=== PATIENT | male | born 1980 | race African-American/Black ===

== ENCOUNTER 2017-07-02 17:31 | Emergency (ER) | payer SELFPAY ==
[2017-07-02 17:37] VITALS: BP 144/73; PULSE 77; TEMP 97.5; BMI 27.3
--- NOTE | 2017-07-02 18:14 | PDOC ---
History of Present Illness - General Chief Complaint: Toothache Stated Complaint: TOOTH INFECTION Time Seen by Provider: 07/02/17 17:45 History Source: Patient Exam Limitations: No Limitations - History of Present Illness Initial Comments: 07/02/17 18:07 Patient is a 36-year-old male, history of HIV on atripla presents for evaluation of dental pain to left upper mouth and cracked tooth to right upper mouth. Patient states he will see a dentist on Friday pain started today and has increasingly gotten worse concerned he may have an abscess. No fever. Facial edema. Has been taking Tylenol with resolve of symptoms. Past Medical History: Denies. Allergies: Patient reports he does have a penicillin allergy however is not documented, Bactrim Medications: See medication list Family History: Non-contributory Social History: Denies smoking, alcohol use, or IVDU Review of Systems GENERAL/CONSTITUTIONAL: No fever or chills. No weakness. No weight change. HEAD, EYES, EARS, NOSE AND THROAT: No change in vision. No ear pain or discharge. No sore throat. Significant dental decay, cracked tooth #5 and cracked tooth #12. CARDIOVASCULAR: No chest pain or shortness of breath. RESPIRATORY: No cough, wheezing, or hemoptysis. GASTROINTESTINAL: No nausea, vomiting, diarrhea or constipation. No rectal bleeding. GENITOURINARY: No dysuria, frequency, or change in urination. MUSCULOSKELETAL: No joint or muscle swelling or pain. No neck or back pain. SKIN: No rash or easy bruising. NEUROLOGIC: No headache, vertigo, loss of consciousness, or loss of sensation. HEMATOLOGIC/LYMPHATIC: No anemia, easy bleeding, or history of blood clots. No lymphadenopathy Physical Exam: GENERAL: The patient is awake, alert, and fully oriented, in no acute distress. EYES: Pupils equal, round and reactive to light, extraocular movements intact, sclera anicteric, conjunctiva clear. ENT: Ears normal, nares patent, oropharynx clear without exudates. Moist mucous membranes. No uvula deviation. No facial edema. Cracked tooth #5 and cracked tooth #12 with root exposure there is no visible abscess at gumline, and however patient reports pain and fullness. NECK: Normal range of motion, supple without lymphadenopathy, JVD, or masses. LUNGS: Breath sounds equal, clear to auscultation bilaterally. No wheezes, and no crackles. HEART: Regular rate and rhythm, normal S1 and S2 without murmur, rub or gallop. ABDOMEN: Soft, nontender, normoactive bowel sounds. No guarding, no rebound. No masses. No bruising or abrasions MUSCULOSKELETAL: Normal range of motion, no edema. No clubbing or cyanosis. No cords, erythema, or tenderness. No CVA Tenderness with fist. SKIN: Warm, Dry, normal turgor, no rashes or lesions noted. 07/02/17 18:16 07/02/17 18:21 Past History - Past Medical History Allergies/Adverse Reactions: Allergies Allergy/AdvReac Type Severity Reaction Status Date / Time sulfamethoxazole Allergy Rash Verified 07/02/17 17:36 [From Bactrim] trimethoprim [From Bactrim] Allergy Rash Verified 07/02/17 17:36 Home Medications: Ambulatory Orders Efavirenz/Emtricitab/Tenofovir [Atripla Tablet -] 1 tab PO DAILY #30 tab Acetaminophen [Tylenol] 325 mg PO ASDIR 07/02/17 Clindamycin [Cleocin -] 300 mg PO TID #30 capsule 07/02/17 Oxycodone HCl/Acetaminophen [Percocet 5-325 mg Tablet] 1 tab PO Q6H #8 tablet MDD 4 07/02/17 Anemia: No Asthma: No Cancer: No Cardiac Disorders: No CVA: No COPD: No CHF: No Dementia: No Diabetes: No GI Disorders: No Disorders: No HTN: No Liver Disease: No Seizures: No Thyroid Disease: No - Surgical History Abdominal Surgery: No Appendectomy: No Cardiac Surgery: No Cholecystectomy: No Lung Surgery: No Neurologic Surgery: No Orthopedic Surgery: No - Immunization History Immunization Up to Date: No - Suicide/Smoking/Psychosocial Hx Smoking History: Current every day smoker Have you smoked in the past 12 months: Yes Number of Cigarettes Smoked Daily: 10 If you are a former smoker, when did you quit?: 2008 Cigars Per Day: 0 Information on smoking cessation initiated: Yes 'Breaking Loose' booklet given: 07/02/17 Hx Alcohol Use: Yes (SOCIAL) Drug/Substance Use Hx: No Substance Use Type: None Hx Substance Use Treatment: No *Physical Exam - Vital Signs Last Vital Signs Temp Pulse Resp BP Pulse Ox 97.5 F L 77 20 144/73 95 07/02/17 17:34 07/02/17 17:34 07/02/17 17:34 07/02/17 17:34 07/02/17 17:34 Medical Decision Making - Medical Decision Making 07/02/17 18:11 A/P: Patient here for evaluation of significant dental decay with pain. We'll discharge patient home on clindamycin, Percocet for pain. Patient has an appointment on Friday will follow up with dental if any increased pain, facial edema, lymphadenopathy, or any other concerns including fever return to ER. 07/02/17 18:17 *DC/Admit/Observation/Transfer Diagnosis at time of Disposition: Pain, dental - Discharge Dispostion Disposition: HOME Condition at time of disposition: Good Admit: No - Prescriptions Prescriptions: Clindamycin [Cleocin -] 300 mg PO TID #30 capsule Oxycodone HCl/Acetaminophen [Percocet 5-325 mg Tablet] 1 tab PO Q6H #8 tablet MDD 4 - Patient Instructions Printed Discharge Instructions: DI for Dental Pain Additional Instructions: please take antibiotics as ordered, warm saltwater gargles, follow-up with dental on Friday
== END 2017-07-02 18:29 | disposition home or self-care (01) ==
LOC: JERFT 17:31
DX: K08.89 Other specified disorders of teeth and supporting structures (principal); F17.210 Nicotine dependence, cigarettes, uncomplicated; Z21 Asymptomatic human immunodeficiency virus [HIV] infection status
CPT/HCPCS: 99281-25

== ENCOUNTER 2018-03-15 09:09 | Inpatient (IN) | payer OTHER ==
[2018-03-15] MEDS ORDERED: SODIUM CHLORIDE 1,000 ML IV STA (09:34)
[2018-03-15] MEDS ORDERED: ACETAMINOPHEN INJECTION 100 ML IVPB ONE (09:34)
[2018-03-15] MEDS ORDERED: ACETAMINOPHEN 1000 MG/100 ML VIAL (NON FORMULARY) IVPB ONE (09:36)
[2018-03-15 10:01] LABS: VENOUS PC02 29.3 mmHg (38-52); VENOUS PH 7.52 (7.32-7.42)
[2018-03-15 10:02] LABS: VENOUS PO2 46.1 mmHg (28-48)
[2018-03-15 10:05] LABS: BASO % 0.2 % (0-2.0); EOS % 0.1 % (0-4.5); HEMATOCRIT 40.9 % (35.4-49); HEMOGLOBIN 14.1 GM/dL (11.7-16.9); LYMPH % 9.3 % (8-40); MCHC 34.5 g/dl (32.0-35.9); MEAN CELL VOLUME 95.9 fl (80-96); MEAN PLT VOLUME 9.7 fl (7.5-11.1); NEUT % 77.4 % (42.8-82.8); PLATELET COUNT 132 K/MM3 (134-434); RBC 4.26 M/mm3 (4.00-5.60); RDW 13.5 % (11.9-15.9); WHITE BLOOD COUNT 6.8 K/mm3 (4.0-10.0)
[2018-03-15] MEDS ORDERED: PIPERACILLIN/TAZOB 3.375 GM 3.375 GM in DEXTROSE 5%-WATER - 50 ML IVPB ONE (10:10)
[2018-03-15] MEDS ORDERED: VANCOMYCIN 1,000 MG in DEXTROSE 5%-WATER - 250 ML IVPB ONE (10:10)
--- NOTE | 2018-03-15 10:11 | PDOC ---
History of Present Illness - General History Source: Patient, Old Records Exam Limitations: No Limitations - History of Present Illness Initial Comments: 03/15/18 12:17 Patient is a 37 year old female with a significant past medical history of HIV on atripla who presents to the ED with complaints of shortness of breath that began yesterday. Patient reports experiencing productive cough and shortness of breath that began yesterday at 5 pm after visiting his [place] in [place]. Patient reports beginning to experience Sob but states he initially thought it to be seasonal allergies as he has experienced that before. He reports feeling like there is fluid in his lungs, stating he has felt this before and was diagnosed with fluid in his lungs secondary to respiratory infection, prompting him to come into the ED for further evaluation. Patient states he does not believe this to be pneumonia stating he has experienced pneumonia before and these symptoms do not feel similar. Denies chest pain. Denies nausea, vomiting. Denies chills. Denies contact with sick individuals, out of state travelling. Denies dysuria, hematuria. Denies constipation, diarrhea. Denies any other symptoms. Allergies: Bactrim Social history: Current smoker (2 cigarettes per day). No alcohol. No illicit drugs. Surgical history: None PMD: None <Armando Salvador - Last Filed: 03/15/18 12:16> <Erika Morgan - Last Filed: 03/15/18 14:04> - General Chief Complaint: Respiratory Stated Complaint: SOB, COUGH Time Seen by Provider: 03/15/18 09:34 Past History <Armando Salvador - Last Filed: 03/15/18 12:16> - Past Medical History Anemia: No Asthma: No Cancer: No Cardiac Disorders: No CVA: No COPD: No CHF: No Dementia: No Diabetes: No GI Disorders: No Disorders: No HTN: No Liver Disease: No Seizures: No Thyroid Disease: No - Surgical History Abdominal Surgery: No Appendectomy: No Cardiac Surgery: No Cholecystectomy: No Lung Surgery: No Neurologic Surgery: No Orthopedic Surgery: No - Immunization History Immunization Up to Date: No - Suicide/Smoking/Psychosocial Hx Smoking History: Current every day smoker Have you smoked in the past 12 months: Yes Number of Cigarettes Smoked Daily: 10 If you are a former smoker, when did you quit?: 2008 Cigars Per Day: 0 Information on smoking cessation initiated: No 'Breaking Loose' booklet given: 07/02/17 Hx Alcohol Use: Yes (SOCIAL) Drug/Substance Use Hx: No Substance Use Type: None Hx Substance Use Treatment: No <Erika Morgan - Last Filed: 03/15/18 14:04> - Past Medical History Allergies/Adverse Reactions: Allergies Allergy/AdvReac Type Severity Reaction Status Date / Time sulfamethoxazole Allergy Rash Verified 03/15/18 09:16 [From Bactrim] trimethoprim [From Bactrim] Allergy Rash Verified 03/15/18 09:16 Home Medications: Ambulatory Orders Efavirenz/Emtricitab/Tenofovir [Atripla Tablet -] 1 tab PO DAILY #30 tab Review of Systems - Review of Systems Able to Perform ROS?: Yes Comments:: 03/15/18 12:17 GENERAL/CONSTITUTIONAL: +Fever No chills. No weakness. HEAD, EYES, EARS, NOSE AND THROAT: No change in vision. No ear pain or discharge. No sore throat. GASTROINTESTINAL: No nausea, vomiting, diarrhea or constipation. GENITOURINARY: No dysuria, frequency, or change in urination. CARDIOVASCULAR: No chest pain or shortness of breath. RESPIRATORY: +Coughing. +Shortness of breath. No wheezing, or hemoptysis. MUSCULOSKELETAL: +Slight abdominal pain. No joint or muscle swelling or pain. No neck or back pain. SKIN: No rash NEUROLOGIC: +body numbness. No headache, vertigo, loss of consciousness, or change in strength/sensation. ENDOCRINE: No increased thirst. No abnormal weight change. HEMATOLOGIC/LYMPHATIC: No anemia, easy bleeding, or history of blood clots. ALLERGIC/IMMUNOLOGIC: No hives or skin allergy. All Other Systems: Reviewed and Negative <Armando Salvador - Last Filed: 03/15/18 12:16> *Physical Exam - Vital Signs Last Vital Signs Temp Pulse Resp BP Pulse Ox 100.3 F H 95 H 18 109/62 95 03/15/18 11:05 03/15/18 11:05 03/15/18 11:05 03/15/18 11:05 03/15/18 11:05 <Armando Salvador - Last Filed: 03/15/18 12:16> - Vital Signs Last Vital Signs Temp Pulse Resp BP Pulse Ox 103.1 F H 126 H 20 112/69 92 L 03/15/18 09:13 03/15/18 09:13 03/15/18 09:13 03/15/18 09:13 03/15/18 09:13 - Physical Exam Comments: GENERAL: Awake, alert, and fully oriented, in no acute distress. Appears ill but nontoxic. HEAD: No signs of trauma EYES: PERRLA, EOMI, sclera anicteric, conjunctiva clear ENT: Auricles normal inspection, hearing grossly normal, nares patent, oropharynx clear without exudates. Dry mucosa NECK: Normal ROM, supple, no lymphadenopathy, JVD, or masses LUNGS: Breath sounds equal, +Rhonchi B/L. HEART: Regular rate and rhythm, normal S1 and S2, no murmurs, rubs or gallops ABDOMEN: Soft, nontender, normoactive bowel sounds. No guarding, no rebound. No masses EXTREMITIES: Normal range of motion, no edema. No clubbing or cyanosis. No cords, erythema, or tenderness NEUROLOGICAL: Cranial nerves II through XII grossly intact. Normal speech, normal gait. Motor and sensation intact. SKIN: Warm, Dry, normal turgor, no rashes or lesions noted. <Erika Morgan - Last Filed: 03/15/18 14:04> ED Treatment Course - LABORATORY CBC & Chemistry Diagram: 03/15/18 09:48 03/15/18 09:48 - ADDITIONAL ORDERS Additional order review: Laboratory Results 03/15/18 03/15/18 03/15/18 11:04 09:48 09:48 PT with INR INR PTT (Actin FS) VBG pH POC VBG pCO2 POC VBG pO2 Mixed VBG HCO3 Sodium 135 L Potassium 3.1 L Chloride 99 Carbon Dioxide 26 Anion Gap 10 BUN 11 D Creatinine 1.3 D Creat Clearance w eGFR > 60 Random Glucose 84 Lactic Acid 1.8 Calcium 7.0 L Total Bilirubin 0.6 D AST 37 D ALT 38 D Alkaline Phosphatase 76 LD Total 381 H D Troponin I < 0.02 Total Protein 6.8 Albumin 3.1 L Urine Color Yellow Urine Appearance Clear Urine pH 7.0 Ur Specific [place] 1.015 Urine Protein 1+ H Urine Glucose (UA) Negative Urine Ketones Negative Urine Blood Negative Urine Nitrite Negative Urine Bilirubin Negative Urine Urobilinogen 2.0 Ur Leukocyte Esterase Negative Urine WBC (Auto) 1 Urine RBC (Auto) <1 03/15/18 03/15/18 03/15/18 09:48 09:40 09:40 PT with INR 16.50 H INR 1.46 H D PTT (Actin FS) 29.3 VBG pH 7.52 H POC VBG pCO2 29.3 L POC VBG pO2 46.1 Mixed VBG HCO3 23.9 Sodium Potassium Chloride Carbon Dioxide Anion Gap BUN Creatinine Creat Clearance w eGFR Random Glucose Lactic Acid Calcium Total Bilirubin AST ALT Alkaline Phosphatase LD Total Cancelled Troponin I Total Protein Albumin Urine Color Urine Appearance Urine pH Ur Specific [place] Urine Protein Urine Glucose (UA) Urine Ketones Urine Blood Urine Nitrite Urine Bilirubin Urine Urobilinogen Ur Leukocyte Esterase Urine WBC (Auto) Urine RBC (Auto) 03/15/18 09:48 Influenza Types A,B Antigen - Preliminary Nasopharyngeal Swab - Preliminary 03/15/18 09:48 RBC 4.26 MCV 95.9 MCHC 34.5 RDW 13.5 MPV 9.7 D Neutrophils % 77.4 D Lymphocytes % 9.3 D Monocytes % 13.0 H Eosinophils % 0.1 D Basophils % 0.2 - Medications Given in the ED: ED Medications Discontinued Medications Generic Name Dose Route Start Last Admin Trade Name Freq PRN Reason Stop Dose Admin Acetaminophen 1,000 mg 03/15/18 09:36 03/15/18 09:55 Ofirmev Injection - IVPB 03/15/18 09:37 1,000 mg ONCE ONE Administration Albuterol Sulfate 1 amp 03/15/18 10:13 03/15/18 10:34 Ventolin 0.083% Nebulizer Soln - NEB 03/15/18 10:14 1 amp ONCE ONE Administration Sodium Chloride 1,000 mls @ 1,000 mls/hr 03/15/18 09:34 03/15/18 09:55 Normal Saline - IV 03/15/18 10:33 1,000 mls/hr ASDIR STA Administration Vancomycin HCl 1,000 mg/ 250 mls @ 166.667 mls/hr 03/15/18 10:10 03/15/18 10: 56 Dextrose IVPB 03/15/18 11:39 166.667 mls/hr ONCE ONE Administration Protocol Piperacillin Sod/Tazobactam 50 mls @ 100 mls/hr 03/15/18 10:10 03/15/18 10:34 Sod 3.375 gm/ Dextrose IVPB 03/15/18 10:39 100 mls/hr ONCE ONE Administration Protocol Potassium Chloride 40 meq 03/15/18 11:03 03/15/18 11:23 K-Dur - PO 03/15/18 11:04 40 meq ONCE ONE Administration <Armando Salvador - Last Filed: 03/15/18 12:16> - LABORATORY CBC & Chemistry Diagram: 03/15/18 09:48 03/15/18 09:48 - ADDITIONAL ORDERS Additional order review: Laboratory Results 03/15/18 09:40 VBG pH 7.52 H POC VBG pCO2 29.3 L POC VBG pO2 46.1 Mixed VBG HCO3 23.9 - RADIOLOGY Radiology Studies Ordered: Category Date Time Status CHEST X-RAY PORTABLE* [RAD] Stat Radiology 03/15/18 09:34 Taken - Medications Given in the ED: ED Medications Discontinued Medications Generic Name Dose Route Start Last Admin Trade Name Luis A PRN Reason Stop Dose Admin Acetaminophen 1,000 mg 03/15/18 09:36 03/15/18 09:55 Ofirmev Injection - IVPB 03/15/18 09:37 1,000 mg ONCE ONE Administration <Erika Morgan - Last Filed: 03/15/18 14:04> Medical Decision Making - Medical Decision Making 03/15/18 12:45 Patient with fever, unknown CD4 count. Prior history of HIV, has been off atripla for past few months due to insurance issues. He has cough with high fever today. Patient with elevated A-a gradient on ABG. CXR is negative. Poss PCP? D/w Dr. Castañeda, recommended CT chest. Paged hospitalist for admission. <Erika Morgan - Last Filed: 03/15/18 14:04> *DC/Admit/Observation/Transfer - Attestations Scribe Attestion: 03/15/18 12:17 Documentation prepared by Armando Salvador, acting as medical claims assistant for Erika Morgan MD. <Armando Salvador - Last Filed: 03/15/18 12:16> - Discharge Dispostion Decision to Admit order: Yes <Erika Morgan - Last Filed: 03/15/18 14:04> Diagnosis at time of Disposition: AIDS (acquired immune deficiency syndrome) Fever Qualifiers: Fever type: unspecified Qualified Code(s): R50.9 - Fever, unspecified - Discharge Dispostion Condition at time of disposition: Stable
[2018-03-15] MEDS ORDERED: ALBUTEROL SO4 0.083% IH SOL 2.5 MG/3 ML VIAL.NEB. NEB ONE ×2 (10:13→10:25)
[2018-03-15] MEDS ORDERED: PIPERACILLIN/TAZOB 3.375 GM 3.375 GM/50 ML BAG IVPB ONE (10:25)
[2018-03-15] MEDS ORDERED: VANCOMYCIN 1 GRAM (PRE-DOCKED) 1,000 MG/250 ML BAG IVPB ONE (10:25)
[2018-03-15 10:38] LABS: ALBUMIN 3.1 g/dl (3.4-5.0); ANION GAP 10 (8-16); BILIRUBIN,TOTAL 0.6 mg/dL (0.2-1.0); BLOOD UREA NITROGEN 11 mg/dL (7-18); CHLORIDE 99 mmol/L (98-107); CO2 26 mmol/L (21-32); CREATININE 1.3 mg/dL (0.7-1.3); GLUCOSE,RANDOM 84 mg/dL (74-106); POTASSIUM 3.1 mmol/L (3.5-5.1); SGOT/AST 37 U/L (15-37); SGPT/ALT 38 U/L (12-78); SODIUM 135 mmol/L (136-145); TOT PROT 6.8 g/dl (6.4-8.2)
[2018-03-15 10:40] LABS: ALK PHOS 76 U/L (45-117)
[2018-03-15 11:00] LABS: PLATELET ESTIMATE DECREASED
[2018-03-15] MEDS ORDERED: CALCIUM GLUCONATE 10% - 1,000 MG/10 ML VIAL IVPB ONE (11:03)
[2018-03-15] MEDS ORDERED: POTASSIUM CHLORIDE TABS 20 MEQ TABLET.ER (FP) PO ONE ×3 (11:03→17:09)
[2018-03-15 11:12] LABS: LDH 381 U/L (87-241)
[2018-03-15] MEDS ORDERED: POTASSIUM CHLORIDE TABS 10 MEQ TABLET.ER (FP) ONE (11:16)
[2018-03-15 11:31] LABS: INR 1.46 (0.82-1.09); PROTHROMBIN TIME (PATIENT) 16.5 SEC (9.7-13.0)
[2018-03-15 11:32] LABS: ACTIVATED PTT 29.3 SECONDS (26.9-34.4)
[2018-03-15 11:33] LABS: URINE APPEARANCE CLEAR; URINE BILIRUBIN NEGATIVE (<2.0 mg/dL); URINE BLOOD NEGATIVE (NEGATIVE); URINE COLOR YELLOW; URINE GLUCOSE (UA) NEGATIVE (NEGATIVE); URINE KETONE NEGATIVE (NEGATIVE); URINE LEUK ESTERASE NEGATIVE (NEGATIVE); URINE NITRITE NEGATIVE (NEGATIVE)
[2018-03-15 11:34] LABS: URINE PROTEIN 1+ (NEGATIVE)
[2018-03-15 12:30] LABS: ARTERIAL BLD GAS O2 SATURATION 94.3 % (90-98.9); ARTERIAL BLOOD GAS PCO2 32.4 mmHg (35-45); ARTERIAL BLOOD GAS PO2 67.9 mmHg (80-100); ARTERIAL BLOOD GAS pH 7.47 (7.35-7.45)
[2018-03-15 12:32] LABS: ALLENS TEST POSITIVE
[2018-03-15] MEDS ORDERED: ACETAMINOPHEN 325 MG TABLET (FP) PO PRN (15:40)
[2018-03-15 15:43] VITALS: BMI 30.8
--- NOTE | 2018-03-15 16:09 | PN ---
Progress Note (short form) - Note Progress Note: ID Consult dictated Bilateral pneumonia ? community acquired/ atypical ? AFB ( nodular appearance, low CD4, recent incarceration) AIDS non- compliant AFB isolation Sputum AFB, c/s Legionella/ pneumococcal ag Quantiferon Empiric zithromax/ ceftriaxone PCP prophylaxis Mepron (sulfa allergy)
[2018-03-15] MEDS ORDERED: DEXTROSE 5%-WATER 100 ML IVPB ONE (16:22)
[2018-03-15] MEDS: CEFTRIAXONE 2 GM in DEXTROSE 5%-WATER 100 ML IVPB SCH (16:23)
--- NOTE | 2018-03-15 17:09 | HP ---
CHIEF COMPLAINT: PCP: HISTORY OF PRESENT ILLNESS: Patient is a 37 year old male with a significant past medical history of HIV+ on Atriplia (patient reports non compliance secondary to insurance). Patient presents to the ED today with complaints of worsening shortness of breath that began yesterday and worsened today. He has a productive cough and now more short of breath with physical activity. Patient reports that when visiting his father in skilled nursing yesterday, his breathing worsened. He feels congested and that there is fluid sitting in his lungs. Patient denies chest pain, denies vomiting , fever or chills. He has not taken his HIV triple therapy secondary to insurance issues and not has followed up with a physician. He was seen at the [facility] on 10/2016 and cd4 helper cells noted to be [address] done on admission shows bilateral pneumonia. He is tolerating room air with stable oxygen sats, however is short of breath with exertion. Based on his history and low CD4 count, patient is being ruled out for pneumocystitis carinii pneumonia. He is currently on AFB isolation. ER course was notable for: (1) Empiric Zithromax, ceftriazone (2) Chest xary: congestive and infiltrative findings (3) Chest ct: diffused pneumonia involving the right upper and lower lobes as well as the left lower lobe (4) EKG: sinus tachycardia, possible left atrial englargement, non specific t wave abnormality, non specific t wave abnormality worse in lateral leads Recent Travel: PAST MEDICAL HISTORY: HIV PAST SURGICAL HISTORY: Social History: Smoking: current daily smoker Alcohol: denies Drugs: denies Family History: Allergies sulfamethoxazole [From Bactrim] Allergy (Verified 03/15/18 09:16) Rash trimethoprim [From Bactrim] Allergy (Verified 03/15/18 09:16) Rash HOME MEDICATIONS: Home Medications Medication Instructions Recorded Efavirenz/Emtricitab/Tenofovir 1 tab PO DAILY #30 tab 10/17/16 [Atripla Tablet -] PHYSICAL EXAMINATION Vital Signs - 24 hr 03/15/18 03/15/18 03/15/18 09:13 11:05 12:46 Temperature 103.1 F H 100.3 F H Pulse Rate 126 H Pulse Rate [ 95 H Right Radial] Respiratory 20 18 Rate Blood Pressure 112/69 Blood Pressure 109/62 [Left Arm] O2 Sat by Pulse 92 L 95 95 Oximetry (%) 03/15/18 03/15/18 03/15/18 14:00 15:41 16:16 Temperature 99.7 F H 98.7 F Pulse Rate 99 H Pulse Rate [ 98 H Right Radial] Respiratory 18 20 20 Rate Blood Pressure 125/94 Blood Pressure 107/68 [Left Arm] O2 Sat by Pulse 98 98 Oximetry (%) GENERAL: Awake, alert, and fully oriented, in no acute distress. HEAD: Normal with no signs of trauma. EYES: Pupils equal, round and reactive to light, extraocular movements intact, sclera anicteric, conjunctiva clear. No lid lag. EARS, NOSE, THROAT: Ears normal, nares patent, oropharynx clear without exudates. Moist mucous membranes. NECK: Normal range of motion, supple without lymphadenopathy, JVD, or masses. LUNGS: Breath sounds equal, bilateral lungs sounds with scattered rhonchi, tolerating room air HEART: Regular rate and rhythm, normal S1 and S2 without murmur, rub or gallop. ABDOMEN: Soft, nontender, not distended, normoactive bowel sounds, no guarding, no rebound, no masses. No hepatomegaly or splenomegaly. MUSCULOSKELETAL: Normal range of motion at all joints. No bony deformities or tenderness. No CVA tenderness. UPPER EXTREMITIES: 2+ pulses, warm, well-perfused. No cyanosis. No clubbing. No peripheral edema. LOWER EXTREMITIES: 2+ pulses, warm, well-perfused. No calf tenderness. No peripheral edema. NEUROLOGICAL: Normal speech. Normal gait. PSYCHIATRIC: Cooperative. Good eye contact. Appropriate mood and affect. SKIN: Warm, dry, normal turgor, no rashes or lesions noted, normal capillary refill. Laboratory Results - last 24 hr 03/15/18 03/15/18 03/15/18 09:40 09:40 09:48 WBC 6.8 D RBC 4.26 Hgb 14.1 Hct 40.9 MCV 95.9 MCH 33.0 MCHC 34.5 RDW 13.5 Plt Count 132 L D MPV 9.7 D Total Counted 100 Neutrophils % 77.4 D Neutrophils % (Manual) 63.0 Band Neutrophils % 10.0 Lymphocytes % 9.3 D Lymphocytes % (Manual) 4.0 L Monocytes % 13.0 H Monocytes % (Manual) 18 H Eosinophils % 0.1 D Eosinophils % (Manual) 1.0 Basophils % 0.2 Myelocytes % (Man) 2 Nucleated RBC % 0 Metamyelocytes 2 Platelet Estimate Decreased PT with INR INR PTT (Actin FS) Puncture Site ABG pH ABG pCO2 at Pt Temp ABG pO2 at Pt Temp ABG HCO3 ABG O2 Sat (Measured) ABG O2 Content ABG Base Excess Buck Test VBG pH 7.52 H POC VBG pCO2 29.3 L POC VBG pO2 46.1 Mixed VBG HCO3 23.9 Oxygen Flow Rate Sodium Potassium Chloride Carbon Dioxide Anion Gap BUN Creatinine Creat Clearance w eGFR Random Glucose Lactic Acid Calcium Total Bilirubin AST ALT Alkaline Phosphatase LD Total Cancelled Troponin I Total Protein Albumin Urine Color Urine Appearance Urine pH Ur Specific Cic[place] Urine Protein Urine Glucose (UA) Urine Ketones Urine Blood Urine Nitrite Urine Bilirubin Urine Urobilinogen Ur Leukocyte Esterase Urine WBC (Auto) Urine RBC (Auto) 03/15/18 03/15/18 03/15/18 09:48 09:48 09:48 WBC RBC Hgb Hct MCV MCH MCHC RDW Plt Count MPV Total Counted Neutrophils % Neutrophils % (Manual) Band Neutrophils % Lymphocytes % Lymphocytes % (Manual) Monocytes % Monocytes % (Manual) Eosinophils % Eosinophils % (Manual) Basophils % Myelocytes % (Man) Nucleated RBC % Metamyelocytes Platelet Estimate PT with INR 16.50 H INR 1.46 H D PTT (Actin FS) 29.3 Puncture Site ABG pH ABG pCO2 at Pt Temp ABG pO2 at Pt Temp ABG HCO3 ABG O2 Sat (Measured) ABG O2 Content ABG Base Excess Buck Test VBG pH POC VBG pCO2 POC VBG pO2 Mixed VBG HCO3 Oxygen Flow Rate Sodium 135 L Potassium 3.1 L Chloride 99 Carbon Dioxide 26 Anion Gap 10 BUN 11 D Creatinine 1.3 D Creat Clearance w eGFR > 60 Random Glucose 84 Lactic Acid 1.8 Calcium 7.0 L Total Bilirubin 0.6 D AST 37 D ALT 38 D Alkaline Phosphatase 76 LD Total 381 H D Troponin I < 0.02 Total Protein 6.8 Albumin 3.1 L Urine Color Urine Appearance Urine pH Ur Specific [place] Urine Protein Urine Glucose (UA) Urine Ketones Urine Blood Urine Nitrite Urine Bilirubin Urine Urobilinogen Ur Leukocyte Esterase Urine WBC (Auto) Urine RBC (Auto) 03/15/18 03/15/18 03/15/18 11:04 12:21 14:55 WBC RBC Hgb Hct MCV MCH MCHC RDW Plt Count MPV Total Counted Neutrophils % Neutrophils % (Manual) Band Neutrophils % Lymphocytes % Lymphocytes % (Manual) Monocytes % Monocytes % (Manual) Eosinophils % Eosinophils % (Manual) Basophils % Myelocytes % (Man) Nucleated RBC % Metamyelocytes Platelet Estimate PT with INR INR PTT (Actin FS) Puncture Site ABG pH 7.47 H ABG pCO2 at Pt Temp 32.4 L ABG pO2 at Pt Temp 67.9 L ABG HCO3 23.5 ABG O2 Sat (Measured) 94.3 ABG O2 Content 17.8 ABG Base Excess 1.0 Buck Test Positive VBG pH POC VBG pCO2 POC VBG pO2 Mixed VBG HCO3 Oxygen Flow Rate No Result Required. Sodium Potassium Chloride Carbon Dioxide Anion Gap BUN Creatinine Creat Clearance w eGFR Random Glucose Lactic Acid 1.8 Calcium Total Bilirubin AST ALT Alkaline Phosphatase LD Total Troponin I Total Protein Albumin Urine Color Yellow Urine Appearance Clear Urine pH 7.0 Ur Specific [place] 1.015 Urine Protein 1+ H Urine Glucose (UA) Negative Urine Ketones Negative Urine Blood Negative Urine Nitrite Negative Urine Bilirubin Negative Urine Urobilinogen 2.0 Ur Leukocyte Esterase Negative Urine WBC (Auto) 1 Urine RBC (Auto) <1 03/15/18 16:05 WBC RBC Hgb Hct MCV MCH MCHC RDW Plt Count MPV Total Counted Neutrophils % Neutrophils % (Manual) Band Neutrophils % Lymphocytes % Lymphocytes % (Manual) Monocytes % Monocytes % (Manual) Eosinophils % Eosinophils % (Manual) Basophils % Myelocytes % (Man) Nucleated RBC % Metamyelocytes Platelet Estimate PT with INR INR PTT (Actin FS) Puncture Site ABG pH ABG pCO2 at Pt Temp ABG pO2 at Pt Temp ABG HCO3 ABG O2 Sat (Measured) ABG O2 Content ABG Base Excess Buck Test VBG pH POC VBG pCO2 POC VBG pO2 Mixed VBG HCO3 Oxygen Flow Rate Sodium Potassium 3.3 L Chloride Carbon Dioxide Anion Gap BUN Creatinine Creat Clearance w eGFR Random Glucose Lactic Acid Calcium Total Bilirubin AST ALT Alkaline Phosphatase LD Total Troponin I Total Protein Albumin Urine Color Urine Appearance Urine pH Ur Specific [place] Urine Protein Urine Glucose (UA) Urine Ketones Urine Blood Urine Nitrite Urine Bilirubin Urine Urobilinogen Ur Leukocyte Esterase Urine WBC (Auto) Urine RBC (Auto) ASSESSMENT/PLAN: Patient is a 37 year old male with a significant past medical history of HIV+ on Atriplia (patient reports non compliance secondary to insurance). Patient presents to the ED today with complaints of worsening shortness of breath that began yesterday and worsened today. He has a productive cough and now more short of breath with physical activity. Patient reports that when visiting his father in skilled nursing yesterday, his breathing worsened. He feels congested and that there is fluid sitting in his lungs. Patient denies chest pain, denies vomiting , fever or chills. He has not taken his HIV triple therapy secondary to insurance issues and not has followed up with a physician. He was seen at the [facility] on 10/2016 and cd4 helper cells noted to be [address] done on admission shows bilateral pneumonia. He is tolerating room air with stable oxygen sats, however is short of breath with exertion. Based on his history and low CD4 count, patient is being ruled out for pneumocystitis carinii pneumonia. He is currently on AFB isolation. Imaging: Chest xray congestive infiltrate changes Chest CT: diffused pneumonia involving the right upper and lower lobes as well as the left lower lobe ID: Sepsis in the setting of Immunosuppression from HIV/AIDS Rule out PCP Bilateral Pneumonia Monitor oxygen sats and maintain above 92%, supplement oxygen as needed. Started on PCP prophylaxis: Mepron 1500mg daily, emperic Zithrmax and Ceftraxone (Has Bactrim allergy). AFB ordered, Legionella. cd3,4,8 counts. Monitor fever curve. Pulmonary consulted. AFB isolation. ID on board. Shortness of breath, acute Rule out ACS EKG with sinus tachycardia, possible left atrial englargement, non specific t wave abnormality, non specific t wave abnormality worse in lateral leads. Continue to trend trops, negative x 2. Echo ordered. Consider cardiology consult. Duonebs scheduled. Oxygen @ 2 liters prn ordered. F.E.N. Fluids: tolerating PO Electrolytes: monitor daily Nutrition: low salt Prophy: DVT: heparin BID GI: Protonix Disposition: full code. Visit type - Emergency Visit Emergency Visit: Yes ED Registration Date: 03/15/18 Care time: The patient presented to the Emergency Department on the above date and was hospitalized for further evaluation of their emergent condition. - New Patient This patient is new to me today: Yes Date on this admission: 03/15/18 - Critical Care Critical Care patient: No Hospitalist Screening - Colonoscopy Questionnaire Colonoscopy Questionnaire: Colonoscopy Questionnaire - Patient: 50 - 75 years old and never had a screening colonoscopy: Unknown History of colon or rectal polyps, or CA: Unknown History of IBD, Crohn's disease or UC: Unknown History of abdominal radiation therapy as a child: Unknown - Relative: 1 with colon or rectal CA, or polyps at age 60 or younger: Unknown Colon or rectal CA diagnosed at age 45 or younger: Unknown Multiple relatives with colon or rectal CA: Unknown - Outcome: Screening Result: Negative Screen
[2018-03-15] MEDS: EMTRICITABINE 200MG/TENOFOVIR 300MG PO SCH (17:11)
[2018-03-15] MEDS: AZITHROMYCIN IVPB 500 MG in DEXTROSE 5%-WATER - 250 ML IVPB SCH (17:11)
[2018-03-15] MEDS: ATOVAQUONE 750 MG/5 ML (UNIT-DOSE PACKAGING) PO SCH ×2 (17:11→17:23)
[2018-03-15] MEDS: EFAVIRENZ 600 MG TABLET PO SCH (17:12)
--- NOTE | 2018-03-15 18:13 | CONS ---
DATE OF CONSULTATION: 03/15/2018 The patient is a 37-year-old male with a history of acquired immunodeficiency syndrome, noncompliant with antiretroviral therapy, evaluated for pneumonia. The patient reports a 1-day history of worsening shortness of breath and cough productive of whitish sputum. He presented to the emergency room, where CAT scan of the chest shows patchy infiltrates involving the right upper lobe and bilateral lower lobes. Infiltrates in some areas are nodular in appearance. There is no evidence of cavitation or apical involvement. The patient reports cough productive of whitish sputum. He denies any hemoptysis. No complaints of chest pain. He denies any associated fever or chills. No known ill contacts. He was recently incarcerated last year, and was visiting his father in [place]. He states he is PPD negative. Recent tobacco use, reports stopping. Past medical history is positive for acquired immunodeficiency syndrome. He has had a long history of noncompliance with his antiretroviral therapy. He was last seen in the [facility] in October of 2016, at which time his T cell count was 7. Patient states he had been seeing Dr. Luo in the office, however, has been off his antiretroviral therapy for several months. He has not been taking PCP prophylaxis. Allergies to SULFA. Medications as an outpatient included Atripla and Mepron. SOCIAL HISTORY: Positive history of tobacco use. Occasional EtOH. Recent incarceration. SYSTEMS REVIEW: Neurologic: No loss of consciousness, seizure activity, or focal weakness. Cardiac: Negative chest pain or palpitations. Respiratory: As per HPI. Gastrointestinal: Negative vomiting or diarrhea. Genitourinary: Negative for urinary tract infection. LABORATORY DATA: White count 6.8 with left shift, hematocrit 40.9, platelet count 132, BUN 11, creatinine 1.3, LDH 381. Urinalysis: 1 white cell. PHYSICAL EXAMINATION: General: He is in no acute distress. Vital Signs: Temperature 98.7. Blood pressure 125/94. Pulse 99, regular. Respirations 20 per minute. T-max 103.1. ENT: Sclerae anicteric. No thrush noted. Neck: Supple. No palpable nodes. Heart Sounds: S1, S2. Lungs: A few scattered rhonchi bilaterally. Abdomen: Soft. No tenderness elicited. Extremities: Negative for edema. IMPRESSION: 1. Bilateral pneumonia, probably community acquired versus atypical. Rule out AFB disease. 2. Acquired immunodeficiency syndrome, noncompliant. Concern about the possibility of AFB disease in light of nodular appearance of infiltrate, long history of noncompliance, low T cell count, and recent incarceration. CAT scan findings not typical of PCP. Place on AFB isolation, obtain sputum C&S, AFB, QuantiFERON, urine Legionella, and pneumococcal antigens, empiric antibiotic coverage with Zithromax and ceftriaxone. Continue PCP prophylaxis with Mepron. Will follow. Thank you for the kind referral. GIBSON PANIAGUA M.D. [id number]
--- NOTE | 2018-03-15 22:02 | EKG ---
Test Reason : Blood Pressure : / mmHG Vent. Rate : 101 BPM Atrial Rate : 101 BPM P-R Int : 142 ms QRS Dur : 082 ms QT Int : 322 ms P-R-T Axes : 057 049 007 degrees QTc Int : 417 ms SINUS TACHYCARDIA POSSIBLE LEFT ATRIAL ENLARGEMENT NONSPECIFIC T WAVE ABNORMALITY ABNORMAL ECG WHEN COMPARED WITH ECG OF 12-OCT-2013 18:09, NONSPECIFIC T WAVE ABNORMALITY, WORSE IN LATERAL LEADS Confirmed by SILVERIO KOVACS MD ([id number]) on 03/15/2018 10:02:33 PM Referred By: Confirmed By:SILVERIO KOVACS MD
[2018-03-16 07:30] LABS: ALBUMIN 2.8 g/dl (3.4-5.0); ANION GAP 9 (8-16); BILIRUBIN,TOTAL 0.5 mg/dL (0.2-1.0); BLOOD UREA NITROGEN 8 mg/dL (7-18); CALCIUM 7.4 mg/dL (8.5-10.1); CHLORIDE 105 mmol/L (98-107); CO2 24 mmol/L (21-32); CREATININE 0.8 mg/dL (0.7-1.3); GLUCOSE,RANDOM 85 mg/dL (74-106); MAGNESIUM 2.2 mg/dL (1.8-2.4); POTASSIUM 3.7 mmol/L (3.5-5.1); SGOT/AST 56 U/L (15-37); SGPT/ALT 43 U/L (12-78); SODIUM 138 mmol/L (136-145); TOT PROT 6.3 g/dl (6.4-8.2)
[2018-03-16 07:32] LABS: ALK PHOS 69 U/L (45-117)
[2018-03-16] MEDS: ALBUTEROL SO4 2.5/IPRATROPIUM 0.5 INH SOL 3 ML VIAL.NEB. NEB SCH ×4 (08:15→22:06)
[2018-03-16] MEDS ORDERED: PT OWN MED DRAWER 7, Y5N ONE (08:57)
[2018-03-16] MEDS ORDERED: DEXTROSE 5%-WATER 100 ML IVPB ONE (08:57)
[2018-03-16] MEDS: CEFTRIAXONE 2 GM in DEXTROSE 5%-WATER 100 ML IVPB SCH (09:09)
[2018-03-16] MEDS: EMTRICITABINE 200MG/TENOFOVIR 300MG PO SCH (09:10)
[2018-03-16] MEDS: EFAVIRENZ 600 MG TABLET PO SCH (09:10)
[2018-03-16] MEDS: ATOVAQUONE 750 MG/5 ML (UNIT-DOSE PACKAGING) PO SCH (09:13)
[2018-03-16] MEDS: HEPARIN NA (PORCINE) 5,000 UNITS/ML 1ML VIAL SQ SCH ×2 (09:21→22:06)
[2018-03-16] MEDS ORDERED: PATIENT'S OWN MEDICATION (NON-FORMULARY) (Efavirenz/Emtricitab/Tenofovir 1 TAB) PO SCH (10:00)
[2018-03-16] MEDS ORDERED: PANTOPRAZOLE 40 MG TABLET (FP) PO SCH (10:00)
[2018-03-16] MEDS: AZITHROMYCIN IVPB 500 MG in DEXTROSE 5%-WATER - 250 ML IVPB SCH (10:43)
--- NOTE | 2018-03-16 11:00 | PN ---
Progress Note (short form) - Note Progress Note: feels much better today no hemoptysis yellow sputum production Vital Signs Period Temp Pulse Resp BP Sys/Harrington Pulse Ox Last 24 Hr 98.7 F-101.0 F 87-108 18-20 107-133/50-94 92-98 no thrush cor- rrr lungs crackles at left base abd soft,nt ext no edema CBC, BMP 03/16/18 06:39 Microbiology 03/15/18 09:40 Blood - Peripheral Venous Blood Culture - Preliminary NO GROWTH OBTAINED AFTER 24 HOURS, INCUBATION TO CONTINUE FOR 4 DAYS. 03/15/18 09:48 Blood - Peripheral Venous Blood Culture - Preliminary NO GROWTH OBTAINED AFTER 24 HOURS, INCUBATION TO CONTINUE FOR 4 DAYS. 03/15/18 11:04 Urine - Urine Clean Catch Urine Culture - Final 03/15/18 09:48 Nasopharyngeal Swab Influenza Types A,B Antigen - Final 03/15/18 09:48 Nasopharyngeal Swab - Final a/p AIDS bilateral lower lobe pneumonia on ceftriaxone/zithromax f/u cultures f/u legionella/pneumococcal antigens check cryptococcal antigen as well afb isolation sputum afbs/sputum culture pending
--- NOTE | 2018-03-16 16:07 | PN ---
Physical Exam: SUBJECTIVE: Patient seen and examined. He states he is feeling better, he does have sob when he walks around. OBJECTIVE: Vital Signs Period Temp Pulse Resp BP Sys/Harrington Pulse Ox Last 24 Hr 98.8 F-101.0 F 87-108 18-20 107-133/50-67 95-98 PE Neuro: alert, awake, cn 2-12intact Pulm: basilar rhonchi, +productive cough/sputum CV: s1 s2 rrr no mrg Abd: s nt nd +bs Ext: warm, no le edema Laboratory Results - last 24 hr 03/15/18 03/15/18 03/16/18 16:05 16:05 01:30 Sodium Potassium 3.3 L Chloride Carbon Dioxide Anion Gap BUN Creatinine Creat Clearance w eGFR Random Glucose Calcium Magnesium Total Bilirubin AST ALT Alkaline Phosphatase Troponin I < 0.02 < 0.02 Total Protein Albumin 03/16/18 06:39 Sodium 138 Potassium 3.7 Chloride 105 Carbon Dioxide 24 Anion Gap 9 BUN 8 D Creatinine 0.8 D Creat Clearance w eGFR > 60 Random Glucose 85 Calcium 7.4 L Magnesium 2.2 Total Bilirubin 0.5 AST 56 H D ALT 43 Alkaline Phosphatase 69 Troponin I Total Protein 6.3 L Albumin 2.8 L Active Medications Generic Name Dose Route Start Last Admin Trade Name Freq PRN Reason Stop Dose Admin Acetaminophen 650 mg 03/15/18 15:40 03/16/18 00:46 Tylenol - PO 650 mg Q6H PRN Administration FEVER Albuterol/Ipratropium 1 amp 03/15/18 23:15 03/16/18 11:41 Duoneb - NEB 1 amp RQID ERIKA Administration Atovaquone 1,500 mg 03/15/18 16:30 03/16/18 09:13 Mepron - PO 1,500 mg DAILY@0800 ERIKA Administration Efavirenz 600 mg 03/15/18 16:00 03/16/18 09:10 Sustiva - PO 600 mg DAILY ERIKA Administration Emtricitabine/Tenofovir 1 tab 03/15/18 16:00 03/16/18 09:10 Truvada PO 1 tab DAILY ERIKA Administration Heparin Sodium (Porcine) 5,000 unit 03/16/18 10:00 03/16/18 09:21 Heparin - SQ 5,000 unit BID ERIKA Administration Azithromycin 500 mg/ Dextrose 250 mls @ 250 mls/hr 03/15/18 16:30 03/16/18 10 :43 IVPB 250 mls/hr DAILY ERIKA Administration Ceftriaxone Sodium 2 gm/ 100 mls @ 200 mls/hr 03/15/18 16:30 03/16/18 09:09 Dextrose IVPB 200 mls/hr DAILY ERIKA Administration Protocol Pantoprazole Sodium 40 mg 03/16/18 10:00 03/16/18 09:10 Protonix - PO 40 mg DAILY ERIKA Administration Imaging: Chest CT: diffused pneumonia involving the right upper and lower lobes as well as the left lower lobe Assessment: 37 year old male with pmhx of HIV+ on Atriplia (patient reports non compliance secondary to insurance) admitted with worsening sob and productive cough. Plan: 1. Sepsis in the bilateral pna, setting of Immunosuppression from HIV/AIDS, - Follow legionella, pneumococcal, cryptococcal antigens - AFB rule out - Sputum cx - Cont ceftriaxone 2mg, azithro - Meprol for pcp ppx 2. AIDS - Mepron 1500mg daily - Continue Truvada, sustiva - ID seeing 3. Acute sob - Improved - Cont duoenbs, can likely stop erika tomorrow - Trops x2 neg - ECHO norml lv size, fxn, mild mr tr 4. DVT - Heparin sq, start lovenox cedric Visit type - Emergency Visit Emergency Visit: Yes ED Registration Date: 03/15/18 Care time: The patient presented to the Emergency Department on the above date and was hospitalized for further evaluation of their emergent condition. - New Patient This patient is new to me today: Yes Date on this admission: 03/16/18 - Critical Care Critical Care patient: No
[2018-03-17] MEDS: ALBUTEROL SO4 2.5/IPRATROPIUM 0.5 INH SOL 3 ML VIAL.NEB. NEB SCH ×4 (07:53→20:40)
[2018-03-17] MEDS ORDERED: PT OWN MED DRAWER 7, Y5N ONE (08:27)
[2018-03-17] MEDS: ATOVAQUONE 750 MG/5 ML (UNIT-DOSE PACKAGING) PO SCH (08:30)
[2018-03-17 08:34] LABS: BASO % 0.5 % (0-2.0); EOS % 4.4 % (0-4.5); HEMATOCRIT 39.1 % (35.4-49); HEMOGLOBIN 13.8 GM/dL (11.7-16.9); LYMPH % 14.2 % (8-40); MCH 33.8 pg (25.7-33.7); MCHC 35.3 g/dl (32.0-35.9); MEAN CELL VOLUME 95.7 fl (80-96); MEAN PLT VOLUME 9.5 fl (7.5-11.1); MONO % 13.3 % (3.8-10.2); NEUT % 67.6 % (42.8-82.8); PLATELET COUNT 153 K/MM3 (134-434); RBC 4.08 M/mm3 (4.00-5.60); RDW 14.1 % (11.9-15.9); WHITE BLOOD COUNT 2.7 K/mm3 (4.0-10.0)
[2018-03-17] MEDS: EFAVIRENZ 600 MG TABLET PO SCH (09:14)
[2018-03-17] MEDS: ENOXAPARIN NA (PORCINE) 40 MG/0.4 ML DISP.SYRIN SQ SCH (09:14)
[2018-03-17] MEDS: EMTRICITABINE 200MG/TENOFOVIR 300MG PO SCH (09:14)
[2018-03-17] MEDS ORDERED: DEXTROSE 5%-WATER 100 ML IVPB ONE (09:50)
[2018-03-17] MEDS: CEFTRIAXONE 2 GM in DEXTROSE 5%-WATER 100 ML IVPB SCH (09:53)
[2018-03-17] MEDS: AZITHROMYCIN IVPB 500 MG in DEXTROSE 5%-WATER - 250 ML IVPB SCH (10:55)
--- NOTE | 2018-03-17 11:02 | CON.PULM ---
Consult Consult Specialty:: PULMONARY Referred by:: SANTIAGO Blum Reason for Consultation:: pneumonia - History of Present Illness Chief Complaint: shortness of breath History of Present Illness: 37yo male with h/o HIV with unknown CD4 count not on meds due to insurance issues who was admitted with worsening shortness of breath. Reports a cough productive of yellow sputum. No fevers or chills but was febrile to 103.1 on admission. Denies history of asthma or COPD. He is a smoker, started at age 10, smoked as much as 1 PPD but now down to 2 cigarettes/day. 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 CT chest done showing bilateral infiltrates. - History Source History Provided By: Patient, Medical Record Limitations to Obtaining History: No Limitations - Past Medical History Infectious Disease: Yes: AIDS, HIV - Alcohol/Substance Use Hx Alcohol Use: Yes (SOCIAL) - Smoking History Smoking history: Current every day smoker Have you smoked in the past 12 months: Yes Aproximately how many cigarettes per day: 10 If you are a former smoker, when did you quit?: 2008 Home Medications - Allergies Allergies/Adverse Reactions: Allergies Allergy/AdvReac Type Severity Reaction Status Date / Time sulfamethoxazole Allergy Rash Verified 03/15/18 09:16 [From Bactrim] trimethoprim [From Bactrim] Allergy Rash Verified 03/15/18 09:16 - Home Medications Home Medications: Ambulatory Orders Efavirenz/Emtricitab/Tenofovir [Atripla Tablet -] 1 tab PO DAILY #30 tab Review of Systems - Review of Systems Constitutional: reports: Weakness. denies: Chills, Fever Eyes: denies: Recent Change in Vision HENT: denies: Nasal Congestion, Throat Pain Neck: denies: Stiffness, Tenderness Cardiovascular: reports: Shortness of Breath. denies: Chest Pain, Palpitations Respiratory: reports: Cough, SOB. denies: Hemoptysis, Wheezing Gastrointestinal: denies: Abdominal Pain, Nausea, Vomiting Genitourinary: denies: Dysuria, Hematuria Neurological: denies: Dizziness, Headache Endocrine: denies: Unexplained Weight Loss Physical Exam Vital Sings: Vital Signs Temperature 97.9 F 03/17/18 09:00 Pulse Rate 86 03/17/18 09:00 Respiratory Rate 20 03/17/18 09:00 Blood Pressure 129/71 03/17/18 09:00 O2 Sat by Pulse Oximetry (%) 94 L 03/17/18 09:00 Constitutional: Yes: Calm Eyes: Yes: Conjunctiva Clear, EOM Intact HENT: Yes: Atraumatic, Normocephalic Neck: Yes: Supple, Trachea Midline Cardiovascular: Yes: Regular Rate and Rhythm Respiratory: Yes: Rales (bibasilar) ...Clubbing: No Gastrointestinal: Yes: Normal Bowel Sounds, Soft. No: Tenderness Edema: No Neurological: Yes: Alert, Oriented Labs: CBC, BMP 03/17/18 07:30 ABG Results ABG pH 7.47 (7.35-7.45) H 03/15/18 12:21 ABG pCO2 at Pt Temp 32.4 mmHg (35-45) L 03/15/18 12:21 ABG pO2 at Pt Temp 67.9 mmHg (80-100) L 03/15/18 12:21 ABG HCO3 23.5 meq/L (22-26) 03/15/18 12:21 ABG O2 Sat (Measured) 94.3 % (90-98.9) 03/15/18 12:21 ABG O2 Content 17.8 % vol (15-22) 03/15/18 12:21 ABG Base Excess 1.0 meq/l (-2-2) 03/15/18 12:21 Imaging - Results Chest X-ray: Report Reviewed, Image Reviewed Cat Scan: Report Reviewed, Image Reviewed (bilateral infiltrates) Problem List - Problems (1) Pneumonia Code(s): J18.9 - PNEUMONIA, UNSPECIFIED ORGANISM (2) AIDS (acquired immune deficiency syndrome) Code(s): B20 - HUMAN IMMUNODEFICIENCY VIRUS [HIV] DISEASE (3) HIV (human immunodeficiency virus infection) Code(s): Z21 - ASYMPTOMATIC HUMAN IMMUNODEFICIENCY VIRUS INFECTION STATUS Assessment/Plan Pneumonia HIV/AIDS - appears to be clinically improving, agree with antibiotic coverage - f/u AFB smears to r/o TB - send sputum cytology for PCP smear - if not improving, can consider BAL - f/u CD4 count, viral load - will need outpt f/u of chest findings to ensure resolution of infiltrates - DVT prophylaxis Thank you for this consult Faustino Santos MD
[2018-03-17 12:52] LABS: ANION GAP 12 (8-16); BLOOD UREA NITROGEN 8 mg/dL (7-18); CALCIUM 7.6 mg/dL (8.5-10.1); CHLORIDE 106 mmol/L (98-107); CO2 20 mmol/L (21-32); CREATININE 0.7 mg/dL (0.7-1.3); GLUCOSE,RANDOM 100 mg/dL (74-106); POTASSIUM 4.1 mmol/L (3.5-5.1); SODIUM 138 mmol/L (136-145)
--- NOTE | 2018-03-17 13:43 | PN ---
Progress Note, Physician History of Present Illness: Feeling better Still with cough--casas sputum No hemoptysis No c/o chest pain/ dyspnea No fever/ chills Temps down afebrile - Current Medication List Current Medications: Active Medications Acetaminophen (Tylenol -) 650 mg PO Q6H PRN PRN Reason: FEVER Last Admin: 03/16/18 00:46 Dose: 650 mg Albuterol/Ipratropium (Duoneb -) 1 amp NEB RQID [facility] Last Admin: 03/17/18 12:26 Dose: 1 amp Atovaquone (Mepron -) 1,500 mg PO DAILY@0800 [facility] Last Admin: 03/17/18 08:30 Dose: 1,500 mg Efavirenz (Sustiva -) 600 mg PO DAILY [facility] Last Admin: 03/17/18 09:14 Dose: 600 mg Emtricitabine/Tenofovir (Truvada) 1 tab PO DAILY [facility] Last Admin: 03/17/18 09:14 Dose: 1 tab Enoxaparin Sodium (Lovenox -) 40 mg SQ DAILY [facility] Last Admin: 03/17/18 09:14 Dose: 40 mg Azithromycin 500 mg/ Dextrose 250 mls @ 250 mls/hr IVPB DAILY [facility] Last Admin: 03/17/18 10:55 Dose: 250 mls/hr Ceftriaxone Sodium 2 gm/ (Dextrose) 100 mls @ 200 mls/hr IVPB DAILY [facility]; Protocol Last Admin: 03/17/18 09:53 Dose: 200 mls/hr - Objective Vital Signs: Vital Signs Temperature 97.9 F 03/17/18 09:00 Pulse Rate 86 03/17/18 09:00 Respiratory Rate 20 03/17/18 09:00 Blood Pressure 129/71 03/17/18 09:00 O2 Sat by Pulse Oximetry (%) 94 L 03/17/18 09:00 Constitutional: Yes: No Distress Eyes: Yes: Conjunctiva Clear Cardiovascular: Yes: Regular Rate and Rhythm, S1, S2 Respiratory: Yes: CTA Bilaterally Gastrointestinal: Yes: Normal Bowel Sounds, Soft, Abdomen, Obese. No: Tenderness Labs: CBC, BMP 03/17/18 07:30 03/17/18 07:30 INR, PTT INR 1.46 (0.82-1.09) H D 03/15/18 09:48 Assessment/Plan Bilateral pneumonia AIDS Await cultures Continue zithromax/ ceftriaxone/ mepron
--- NOTE | 2018-03-17 14:06 | PN ---
Physical Exam: SUBJECTIVE: Patient seen and examined. He appears well today, eating and laying flat w/o difficulty. Low grade temp overnight. tmax 101 OBJECTIVE: Vital Signs Period Temp Pulse Resp BP Sys/Harrington Pulse Ox Last 24 Hr 97.8 F-99 F 76-98 18-20 118-129/56-71 94-95 PE Neuro: alert, awake, cn 2-12 intact Pulm: basilar rales, crackles CV: s1 s2 rrr no mrg Abd: s nt nd +bs Ext: warm, no le edema Laboratory Results - last 24 hr 03/17/18 03/17/18 07:30 07:30 WBC 2.7 L D RBC 4.08 Hgb 13.8 Hct 39.1 MCV 95.7 MCH 33.8 H MCHC 35.3 RDW 14.1 Plt Count 153 MPV 9.5 Absolute Neuts (auto) 1.8 Neutrophils % 67.6 Lymphocytes % 14.2 D Monocytes % 13.3 H Eosinophils % 4.4 D Basophils % 0.5 Nucleated RBC % 0 Sodium 138 Potassium 4.1 Chloride 106 Carbon Dioxide 20 L Anion Gap 12 BUN 8 Creatinine 0.7 Random Glucose 100 Calcium 7.6 L Active Medications Generic Name Dose Route Start Last Admin Trade Name Freq PRN Reason Stop Dose Admin Acetaminophen 650 mg 03/15/18 15:40 03/16/18 00:46 Tylenol - PO 650 mg Q6H PRN Administration FEVER Albuterol/Ipratropium 1 amp 03/15/18 23:15 03/17/18 12:26 Duoneb - NEB 1 amp RQID ERIKA Administration Atovaquone 1,500 mg 03/15/18 16:30 03/17/18 08:30 Mepron - PO 1,500 mg DAILY@0800 ERIKA Administration Efavirenz 600 mg 03/15/18 16:00 03/17/18 09:14 Sustiva - PO 600 mg DAILY ERIKA Administration Emtricitabine/Tenofovir 1 tab 03/15/18 16:00 03/17/18 09:14 Truvada PO 1 tab DAILY ERIKA Administration Enoxaparin Sodium 40 mg 03/17/18 10:00 03/17/18 09:14 Lovenox - SQ 40 mg DAILY ERIKA Administration Azithromycin 500 mg/ Dextrose 250 mls @ 250 mls/hr 03/15/18 16:30 03/17/18 10 :55 IVPB 250 mls/hr DAILY ERIKA Administration Ceftriaxone Sodium 2 gm/ 100 mls @ 200 mls/hr 03/15/18 16:30 03/17/18 09:53 Dextrose IVPB 200 mls/hr DAILY ERIKA Administration Protocol Microbiology 03/15/18 18:00 Sputum - Expectorated AFB Smear Concentration - Final 03/15/18 18:00 Sputum - Expectorated Direct Acid Fast Bacilli Smear - Final 03/15/18 18:00 Sputum - Expectorated Mycobacterial Culture - Preliminary 03/16/18 12:15 Sputum - Expectorated Gram Stain - Final 03/16/18 12:15 Sputum - Expectorated Sputum Culture - Preliminary Yeast Like Organism 03/15/18 09:40 Blood - Peripheral Venous Blood Culture - Preliminary NO GROWTH OBTAINED AFTER 48 HOURS, INCUBATION TO CONTINUE FOR 3 DAYS. 03/15/18 09:48 Blood - Peripheral Venous Blood Culture - Preliminary NO GROWTH OBTAINED AFTER 48 HOURS, INCUBATION TO CONTINUE FOR 3 DAYS. 03/16/18 11:10 Sputum - Expectorated Direct Acid Fast Bacilli Smear - Final 03/16/18 09:20 Urine For Antigen Detection Legionella Antigen - Final 03/16/18 09:20 Urine For Antigen Detection Streptococcus pneumoniae Antigen (M - Final 03/15/18 11:04 Urine - Urine Clean Catch Urine Culture - Final 03/15/18 09:48 Nasopharyngeal Swab Influenza Types A,B Antigen - Final 03/15/18 09:48 Nasopharyngeal Swab - Final Imaging: Chest CT: diffused pneumonia involving the right upper and lower lobes as well as the left lower lobe Assessment: 37 year old male with pmhx of HIV+ on Atriplia (patient reports non compliance secondary to insurance) admitted with worsening sob and productive cough. Plan: 1. Sepsis in the bilateral pna, setting of Immunosuppression from HIV/AIDS, - Follow legionella, pneumococcal, cryptococcal antigens - AFB rule out x3 - Sputum cytology, if no yield possible BAL - Cont ceftriaxone 2mg, azithro - Mepron for pcp ppx - Will need outpt follow up CT chest 2. AIDS - Mepron 1500mg daily - Continue Truvada, sustiva - ID seeing 3. Acute sob - Improved - Cont duoenbs, can likely stop erika tomorrow - Trops x2 neg - ECHO norml lv size, fxn, mild mr tr 4. DVT - lovenox sq Visit type - Emergency Visit Emergency Visit: Yes ED Registration Date: 03/15/18 Care time: The patient presented to the Emergency Department on the above date and was hospitalized for further evaluation of their emergent condition. - New Patient This patient is new to me today: No - Critical Care Critical Care patient: No
[2018-03-18] MEDS: ALBUTEROL SO4 2.5/IPRATROPIUM 0.5 INH SOL 3 ML VIAL.NEB. NEB SCH ×2 (08:10→11:50)
[2018-03-18] MEDS ORDERED: PT OWN MED DRAWER 7, Y5N ONE ×2 (08:19→10:55)
[2018-03-18] MEDS: ATOVAQUONE 750 MG/5 ML (UNIT-DOSE PACKAGING) PO SCH (08:24)
[2018-03-18] MEDS: EFAVIRENZ 600 MG TABLET PO SCH (09:11)
[2018-03-18] MEDS: EMTRICITABINE 200MG/TENOFOVIR 300MG PO SCH (09:11)
[2018-03-18] MEDS ORDERED: DEXTROSE 5%-WATER 100 ML IVPB ONE (09:53)
[2018-03-18] MEDS: ENOXAPARIN NA (PORCINE) 40 MG/0.4 ML DISP.SYRIN SQ SCH (09:59)
[2018-03-18] MEDS: CEFTRIAXONE 2 GM in DEXTROSE 5%-WATER 100 ML IVPB SCH (09:59)
--- NOTE | 2018-03-18 10:09 | PN ---
Progress Note, Physician History of Present Illness: Feeling better Less cough/ sputum No c/o chest pain/ dyspnea No fever/ chills Temps down afebrile AFB (-) x 2 MTB probe (-) Quantiferon (-) C/O groin rash refractory to topical antifungals - Current Medication List Current Medications: Active Medications Acetaminophen (Tylenol -) 650 mg PO Q6H PRN PRN Reason: FEVER Last Admin: 03/16/18 00:46 Dose: 650 mg Albuterol/Ipratropium (Duoneb -) 1 amp NEB RQID [facility] Last Admin: 03/18/18 08:10 Dose: 1 amp Atovaquone (Mepron -) 1,500 mg PO DAILY@0800 [facility] Last Admin: 03/18/18 08:24 Dose: 1,500 mg Efavirenz (Sustiva -) 600 mg PO DAILY [facility] Last Admin: 03/18/18 09:11 Dose: 600 mg Emtricitabine/Tenofovir (Truvada) 1 tab PO DAILY [facility] Last Admin: 03/18/18 09:11 Dose: 1 tab Enoxaparin Sodium (Lovenox -) 40 mg SQ DAILY [facility] Last Admin: 03/18/18 09:59 Dose: 40 mg Azithromycin 500 mg/ Dextrose 250 mls @ 250 mls/hr IVPB DAILY [facility] Last Admin: 03/17/18 10:55 Dose: 250 mls/hr Ceftriaxone Sodium 2 gm/ (Dextrose) 100 mls @ 200 mls/hr IVPB DAILY [facility]; Protocol Last Admin: 03/18/18 09:59 Dose: 200 mls/hr - Objective Vital Signs: Vital Signs Temperature 98.1 F 03/18/18 06:00 Pulse Rate 76 03/18/18 06:00 Respiratory Rate 20 03/18/18 06:00 Blood Pressure 124/81 03/18/18 06:00 O2 Sat by Pulse Oximetry (%) 95 03/17/18 21:00 Constitutional: Yes: No Distress Eyes: Yes: Conjunctiva Clear Cardiovascular: Yes: Regular Rate and Rhythm, S1, S2 Respiratory: Yes: CTA Bilaterally Gastrointestinal: Yes: Normal Bowel Sounds, Soft. No: Tenderness Edema: No Integumentary: Yes: Other (+ fungal rash, perineum) Labs: CBC, BMP 03/17/18 07:30 03/17/18 07:30 INR, PTT INR 1.46 (0.82-1.09) H D 03/15/18 09:48 Assessment/Plan Bilateral pneumonia clinically improved AIDS CD4 4 Continue zithromax/ ceftriaxone/ mepron If 3rd AFB negative D/C isolation' discharge home on ceftin 500mg po bid x 7d Atripla/ Mepron (PCP prophylaxis) Outpatient follow up [facility]
[2018-03-18 10:36] VITALS: BP 115/81; PULSE 100
[2018-03-18] MEDS: AZITHROMYCIN IVPB 500 MG in DEXTROSE 5%-WATER - 250 ML IVPB SCH (10:57)
--- NOTE | 2018-03-18 12:58 | PN ---
Physical Exam: SUBJECTIVE: Patient seen and examined. Denies fever, chills. OBJECTIVE: Vital Signs Period Temp Pulse Resp BP Sys/Harrington Pulse Ox Last 24 Hr 98.1 F-98.7 F 76-100 20-20 115-124/73-81 95 PE Neuro: alert, awake, cn 2-12 intact Pulm: basilar rales, crackles CV: s1 s2 rrr no mrg Abd: s nt nd +bs Ext: warm, no le edema Skin: fungal rash Laboratory Results - last 24 hr 03/15/18 03/16/18 03/17/18 16:05 03:45 07:30 WBC 6.8 Absolute Lymphs (auto) 0.5 L Lymphocytes 7 Nucleated RBCs TNP Sodium 138 Potassium 4.1 Chloride 106 Carbon Dioxide 20 L Anion Gap 12 BUN 8 Creatinine 0.7 Random Glucose 100 Calcium 7.6 L Absolute CD3 Count 310 L % CD3+ Lymphocytes 62.0 Absolute CD4 [place] 4 L % CD4+ Lymphocyte 0.7 L CD4/CD8 Ratio 0.01 L % CD8+ Lymphocyte 54.6 H Absolute CD8 Count 273 TB Test (QFT) Negative Active Medications Generic Name Dose Route Start Last Admin Trade Name Freq PRN Reason Stop Dose Admin Acetaminophen 650 mg 03/15/18 15:40 03/16/18 00:46 Tylenol - PO 650 mg Q6H PRN Administration FEVER Albuterol/Ipratropium 1 amp 03/15/18 23:15 03/18/18 08:10 Duoneb - NEB 1 amp RQID JULISA Administration Atovaquone 1,500 mg 03/15/18 16:30 03/18/18 08:24 Mepron - PO 1,500 mg DAILY@0800 JULISA Administration Efavirenz 600 mg 03/15/18 16:00 03/18/18 09:11 Sustiva - PO 600 mg DAILY JULISA Administration Emtricitabine/Tenofovir 1 tab 03/15/18 16:00 03/18/18 09:11 Truvada PO 1 tab DAILY JULISA Administration Enoxaparin Sodium 40 mg 03/17/18 10:00 03/18/18 09:59 Lovenox - SQ 40 mg DAILY JULISA Administration Azithromycin 500 mg/ Dextrose 250 mls @ 250 mls/hr 03/15/18 16:30 03/18/18 10 :57 IVPB 250 mls/hr DAILY JULISA Administration Ceftriaxone Sodium 2 gm/ 100 mls @ 200 mls/hr 03/15/18 16:30 03/18/18 09:59 Dextrose IVPB 200 mls/hr DAILY JULISA Administration Protocol Imaging: Chest CT: diffused pneumonia involving the right upper and lower lobes as well as the left lower lobe Assessment: 37 year old male with pmhx of HIV+ on Atriplia (patient reports non compliance secondary to insurance) admitted with worsening sob and productive cough. Plan: 1. Sepsis in the bilateral pna, setting of Immunosuppression from HIV/AIDS - Improving, sepsis resolved - Legionella, pneumococcal negative - Crytpo pending - AFB x2 negative - If afb x3 neg, dc home po abx - Cont ceftriaxone 2mg, azithro - Mepron for pcp ppx - Will need outpt follow up CT chest - Appreciate ID assistance 2. AIDS - Mepron 1500mg daily - Continue Truvada, sustiva 3. Acute sob - Resolved - Trops x2 neg - ECHO norml lv size, fxn, mild mr tr 4. DVT - lovenox sq
--- NOTE | 2018-03-18 13:15 | PN ---
Progress Note, Physician History of Present Illness: pulmonary alert,no complaints of sob,-dry cough,-cp. - Current Medication List Current Medications: Active Medications Acetaminophen (Tylenol -) 650 mg PO Q6H PRN PRN Reason: FEVER Last Admin: 03/16/18 00:46 Dose: 650 mg Atovaquone (Mepron -) 1,500 mg PO DAILY@0800 [facility] Last Admin: 03/18/18 08:24 Dose: 1,500 mg Efavirenz (Sustiva -) 600 mg PO DAILY [facility] Last Admin: 03/18/18 09:11 Dose: 600 mg Emtricitabine/Tenofovir (Truvada) 1 tab PO DAILY [facility] Last Admin: 03/18/18 09:11 Dose: 1 tab Enoxaparin Sodium (Lovenox -) 40 mg SQ DAILY [facility] Last Admin: 03/18/18 09:59 Dose: 40 mg Azithromycin 500 mg/ Dextrose 250 mls @ 250 mls/hr IVPB DAILY [facility] Last Admin: 03/18/18 10:57 Dose: 250 mls/hr Ceftriaxone Sodium 2 gm/ (Dextrose) 100 mls @ 200 mls/hr IVPB DAILY [facility]; Protocol Last Admin: 03/18/18 09:59 Dose: 200 mls/hr - Objective Vital Signs: Vital Signs Temperature 98.1 F 03/18/18 06:00 Pulse Rate 100 H 03/18/18 10:00 Respiratory Rate 20 03/18/18 10:00 Blood Pressure 115/81 03/18/18 10:00 O2 Sat by Pulse Oximetry (%) 95 03/17/18 21:00 Constitutional: Yes: Well Nourished, Calm Eyes: Yes: WNL HENT: Yes: WNL Neck: Yes: WNL Cardiovascular: Yes: Regular Rate and Rhythm, S1, S2 Respiratory: Yes: Rhonchi (scattered guido rhonchi) Gastrointestinal: Yes: Normal Bowel Sounds, Soft Extremities: Yes: WNL Edema: No Labs: CBC, BMP Assessment/Plan Problem List - Problems (1) Pneumonia Code(s): J18.9 - PNEUMONIA, UNSPECIFIED ORGANISM (2) AIDS (acquired immune deficiency syndrome) Code(s): B20 - HUMAN IMMUNODEFICIENCY VIRUS [HIV] DISEASE (3) HIV (human immunodeficiency virus infection) Code(s): Z21 - ASYMPTOMATIC HUMAN IMMUNODEFICIENCY VIRUS INFECTION STATUS Assessment/Plan Pneumonia clinically improving HIV/AIDS AFB smears negative x2 - abx as per ID - will need outpt f/u of chest findings to ensure resolution of infiltrates - DVT prophylaxis DR HOLLEY
[2018-03-18] MEDS ORDERED: ALBUTEROL SO4 2.5/IPRATROPIUM 0.5 INH SOL 3 ML VIAL.NEB. NEB PRN (13:38)
[2018-03-18 14:54] VITALS: TEMP 97.8
== END 2018-03-18 14:58 | disposition left against medical advice (07) | DRG 892 ==
LOC: JER 09:09 → JERBED 13:18 → J6S 14:30
PROVIDERS: ADMIT Internal Medicine; ATTEND Nurse Practitioner Acute Care
DX: A41.9 Sepsis, unspecified organism (principal); J18.9 Pneumonia, unspecified organism; B20 Human immunodeficiency virus [HIV] disease; R00.0 Tachycardia, unspecified; F17.210 Nicotine dependence, cigarettes, uncomplicated; E66.9 Obesity, unspecified; Z68.30 Body mass index [BMI] 30.0-30.9, adult; Z91.14 Patient's other noncompliance with medication regimen
CPT/HCPCS: 36415; 36600; 71045-TC-FY; 71250-TC; 80048; 80053; 81003; 81015; 82803; 83605; 83615; 83735; 84132; 84484; 85025; 85610; 85730; 86359; 86360; 86480; 87040; 87070; 87077; 87086; 87116; 87205; 87206; 87804; 87899; 93005; 93010; 93306-TC; 94640; 99284-25; J0131; J1644; J7030; J7620

== ENCOUNTER 2018-05-01 07:11 | Observation (INO) | payer OTHER ==
[2018-05-01 07:32] VITALS: BMI 29.8
--- NOTE | 2018-05-01 08:23 | PDOC ---
Attending Attestation - HPI HPI: 05/01/18 09:56 The patient is a 37 year old male with a significant past medical history of HIV /AIDS who presents to the ED today reporting that his ID physician, Dr. Castañeda, told him to present to the ED due to positive blood cultures last month. The patient denies chest pain, shortness of breath, headache and dizziness. The patient denies fever, chills, nausea, vomit, diarrhea and constipation. The patient denies dysuria, frequency, urgency and hematuria. Allergies: NKDA - Physicial Exam PE: 05/01/18 09:56 ROS: A complete review of 10 out of 10 review of systems is taken and is negative apart from what is previously mentioned below and in the HPI. Vitals: Triage vital signs reviewed General Appearance: No acute distress, well nourished, well developed Head: Atraumatic Eyes: Pupils equal reactive round, extraocular movement intact Neck: Supple; No nuchal rigidity Chest Wall: Nontender Cardiac: Regular rate and rhythm, no murmurs, no rubs, no gallops Lungs: Clear to auscultation bilateral, good air movement bilaterally Abdomen: Soft, nondistended, normal bowel sounds, nontender to palpation Genitourinary: Rectal: Exam deferred Extremities: Full range of motion to all extremities, no cyanosis, clubbing, or edema Skin: Warm and dry, no rashes or lesions, no rash, no petechiae Psych: Normal mood, normal affect - Medical Decision Making 05/01/18 09:56 37 year old male with a significant past medical history of HIV/AIDS presents to the ED today reporting that his ID physician, Dr. Castañeda, told him to present to the ED due to positive blood cultures last month. Plan: consult with PCP and discharge 05/01/18 10:20 Dr. Field was called and discussed the case with Dr. Carlson. Documentation prepared by Jessica Richardson, acting as medical assistant dermatology for Glenn Chou MD, <Jessica Richardson - Last Filed: 05/01/18 10:20> - Resident Resident Name: Thania Carlson - ED Attending Attestation I have performed the following: I have examined & evaluated the patient, The case was reviewed & discussed with the resident, I agree w/resident's findings & plan, Exceptions are as noted - Medical Decision Making 05/01/18 09:51 Case discussed with patient's infectious disease doctor Dr. Castañeda Patient during his last hospitalization had positive cryptococcal antigen. Patient was asked to return to the emergency department to be observed for neurology consultation and routine lumbar puncture either via neurology or interventional radiology. We'll observe overnight for this additional workup. Dr. Castañeda to consult. Neurology consulted. Recomends MRI prior to LP. Will observe for MRI/Neuro/ID consult and further management <Glenn Chou - Last Filed: 05/01/18 11:26>
--- NOTE | 2018-05-01 08:36 | PDOC ---
History of Present Illness - General Chief Complaint: Revisit, Lab Variance Stated Complaint: SENT BY PCP Time Seen by Provider: 05/01/18 08:07 - History of Present Illness Initial Comments: 05/01/18 08:35 Boni Kohler is a 37yo man with a h/o HIV/AIDS who presents today reporting that his ID physician told him to present to the ED due to positive blood cultures last month. Mr Kohler was admitted for a respiratory infection in early March and noted to have a low CD4 count (4), and he had a complete infectious workup while admitted. He felt that the workup was taking too long and needed to go back to work so he "signed himself out" of the hospital. Since that time he reports being compliant with his HIV medications as well as weekly azithromycin. Mr Kohler states that Dr Castañeda, his ID physician, called him the day after he left the hospital and told him that he had some organizm growing in his blood and that it might have gotten into his spine. He was told at that time, approximately 03/20/18, that he needed to come back to the hospital right away, but he was unable to come until today as he needed to work. He reports that since his admission his respiratory symptoms have completely resolved, and he is entirely asymptomatic currently. Past History - Past Medical History Allergies/Adverse Reactions: Allergies Allergy/AdvReac Type Severity Reaction Status Date / Time sulfamethoxazole Allergy Rash Verified 05/01/18 07:17 [From Bactrim] trimethoprim [From Bactrim] Allergy Rash Verified 05/01/18 07:17 Home Medications: Ambulatory Orders Efavirenz/Emtricitab/Tenofovir [Atripla Tablet -] 1 tab PO DAILY #30 tab Azithromycin [Zithromax -] 1,000 mg PO WEEKLY 05/01/18 Anemia: No Asthma: No Cancer: No Cardiac Disorders: No CVA: No COPD: No CHF: No Dementia: No Diabetes: No GI Disorders: No Disorders: No HTN: No Liver Disease: No Seizures: No Thyroid Disease: No - Surgical History Abdominal Surgery: No Appendectomy: No Cardiac Surgery: No Cholecystectomy: No Lung Surgery: No Neurologic Surgery: No Orthopedic Surgery: No - Immunization History Immunization Up to Date: No - Suicide/Smoking/Psychosocial Hx Smoking History: Current every day smoker Have you smoked in the past 12 months: Yes Number of Cigarettes Smoked Daily: 3 If you are a former smoker, when did you quit?: 2008 Cigars Per Day: 0 Information on smoking cessation initiated: Yes 'Breaking Loose' booklet given: 07/02/17 Hx Alcohol Use: Yes (social) Drug/Substance Use Hx: No Substance Use Type: None Hx Substance Use Treatment: No Review of Systems - Review of Systems Comments:: 05/01/18 08:41 General: No fevers, no chills, no weight or appetite change, no malaise HEENT: No changes in vision, no changes in hearing, no congestion, no sore throat CV: No chest pain, no palpitations, no LE edema Pulm: No SOB, no cough, no wheezing GI: No nausea or vomiting, no change in bowel habits, no melena : No frequency, no urgency, no dysuria Musc: No back pain, no joint swelling, no recent injury Skin: No rash, no lesions, no erythema Endo: No excessive thirst, no heat/cold intolerance Heme: No unusual bruising or bleeding, no swollen glands Neuro: No syncope, no numbness/tingling, no focal weakness Vasc: No claudication Psych: No recent change in mood, no SI or HI *Physical Exam - Vital Signs Last Vital Signs Temp Pulse Resp BP Pulse Ox 98.7 F 78 18 136/76 99 05/01/18 07:11 05/01/18 07:11 05/01/18 07:11 05/01/18 07:11 05/01/18 07:11 - Physical Exam Comments: 05/01/18 08:41 General: Comfortable, no acute distress HEENT: PERRL, EOMI, MMM, voice normal, normal neck ROM, no LAD. No neck tenderness; able to complete full neck flexion and extension without discomfort Cards: RRR, no murmur appreciated Pulm: Comfortable on room air, clear to auscultation bilaterally Abd: Soft, nontender, nondistended : No CVA tenderness Ext: Atraumatic. No LE edema. ROM intact. Strength 5/5 and equal bilaterally Vasc: Extremities WWP. Palpable radial and pedal pulses bilaterally Neuro: A&Ox3, CN grossly intact, normal speech, motor/sensory grossly intact and symmetric Psych: Mood appropriate to situation Medical Decision Making - Medical Decision Making 05/01/18 08:42 Boni Kohler is a 37yo man with a history of HIV/AIDS and recent admission for respiratory infection in early March who presents today stating that his ID physician Dr Castañeda called him approximately 6wks ago stating that his blood cultures were positive and he needed to present to the hospital. However, he was not able to come prior to today as he needed to work. - No complaints, ROS normal, vitals normal, physical exam normal - Page to Dr Castañeda to determine why Mr Kohler was told to present to the ED 05/01/18 10:14 - Per Dr Castañeda, there is concern due to positive cryptococcal antigen in March. He requests that Mr Kohler be admitted for a non-emergent LP - Spoke to hospitalist regarding admission. Will have neurology vs IR consult for LP 05/01/18 10:25 - Spoke to Dr Field in neurology. Recommends MR brain to assess for changes prior to LP. If normal MR, the LP is likely unnecessary. - Will page hospitalist to update Discussed with Dr Chou. *DC/Admit/Observation/Transfer Diagnosis at time of Disposition: Cryptococcosis - Discharge Dispostion Decision to Admit order: Yes - Referrals - Patient Instructions - Post Discharge Activity
[2018-05-01 10:53] LABS: BASO % 2.2 % (0-2.0); EOS % 7.2 % (0-4.5); HEMATOCRIT 39.6 % (35.4-49); HEMOGLOBIN 13.7 GM/dL (11.7-16.9); LYMPH % 26.4 % (8-40); MCHC 34.6 g/dl (32.0-35.9); MEAN CELL VOLUME 98.1 fl (80-96); MEAN PLT VOLUME 9.3 fl (7.5-11.1); MONO % 20.4 % (3.8-10.2); NEUT % 43.8 % (42.8-82.8); PLATELET COUNT 160 K/MM3 (134-434); RBC 4.04 M/mm3 (4.00-5.60); RDW 14.6 % (11.9-15.9)
[2018-05-01 11:00] LABS: WHITE BLOOD COUNT 1.8 K/mm3 (4.0-10.0)
[2018-05-01 11:01] LABS: INR 1.14 (0.82-1.09); PROTHROMBIN TIME (PATIENT) 12.9 SEC (9.7-13.0)
[2018-05-01 11:04] LABS: ACTIVATED PTT 25.5 SECONDS (25.2-36.5)
[2018-05-01 11:12] LABS: ALK PHOS 88 U/L (45-117); ANION GAP 7 (8-16); BILIRUBIN,TOTAL 0.2 mg/dL (0.2-1.0); BLOOD UREA NITROGEN 10 mg/dL (7-18); CALCIUM 7.7 mg/dL (8.5-10.1); CHLORIDE 108 mmol/L (98-107); CO2 25 mmol/L (21-32); CREATININE 0.8 mg/dL (0.7-1.3); GLUCOSE,RANDOM 117 mg/dL (74-106); POTASSIUM 3.9 mmol/L (3.5-5.1); SGOT/AST 34 U/L (15-37); SGPT/ALT 48 U/L (12-78); SODIUM 140 mmol/L (136-145); TOT PROT 6.4 g/dl (6.4-8.2)
[2018-05-01 13:32] LABS: ACANTHOCYTES 0; ANISOCYTOSIS 0; HELMET CELLS 0; HOWELL-JOLLY BODIES 0; MACROCYTOSIS 0; OVALOCYTE 0; PLATELET ESTIMATE DECREASED; ROULEAU 0; SICKELED CELLS 0; TARGET CELLS 0; TEAR DROP CELLS 0; TOXIC GRANULATION 0
--- NOTE | 2018-05-01 14:04 | HP ---
CHIEF COMPLAINT: +cryptococcal ag PCP: Dr. Castañeda HISTORY OF PRESENT ILLNESS: This is a 37 year old male with PMHx of HIV who presented to the ED after receiving a call back from Dr. Castañeda in March 2018 for a positive cryptococcal ag blood test result. The patient reports compliance with HIV medication. He denies any symptoms at this time. The patient denies any dizziness, headache, neck pain/stiffness, chills, aches, fever, blurred or changes in vision. ER course was notable for: (1) Temp 98.7, pulse 78, BP 136/76, resp 18, Spo2 99% (2) WBC 1.8 Recent Travel: denies PAST MEDICAL HISTORY: HIV PAST SURGICAL HISTORY: denies Social History: Smoking: denies Alcohol: denies Drugs: denies Family History: Allergies sulfamethoxazole [From Bactrim] Allergy (Verified 05/01/18 07:17) Rash trimethoprim [From Bactrim] Allergy (Verified 05/01/18 07:17) Rash HOME MEDICATIONS: Home Medications Medication Instructions Recorded Efavirenz/Emtricitab/Tenofovir 1 tab PO DAILY #30 tab 10/17/16 [Atripla Tablet -] Azithromycin [Zithromax -] 1,000 mg PO WEEKLY 05/01/18 REVIEW OF SYSTEMS CONSTITUTIONAL: Absent: fever, chills, diaphoresis, generalized weakness, malaise, loss of appetite, weight change HEENT: Absent: rhinorrhea, nasal congestion, throat pain, throat swelling, difficulty swallowing, mouth swelling, ear pain, eye pain, visual changes CARDIOVASCULAR: Absent: chest pain, syncope, palpitations, irregular heart rate, lightheadedness , peripheral edema RESPIRATORY: Absent: cough, shortness of breath, dyspnea with exertion, orthopnea, wheezing, stridor, hemoptysis GASTROINTESTINAL: Absent: abdominal pain, abdominal distension, nausea, vomiting, diarrhea, constipation, melena, hematochezia GENITOURINARY: Absent: dysuria, frequency, urgency, hesitancy, hematuria, flank pain, genital pain MUSCULOSKELETAL: Absent: myalgia, arthralgia, joint swelling, back pain, neck pain SKIN: Absent: rash, itching, pallor HEMATOLOGIC/IMMUNOLOGIC: Absent: easy bleeding, easy bruising, lymphadenopathy, frequent infections ENDOCRINE: Absent: unexplained weight gain, unexplained weight loss, heat intolerance, cold intolerance NEUROLOGIC: Absent: headache, focal weakness or paresthesias, dizziness, unsteady gait, seizure, mental status changes, bladder or bowel incontinence PSYCHIATRIC: Absent: anxiety, depression, suicidal or homicidal ideation, hallucinations. PHYSICAL EXAMINATION Vital Signs - 24 hr 05/01/18 07:11 Temperature 98.7 F Pulse Rate 78 Respiratory 18 Rate Blood Pressure 136/76 O2 Sat by Pulse 99 Oximetry (%) GENERAL: Awake, alert, and fully oriented, in no acute distress. HEAD: Normal with no signs of trauma. EYES: Pupils equal, round and reactive to light, extraocular movements intact, sclera anicteric, conjunctiva clear. No lid lag. EARS, NOSE, THROAT: Ears normal, nares patent, oropharynx clear without exudates. Moist mucous membranes. NECK: Normal range of motion, supple without lymphadenopathy, JVD, or masses. LUNGS: Breath sounds equal, clear to auscultation bilaterally. No wheezes, and no crackles. No accessory muscle use. HEART: Regular rate and rhythm, normal S1 and S2 without murmur, rub or gallop. ABDOMEN: Soft, nontender, not distended, normoactive bowel sounds, no guarding, no rebound, no masses. No hepatomegaly or splenomegaly. MUSCULOSKELETAL: Normal range of motion at all joints. No bony deformities or tenderness. No CVA tenderness. UPPER EXTREMITIES: 2+ pulses, warm, well-perfused. No cyanosis. No clubbing. No peripheral edema. LOWER EXTREMITIES: 2+ pulses, warm, well-perfused. No calf tenderness. No peripheral edema. NEUROLOGICAL: Cranial nerves II-XII intact. Normal speech. Normal gait. PSYCHIATRIC: Cooperative. Good eye contact. Appropriate mood and affect. SKIN: Warm, dry, normal turgor, no rashes or lesions noted, normal capillary refill. Laboratory Results - last 24 hr 05/01/18 05/01/18 05/01/18 10:40 10:40 10:40 WBC 1.8 L* RBC 4.04 Hgb 13.7 Hct 39.6 MCV 98.1 H MCH 34.0 H MCHC 34.6 RDW 14.6 Plt Count 160 MPV 9.3 Absolute Neuts (auto) 0.8 Neutrophils % 43.8 D Neutrophils % (Manual) 44.8 D Band Neutrophils % 2.1 Lymphocytes % 26.4 D Lymphocytes % (Manual) 22.9 D Monocytes % 20.4 H Monocytes % (Manual) 22 H Eosinophils % 7.2 H Eosinophils % (Manual) 4.2 D Basophils % 2.2 H D Basophils % (Manual) 0.0 Myelocytes % (Man) 0 D Promyelocytes % (Man) 0 Blast Cells % (Manual) 0 Nucleated RBC % 4 H Metamyelocytes 1 D Hypochromia 0 Toxic Granulation 0 Dohle Bodies 0 Platelet Estimate Decreased Polychromasia 0 Poikilocytosis 0 Basophilic Stippling 0 Anisocytosis 0 Microcytosis 0 Macrocytosis 0 Spherocytes 0 Sickle Cells 0 Target Cells 0 Tear Drop Cells 0 Ovalocytes 0 Stomatocytes 0 Helmet Cells 0 [place] Bodies 0 [place] Rings 0 [place]ro Cells 0 Acanthocytes (Spur) 0 Rouleaux 0 Fragmented RBCs 0 Schistocytes 0 PT with INR 12.90 INR 1.14 PTT (Actin FS) 25.5 L Sodium 140 Potassium 3.9 Chloride 108 H Carbon Dioxide 25 D Anion Gap 7 L BUN 10 Creatinine 0.8 Creat Clearance w eGFR > 60 Random Glucose 117 H Calcium 7.7 L Total Bilirubin 0.2 AST 34 D ALT 48 Alkaline Phosphatase 88 Total Protein 6.4 Albumin 3.0 L Assessment: This is a 37 year old male with PMHx of HIV who presented to the ED after receiving a call back from Dr. Castañeda in March 2018 for a positive cryptococcal ag blood test result. Plan: 1) + Cryptococcal Ag from 03/17 - Patient denies any symptoms - For brain MRI per neuro, then can consider LP - Discussed with Dr. Castañeda need for LP - Awaiting callback from IR regarding LP post neuroimaging 2) HIV - Continue home medication 3) F/E/N: - Monitor electrolytes 4) Prophylaxis: - Hold all chemical DVT prophylaxis for LP - SCDs bilaterally 5) Dispo: - Once condition improves CODE STATUS: FULL CODE Visit type - Emergency Visit Emergency Visit: Yes ED Registration Date: 05/01/18 Care time: The patient presented to the Emergency Department on the above date and was hospitalized for further evaluation of their emergent condition. - New Patient This patient is new to me today: Yes Date on this admission: 05/01/18 - Critical Care Critical Care patient: No Hospitalist Screening - Colonoscopy Questionnaire Colonoscopy Questionnaire: Colonoscopy Questionnaire - Patient: 50 - 75 years old and never had a screening colonoscopy: No History of colon or rectal polyps, or CA: No History of IBD, Crohn's disease or UC: No History of abdominal radiation therapy as a child: No - Relative: 1 with colon or rectal CA, or polyps at age 60 or younger: Unknown Colon or rectal CA diagnosed at age 45 or younger: Unknown Multiple relatives with colon or rectal CA: Unknown - Outcome: Screening Result: Negative Screen
[2018-05-01] MEDS ORDERED: EMTRICITABINE 200MG/TENOFOVIR 300MG PO SCH (18:34)
[2018-05-01] MEDS ORDERED: EFAVIRENZ 600 MG TABLET PO SCH (18:34)
[2018-05-01 18:49] LABS: GLUCOSE,CSF 46 mg/dL (50-80)
[2018-05-01 19:10] LABS: CSF COLOR COLORLESS
[2018-05-01 19:11] LABS: CSF APPEARANCE CLEAR; CSF WBC 4
[2018-05-01] MEDS: ACETAMINOPHEN 325 MG TABLET (FP) PO PRN (22:34)
[2018-05-01] MEDS: NYSTATIN 100,000 UNIT/GM TOPICAL CREAM 15 GM TUBE TP SCH (23:21)
[2018-05-02] MEDS ORDERED: PT OWN MED DRAWER 7, Y5N ONE ×3 (00:06→14:22)
[2018-05-02] MEDS: ACETAMINOPHEN 325 MG TABLET (FP) PO PRN (07:01)
[2018-05-02 07:45] LABS: BASO % 1.4 % (0-2.0); EOS % 7.3 % (0-4.5); HEMATOCRIT 40.8 % (35.4-49); HEMOGLOBIN 14.2 GM/dL (11.7-16.9); MCHC 34.7 g/dl (32.0-35.9); MEAN CELL VOLUME 97.9 fl (80-96); MEAN PLT VOLUME 9.2 fl (7.5-11.1); MONO % 19.5 % (3.8-10.2); NEUT % 47.8 % (42.8-82.8); PLATELET COUNT 155 K/MM3 (134-434); RBC 4.17 M/mm3 (4.00-5.60); RDW 14.5 % (11.9-15.9)
[2018-05-02 08:06] LABS: WHITE BLOOD COUNT 1.7 K/mm3 (4.0-10.0)
[2018-05-02 08:57] LABS: CHLORIDE 108 mmol/L (98-107); POTASSIUM 4.3 mmol/L (3.5-5.1); SODIUM 141 mmol/L (136-145)
[2018-05-02 09:04] LABS: ALBUMIN 3.1 g/dl (3.4-5.0); ALK PHOS 88 U/L (45-117); ANION GAP 7 (8-16); BILIRUBIN,TOTAL 0.3 mg/dL (0.2-1.0); BLOOD UREA NITROGEN 9 mg/dL (7-18); CALCIUM 7.8 mg/dL (8.5-10.1); CO2 26 mmol/L (21-32); CREATININE 0.7 mg/dL (0.7-1.3); GLUCOSE,RANDOM 96 mg/dL (74-106); MAGNESIUM 2.2 mg/dL (1.8-2.4); PHOSPHOROUS 3.2 mg/dL (2.5-4.9); SGOT/AST 33 U/L (15-37); SGPT/ALT 47 U/L (12-78); TOT PROT 6.5 g/dl (6.4-8.2)
[2018-05-02] MEDS ORDERED: oxyCODONE HCL 5 MG TABLET PO ONE (09:16)
--- NOTE | 2018-05-02 09:22 | PN ---
Progress Note (short form) - Note Progress Note: Subjective: The patient was seen and examined at the bedside, he has complaints of back pain when he moves at the lumbar puncture site. Current Medications Generic Name Dose Route Start Last Admin Trade Name Freq PRN Reason Stop Dose Admin Acetaminophen 650 mg 05/01/18 22:26 05/02/18 07:01 Tylenol - PO 650 mg Q6H PRN Administration PAIN LEVEL 7 - 10 Efavirenz 600 mg 05/01/18 18:34 Sustiva - PO DAILY JULISA Emtricitabine/Tenofovir 1 tab 05/01/18 18:34 Truvada PO DAILY JULISA Nystatin 1 applic 05/01/18 22:00 05/01/18 23:21 Mycostatin Cream - TP Not Given BID JULISA Oxycodone HCl 5 mg 05/02/18 09:16 Roxicodone - PO 05/02/18 09:17 ONCE ONE Objective: Vital Signs Period Temp Pulse Resp BP Sys/[place] Pulse Ox Last 24 Hr 97.4 F-98.2 F 56-60 16-18 120-128/70-78 100-100 Physical Exam: General: NAD, A&Ox3 Lungs: CTA bilaterally Heart: RRR, S1S2 Abd: Soft, non-tender, non-distended. Normoactive bowel sounds Ext: Warm, well-perfused. 2+ DP/PT bilaterally Skin: bandaid to lower back, c/d/i. No tenderness noted CBCD WBC 1.7 K/mm3 (4.0-10.0) L* 05/02/18 06:40 RBC 4.17 M/mm3 (4.00-5.60) 05/02/18 06:40 Hgb 14.2 GM/dL (11.7-16.9) 05/02/18 06:40 Hct 40.8 % (35.4-49) 05/02/18 06:40 MCV 97.9 fl (80-96) H 05/02/18 06:40 MCHC 34.7 g/dl (32.0-35.9) 05/02/18 06:40 RDW 14.5 % (11.9-15.9) 05/02/18 06:40 Plt Count 155 K/MM3 (134-434) 05/02/18 06:40 MPV 9.2 fl (7.5-11.1) 05/02/18 06:40 CMP Sodium 140 mmol/L (136-145) 05/01/18 10:40 Potassium 3.9 mmol/L (3.5-5.1) 05/01/18 10:40 Chloride 108 mmol/L (98-107) H 05/01/18 10:40 Carbon Dioxide 25 mmol/L (21-32) D 05/01/18 10:40 Anion Gap 7 (8-16) L 05/01/18 10:40 BUN 10 mg/dL (7-18) 05/01/18 10:40 Creatinine 0.8 mg/dL (0.7-1.3) 05/01/18 10:40 Creat Clearance w eGFR > 60 (>60) 05/01/18 10:40 Random Glucose 117 mg/dL (74-106) H 05/01/18 10:40 Calcium 7.7 mg/dL (8.5-10.1) L 05/01/18 10:40 Total Bilirubin 0.2 mg/dL (0.2-1.0) 05/01/18 10:40 AST 34 U/L (15-37) D 05/01/18 10:40 ALT 48 U/L (12-78) 05/01/18 10:40 Alkaline Phosphatase 88 U/L (45-117) 05/01/18 10:40 Total Protein 6.4 g/dl (6.4-8.2) 05/01/18 10:40 Albumin 3.0 g/dl (3.4-5.0) L 05/01/18 10:40 Laboratory Tests 05/01/18 17:30 CSF Appearance Clear CSF Color Colorless CSF WBC 4 CSF RBC 2 CSF Glucose 46 L CSF Total Protein 37 Microbiology 05/01/18 17:30 Cerebral Spinal Fluid - Lumbar Puncture Gram Stain - Final 05/01/18 10:40 Serum Cryptococcal Antigen - Preliminary Assessment: This is a 37 year old male with PMHx of HIV who presented to the ED after receiving a call back from Dr. Castañeda in March 2018 for a positive cryptococcal ag blood test result. Plan: 1) + Cryptococcal Ag from 03/17 - Patient denies any symptoms - Brain MRI with no evidence of enhancing lesions, brain edema, acute ischemic changes, hemorrhage, demyelinating process. Normal CSF spaces - Had LP done yesterday: only 3cc spinal fluid obtained, sent for culture. Discussed with lab, not enough fluid to send for cryptococcal ag - F/u neuro consult - F/u ID consult 2) HIV - Continue home medication 3) F/E/N: - Monitor electrolytes 4) Prophylaxis: - OOB ambulating - SCDs bilaterally 5) Dispo: - Once condition improves CODE STATUS: FULL CODE Visit type - Emergency Visit Emergency Visit: Yes ED Registration Date: 05/01/18 Care time: The patient presented to the Emergency Department on the above date and was hospitalized for further evaluation of their emergent condition. - New Patient This patient is new to me today: No - Critical Care Critical Care patient: No
[2018-05-02] MEDS: NYSTATIN 100,000 UNIT/GM TOPICAL CREAM 15 GM TUBE TP SCH (09:32)
[2018-05-02] MEDS ORDERED: EMTRICITABINE 200MG/TENOFOVIR 300MG PO SCH (10:00)
[2018-05-02] MEDS ORDERED: PATIENT'S OWN MEDICATION (NON-FORMULARY) (Efavirenz/Emtricitab/Tenofovir 1 TAB) PO SCH (10:00)
[2018-05-02] MEDS ORDERED: EFAVIRENZ 600 MG TABLET PO SCH (10:00)
[2018-05-02 10:33] LABS: ACANTHOCYTES 0; ANISOCYTOSIS 0; HELMET CELLS 0; HOWELL-JOLLY BODIES 0; MACROCYTOSIS 0; OVALOCYTE 0; PLATELET ESTIMATE DECREASED; ROULEAU 0; SICKELED CELLS 0; TARGET CELLS 0; TEAR DROP CELLS 0; TOXIC GRANULATION 0
[2018-05-02 11:50] VITALS: BP 136/76; PULSE 70; TEMP 98.9
--- NOTE | 2018-05-02 12:05 | PN ---
Progress Note (short form) - Note Progress Note: ID Consult dictated + Cryptococcal ag R/O disseminated cryptococcosis R/O cryptococcal meningitis AIDS CD4 4 VL> 5 million Hx non-compliance Await CSF crypt ag, fungal c/s Will start fluconazole 400mg x1, 200mg qd Pt aware if CSF crypt ag or fungal c/s positive will need admission for induction therapy with amphotericin/ 5FC Has outpatient follow up appt 05/06/18
--- NOTE | 2018-05-02 12:39 | CONS ---
DATE OF CONSULTATION: DATE OF DICTATION: 05/02/2018 The patient is a 37-year-old male evaluated for possible disseminated cryptococcosis and cryptococcal meningitis. The patient has a history of acquired immunodeficiency syndrome and a history of noncompliance with his antiretroviral therapy. He was hospitalized from March 15 through March 18 of this year at [facility] for bilateral lower lobe pneumonia. He clinically improved with IV antibiotic therapy. As part of the workup at that time a serum cryptococcal antigen was done and was positive 1:5. He had signed out against medical advice but was contacted to return to the hospital to have a lumbar puncture to rule out [employer] involvement with cryptococcus. The patient was lost to followup until yesterday when he presented to the emergency room. He is clinically well. He reports he is adherent to his antiretroviral therapy and MAC prophylaxis. He has not been taking Mepron for PCP prophylaxis as he has adverse side effects. He is allergic to SULFA. He denies any headaches, neck stiffness, meningismus, photophobia. No altered mental status. Of note, he has skin lesion on his upper extremities and trunk which may represent disseminated cryptococcosis. PAST MEDICAL HISTORY: Positive for acquired immunodeficiency syndrome with a long history of noncompliance. Prior to recent hospital visit, his last visit to the [facility] was in October 2016. Most recent viral marker showed a viral load of over 5 million and a T cell count of 4. ALLERGIES: SULFA (rash). MEDICATIONS: Include Atripla, Zithromax, and Mepron (which the patient does not take). SOCIAL HISTORY: The patient is employed. Positive history of tobacco use. LABORATORY DATA: White count 1.7, 52 neutrophils, 24 lymphocytes, 19 monocytes, 8 eosinophils, hematocrit 40.8, platelet count 155. BUN 9, creatinine 0.7. Spinal fluid: 4 white cells, 2 red cells, protein normal, glucose 46. Gram stain and cultures are pending as is serum cryptococcal antigen. PHYSICAL EXAMINATION: General: He is awake and alert. He is ambulatory. He is nontoxic appearing. Vital Signs: His temperature is 98.9, blood pressure 136/76, pulse 70 regular, respirations 20 per minute. HEENT: Sclerae are anicteric. Oropharynx negative thrush. Neck: Supple. No palpable nodes. Heart: S1, S2. Lungs: Clear. Abdomen: Soft and nontender. Extremities: Negative for edema. Skin: There are small hyperpigmented macular lesions present on the upper extremities, chest and back, as well as a fungal rash in the groin. IMPRESSION: 1. Positive cryptococcal antigen, rule out disseminated cryptococcosis versus cryptococcal meningitis. 2. Advanced acquired immunodeficiency syndrome with a history of noncompliance. PLAN: Await spinal fluid cryptococcal antigen and fungal culture. Will start fluconazole. The patient is aware that if C&S cryptococcal antigen or fungal culture positive, will need admission for induction therapy with amphotericin and 5FC. For now, the patient will continue to take Atripla and Zithromax for MAC prophylaxis. Will obtain G6PT level with a view toward starting Dapsone for PCP prophylaxis in this patient with SULFA allergy and intolerance to Mepron. GIBSON PANIAGUA M.D. [id number]
[2018-05-02] MEDS ORDERED: FLUCONAZOLE 100 MG TABLET (UD) PO ONE (12:45)
--- NOTE | 2018-05-02 13:04 | DS ---
Physical Examination Vital Signs: Vital Signs Temperature 98.9 F 05/02/18 10:00 Pulse Rate 70 05/02/18 10:00 Respiratory Rate 18 05/02/18 11:48 Blood Pressure 136/76 05/02/18 10:00 O2 Sat by Pulse Oximetry (%) 100 05/02/18 11:48 Labs: CBC, BMP 05/02/18 06:40 05/02/18 06:40 Discharge Summary Reason For Visit: CRYPTOCOCCOSIS Current Active Problems Cryptococcosis (Acute) Hospital Course: Discussed with Dr. Castañeda, can be discharged on fluconazole 200mg po daily and follow-up as an outpatient on 05/06/18. Patient is aware that if his crypt ag or fungal culture is positive then he needs to return to the ED immediately. Condition: Improved - Instructions Diet, Activity, Other Instructions: Please return to the ED with new, persistent, or worsening symptoms. Please follow-up with Dr. Castañeda on 05/06/18 for results of your cryptococcal antigen cerebral spinal fluid test. Please continue taking Fluconazole 200mg by mouth daily. Referrals: Daniel Castañeda MD [Staff Physician] - (Please follow-up with Dr. Castañeda at the [facility] on 05/06/18. ) Disposition: HOME - Home Medications Comprehensive Discharge Medication List: Ambulatory Orders Efavirenz/Emtricitab/Tenofovir [Atripla Tablet -] 1 tab PO DAILY #30 tab Azithromycin [Zithromax -] 1,000 mg PO WEEKLY 05/01/18 Fluconazole 200 mg PO DAILY #30 tablet 05/02/18
--- NOTE | 2018-05-05 12:08 | HOSP ---
Physical Examination Vital Signs: Vital Signs Temperature 98.9 F 05/02/18 10:00 Pulse Rate 70 05/02/18 10:00 Respiratory Rate 18 05/02/18 11:48 Blood Pressure 136/76 05/02/18 10:00 O2 Sat by Pulse Oximetry (%) 100 05/02/18 11:48 Findings/Remarks: Call from the patient stating he is experiencing a stiff neck and headache when he sits or stands and that he can only stand for about 15 minutes before the pain gets so bad that he needs to lay down again. The patient reports that when he lays flat on the floor his symptoms resolve. He denies any chills, fever, nausea, vomiting, chest pain, dizziness, syncope. Instructed the patient to come to the ED for evaluation. Called and spoke to Dr. Chou regarding above. ED aware patient is coming in for an evaluation. Labs: CBC, BMP 05/02/18 06:40 05/02/18 06:40
== END 2018-05-02 14:40 | disposition home or self-care (01) ==
LOC: JER 07:11 → JERBED 10:39 → J8W 17:45
PROVIDERS: ADMIT Internal Medicine; ATTEND Registered Nurse
PROC: 009U3ZX Drainage of Spinal Canal, Percutaneous Approach, Diagnostic (ICD-10-PCS; principal; 2018-05-01)
PROC: B01BZZZ Fluoroscopy of Spinal Cord (ICD-10-PCS; 2018-05-01)
DX: B45.9 Cryptococcosis, unspecified (principal); B20 Human immunodeficiency virus [HIV] disease
CPT/HCPCS: 36415; 62272; 70553-TC; 77003-TC-FY; 80053; 82945; 82955; 83735; 84100; 84157; 85025; 85041; 85610; 85730; 87070; 87102; 87205; 87210; 87899; 99282-25; G0378

== ENCOUNTER 2018-05-05 12:40 | Observation (INO) | payer OTHER ==
--- NOTE | 2018-05-05 13:18 | PDOC ---
History of Present Illness - General Chief Complaint: Pain, Acute Stated Complaint: REVISIT, FOLLOW UP Time Seen by Provider: 05/05/18 13:05 History Source: Patient - History of Present Illness Timing/Duration: other (5 days ago) Associated Symptoms: reports: headaches. denies: cough, fever/chills, nausea/ vomiting, seizure Past History - Past Medical History Allergies/Adverse Reactions: Allergies Allergy/AdvReac Type Severity Reaction Status Date / Time sulfamethoxazole Allergy Rash Verified 05/05/18 12:45 [From Bactrim] trimethoprim [From Bactrim] Allergy Rash Verified 05/05/18 12:45 Home Medications: Ambulatory Orders Efavirenz/Emtricitab/Tenofovir [Atripla Tablet -] 1 tab PO DAILY #30 tab Azithromycin [Zithromax -] 1,000 mg PO WEEKLY 05/01/18 Fluconazole 200 mg PO DAILY #30 tablet 05/02/18 Anemia: No Asthma: No Cancer: No Cardiac Disorders: No CVA: No COPD: No CHF: No Dementia: No Diabetes: No GI Disorders: No Disorders: No HTN: No Liver Disease: No Seizures: No Thyroid Disease: No - Surgical History Abdominal Surgery: No Appendectomy: No Cardiac Surgery: No Cholecystectomy: No Lung Surgery: No Neurologic Surgery: No Orthopedic Surgery: No - Immunization History Immunization Up to Date: No - Suicide/Smoking/Psychosocial Hx Smoking History: Never smoked Have you smoked in the past 12 months: No Number of Cigarettes Smoked Daily: 10 If you are a former smoker, when did you quit?: 2009 Cigars Per Day: 0 Information on smoking cessation initiated: No 'Breaking Loose' booklet given: 07/02/17 Hx Alcohol Use: No Drug/Substance Use Hx: No Substance Use Type: None Hx Substance Use Treatment: No Review of Systems - Review of Systems Constitutional: No: Chills, Fever, Malaise, Weakness HEENTM: No: Blurred Vision Respiratory: No: Shortness of Breath Cardiac (ROS): No: Chest Pain, Lightheadedness, Palpitations ABD/GI: No: Nausea, Vomiting Musculoskeletal: Yes: Neck Pain Neurological: Yes: Headache *Physical Exam - Vital Signs Last Vital Signs Temp Pulse Resp BP Pulse Ox 98.3 F 82 16 142/92 99 05/05/18 12:43 05/05/18 12:43 05/05/18 12:43 05/05/18 12:43 05/05/18 12:43 - Physical Exam Comments: 05/05/18 13:35 Pt lying comfortably on stretcher General Appearance: Yes: Appropriately Dressed. No: Apparent Distress HEENT: positive: Normal Voice Neck: positive: Supple. negative: Tender Respiratory/Chest: negative: Respiratory Distress Gastrointestinal/Abdominal: positive: Soft. negative: Tender Extremity: positive: Normal Inspection Integumentary: positive: Dry, Warm Neurologic: positive: Fully Oriented, Alert, Normal Mood/Affect, Other (no e/o meningismus) ED Treatment Course - LABORATORY CBC & Chemistry Diagram: 05/05/18 13:40 05/05/18 13:40 Medical Decision Making - Medical Decision Making 05/05/18 13:14 37-year-old male with a history of HIV, AIDS, here OLMOS/neck pain s/p recent LP here at [facility]. Pt s/p admission 5 days ago for + cryptococcus antigen in serum 6 weeks prior but did not f/u until 4 days ago when he was admitted for an LP. CSF culture so far is neg but CSF cryptococcus antigen assay pending. Of note, bld cx was cancelled. Pt was discharged on fluconazole 4 days ago for ? rash. Sent in by ID for eval/managment. States pain is located to posterior aspect of head and neck and only present when he stands or sits up and completely resolves in supine position. No dizziness, photophobia, AMS, f/c/n/v See exam M/l post LP OLMOS, less likely meningitis HIV/AIDs w/ crypto on serum 6 weeks ago, didn't f/u till recently CSF cx neg so far, crypto antigen pending and bld cx cancelled per records On fluconazole for ? rash Not tx for crypto pending final cxs per pt Afebrile and non-toxic appearing in ED, pain free while supine No e/o meningismus -IV caffeine as d/w Dr Chou, if no relief, anesthesia c/s for patch -labs -c/w ID 05/05/18 14:40 Pharmacy informs me that they do not have the caffeine/sodium benzoate formulation. At this point, anesthesia was contacted and informed me that they will come down to ER to do the blood patch, but that it may take several hours. Dr. Chou aware and recommended that we make patient a short stay 05/05/18 15:22 Dr Alvarez of anesthesia now at bedside but wants to discuss case w/ Dr Castañeda prior to procedure 05/05/18 16:20 Dr. Alvarez discussed case with Dr. Castañeda of ID who confirmed that cultures are still pending and the plan is not to treat unless cultures are positive. Patient on fluconazole for rash. Per anesthesia, will not proceed with blood patch at this time given pending cultures. Per Dr. Castañeda, patient to be treated conservatively in ED and reassess. Dr. Chou aware and states if IV fluids and fioricet does not relief pain, that patient should be admitted to observation 05/05/18 18:21 Pt reevaluated by myself and ACTIVITY DIRECTOR Ruben and reports that his pain has improved, but still having some neck pain when he sits up. Decision was made to admit patient to observation at this time *DC/Admit/Observation/Transfer Diagnosis at time of Disposition: Post lumbar puncture headache - Discharge Dispostion Condition at time of disposition: Fair Decision to Admit order: Yes - Referrals - Patient Instructions - Post Discharge Activity
[2018-05-05] MEDS ORDERED: CAFFEINE CITRATE 60 MG/3 ML VIAL IVPUSH ONE (13:21)
[2018-05-05 13:50] LABS: BASO % 1.4 % (0-2.0); EOS % 7.4 % (0-4.5); HEMATOCRIT 44.3 % (35.4-49); HEMOGLOBIN 15.2 GM/dL (11.7-16.9); LYMPH % 27.3 % (8-40); MCH 33.4 pg (25.7-33.7); MCHC 34.3 g/dl (32.0-35.9); MEAN CELL VOLUME 97.3 fl (80-96); NEUT % 41.9 % (42.8-82.8); PLATELET COUNT 199 K/MM3 (134-434); RBC 4.55 M/mm3 (4.00-5.60); RDW 14.7 % (11.9-15.9)
[2018-05-05 13:54] LABS: WHITE BLOOD COUNT 1.9 K/mm3 (4.0-10.0)
[2018-05-05] MEDS ORDERED: SODIUM CHLORIDE IVPB ONE (14:00)
[2018-05-05] MEDS ORDERED: CAFFEINE CITRATE IVPB ONE (14:00)
[2018-05-05 14:11] LABS: ALBUMIN 3.6 g/dl (3.4-5.0); ANION GAP 5 (8-16); BILIRUBIN,TOTAL 0.2 mg/dL (0.2-1.0); BLOOD UREA NITROGEN 9 mg/dL (7-18); CALCIUM 8.6 mg/dL (8.5-10.1); CHLORIDE 103 mmol/L (98-107); CO2 30 mmol/L (21-32); CREATININE 0.9 mg/dL (0.7-1.3); GLUCOSE,RANDOM 102 mg/dL (74-106); SGPT/ALT 66 U/L (12-78); SODIUM 138 mmol/L (136-145); TOT PROT 7.5 g/dl (6.4-8.2)
[2018-05-05 14:12] LABS: ALK PHOS 100 U/L (45-117)
[2018-05-05 14:16] LABS: POTASSIUM 4.1 mmol/L (3.5-5.1); SGOT/AST 45 U/L (15-37)
[2018-05-05 14:49] LABS: URINE APPEARANCE CLEAR; URINE BILIRUBIN NEGATIVE (<2.0 mg/dL); URINE COLOR STRAW; URINE GLUCOSE (UA) NEGATIVE (NEGATIVE); URINE KETONE NEGATIVE (NEGATIVE); URINE LEUK ESTERASE NEGATIVE (NEGATIVE); URINE NITRITE NEGATIVE (NEGATIVE); URINE PROTEIN NEGATIVE (NEGATIVE); URINE UROBILINOGEN NEGATIVE mg/dL (0.2-1.0)
--- NOTE | 2018-05-05 15:09 | PDOC ---
*Physical Exam - Vital Signs Last Vital Signs Temp Pulse Resp BP Pulse Ox 98.3 F 82 16 142/92 99 05/05/18 12:43 05/05/18 12:43 05/05/18 12:43 05/05/18 12:43 05/05/18 12:43 ED Treatment Course - LABORATORY CBC & Chemistry Diagram: 05/05/18 13:40 05/05/18 13:40 - ADDITIONAL ORDERS Additional order review: Laboratory Results 05/05/18 05/05/18 05/05/18 13:40 13:40 13:40 Sodium 138 Potassium 4.1 Chloride 103 Carbon Dioxide 30 Anion Gap 5 L BUN 9 Creatinine 0.9 Creat Clearance w eGFR > 60 Random Glucose 102 Lactic Acid 1.0 Calcium 8.6 Total Bilirubin 0.2 AST 45 H D ALT 66 D Alkaline Phosphatase 100 D Total Protein 7.5 Albumin 3.6 Urine Color Straw Urine Appearance Clear Urine pH 7.0 Ur Specific [place] 1.011 Urine Protein Negative Urine Glucose (UA) Negative Urine Ketones Negative Urine Blood Negative Urine Nitrite Negative Urine Bilirubin Negative Urine Urobilinogen Negative Ur Leukocyte Esterase Negative 05/05/18 13:40 RBC 4.55 MCV 97.3 H MCHC 34.3 RDW 14.7 MPV 9.0 Neutrophils % 41.9 L Lymphocytes % 27.3 Monocytes % 22.0 H Eosinophils % 7.4 H Basophils % 1.4 Medical Decision Making - Medical Decision Making 05/05/18 15:07 Patient seen and evaluated with the nurse practitioner. I agree with the overall evaluation, assessment, and management with the following summary of visit: 37-year-old male with recent history of positive blood culture, status post lumbar puncture now presents with positional headache consistent with postop headache. Afebrile here Neurologically intact 37-year-old male with post-LP headache. Discussed with anesthesia, will attempt blood patch 05/05/18 16:24 case discussed with anesthesia and ID. given history, will treat with ampho, treat symptomatically, and defer blood patch temporarily given potential risk of infection. *DC/Admit/Observation/Transfer Diagnosis at time of Disposition: Post lumbar puncture headache - Discharge Dispostion Condition at time of disposition: Fair - Referrals - Patient Instructions - Post Discharge Activity
[2018-05-05] MEDS ORDERED: ACETAMINOPHEN/CAFFEINE/BUTALBITAL 1 TAB PO ONE ×2 (15:13→16:19)
[2018-05-05] MEDS ORDERED: SODIUM CHLORIDE 1,000 ML IV STA (16:19)
[2018-05-05] MEDS ORDERED: ACETAMINOPHEN/CAFFEINE/BUTALBITAL 1 TAB ONE (16:42)
--- NOTE | 2018-05-05 18:43 | HP ---
CHIEF COMPLAINT: headache and stiff neck upon sitting/standing PCP: none HISTORY OF PRESENT ILLNESS: This is a 37 year old male with PMHx of HIV, +crytococcal Ag on 03/17 who presented to the ED with positional headache and stiff neck when sitting/ standing since LP on 05/01/18. The patient reports since being discharged on he has only had relief from his symptoms when he lays flat. He reports when he sits or stands he gets a headache and stiff neck. The patient denies any fever, chills, chest pain, palpitations, myalgia, arthralgia, visual changes, urinary symptoms. ER course was notable for: (1) Temp 98.3, pulse 82, BP 142/92, resp 16, O2 99% on RA (2) WBC 1.9 Recent Travel: denies PAST MEDICAL HISTORY: HIV, cryptococcal Ag + PAST SURGICAL HISTORY: denies Social History: Smoking: denies Alcohol: denies Drugs: denies Family History: Allergies sulfamethoxazole [From Bactrim] Allergy (Verified 05/05/18 12:45) Rash trimethoprim [From Bactrim] Allergy (Verified 05/05/18 12:45) Rash HOME MEDICATIONS: Home Medications Medication Instructions Recorded Efavirenz/Emtricitab/Tenofovir 1 tab PO DAILY #30 tab 10/17/16 [Atripla Tablet -] Azithromycin [Zithromax -] 1,000 mg PO WEEKLY 05/01/18 Fluconazole 200 mg PO DAILY #30 tablet 05/02/18 REVIEW OF SYSTEMS CONSTITUTIONAL: Absent: fever, chills, diaphoresis, generalized weakness, malaise, loss of appetite, weight change HEENT: Absent: rhinorrhea, nasal congestion, throat pain, throat swelling, difficulty swallowing, mouth swelling, ear pain, eye pain, visual changes CARDIOVASCULAR: Absent: chest pain, syncope, palpitations, irregular heart rate, lightheadedness , peripheral edema RESPIRATORY: Absent: cough, shortness of breath, dyspnea with exertion, orthopnea, wheezing, stridor, hemoptysis GASTROINTESTINAL: Absent: abdominal pain, abdominal distension, nausea, vomiting, diarrhea, constipation, melena, hematochezia GENITOURINARY: Absent: dysuria, frequency, urgency, hesitancy, hematuria, flank pain, genital pain MUSCULOSKELETAL: Absent: myalgia, arthralgia, joint swelling, back pain, neck pain SKIN: Absent: rash, itching, pallor HEMATOLOGIC/IMMUNOLOGIC: Absent: easy bleeding, easy bruising, lymphadenopathy, frequent infections ENDOCRINE: Absent: unexplained weight gain, unexplained weight loss, heat intolerance, cold intolerance NEUROLOGIC: headache and neck stiffness when patient sits or stands as above. Absent: focal weakness or paresthesias, dizziness, unsteady gait, seizure, mental status changes, bladder or bowel incontinence PSYCHIATRIC: Absent: anxiety, depression, suicidal or homicidal ideation, hallucinations. PHYSICAL EXAMINATION Vital Signs - 24 hr 05/05/18 05/05/18 05/05/18 12:43 16:21 18:19 Temperature 98.3 F 98.1 F 98 F Pulse Rate 82 Pulse Rate [ 71 87 Right Radial] Respiratory 16 19 17 Rate Blood Pressure 142/92 Blood Pressure 119/74 117/74 [Left Arm] O2 Sat by Pulse 99 100 100 Oximetry (%) GENERAL: Awake, alert, and fully oriented, in no acute distress. HEAD: Normal with no signs of trauma. EYES: Pupils equal, round and reactive to light, extraocular movements intact, sclera anicteric, conjunctiva clear. No lid lag. EARS, NOSE, THROAT: Ears normal, nares patent, oropharynx clear without exudates. Moist mucous membranes. NECK: Decreased movement in neck when sitting upright LUNGS: Breath sounds equal, clear to auscultation bilaterally. No wheezes, and no crackles. No accessory muscle use. HEART: Regular rate and rhythm, normal S1 and S2 without murmur, rub or gallop. ABDOMEN: Soft, nontender, not distended, normoactive bowel sounds, no guarding, no rebound, no masses. No hepatomegaly or splenomegaly. MUSCULOSKELETAL: Normal range of motion at all joints. No bony deformities or tenderness. No CVA tenderness. UPPER EXTREMITIES: 2+ pulses, warm, well-perfused. No cyanosis. No clubbing. No peripheral edema. LOWER EXTREMITIES: 2+ pulses, warm, well-perfused. No calf tenderness. No peripheral edema. NEUROLOGICAL: Cranial nerves II-XII intact. Normal speech. Normal gait. PSYCHIATRIC: Cooperative. Good eye contact. Appropriate mood and affect. SKIN: Warm, dry, normal turgor, no rashes or lesions noted, normal capillary refill. Laboratory Results - last 24 hr 05/05/18 05/05/18 05/05/18 13:40 13:40 13:40 WBC 1.9 L* RBC 4.55 Hgb 15.2 Hct 44.3 MCV 97.3 H MCH 33.4 MCHC 34.3 RDW 14.7 Plt Count 199 D MPV 9.0 Absolute Neuts (auto) 0.8 Total Counted 50 Neutrophils % 41.9 L Neutrophils % (Manual) 36.0 L D Band Neutrophils % 0.0 Lymphocytes % 27.3 Lymphocytes % (Manual) 32.0 D Monocytes % 22.0 H Monocytes % (Manual) 22 H Eosinophils % 7.4 H Eosinophils % (Manual) 8.0 H Basophils % 1.4 Basophils % (Manual) 2.0 D Nucleated RBC % 0 Sodium 138 Potassium 4.1 Chloride 103 Carbon Dioxide 30 Anion Gap 5 L BUN 9 Creatinine 0.9 Creat Clearance w eGFR > 60 Random Glucose 102 Lactic Acid Calcium 8.6 Total Bilirubin 0.2 AST 45 H D ALT 66 D Alkaline Phosphatase 100 D Total Protein 7.5 Albumin 3.6 Urine Color Straw Urine Appearance Clear Urine pH 7.0 Ur Specific [place] 1.011 Urine Protein Negative Urine Glucose (UA) Negative Urine Ketones Negative Urine Blood Negative Urine Nitrite Negative Urine Bilirubin Negative Urine Urobilinogen Negative Ur Leukocyte Esterase Negative 05/05/18 13:40 WBC RBC Hgb Hct MCV MCH MCHC RDW Plt Count MPV Absolute Neuts (auto) Total Counted Neutrophils % Neutrophils % (Manual) Band Neutrophils % Lymphocytes % Lymphocytes % (Manual) Monocytes % Monocytes % (Manual) Eosinophils % Eosinophils % (Manual) Basophils % Basophils % (Manual) Nucleated RBC % Sodium Potassium Chloride Carbon Dioxide Anion Gap BUN Creatinine Creat Clearance w eGFR Random Glucose Lactic Acid 1.0 Calcium Total Bilirubin AST ALT Alkaline Phosphatase Total Protein Albumin Urine Color Urine Appearance Urine pH Ur Specific [place] Urine Protein Urine Glucose (UA) Urine Ketones Urine Blood Urine Nitrite Urine Bilirubin Urine Urobilinogen Ur Leukocyte Esterase Assessment: This is a 37 year old male with PMHx of HIV who presented to the ED with headache stiff neck upon standing s/p lumbar puncture on 05/01/18 Plan: 1) Post LP headache - Given IV fluids and Fiorecet in the ED with positive relief - Will continue above overnight - Unable to get blood patch per ID/anesthesia due to positive cryptococcal Ag in blood from 03/17 2) Neck stiffness - Positional - Will send cultures - F/u ID consult 1) + Cryptococcal Ag from 03/17 - Brain MRI with no evidence of enhancing lesions, brain edema, acute ischemic changes, hemorrhage, demyelinating process. Normal CSF spaces - Awaiting CSF cryptococcal Ag. If positive will start Amphotericin/5FC 2) HIV - Continue home medication 3) F/E/N: - Regular diet - Monitor electrolytes 4) Prophylaxis: - OOB ambulating - SCDs bilaterally 5) Dispo: - Once condition improves CODE STATUS: FULL CODE Visit type - Emergency Visit Emergency Visit: Yes ED Registration Date: 05/05/18 Care time: The patient presented to the Emergency Department on the above date and was hospitalized for further evaluation of their emergent condition. - New Patient This patient is new to me today: Yes Date on this admission: 05/05/18 - Critical Care Critical Care patient: No Hospitalist Screening - Colonoscopy Questionnaire Colonoscopy Questionnaire: Colonoscopy Questionnaire - Patient: 50 - 75 years old and never had a screening colonoscopy: No History of colon or rectal polyps, or CA: Unknown History of IBD, Crohn's disease or UC: Unknown History of abdominal radiation therapy as a child: Unknown - Relative: 1 with colon or rectal CA, or polyps at age 60 or younger: Unknown Colon or rectal CA diagnosed at age 45 or younger: Unknown Multiple relatives with colon or rectal CA: Unknown - Outcome: Screening Result: Negative Screen
[2018-05-05] MEDS ORDERED: SODIUM CHLORIDE 1,000 ML IV SCH (19:00)
--- NOTE | 2018-05-05 19:57 | PN ---
Progress Note (short form) - Note Progress Note: Anesthesia consult, Called for consult PDPH assessment. Patient is 37 year old male with PMHx of HIV, +crytococcal Ag on 03/17. LP on . patient was discharged awaiting culture result for cryptococcus. Not started any treatment. C/o tension in his neck and back of his head while sitting which improves in supine position. Denies any double vision, numbness in face ar arms. No problem walking or urinating. Afebrile, VSS. A/P: positional pain and tension in posterior head and neck area. Started after LP. Discussed with patient and ID physician Blood patch versus conservative therapy. Since still unclear if pat is having positive blood culture or not, will proceed with with conservative therapy, IV hydration, Fioricet,Percocet. Please contact Anesthesiologist if no improvement.
[2018-05-06 03:25] VITALS: BMI 29.6
[2018-05-06 08:05] LABS: HEMATOCRIT 43.7 % (35.4-49); HEMOGLOBIN 14.8 GM/dL (11.7-16.9); MCH 33.4 pg (25.7-33.7); MCHC 33.9 g/dl (32.0-35.9); MEAN CELL VOLUME 98.4 fl (80-96); MEAN PLT VOLUME 9.8 fl (7.5-11.1); PLATELET COUNT 178 K/MM3 (134-434); RBC 4.44 M/mm3 (4.00-5.60); RDW 14.7 % (11.9-15.9)
[2018-05-06] MEDS: ACETAMINOPHEN/CAFFEINE/BUTALBITAL 1 TAB PO PRN (08:54)
[2018-05-06] MEDS ORDERED: EFAVIRENZ 600 MG TABLET PO SCH (10:00)
[2018-05-06] MEDS ORDERED: EMTRICITABINE 200MG/TENOFOVIR 300MG PO SCH (10:00)
[2018-05-06] MEDS ORDERED: PATIENT'S OWN MEDICATION (NON-FORMULARY) (Efavirenz/Emtricitab/Tenofovir 1 TAB) PO SCH (10:00)
[2018-05-06] MEDS ORDERED: PT OWN MED DRAWER 7, Y5N ONE (10:42)
[2018-05-06] MEDS: FLUCONAZOLE 100 MG TABLET (UD) PO SCH (10:51)
--- NOTE | 2018-05-06 12:20 | PN ---
Physical Exam: SUBJECTIVE: Patient seen and examined. States increased dizziness after 5 mins when standing up. None when laying flat. OLMOS resolved OBJECTIVE: Vital Signs Period Temp Pulse Resp BP Sys/[place] Pulse Ox Last 24 Hr 98 F-98.5 F 64-87 16-20 102-142/56-92 99-100 PE Neuro: alert, awake, cn 2-12 intact Pulm: CTAB CV: s1 s2 rrr no mrg Abd: s nt nd +bs Ext: warm, no le edema Skin: groin rash Laboratory Results - last 24 hr 05/05/18 05/05/18 05/05/18 13:40 13:40 13:40 WBC 1.9 L* RBC 4.55 Hgb 15.2 Hct 44.3 MCV 97.3 H MCH 33.4 MCHC 34.3 RDW 14.7 Plt Count 199 D MPV 9.0 Absolute Neuts (auto) 0.8 Total Counted 50 Neutrophils % 41.9 L Neutrophils % (Manual) 36.0 L D Band Neutrophils % 0.0 Lymphocytes % 27.3 Lymphocytes % (Manual) 32.0 D Monocytes % 22.0 H Monocytes % (Manual) 22 H Eosinophils % 7.4 H Eosinophils % (Manual) 8.0 H Basophils % 1.4 Basophils % (Manual) 2.0 D Nucleated RBC % 0 Sodium 138 Potassium 4.1 Chloride 103 Carbon Dioxide 30 Anion Gap 5 L BUN 9 Creatinine 0.9 Creat Clearance w eGFR > 60 Random Glucose 102 Lactic Acid Calcium 8.6 Total Bilirubin 0.2 AST 45 H D ALT 66 D Alkaline Phosphatase 100 D Total Protein 7.5 Albumin 3.6 Urine Color Straw Urine Appearance Clear Urine pH 7.0 Ur Specific [place] 1.011 Urine Protein Negative Urine Glucose (UA) Negative Urine Ketones Negative Urine Blood Negative Urine Nitrite Negative Urine Bilirubin Negative Urine Urobilinogen Negative Ur Leukocyte Esterase Negative 05/05/18 05/06/18 13:40 07:00 WBC 2.0 L RBC 4.44 Hgb 14.8 Hct 43.7 MCV 98.4 H MCH 33.4 MCHC 33.9 RDW 14.7 Plt Count 178 MPV 9.8 Absolute Neuts (auto) Total Counted Neutrophils % Neutrophils % (Manual) Band Neutrophils % Lymphocytes % Lymphocytes % (Manual) Monocytes % Monocytes % (Manual) Eosinophils % Eosinophils % (Manual) Basophils % Basophils % (Manual) Nucleated RBC % Sodium Potassium Chloride Carbon Dioxide Anion Gap BUN Creatinine Creat Clearance w eGFR Random Glucose Lactic Acid 1.0 Calcium Total Bilirubin AST ALT Alkaline Phosphatase Total Protein Albumin Urine Color Urine Appearance Urine pH Ur Specific [place] Urine Protein Urine Glucose (UA) Urine Ketones Urine Blood Urine Nitrite Urine Bilirubin Urine Urobilinogen Ur Leukocyte Esterase Active Medications Generic Name Dose Route Start Last Admin Trade Name Freq PRN Reason Stop Dose Admin Acetaminophen/Butalbital/Caffeine 1 tablet 05/05/18 22:00 05/06/18 08:54 Fioricet - PO 1 tablet Q6H PRN Administration HEADACHE Efavirenz 600 mg 05/06/18 10:00 05/06/18 10:51 Sustiva - PO Not Given DAILY JULISA Emtricitabine/Tenofovir 1 tab 05/06/18 10:00 05/06/18 10:52 Truvada PO Not Given DAILY JULISA Fluconazole 200 mg 05/06/18 10:00 05/06/18 10:51 Diflucan - PO 200 mg DAILY JULISA Administration Sodium Chloride 1,000 mls @ 83 mls/hr 05/05/18 19:00 Normal Saline - IV ASDIR JULISA Imaging: - Brain MRI with no evidence of enhancing lesions, brain edema, acute ischemic changes, hemorrhage, demyelinating process. Normal CSF spaces Assessment: 37 year old male with PMHx of HIV who presented to the ED with headache stiff neck upon standing s/p lumbar puncture on 05/01/18 Plan: 1. Post LP headache - Now with acute postural dizziness when up right for >5 mins - Laying down no issues - Continue IVF, Fiorecet in the ED with positive relief - 03/17, 05/01 blood cryptococcal Ag negative, await final blood cx, can place if negative and sx unresolved, no further neurosurgical intervention at this time 2. Neck stiffness - Positional - See above 3. + Cryptococcal Ag from 03/17 - Negative resulted in micro, most recent 05/01 also neg 4. HIV - Continue home medication Visit type - Emergency Visit Emergency Visit: Yes ED Registration Date: 05/05/18 Care time: The patient presented to the Emergency Department on the above date and was hospitalized for further evaluation of their emergent condition. - New Patient This patient is new to me today: Yes Date on this admission: 05/06/18 - Critical Care Critical Care patient: No
[2018-05-06] MEDS: SODIUM CHLORIDE 1,000 ML IV SCH ×2 (13:00→23:05)
[2018-05-06] MEDS: EFAVIRENZ 600 MG TABLET PO SCH (13:21)
[2018-05-06] MEDS: EMTRICITABINE 200MG/TENOFOVIR 300MG PO SCH (13:22)
--- NOTE | 2018-05-06 19:31 | PN ---
Progress Note (short form) - Note Progress Note: Palliative care. Patient with HIV having headaches and dizziness after an LP. The patient lives at home with his mom. According to the record from social service he is self directing and would expect to go home unless his blood cultures are positive. The patient may need services if his admission is prolonged or more complicated by the current testing. At this stage, I would just recommend that the treating physicians speak to him about his own goals of care which at this point which according to the records is full supportive care. He may benefit from a visit from pastoral care.
[2018-05-07] MEDS: ACETAMINOPHEN/CAFFEINE/BUTALBITAL 1 TAB PO PRN (08:48)
[2018-05-07] MEDS ORDERED: PT OWN MED DRAWER 7, Y5N ONE (09:10)
[2018-05-07] MEDS ORDERED: ACETAMINOPHEN 325 MG TABLET (FP) PO ONE (09:11)
[2018-05-07] MEDS: FLUCONAZOLE 100 MG TABLET (UD) PO SCH (09:14)
[2018-05-07] MEDS: EMTRICITABINE 200MG/TENOFOVIR 300MG PO SCH (09:14)
[2018-05-07] MEDS: EFAVIRENZ 600 MG TABLET PO SCH (09:14)
[2018-05-07 13:26] VITALS: BP 116/70; PULSE 86; TEMP 98.8
== END 2018-05-07 10:57 | disposition home or self-care (01) ==
LOC: JER 12:40 → JERBED 17:36 → J8W 19:39
PROVIDERS: ADMIT Internal Medicine; ATTEND Nurse Practitioner Acute Care
PROC: 3E0337Z Introduction of Electrolytic and Water Balance Substance into Peripheral Vein, Percutaneous Approach (ICD-10-PCS; principal; 2018-05-05)
DX: G97.1 Other reaction to spinal and lumbar puncture (principal); R51 Headache; M43.6 Torticollis; B20 Human immunodeficiency virus [HIV] disease
CPT/HCPCS: 36415; 80053; 81003; 83605; 85025; 85027; 87040; 96360; 99283-25; G0378; J7030

== ENCOUNTER 2018-08-22 07:19 | Inpatient (IN) | payer SELFPAY ==
[2018-08-22] MEDS ORDERED: SODIUM CHLORIDE 1,000 ML IV STA (07:34)
[2018-08-22] MEDS ORDERED: FAMOTIDINE 20 MG/50 ML IVPB 20 MG/50 ML MG IVPB ONE ×2 (07:34→08:37)
[2018-08-22] MEDS ORDERED: NYSTATIN 500,000 UNITS/5 ML SUSPENSION PO ONE (07:53)
[2018-08-22] MEDS ORDERED: ALBUTEROL SO4 2.5/IPRATROPIUM 0.5 INH SOL 3 ML VIAL.NEB. NEB ONE ×2 (08:07→08:36)
[2018-08-22 08:08] LABS: EOS % 6.1 % (0-4.5); HEMATOCRIT 40.9 % (35.4-49); LYMPH % 24.6 % (8-40); MCH 33.7 pg (25.7-33.7); MCHC 34.3 g/dl (32.0-35.9); MEAN CELL VOLUME 98.2 fl (80-96); MONO % 58.7 % (3.8-10.2); NEUT % 9.6 % (42.8-82.8); PLATELET COUNT 152 K/MM3 (134-434); RBC 4.17 M/mm3 (4.00-5.60); RDW 12.8 % (11.9-15.9)
[2018-08-22 08:41] LABS: ALBUMIN 3.3 g/dl (3.4-5.0); ALK PHOS 92 U/L (45-117); ANION GAP 8 MMOL/L (8-16); BILIRUBIN,TOTAL 0.3 mg/dL (0.2-1); BLOOD UREA NITROGEN 9 mg/dL (7-18); CALCIUM 7.8 mg/dL (8.5-10.1); CHLORIDE 101 mmol/L (98-107); CO2 26 mmol/L (21-32); CREATININE 0.7 mg/dL (0.55-1.3); GLUCOSE,RANDOM 87 mg/dL (74-106); LIPASE 110 U/L (73-393); POTASSIUM 4.3 mmol/L (3.5-5.1); SGOT/AST 30 U/L (15-37); SGPT/ALT 39 U/L (13-61); SODIUM 135 mmol/L (136-145)
--- NOTE | 2018-08-22 09:02 | PDOC ---
History of Present Illness - General History Source: Patient Exam Limitations: No Limitations - History of Present Illness Initial Comments: 08/22/18 08:54 Patient is a 37M with history of HIV (Last CD4 count of 4 in 03/30, on azithromycin, no bactrim 2/2 allergy) on HAART (Dr Castañeda - ID) here today complaining of dysphagia for the past three days. He says that solid and liquid foods hurt and feels like they get stuck with phlegm coming up. Denies fevers, chills. Endorses nausea, denies vomiting. Endorses increased secretions. Endorses a pain in his chest with eating, but nothing at rest. Denies abdominal pain, diarrhea, constipation. Patient endorses compliance with HAART therapy. <Thang Appiah - Last Filed: 08/22/18 10:11> <Luci Payne - Last Filed: 08/22/18 10:21> - General Chief Complaint: Pain, Acute Stated Complaint: PAIN Time Seen by Provider: 08/22/18 07:34 Past History - Past Medical History Anemia: No Asthma: No Cancer: No Cardiac Disorders: No CVA: No COPD: No CHF: No Dementia: No Diabetes: No GI Disorders: No Disorders: No HTN: No Liver Disease: No Seizures: No Thyroid Disease: No - Surgical History Abdominal Surgery: No Appendectomy: No Cardiac Surgery: No Cholecystectomy: No Lung Surgery: No Neurologic Surgery: No Orthopedic Surgery: No - Immunization History Immunization Up to Date: No - Suicide/Smoking/Psychosocial Hx Smoking History: Unknown if ever smoked Have you smoked in the past 12 months: No Number of Cigarettes Smoked Daily: 10 If you are a former smoker, when did you quit?: 2009 Cigars Per Day: 0 'Breaking Loose' booklet given: 07/02/17 Hx Alcohol Use: No Drug/Substance Use Hx: No Substance Use Type: None Hx Substance Use Treatment: No <Thang Appiah - Last Filed: 08/22/18 10:11> <Luci Payne - Last Filed: 08/22/18 10:21> - Past Medical History Allergies/Adverse Reactions: Allergies Allergy/AdvReac Type Severity Reaction Status Date / Time sulfamethoxazole Allergy Rash Verified 08/22/18 07:31 [From Bactrim] trimethoprim [From Bactrim] Allergy Rash Verified 08/22/18 07:31 Home Medications: Ambulatory Orders Efavirenz/Emtricitab/Tenofovir [Atripla Tablet -] 1 tab PO DAILY #30 tab Acetaminophen/Caffeine/Butalb [Fioricet -] 1 tablet PO Q6H PRN #30 tablet MDD 4 05/07/18 Review of Systems - Review of Systems Comments:: 08/22/18 09:09 GENERAL/CONSTITUTIONAL: No fever or chills. No weakness. HEAD, EYES, EARS, NOSE AND THROAT: No change in vision. No sore throat. CARDIOVASCULAR: No chest pain or shortness of breath RESPIRATORY: No cough, wheezing, or hemoptysis. GASTROINTESTINAL: +nausea, no vomiting, diarrhea or constipation. GENITOURINARY: No dysuria, frequency, or change in urination. MUSCULOSKELETAL: No joint or muscle swelling or pain. No neck or back pain. SKIN: No rash NEUROLOGIC: No headache, vertigo, loss of consciousness, or change in strength/ sensation. ENDOCRINE: No increased thirst. No abnormal weight change HEMATOLOGIC/LYMPHATIC: No anemia, easy bleeding, or history of blood clots. ALLERGIC/IMMUNOLOGIC: No hives or skin allergy. <Thang Appiah - Last Filed: 08/22/18 10:11> *Physical Exam - Vital Signs Last Vital Signs Temp Pulse Resp BP Pulse Ox 98.9 F 85 18 122/73 100 08/22/18 07:32 08/22/18 07:32 08/22/18 07:32 08/22/18 07:32 08/22/18 07:32 - Physical Exam Comments: 08/22/18 09:09 GENERAL: Awake, alert, and fully oriented, in no acute distress HEAD: No signs of trauma, normocephalic, atraumatic EYES: PERRLA, EOMI, sclera anicteric, conjunctiva clear ENT: Auricles normal inspection, hearing grossly normal, nares patent, white satellite lesions on uvula and posterior oropharynx NECK: Normal ROM, supple, no lymphadenopathy, JVD, or masses LUNGS: No distress, speaks full sentences, clear to auscultation bilaterally HEART: Regular rate and rhythm, normal S1 and S2, no murmurs, rubs or gallops, peripheral pulses normal and equal bilaterally. ABDOMEN: Soft, nontender, normoactive bowel sounds. No guarding, no rebound. No masses EXTREMITIES: Normal inspection, Normal range of motion, no edema. No clubbing or cyanosis. NEUROLOGICAL: Cranial nerves II through XII grossly intact. Normal speech, normal gait, no focal sensorimotor deficits SKIN: Warm, Dry, normal turgor, no rashes or lesions noted. <Thang Appiah - Last Filed: 08/22/18 10:11> - Vital Signs Last Vital Signs Temp Pulse Resp BP Pulse Ox 98.9 F 85 18 122/73 100 08/22/18 07:32 08/22/18 07:32 08/22/18 07:32 08/22/18 07:32 08/22/18 07:32 <Luci Payne - Last Filed: 08/22/18 10:21> ED Treatment Course - LABORATORY CBC & Chemistry Diagram: 08/22/18 07:55 08/22/18 07:55 - ADDITIONAL ORDERS Additional order review: Laboratory Results 08/22/18 07:55 Sodium 135 L Potassium 4.3 Chloride 101 Carbon Dioxide 26 Anion Gap 8 BUN 9 Creatinine 0.7 Creat Clearance w eGFR > 60 Random Glucose 87 Calcium 7.8 L Total Bilirubin 0.3 AST 30 ALT 39 Alkaline Phosphatase 92 Total Protein 7.0 Albumin 3.3 L Lipase 110 08/22/18 07:55 RBC 4.17 MCV 98.2 H MCHC 34.3 RDW 12.8 D MPV 9.0 Neutrophils % 9.6 L D Lymphocytes % 24.6 Monocytes % 58.7 H D Eosinophils % 6.1 H Basophils % 1.0 - RADIOLOGY Radiology Studies Ordered: Category Date Time Status CHEST PA & LAT [RAD] Stat Radiology 08/22/18 07:53 Ordered <Thang Appiah - Last Filed: 08/22/18 10:11> - LABORATORY CBC & Chemistry Diagram: 08/22/18 07:55 08/22/18 07:55 - ADDITIONAL ORDERS Additional order review: Laboratory Results 08/22/18 07:55 Sodium 135 L Potassium 4.3 Chloride 101 Carbon Dioxide 26 Anion Gap 8 BUN 9 Creatinine 0.7 Creat Clearance w eGFR > 60 Random Glucose 87 Calcium 7.8 L Total Bilirubin 0.3 AST 30 ALT 39 Alkaline Phosphatase 92 Total Protein 7.0 Albumin 3.3 L Lipase 110 08/22/18 07:55 RBC 4.17 MCV 98.2 H MCHC 34.3 RDW 12.8 D MPV 9.0 Neutrophils % 9.6 L D Lymphocytes % 24.6 Monocytes % 58.7 H D Eosinophils % 6.1 H Basophils % 1.0 - Medications Given in the ED: ED Medications Discontinued Medications Generic Name Dose Route Start Last Admin Trade Name Luis A PRN Reason Stop Dose Admin Albuterol/Ipratropium 1 amp 08/22/18 08:07 08/22/18 08:58 Duoneb - NEB 08/22/18 08:08 1 amp ONCE ONE Administration Fluconazole 200 mg 08/22/18 09:33 08/22/18 09:48 Diflucan - PO 08/22/18 09:34 200 mg ONCE ONE Administration Famotidine/Sodium Chloride 20 mg in 50 mls @ 100 mls/hr 08/22/18 07:34 08:58 Pepcid 20 Mg Premixed Ivpb - IVPB 08/22/18 08:03 100 mls/hr ONCE ONE Administration Sodium Chloride 1,000 mls @ 1,000 mls/hr 08/22/18 07:34 08/22/18 08:58 Normal Saline - IV 08/22/18 08:33 1,000 mls/hr ASDIR STA Administration Nystatin 500,000 units 08/22/18 07:53 08/22/18 09:45 Nystatin Oral Suspension - PO 08/22/18 07:54 500,000 units ONCE ONE Administration <Luci Payne - Last Filed: 08/22/18 10:21> Medical Decision Making - Medical Decision Making 08/22/18 09:13 Patient is a 37M with history of AIDS here today with symptoms consistent with mary jo esophagitis. Vitals normal and stable. Will draw basic labs, treat initially with nystatin swish and swallow. GI paged. CBC shows ANC of 90, believe patient will require admission for IV fluconazole and scope. Neutropenic precautions in place. 08/22/18 10:10 EKG shows normal sinus rhythm with rate of 75. No st elevations/depressions. Normal axis. Normal intervals. No significant t wave abnormalities. CXR shows no acute cardiopulmonary process. D/W Dr Keller, accepted for admission for Dr Garibay service. Fluconazole started PO. ID Consulted. GI consulted, aware, will evaluate. <Huls,Thang - Last Filed: 08/22/18 10:11> *DC/Admit/Observation/Transfer - Discharge Dispostion Decision to Admit order: Yes <Thang Appiah - Last Filed: 08/22/18 10:11> - Discharge Dispostion Decision to Admit order: Yes Decision to Admit order Date/Time: 08/22/18 10:20 <Luci Payne - Last Filed: 08/22/18 10:21> Diagnosis at time of Disposition: AIDS (acquired immune deficiency syndrome), Esophageal candidiasis - Discharge Dispostion Condition at time of disposition: Stable
--- NOTE | 2018-08-22 09:06 | PDOC ---
Attending Attestation - Resident Resident Name: BijalThang - ED Attending Attestation I have performed the following: I have examined & evaluated the patient, The case was reviewed & discussed with the resident, I agree w/resident's findings & plan - HPI HPI: 08/22/18 09:05 [place] 37-year-old male with a history of HIV, AIDS (last CD4 ct ~4 in 03/2018) , cryptococcus meningitis presenting dysphagia x 3-4 days, spitting up his saliva and having midsternal chest discomfort as if food is stuck. Difficulty tolerating PO fluids and solid food. +productive clear cough and congestion x long time. he states he is compliant on HAART and azithromycin, last check with ID/Dr. Castañeda ~summer. No f/c, AP, vomiting or diarrhea. 08/22/18 09:26 - Physicial Exam PE: 08/22/18 09:04 NAD, well appearing, PERRL, EOMI, nl conjunctiva, anicteric, MMM, +tongue and uvula thrush. Normal phonation, not tolerating secretions and actively spitting up; neck supple. lungs clear, RRR, abdomen soft nontender. STOVALL x4, no focal neuro deficits. No peripheral edema. normal color for ethnicity, WWP. - Medical Decision Making 08/22/18 09:05 Vital signs reviewed, wnl. no fever. not tolerating his spit, but able to swallow. keeping NPO Prior notes reviewed, including admissions, discharges and consultations. laboratory results and imaging reviewed, basic labs and lytes notable for chronic leukopenia and neutropenia/immunocompromised, ANC severely neutropenic ~ 96.. no fever, defer IV abx for now. CXR_unchanged from previous, interstitial markings noted. EKG normal sinus rhythm, no interval abnormalities, narrow QRS, ST and T wave segments and morphology normal. Nonspecific T wave abnormalities ED course: no acute events, remained stable and well appearing. Clinically improved after interventions, including IVF for hydration, pepcid and duonebs for rhonchi breath sounds/scant wheezes. - nystatin s/s for thrush, suspecting AIDS associated esophagitis (herpes vs cmv vs mary jo). given first dose of fluconazole PO - GI cs for more urgent EGD, Dr Garcia Dispo: Admit for GI workup, HIV -associated dysphagia and possible AIDS complication/esophagitis, immunocompromised state. on neutropenic precautions. Discussed results and management plan with pt and family member at bedside, agree with impression and plan 08/22/18 10:21
[2018-08-22] MEDS ORDERED: FLUCONAZOLE 100 MG TABLET (UD) PO ONE (09:33)
[2018-08-22] MEDS ORDERED: FLUCONAZOLE 100 MG TABLET (UD) ONE (09:46)
--- NOTE | 2018-08-22 10:50 | HP ---
CHIEF COMPLAINT: difficulty swallowing ID: Dr. Castañeda HISTORY OF PRESENT ILLNESS: 37 yr old man with HIV+ (on HAART therapy) presents with 1 week of difficulty swallowing, urge to vomit and burning sensation in his esophagus. Symptoms started last aug 13 after he fell onto his back from a ladder. He felt any type of food(solids and liquids) would cause burning sensation retrosternally that radiated to his back, cause increase in salivation and retching without any emesis. He stopped drinking sugary drinks, meat and only ate salads to try and avoid the feeling, when nothing offered relief he presented to the ED. Associated cough with phlegm production without expectoration, no hemoptysis. He had tuna three days ago, no other new or raw foods. He is able to swallow and keep the food down with concentration. denies travel. daughter was in the hospital for treatment of anti-HARSH 3-4 weeks ago, he visited her in the hospital. Denies vomiting, nausea, palpitations, abdominal pain, changes in bowel movements, chills, headache, rhinorrhea, chest pain, sob, rash Takes OTC oregano oil and grapefruit seed extract intermittently. Pt claims medication compliance however, he has not been seen as outpatient for HIV f/u recently, [facility] has not filled rx for atripla since 2017. 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 Smoking: denies Alcohol: denies Drugs: denies Family History: denies FMhx of DM, cancer, HTN Allergies sulfamethoxazole [From Bactrim] Allergy (Verified 08/22/18 07:31) Rash trimethoprim [From Bactrim] Allergy (Verified 08/22/18 07:31) Rash HOME MEDICATIONS: Home Medications Medication Instructions Recorded Efavirenz/Emtricitab/Tenofovir 1 tab PO DAILY #30 tab 10/17/16 [Atripla Tablet -] Azithromycin [Zithromax 600mg 2 tab PO WEEKLY 08/22/18 Tablets -] REVIEW OF SYSTEMS CONSTITUTIONAL: Absent: fever, chills, diaphoresis, generalized weakness, malaise, loss of appetite, weight change HEENT: Present: throat pain,difficulty swallowing, Absent: rhinorrhea, nasal congestion, throat swelling, mouth swelling, ear pain, eye pain, visual changes CARDIOVASCULAR: Absent: chest pain, syncope, palpitations, irregular heart rate, lightheadedness , peripheral edema RESPIRATORY: Present: cough Absent: , shortness of breath, dyspnea with exertion, orthopnea, wheezing, stridor, hemoptysis GASTROINTESTINAL: Absent: abdominal pain, abdominal distension, nausea, vomiting, diarrhea, constipation, melena, hematochezia GENITOURINARY: Absent: dysuria, frequency, urgency, hesitancy, hematuria, flank pain, genital pain MUSCULOSKELETAL: Present: back pain Absent: myalgia, arthralgia, joint swelling, , neck pain SKIN: Absent: rash, itching, pallor HEMATOLOGIC/IMMUNOLOGIC: Absent: easy bleeding, easy bruising, lymphadenopathy, frequent infections ENDOCRINE: Absent: unexplained weight gain, unexplained weight loss, heat intolerance, cold intolerance NEUROLOGIC: Absent: headache, focal weakness or paresthesias, dizziness, unsteady gait, seizure, mental status changes, bladder or bowel incontinence PHYSICAL EXAMINATION Vital Signs - 24 hr 08/22/18 07:32 Temperature 98.9 F Pulse Rate 85 Respiratory 18 Rate Blood Pressure 122/73 O2 Sat by Pulse 100 Oximetry (%) GENERAL: Awake, alert, and fully oriented, in no acute distress. HEAD: Normal with no signs of trauma. EYES: Pupils equal, round and reactive to light, extraocular movements intact, sclera anicteric, conjunctiva clear. No lid lag. EARS, NOSE, THROAT: Ears normal, nares patent, oropharynx clear without exudates. Moist mucous membranes. no erythema, scant white exudate on upper palate posteriorly, no oral ulcers, gums without swelling/erythema. uvula midline, no tonisullar exudates. NECK: Normal range of motion, supple without lymphadenopathy, JVD, or masses. no bruits. no thyromegaly LUNGS: Breath sounds equal, clear to auscultation bilaterally. No wheezes, and no crackles. No accessory muscle use. HEART: Regular rate and rhythm, normal S1 and S2 without murmur, rub or gallop. ABDOMEN: Soft, nontender, not distended, normoactive bowel sounds, no guarding, no rebound, no masses. No hepatomegaly or splenomegaly. MUSCULOSKELETAL: Normal range of motion at all joints. No bony deformities or tenderness. No CVA tenderness. left index finger nail deformity. no spinal or paraspinal tenderness. no chest tenderness. UPPER EXTREMITIES: 2+ radial pulses, warm, well-perfused. No cyanosis. No clubbing. No peripheral edema. LOWER EXTREMITIES: 2+ DP pulses, warm, well-perfused. No calf tenderness. No peripheral edema. NEUROLOGICAL: Cranial nerves II-XII intact. Normal speech. facial symmetry 5/5 strength in all upper and lower muscle groups. PSYCHIATRIC: Cooperative. Good eye contact. Appropriate mood and affect. SKIN: Warm, dry, normal turgor, no rashes or lesions noted, normal capillary refill. no cervical, or axillary LAD. Laboratory Results - last 24 hr 08/22/18 08/22/18 07:55 07:55 WBC 1.0 L* RBC 4.17 Hgb 14.0 Hct 40.9 MCV 98.2 H MCH 33.7 MCHC 34.3 RDW 12.8 D Plt Count 152 MPV 9.0 Absolute Neuts (auto) 0.1 L Neutrophils % 9.6 L D Lymphocytes % 24.6 Monocytes % 58.7 H D Eosinophils % 6.1 H Basophils % 1.0 Nucleated RBC % 0 Sodium 135 L Potassium 4.3 Chloride 101 Carbon Dioxide 26 Anion Gap 8 BUN 9 Creatinine 0.7 Creat Clearance w eGFR > 60 Random Glucose 87 Calcium 7.8 L Total Bilirubin 0.3 AST 30 ALT 39 Alkaline Phosphatase 92 Total Protein 7.0 Albumin 3.3 L Lipase 110 ASSESSMENT/PLAN: 37 yr old man with HIV (on HAART) presents with trouble swallowing suspicious for esophagitis. #Esophagitis - diffs include CMV, HIV and mary jo - started on IV fluconazole 200mg daily - famotadine for symptomatic relief - r/o CMV serology ordered, send out test today, T-lymphocytes and CD4/8 ratio ordered to be collected on Friday as this is a send out test and needs to be run within 24hours of draw, lab does not run test on weekend. - soft diet - GI consult for further EGD evaluation - ID consult for anti-fungal and HAART therapy recommendations - monitor Qtc #HIV - continue Atripla - continue azithromycin 600mg 2 tabs Qweekly for prophylaxis, as per previous notes pt does not tolerate bactrim - suspicious for noncomplaince, may need genotyping to eval for mutations as outpatient - outpatient viral load recommended #DVT; lovenox sq # denies pain, tylenol if needed # Diet: soft as tolerated Visit type - Emergency Visit Emergency Visit: Yes ED Registration Date: 08/22/18 Care time: The patient presented to the Emergency Department on the above date and was hospitalized for further evaluation of their emergent condition. - New Patient This patient is new to me today: Yes Date on this admission: 08/22/18 - Critical Care Critical Care patient: No
[2018-08-22 12:10] LABS: ANISOCYTOSIS 1+; MACROCYTOSIS 0; PLATELET ESTIMATE DECREASED; TEAR DROP CELLS 2+
--- NOTE | 2018-08-22 14:56 | PN ---
Teaching Attending Note Name of Resident: Rome Keller ATTENDING PHYSICIAN STATEMENT I saw and evaluated the patient. I reviewed the resident's note and discussed the case with the resident. I agree with the resident's findings and plan as documented. SUBJECTIVE: OBJECTIVE: AAOX3 s1 and s2 rrr abdomen soft non-tender inflammation of the mucosa no edema lungs CTA good air entry ASSESSMENT AND PLAN: this is a 37 yr old man with HIV with AIDS defining lessions on ART admitted to the hospital for dysphagia possible 2/2 albertina vs CMV esophagitis #Esophagitis - diffs include Albertina vs CMB - started on IV fluconazole 200mg daily - famotadine for symptomatic relief - r/o CMV serology ordered, send out test today, T-lymphocytes and CD4/8 ratio ordered to be collected on Friday as this is a send out test and needs to be run within 24hours of draw, lab does not run test on weekend. - soft diet - Consult GI - ID consult for anti-fungal and HAART therapy recommendations - monitor Qtc #HIV/ with AIDS defining lesions - continue Atripla - continue azithromycin 600mg 2 tabs Qweekly for prophylaxis, as per previous notes pt does not tolerate bactrim - suspicious for noncomplaince, may need genotyping to eval for mutations as outpatient - obtain viral load - obtain CD4 count #DVT; enoxaparin sq # denies pain, tylenol if needed # Diet: soft as tolerated
[2018-08-22 16:50] VITALS: BMI 29.3
--- NOTE | 2018-08-22 19:05 | CON.GI ---
Consult Consult Specialty:: GI Reason for Consultation:: dysphagia - History of Present Illness History of Present Illness: 37 y/o male with PMH of AIDS was admitted for further evaluation and management of dysphagia and odynophagia. He could swallow liquid food. He denied weight loss and abdominal pain. - Past Medical History Infectious Disease: Yes: AIDS, HIV - Alcohol/Substance Use Hx Alcohol Use: No - Smoking History Smoking history: Unknown if ever smoked Have you smoked in the past 12 months: No Aproximately how many cigarettes per day: 10 If you are a former smoker, when did you quit?: 2008 Home Medications - Allergies Allergies/Adverse Reactions: Allergies Allergy/AdvReac Type Severity Reaction Status Date / Time sulfamethoxazole Allergy Rash Verified 08/22/18 15:02 [From Bactrim] trimethoprim [From Bactrim] Allergy Rash Verified 08/22/18 15:02 - Home Medications Home Medications: Ambulatory Orders Efavirenz/Emtricitab/Tenofovir [Atripla Tablet -] 1 tab PO DAILY #30 tab Azithromycin [Zithromax 600mg Tablets -] 2 tab PO WEEKLY 08/22/18 Physical Exam-GI Vital Signs: Vital Signs Temperature 97.8 F 08/22/18 16:15 Pulse Rate 75 08/22/18 16:15 Respiratory Rate 16 08/22/18 16:15 Blood Pressure 115/71 08/22/18 16:15 O2 Sat by Pulse Oximetry (%) 97 08/22/18 16:15 Constitutional: Yes: Well Nourished Eyes: Yes: Conjunctiva Clear HENT: Yes: Atraumatic Neck: Yes: Supple Respiratory: Yes: CTA Bilaterally ...Palpate: Yes: Soft. No: Firm/Rigid, Guarding, Hepatomegaly, Mass, Pulsatile Mass, Splenomegaly, Tenderness Labs: CBC, BMP 08/22/18 07:55 Hepatic Panel Total Bilirubin 0.3 mg/dL (0.2-1) 08/22/18 07:55 AST 30 U/L (15-37) 08/22/18 07:55 ALT 39 U/L (13-61) 08/22/18 07:55 Alkaline Phosphatase 92 U/L (45-117) 08/22/18 07:55 Albumin 3.3 g/dl (3.4-5.0) L 08/22/18 07:55 CBC WBC 1.0 K/mm3 (4.0-10.0) L* 08/22/18 07:55 RBC 4.17 M/mm3 (4.00-5.60) 08/22/18 07:55 Hgb 14.0 GM/dL (11.7-16.9) 08/22/18 07:55 Hct 40.9 % (35.4-49) 08/22/18 07:55 MCV 98.2 fl (80-96) H 08/22/18 07:55 MCH 33.7 pg (25.7-33.7) 08/22/18 07:55 MCHC 34.3 g/dl (32.0-35.9) 08/22/18 07:55 RDW 12.8 % (11.9-15.9) D 08/22/18 07:55 Plt Count 152 K/MM3 (134-434) 08/22/18 07:55 MPV 9.0 fl (7.5-11.1) 08/22/18 07:55 Absolute Neuts (auto) 0.1 K/mm3 (1.5-8.0) L 08/22/18 07:55 Neutrophils % 9.6 % (42.8-82.8) L D 08/22/18 07:55 Neutrophils % (Manual) 10.0 % (42.8-82.8) L D 08/22/18 07:55 Band Neutrophils % 3.0 % 08/22/18 07:55 Lymphocytes % 24.6 % (8-40) 08/22/18 07:55 Lymphocytes % (Manual) 14.0 % (8-40) D 08/22/18 07:55 Monocytes % 58.7 % (3.8-10.2) H D 08/22/18 07:55 Monocytes % (Manual) 46 % (3.8-10.2) H D 08/22/18 07:55 Eosinophils % 6.1 % (0-4.5) H 08/22/18 07:55 Eosinophils % (Manual) 7.0 % (0-4.5) H 08/22/18 07:55 Basophils % 1.0 % (0-2.0) 08/22/18 07:55 Basophils % (Manual) 1.0 % (0-2.0) 08/22/18 07:55 Myelocytes % (Man) 0 % (0-2) 08/22/18 07:55 Promyelocytes % (Man) 0 % (0-2) 08/22/18 07:55 Blast Cells % (Manual) 0 % (0-0) 08/22/18 07:55 Nucleated RBC % 0 % (0-0) 08/22/18 07:55 Metamyelocytes 1 % (0-2) 08/22/18 07:55 Hypochromia 0 08/22/18 07:55 Platelet Estimate Decreased 08/22/18 07:55 Platelet Comment Present 08/22/18 07:55 Polychromasia 1+ 08/22/18 07:55 Poikilocytosis 0 08/22/18 07:55 Anisocytosis 1+ 08/22/18 07:55 Microcytosis 1+ 08/22/18 07:55 Macrocytosis 0 08/22/18 07:55 Spherocytes 1+ 08/22/18 07:55 Tear Drop Cells 2+ 08/22/18 07:55 Problem List - Problems (1) Dysphagia Assessment/Plan: associated with odynophagia r/o Herpes, mary jo, CMV R> continue empiric treatment FOR EGD Friday if medically cleared Code(s): R13.10 - DYSPHAGIA, UNSPECIFIED
[2018-08-22] MEDS: METOCLOPRAMIDE HCL INJECTION 10 MG/2 ML VIAL IVPB SCH (20:10)
[2018-08-22] MEDS: PANTOPRAZOLE SODIUM 40 MG VIAL IVPUSH SCH (21:54)
[2018-08-22] MEDS ORDERED: PANTOPRAZOLE SODIUM 40 MG in SODIUM CHLORIDE 100 ML IVPB SCH (22:00)
[2018-08-22] MEDS ORDERED: FAMOTIDINE 20 MG/50 ML IVPB 20 MG/50 ML MG IVPB SCH (22:00)
[2018-08-23] MEDS: METOCLOPRAMIDE HCL INJECTION 10 MG/2 ML VIAL IVPB SCH ×3 (01:10→17:48)
[2018-08-23] MEDS ORDERED: PT OWN MED DRAWER 7, Y5N ONE ×2 (09:36→09:57)
[2018-08-23] MEDS: EMTRICITABINE 200MG/TENOFOVIR 300MG PO SCH (09:39)
[2018-08-23] MEDS: EFAVIRENZ 600 MG TABLET PO SCH (09:39)
[2018-08-23] MEDS: PANTOPRAZOLE SODIUM 40 MG VIAL IVPUSH SCH ×2 (09:42→22:10)
[2018-08-23] MEDS: ENOXAPARIN NA (PORCINE) 40 MG/0.4 ML DISP.SYRIN SQ SCH (09:43)
[2018-08-23] MEDS ORDERED: PATIENT'S OWN MEDICATION (NON-FORMULARY) (Efavirenz/Emtricitab/Tenofovir 1 TAB) PO SCH (10:00)
[2018-08-23] MEDS ORDERED: FLUCONAZOLE 100 MG TABLET (UD) PO SCH (10:00)
[2018-08-23] MEDS: FLUCONAZOLE 200 MG/NS 100 ML IVPB SCH (11:23)
--- NOTE | 2018-08-23 11:23 | PN ---
Progress Note (short form) - Note Progress Note: SUBJECTIVE: patient is doing well without any complaints OBJECTIVE: AAOX3 s1 and s2 rrr abdomen soft non-tender inflammation of the mucosa no edema lungs CTA good air entry ASSESSMENT AND PLAN: this is a 37 yr old man with HIV with AIDS defining lessions on ART admitted to the hospital for dysphagia possible 2/2 albertina vs CMV esophagitis #Esophagitis - diffs include Albertina vs CMB - c/w IV fluconazole 200mg daily - famotadine for symptomatic relief - r/o CMV serology ordered, send out test today, T-lymphocytes and CD4/8 ratio ordered to be collected on Friday as this is a send out test and needs to be run within 24hours of draw, lab does not run test on weekend. - soft diet - EGD tomorrow - ID consult for anti-fungal and ART therapy recommendations - monitor QTC #HIV/ with AIDS defining lesions - continue Atripla - continue azithromycin 600mg 2 tabs Qweekly for prophylaxis, as per previous notes pt does not tolerate bactrim - suspicious for noncomplaince, may need genotyping to eval for mutations as outpatient - obtain viral load - obtain CD4 count #DVT; enoxaparin sq # denies pain, tylenol if needed # Diet: soft as tolerated
--- NOTE | 2018-08-23 16:37 | PN ---
Progress Note (short form) - Note Progress Note: ID Consult dictated
[2018-08-23] MEDS ORDERED: TBO-FILGRASTIM 480 MCG/0.8 ML DISP.SYRIN SQ ONE (17:30)
--- NOTE | 2018-08-23 19:06 | EKG ---
Test Reason : Blood Pressure : / mmHG Vent. Rate : 075 BPM Atrial Rate : 075 BPM P-R Int : 148 ms QRS Dur : 088 ms QT Int : 384 ms P-R-T Axes : 066 062 030 degrees QTc Int : 428 ms NORMAL SINUS RHYTHM NORMAL ECG WHEN COMPARED WITH ECG OF 15-MAR-2018 10:16, T WAVE VARIATION Confirmed by NIKOLAI SMITH MD ([id number]) on 08/23/2018 7:05:58 PM Referred By: Confirmed By:NIKOLAI SMITH MD
--- NOTE | 2018-08-23 19:57 | PN ---
GI Progress Note Subjective: still with dysphagia, epigastric pain resolved - Objective Vital Signs: Vital Signs Temperature 98.6 F 08/23/18 14:07 Pulse Rate 80 08/23/18 14:07 Respiratory Rate 20 08/23/18 14:07 Blood Pressure 119/73 08/23/18 14:07 O2 Sat by Pulse Oximetry (%) 97 08/22/18 20:34 Constitutional: Well Nourished Eyes: Yes: Conjunctiva Clear HENT: Yes: Atraumatic Neck: Yes: Supple Respiratory: Yes: CTA Bilaterally ...Palpate: Yes: Soft. No: Firm/Rigid, Guarding, Mass, Pulsatile Mass, Tenderness, Epigastium Labs: CBC, BMP 08/22/18 07:55 Problem List - Problems (1) Dysphagia Assessment/Plan: R> for EGD once medically cleared Code(s): R13.10 - DYSPHAGIA, UNSPECIFIED
[2018-08-24] MEDS: METOCLOPRAMIDE HCL INJECTION 10 MG/2 ML VIAL IVPB SCH ×3 (02:10→17:47)
[2018-08-24 08:30] LABS: BASO % 0.7 % (0-2.0); EOS % 9.3 % (0-4.5); HEMATOCRIT 44.8 % (35.4-49); HEMOGLOBIN 15.2 GM/dL (11.7-16.9); LYMPH % 24.3 % (8-40); MCH 33.3 pg (25.7-33.7); MCHC 33.9 g/dl (32.0-35.9); MEAN CELL VOLUME 98.2 fl (80-96); MEAN PLT VOLUME 9.1 fl (7.5-11.1); MONO % 47.9 % (3.8-10.2); NEUT % 17.8 % (42.8-82.8); PLATELET COUNT 151 K/MM3 (134-434); RBC 4.56 M/mm3 (4.00-5.60); RDW 12.8 % (11.9-15.9)
[2018-08-24 08:46] LABS: WHITE BLOOD COUNT 0.9 K/mm3 (4.0-10.0)
--- NOTE | 2018-08-24 09:32 | PN ---
Physical Exam: SUBJECTIVE: Patient seen and examined at bedside. No acute events overnight. Eating breakfast. Denies any complaints at this time. OBJECTIVE: Vital Signs Period Temp Pulse Resp BP Sys/Harrington Pulse Ox Last 24 Hr 98.5 F-98.7 F 68-80 18-20 113-119/63-73 97 GENERAL: AAOx3, NAD HEAD: Normal with no signs of trauma. EYES: PERRLA, EOMI ENT: MMM, No oral thrush appreciated. No adenopathy, no thyromegaly, uvula midline. NECK: Trachea midline, full range of motion, supple. 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 No rales rhonchi or wheezing HEART: RRR No MRG S1S2 ABDOMEN: NDNT No HSM EXTREMITIES: No CCE, pulses 2+ throughout NEUROLOGICAL: CN 2-12 intact PSYCH: Normal mood, normal affect. SKIN: Warm, dry, normal turgor, no rashes or lesions noted Laboratory Results - last 24 hr 08/24/18 07:40 WBC 0.9 L* RBC 4.56 Hgb 15.2 Hct 44.8 MCV 98.2 H MCH 33.3 MCHC 33.9 RDW 12.8 Plt Count 151 MPV 9.1 Absolute Neuts (auto) 0.2 L Neutrophils % 17.8 L D Lymphocytes % 24.3 Monocytes % 47.9 H Eosinophils % 9.3 H Basophils % 0.7 Nucleated RBC % 1 H Active Medications Generic Name Dose Route Start Last Admin Trade Name Freq PRN Reason Stop Dose Admin Azithromycin 1,200 mg 08/27/18 10:00 Zithromax - PO Th@1000 JULISA Efavirenz 600 mg 08/23/18 10:00 08/23/18 09:39 Sustiva - PO 600 mg DAILY JULISA Administration Emtricitabine/Tenofovir 1 tab 08/23/18 10:00 08/23/18 09:39 Truvada PO 1 tab DAILY JULISA Administration Enoxaparin Sodium 40 mg 08/23/18 10:00 08/23/18 09:43 Lovenox - SQ 40 mg DAILY JULISA Administration Fluconazole 100 mls @ 100 mls/hr 08/23/18 10:00 08/23/18 11:23 Diflucan 200 Mg/Ns Premixed Ivpb - IVPB 100 mls/hr DAILY JULISA Administration Metoclopramide HCl 10 mg 08/22/18 19:15 08/24/18 02:10 Reglan Injection - IVPB 10 mg Q8H-IV JULISA Administration Pantoprazole Sodium 40 mg 08/22/18 22:00 08/23/18 22:10 Protonix Iv IVPUSH 40 mg BID JULISA Administration ASSESSMENT/PLAN: #Esophagitis - diffs include Albertina vs CMB. CMV IgM negative, IgG positive. 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 - c/w IV fluconazole 200mg daily - 40 mg ivpush protonix - CMV IgG--> Immune - soft diet - EGD tentaively today however pt ate.EGD tentatively for tomorrow 08/25/18 - Dr Castañeda on board- follows pt as outpatient. - monitor QTC -Granix for Neutropenia #AIDS 2/2 HIV - Emtricitabine/Tenofovir -Efavirenz - Azithromycin 1200 mg Q - Prophylaxis - pt states he is compliant with HIV medications. - obtain viral load - obtain CD4 count #DVT: Lovenox 40 mg SQ Daily # FEN No Fluids Monitor Electrolytes Regular Diet #Dispo: Tele Visit type - Emergency Visit Emergency Visit: Yes ED Registration Date: 08/22/18 Care time: The patient presented to the Emergency Department on the above date and was hospitalized for further evaluation of their emergent condition. - New Patient This patient is new to me today: Yes Date on this admission: 08/24/18 - Critical Care Critical Care patient: No - Discharge Referral Referred to [facility] No
[2018-08-24] MEDS: ENOXAPARIN NA (PORCINE) 40 MG/0.4 ML DISP.SYRIN SQ SCH (10:15)
[2018-08-24] MEDS: PANTOPRAZOLE SODIUM 40 MG VIAL IVPUSH SCH ×2 (10:16→21:59)
[2018-08-24] MEDS: EFAVIRENZ 600 MG TABLET PO SCH (10:18)
[2018-08-24] MEDS: EMTRICITABINE 200MG/TENOFOVIR 300MG PO SCH (10:18)
[2018-08-24 12:30] LABS: ACANTHOCYTES 1+; ANISOCYTOSIS 1+; MACROCYTOSIS 0; OVALOCYTE 2+; PLATELET ESTIMATE DECREASED; TEAR DROP CELLS 1+
[2018-08-24] MEDS: FLUCONAZOLE 200 MG/NS 100 ML IVPB SCH (12:33)
--- NOTE | 2018-08-24 13:40 | PN ---
Teaching Attending Note Name of Resident: Abdias Carpenter ATTENDING PHYSICIAN STATEMENT I saw and evaluated the patient. I reviewed the resident's note and discussed the case with the resident. I agree with the resident's findings and plan as documented. SUBJECTIVE:asymptomatic. states he ate his breakfast this AM with no difficulty. now states its hard to assess if it was more painful or inability to swallow. was not related to type of food (hot vs cold, liquid vs solid). denies CP, fever, chills, N/V/C/D OBJECTIVE: Last Vital Signs Temp Pulse Resp BP Pulse Ox 98.7 F 68 18 113/63 97 08/24/18 05:00 08/24/18 05:00 08/23/18 22:15 08/24/18 05:00 08/23/18 21:00 General NAD HEENT no oral plaques, no oral lesions. no LN CV S1 S2 RRR no murmur/rub/gallop Lungs CTA B/L no wheezing/rales/rhonchi ASSESSMENT AND PLAN: 37yo M with PMH HIV with AIDS defining lesions on ART admitted to the hospital for dysphagia possible 2/2 mary jo vs CMV esophagitis 1. Esophagitis- likely due to candidasis however can not r/o CMV vs structual obstruction. clinical improvement on Fluconazole. Scheduled for EGD today to f/ u. serologies sent. GI on board 2. AIDS - on HARRT therapy. not on PCP ppx due to bactrim allergy. unclear why not on mepron. will d/w ID. 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 3. Neutropenic- abs neutrophil 126. neutropenic precautions 4. DVT ppx- lovenox 5. d/c planning pending on results of EGD
--- NOTE | 2018-08-24 16:56 | PN ---
Progress Note, Physician History of Present Illness: Reports less dysphagia/ odynophagia on fluconazole Able to swallow solid food with less discomfort - Current Medication List Current Medications: Active Medications Azithromycin (Zithromax -) 1,200 mg PO Th@1000 JULISA Efavirenz (Sustiva -) 600 mg PO DAILY [facility] Last Admin: 08/24/18 10:18 Dose: 600 mg Emtricitabine/Tenofovir (Truvada) 1 tab PO DAILY [facility] Last Admin: 08/24/18 10:18 Dose: 1 tab Enoxaparin Sodium (Lovenox -) 40 mg SQ DAILY [facility] Last Admin: 08/24/18 10:15 Dose: 40 mg Fluconazole (Diflucan 200 Mg/Ns Premixed Ivpb -) 100 mls @ 100 mls/hr IVPB DAILY [facility] Last Admin: 08/24/18 12:33 Dose: 100 mls/hr Metoclopramide HCl (Reglan Injection -) 10 mg IVPB Q8H-IV [facility] Last Admin: 08/24/18 10:17 Dose: 10 mg Pantoprazole Sodium (Protonix Iv) 40 mg IVPUSH BID [facility] Last Admin: 08/24/18 10:16 Dose: 40 mg Tbo-Filgrastim (Granix -) 480 mcg SQ ONCE ONE Stop: 08/24/18 16:49 - Objective Vital Signs: Vital Signs Temperature 98.5 F 08/24/18 15:04 Pulse Rate 78 08/24/18 15:04 Respiratory Rate 18 08/24/18 15:04 Blood Pressure 103/64 08/24/18 15:04 O2 Sat by Pulse Oximetry (%) 98 08/24/18 09:00 Constitutional: Yes: No Distress Eyes: Yes: Conjunctiva Clear HENT: No: Thrush Neck: Yes: Supple Cardiovascular: Yes: Regular Rate and Rhythm, S1, S2 Respiratory: Yes: CTA Bilaterally Edema: No Labs: CBC, BMP 08/22/18 07:55 Assessment/Plan Esophagitis ? mary jo ?CMC ?HSV ?HIV ? Peptic ulcer disease/ GERD AIDS Chronic leukopenia/ neutropenia Continue empiric fluconazole For EGD Redose granix
[2018-08-24] MEDS ORDERED: TBO-FILGRASTIM 480 MCG/0.8 ML DISP.SYRIN SQ ONE (17:45)
[2018-08-24] MEDS ORDERED: MAGNESIUM CITRATE 300 ML BOTTLE PO ONE (22:15)
[2018-08-25] MEDS: METOCLOPRAMIDE HCL INJECTION 10 MG/2 ML VIAL IVPB SCH ×3 (01:07→17:44)
[2018-08-25] MEDS: PANTOPRAZOLE SODIUM 40 MG VIAL IVPUSH SCH (10:28)
[2018-08-25] MEDS: FLUCONAZOLE 200 MG/NS 100 ML IVPB SCH (10:31)
[2018-08-25] MEDS: EFAVIRENZ 600 MG TABLET PO SCH (10:34)
[2018-08-25] MEDS: EMTRICITABINE 200MG/TENOFOVIR 300MG PO SCH (10:34)
[2018-08-25] MEDS: ENOXAPARIN NA (PORCINE) 40 MG/0.4 ML DISP.SYRIN SQ SCH (11:05)
--- NOTE | 2018-08-25 11:37 | PN ---
Teaching Attending Note Name of Resident: Abdias Carpenter ATTENDING PHYSICIAN STATEMENT I saw and evaluated the patient. I reviewed the resident's note and discussed the case with the resident. I agree with the resident's findings and plan as documented. SUBJECTIVE:tolerating diet. some discomfort but overall improved. denies CP, SOB , fever, chills, N/V/C/D OBJECTIVE: Last Vital Signs Temp Pulse Resp BP Pulse Ox 98.5 F 86 20 113/77 97 08/25/18 06:33 08/25/18 06:33 08/25/18 06:33 08/25/18 06:33 08/24/18 21:00 General NAD HEENT no oral plaques, no oral lesions. no LN ASSESSMENT AND PLAN: 37yo M with PMH HIV with AIDS defining lesions on ART admitted to the hospital for dysphagia possible 2/2 mary jo vs CMV esophagitis 1. Esophagitis- likely due to candidasis however can not r/o CMV vs structural obstruction. clinical improvement on Fluconazole. EGD unable to be completed tomorrow. on schedule for today. serologies sent. GI on board 2. AIDS - on HARRT therapy. not on PCP ppx due to bactrim allergy. unclear why not on mepron. will d/w ID. 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 3. Neutropenic- abs neutrophil 126. neutropenic precautions 4. DVT ppx- lovenox 5. d/c planning pending on results of EGD
--- NOTE | 2018-08-25 12:29 | PN ---
Physical Exam: SUBJECTIVE: Patient seen and examined at bedside. Sitting in chair comfortably. Endorses throat pain is resolving. For EGD today in afternoon. OBJECTIVE: Vital Signs Period Temp Pulse Resp BP Sys/Harrington Pulse Ox Last 24 Hr 98.5 F-98.5 F 73-86 18-20 103-118/64-77 97 GENERAL: AAOx3, NAD HEAD: Normal with no signs of trauma. EYES: PERRLA EOMI ENT: No exudate oral thrush or adenopathy appreciated. NECK: Supple LUNGS: CTA B/L HEART: RRR No ABDOMEN: NDNT No HSM EXTREMITIES: No CCE NEUROLOGICAL: CN 2-12 intact PSYCH: Normal mood, normal affect. SKIN: No rashes or lesions appreciated Laboratory Results - last 24 hr 08/22/18 08/22/18 08/22/18 11:50 12:30 17:50 WBC 1.0 L* Absolute Lymphs (auto) 0.4 L Neutrophils % (Manual) Band Neutrophils % Lymphocytes % (Manual) Monocytes % (Manual) Eosinophils % (Manual) Basophils % (Manual) Myelocytes % (Man) Promyelocytes % (Man) Blast Cells % (Manual) Lymphocytes 42 Metamyelocytes Nucleated RBCs TNP Hypochromia Platelet Estimate Polychromasia Poikilocytosis Anisocytosis Microcytosis Macrocytosis Spherocytes Tear Drop Cells Ovalocytes Corder Cells Acanthocytes (Spur) Fragmented RBCs Absolute CD3 Count 215 L % CD3+ Lymphocytes 53.8 L Absolute CD4 Scarbro 4 L % CD4+ Lymphocyte 0.9 L CD4/CD8 Ratio 0.02 L % CD8+ Lymphocyte 45.3 H Absolute CD8 Count 181 CMV IgG Ab > 10.00 H CMV IgM Ab < 30.0 08/24/18 07:40 WBC Absolute Lymphs (auto) Neutrophils % (Manual) 10.7 L Band Neutrophils % 5.0 Lymphocytes % (Manual) 9.1 D Monocytes % (Manual) 45 H Eosinophils % (Manual) 11.6 H Basophils % (Manual) 0.8 Myelocytes % (Man) 0 Promyelocytes % (Man) 0 Blast Cells % (Manual) 0 Lymphocytes Metamyelocytes 0 D Nucleated RBCs Hypochromia 0 Platelet Estimate Decreased Polychromasia 2+ Poikilocytosis 0 Anisocytosis 1+ Microcytosis 1+ Macrocytosis 0 Spherocytes 2+ Tear Drop Cells 1+ Ovalocytes 2+ Corder Cells 1+ Acanthocytes (Spur) 1+ Fragmented RBCs 2+ Absolute CD3 Count % CD3+ Lymphocytes Absolute CD4 Scarbro % CD4+ Lymphocyte CD4/CD8 Ratio % CD8+ Lymphocyte Absolute CD8 Count CMV IgG Ab CMV IgM Ab Active Medications Generic Name Dose Route Start Last Admin Trade Name Carlosq PRN Reason Stop Dose Admin Azithromycin 1,200 mg 08/27/18 10:00 Zithromax - PO Th@1000 JULISA Dapsone 100 mg 08/26/18 10:00 Dapsone - PO DAILY JULISA Efavirenz 600 mg 08/23/18 10:00 08/25/18 10:34 Sustiva - PO 600 mg DAILY JULISA Administration Emtricitabine/Tenofovir 1 tab 08/23/18 10:00 08/25/18 10:34 Truvada PO 1 tab DAILY JULISA Administration Enoxaparin Sodium 40 mg 08/23/18 10:00 08/25/18 11:05 Lovenox - SQ Not Given DAILY JULISA Fluconazole 100 mls @ 100 mls/hr 08/23/18 10:00 08/25/18 10:31 Diflucan 200 Mg/Ns Premixed Ivpb - IVPB 100 mls/hr DAILY JULISA Administration Metoclopramide HCl 10 mg 08/22/18 19:15 08/25/18 10:34 Reglan Injection - IVPB 10 mg Q8H-IV JULISA Administration Pantoprazole Sodium 40 mg 08/22/18 22:00 08/25/18 10:28 Protonix Iv IVPUSH 40 mg BID JULISA Administration ASSESSMENT/PLAN: #Esophagitis - diffs include Albertina vs CMB. CMV IgM negative, IgG positive. 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 - IV fluconazole 200mg daily - 40 mg ivpush protonix - CMV IgG--> Immune - soft diet - EGD today 08/25/18 w/ Dr Garcia - Dr Castañeda on board- follows pt as outpatient. 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 - obtain viral load - obtain CD4 count #DVT: Lovenox 40 mg SQ Daily -Not given as pt scheduled for EGD this afternoon. # FEN No Fluids Monitor Electrolytes Regular Diet #Dispo: Tele Visit type - Emergency Visit Emergency Visit: Yes ED Registration Date: 08/22/18 Care time: The patient presented to the Emergency Department on the above date and was hospitalized for further evaluation of their emergent condition. - New Patient This patient is new to me today: No - Critical Care Critical Care patient: No - Discharge Referral Referred to [facility] No
[2018-08-25 14:42] VITALS: BP 115/71; PULSE 69; TEMP 98.5
[2018-08-26] MEDS ORDERED: DAPSONE 100 MG TABLET PO SCH (10:00)
[2018-08-27] MEDS ORDERED: AZITHROMYCIN 600 MG TABLET PO SCH (10:00)
--- NOTE | 2018-08-28 18:34 | PATH ---
Surgical Pathology Report Patient Name: MIGUEL DRISCOLL Med. Rec. #: [id number] /Age/Gender: 1980 (Age: 37) / M Account: [id number] Location: [address] [place] [id number]/[facility] Taken: 08/25/2018 Received: 08/25/2018 Reported: 08/28/2018 Physicians: Chap[place]ito Garcia M.D. PHYSICIAN EMERGENCY DEPT Specimen(s) Received A: BX NODULAR STOMACH B: BX DISTAL ESOPHAGUS Clinical History Dysphagia Postoperative diagnosis: Ulcer, distal esophagus Final Diagnosis A. STOMACH, NODULAR, BIOPSY: GASTRIC BODY MUCOSA WITH MILD CHRONIC GASTRITIS AND FOCAL DILATED GLANDS. IMMUNOHISTOCHEMICAL STAIN FOR H. PYLORI IS NEGATIVE. B. DISTAL ESOPHAGUS, BIOPSY: SQUAMOUS MUCOSA WITH MILD TO MODERATE REFLUX ESOPHAGITIS, FOCAL ACUTE INFLAMMATION AND ASSOCIATED REACTIVE CHANGES. DETACHED FRAGMENTS OF ACUTE INFLAMMATORY EXUDATE AND ASSOCIATED GRANULATION TISSUE CONSISTENT WITH ULCER BED. PAS FUNGAL STAIN IS NEGATIVE. CMV AND HSV-1 STAINS ARE NEGATIVE. Comment: HSV-II stain is pending and will be reported separately. PAS special stain performed at [facility]. Immunohistochemical stains for CMV and HSV1 performed [place], [place] and interpreted at [facility]. Electronically Signed Candis Aguilera M.D. Gross Description A. Received in formalin, labeled "biopsy nodular stomach" are 2 murphy, irregular portions of soft tissue measuring 0.2 and 0.4 cm. in greatest dimension. The specimens are submitted in toto in one cassette. B. Received in formalin, labeled "biopsy distal esophagus" are 5 murphy, irregular portions of soft tissue ranging from 0.1-0.3 cm. in greatest dimension. The specimens are submitted in toto in one cassette. 08/25/2018 saudi08/25/2018
[2018-08-31 14:40] LABS: HEMOGLOBIN 15.5 GM/dL (11.7-16.9); RBC 4.64 M/mm3 (4.00-5.60)
[2018-08-31 14:41] LABS: HEMATOCRIT 45.4 % (35.4-49); MCH 33.4 pg (25.7-33.7); MCHC 34.1 g/dl (32.0-35.9); PLATELET COUNT 176 K/MM3 (134-434); RDW 13.6 % (11.9-15.9)
[2018-08-31 14:43] LABS: % CD 4 POS. LYMPH. 0.8; % CD 8 POS. LYMPH. 43.9; ABSOLUTE CD 4 HELPER 2; ABSOLUTE CD3 154
[2018-08-31 14:44] LABS: %CD3 POS. LYMPH. 51.3; ABS. CD8 SUPPRESSOR 132; LYMPHS (ABSOLUTE) 0.3; MONOCYTES (ABSOLUTE) 0.5
[2018-08-31 14:45] LABS: EOSINOPHIL(ABSOLUTE) 0.1
[2018-08-31 14:46] LABS: ABS.CD19+ LYMPH 30
== END 2018-08-25 18:02 | disposition home or self-care (01) | DRG 894 ==
LOC: JER 07:19 → JERBED 10:12 → J8W 16:38 → J6S 08-23 16:00
PROVIDERS: ADMIT Internal Medicine; ATTEND Internal Medicine
PROC: 0DB68ZX Excision of Stomach, Via Natural or Artificial Opening Endoscopic, Diagnostic (ICD-10-PCS; 2018-08-25)
PROC: 0DB58ZX Excision of Esophagus, Via Natural or Artificial Opening Endoscopic, Diagnostic (ICD-10-PCS; principal; 2018-08-25 13:00)
DX: B37.81 Candidal esophagitis (principal); B20 Human immunodeficiency virus [HIV] disease; R13.10 Dysphagia, unspecified; D70.9 Neutropenia, unspecified; K21.9 Gastro-esophageal reflux disease without esophagitis; K31.9 Disease of stomach and duodenum, unspecified; K22.10 Ulcer of esophagus without bleeding
CPT/HCPCS: 36415; 71045-TC-FY; 80053; 83690; 85025; 86355; 86359; 86360; 86644; 86645; 87497; 87535; 87536; 88305-TC; 93005; 93010; 99285-25; J1447; J7030

== ENCOUNTER 2018-09-17 21:17 | Emergency (ER) | payer SELFPAY ==
[2018-09-17 21:26] VITALS: BP 147/96; PULSE 90; TEMP 99.2; BMI 26.6
--- NOTE | 2018-09-17 21:30 | PDOC ---
Rapid Medical Evaluation Time Seen by Provider: 09/17/18 21:23 Medical Evaluation: Allergies Allergy/AdvReac Type Severity Reaction Status Date / Time sulfamethoxazole Allergy Rash Verified 08/22/18 15:02 [From Bactrim] trimethoprim [From Bactrim] Allergy Rash Verified 08/22/18 15:02 I have performed a brief in-person evaluation of this patient. The patient presents with a chief complaint of: tooth pulled 1 week ago. Gum and tooth still hurts. Still taking clinda Pertinent physical exam findings: exudate on left tonsil I have ordered the following: patient states he's allergic to PCN. Will send rx for azithro The patient will be discharged from triage Discharge Disposition - Diagnosis Strep pharyngitis - Discharge Dispostion Disposition: HOME Condition at time of disposition: Good - Referrals - Patient Instructions Printed Discharge Instructions: DI for Strep Throat Additional Instructions: Discharge Instructions: -You have strep throat -A prescription for antibiotics has been sent to your pharmacy -Gargle with warm salt water to help with sore throat -After 3 days of antibiotics throw away your toothbrush and get a new one -take over the counter Aleve to help with pain -Eat cold/soft foods until throat feeling better - Post Discharge Activity
== END 2018-09-17 21:37 | disposition home or self-care (01) ==
LOC: JERFT 21:17
DX: J02.0 Streptococcal pharyngitis (principal); B95.5 Unspecified streptococcus as the cause of diseases classified elsewhere; Z88.0 Allergy status to penicillin
CPT/HCPCS: 99281-25

== ENCOUNTER 2018-10-03 18:10 | Inpatient (IN) | payer OTHER ==
--- NOTE | 2018-10-03 19:00 | PDOC ---
Attending Attestation - HPI HPI: 10/03/18 20:06 The patient is a 37 year old male with a past medical history of HIV and HAART here today for evaluation of throat pain. The patient reports that his pain is severe and has trouble swallowing. He reports that he was recently hospitalized at [facility], had a fever the whole time he was there, and left AMA. He notes that this fever has lasted since 3 weeks after getting a tooth pulled. Patient denies headache, lightheadedness. Denies chills. Denies chest pain, shortness of breath. Denies nausea, vomiting, diarrhea, abdominal pain. Allergies: Penicillins, sulfamethoxazole, trimethoprim PCP: none ID: Dr. Castañeda - Physicial Exam PE: 10/03/18 20:06 GENERAL: Awake, alert, and fully oriented, in no acute distress HEAD: No signs of trauma EYES: PERRLA, EOMI, sclera anicteric, conjunctiva clear ENT: Auricles normal inspection, hearing grossly normal, nares patent, oropharynx clear without exudates. Moist mucosa NECK: Normal ROM, supple, no lymphadenopathy, JVD, or masses LUNGS: Breath sounds equal, clear to auscultation bilaterally. No wheezes, and no crackles HEART: Regular rate and rhythm, normal S1 and S2, no murmurs, rubs or gallops ABDOMEN: Soft, nontender, normoactive bowel sounds. No guarding, no rebound. No masses EXTREMITIES: Normal range of motion, no edema. No clubbing or cyanosis. No cords, erythema, or tenderness NEUROLOGICAL: Cranial nerves II through XII grossly intact. Normal speech, normal gait SKIN: Warm, Dry, normal turgor, no rashes or lesions noted. <Dudley Callaway - Last Filed: 10/03/18 20:06> - Medical Decision Making 10/03/18 20:55 Pt presents to the ED complaining of a several week history of fever and throat pain. Left [facility]---states that he had an abscess that needs to be drained. Febrile since left [facility]. Febrile in the ED with neutropenia. Will check CT to evaluate for neck abscess. Will check labs and admit for neutropenia. 10/03/18 21:15 <Carmen Feldman - Last Filed: 10/03/18 21:17>
--- NOTE | 2018-10-03 19:02 | PDOC ---
History of Present Illness - General Chief Complaint: Pain Stated Complaint: ABDOMINAL GONZALEZ Time Seen by Provider: 10/03/18 18:49 History Source: Patient Exam Limitations: No Limitations - History of Present Illness Initial Comments: Boni is a 37 yo M w a pmh of HIV on HAART (Dr. Castañeda - ID), no longer on bactrim or azithromycin presents to the ED with severe posterior throat pain. He is unsure of his last CD4 count. He states his HIV is now well controlled on triple therapy and that's why he is no longer on bactrim or azithromycin. He was recently hospitalized at [facility] and said he had a fever the entire time he was there. They tried fighting the fever but as per patient they were not successful. He denies chest pain, SOB, difficulty breathing, dysuria, frequency, urgency, headache, neck pain, or blurry vision. ID doc: Dr. Castañeda Allergies: Penicillins, trimethoprim, sulfamethoxazole Social Hx: Past History - Past Medical History Allergies/Adverse Reactions: Allergies Allergy/AdvReac Type Severity Reaction Status Date / Time Penicillins Allergy Verified 10/03/18 18:21 sulfamethoxazole Allergy Rash Verified 10/03/18 18:21 [From Bactrim] trimethoprim [From Bactrim] Allergy Rash Verified 10/03/18 18:21 Home Medications: Ambulatory Orders Efavirenz/Emtricitab/Tenofovir [Atripla Tablet -] 1 tab PO DAILY #30 tab Amox-Tr/K Cl [Augmentin - 875Mg Tablet] 1 tab PO BID 10/03/18 Fluconazole 200 mg PO DAILY 10/03/18 Pantoprazole Sodium [Protonix] 40 mg PO DAILY 10/03/18 Anemia: No Asthma: No Cancer: No Cardiac Disorders: No CVA: No COPD: No CHF: No Dementia: No Diabetes: No GI Disorders: No Disorders: No HTN: No Liver Disease: No Seizures: No Thyroid Disease: No - Surgical History Abdominal Surgery: No Appendectomy: No Cardiac Surgery: No Cholecystectomy: No Lung Surgery: No Neurologic Surgery: No Orthopedic Surgery: No - Immunization History Immunization Up to Date: No - Suicide/Smoking/Psychosocial Hx Smoking History: Never smoked Have you smoked in the past 12 months: No Number of Cigarettes Smoked Daily: 10 If you are a former smoker, when did you quit?: 2009 Cigars Per Day: 0 'Breaking Loose' booklet given: 07/02/17 Hx Alcohol Use: No Drug/Substance Use Hx: No Substance Use Type: None Hx Substance Use Treatment: No Review of Systems - Review of Systems Comments:: CONSTITUTIONAL: Present: Fever, chills Absent: no fatigue EYES: Absent: visual changes ENT: Present: Sore throat Absent: ear pain CARDIOVASCULAR: Absent: chest pain, no palpitations RESPIRATORY: Absent: cough, no SOB GI: Absent: abdominal pain, no nausea, no vomiting, no constipation, no diarrhea GENITOURINARY: Absent: dysuria, no frequency, no hematuria MUSKULOSKELETAL: Absent: back pain, no arthralgia, no myalgia SKIN: Absent: rash NEURO: Absent: headache *Physical Exam - Vital Signs Last Vital Signs Temp Pulse Resp BP Pulse Ox 101.2 F H 118 H 20 122/80 97 10/03/18 18:17 10/03/18 18:17 10/03/18 18:17 10/03/18 18:17 10/03/18 18:17 - Physical Exam Comments: GENERAL: Well-appearing, well-nourished. significant distress. HEENT: No oral thrush. No oropharyngeal erythema. Normocephalic, atraumatic. PERRL, EOM intact. CARDIOVASCULAR: Tachycardic rate. Normal S1, S2. Regular rhythm. PULMONARY: Clear to auscultation bilaterally. ABDOMEN: Soft, non-distended, non-tender. EXTREMITIES: Normal ROM in all four extremities. No gross deformities. SKIN: Warm, dry. No rash NEUROLOGICAL: No focal neurological deficits. Moderate Sedation - Procedure Monitoring Vital Signs: Procedure Monitoring Vital Signs Temperature 101.2 F H 10/03/18 18:17 Pulse Rate 118 H 10/03/18 18:17 Respiratory Rate 20 10/03/18 18:17 Blood Pressure 122/80 10/03/18 18:17 O2 Sat by Pulse Oximetry (%) 97 10/03/18 18:17 ED Treatment Course - LABORATORY CBC & Chemistry Diagram: 10/03/18 19:47 10/03/18 19:47 Medical Decision Making - Medical Decision Making Boni is a 37 yo M w a pmh of HIV on HAART (Dr. Castañeda - BIB), no longer on bactrim or azithromycin presents to the ED with severe posterior throat pain, history of AIDS here today with symptoms consistent with albertina esophagiti. Temp: 101.2 HR: 118 DDx IBNLT: Albertina vs HSV vs CMV esophagitis. Peritonsilar abscess. Plan: Sepsis workup. Labs, urine, cxr, ekg, iv hydration, re-assess. WBC came back at 0.[address] showed sinusitis Consulted Dr. Castañeda who recommended to give patient Cefepime Placed GI consult to Dr. Garcia to evaluate for EGD - Will proceed to admit patient to hospital. Patient was accepted as an inpatient to Dr. Oneill's Service *DC/Admit/Observation/Transfer Diagnosis at time of Disposition: HIV (human immunodeficiency virus infection), AIDS (acquired immune deficiency syndrome), Neutropenic fever, Esophagitis - Discharge Dispostion Condition at time of disposition: Guarded Decision to Admit order: Yes - Referrals - Patient Instructions - Post Discharge Activity
[2018-10-03] MEDS ORDERED: SODIUM CHLORIDE 2,313 ML IV ONE (19:06)
[2018-10-03 19:57] LABS: BASO % 1.1 % (0-2.0); EOS % 4.9 % (0-4.5); HEMATOCRIT 32.6 % (35.4-49); HEMOGLOBIN 11.7 GM/dL (11.7-16.9); LYMPH % 14.4 % (8-40); MCH 33.4 pg (25.7-33.7); MCHC 35.8 g/dl (32.0-35.9); MEAN CELL VOLUME 93.3 fl (80-96); MEAN PLT VOLUME 9.2 fl (7.5-11.1); MONO % 75.8 % (3.8-10.2); NEUT % 3.8 % (42.8-82.8); PLATELET COUNT 236 K/MM3 (134-434); RDW 13.6 % (11.9-15.9)
[2018-10-03 20:03] LABS: WHITE BLOOD COUNT 0.9 K/mm3 (4.0-10.0)
[2018-10-03 20:16] LABS: INR 1.8 (0.83-1.09); PROTHROMBIN TIME (PATIENT) 21.4 SEC (9.7-13.0)
[2018-10-03 20:19] LABS: ACTIVATED PTT 26.7 SECONDS (25.2-36.5)
[2018-10-03 20:27] LABS: ALBUMIN 2.5 g/dl (3.4-5.0); ALK PHOS 87 U/L (45-117); ANION GAP 9 MMOL/L (8-16); BILIRUBIN,TOTAL 0.4 mg/dL (0.2-1); BLOOD UREA NITROGEN 8 mg/dL (7-18); CALCIUM 7.7 mg/dL (8.5-10.1); CHLORIDE 103 mmol/L (98-107); CO2 26 mmol/L (21-32); CREATININE 0.8 mg/dL (0.55-1.3); GLUCOSE,RANDOM 98 mg/dL (74-106); POTASSIUM 3.2 mmol/L (3.5-5.1); SGOT/AST 19 U/L (15-37); SGPT/ALT 19 U/L (13-61); SODIUM 138 mmol/L (136-145); TOT PROT 6.7 g/dl (6.4-8.2)
[2018-10-03 21:30] LABS: MACROCYTOSIS 1+; OVALOCYTE 1+
[2018-10-03 21:31] LABS: PLATELET ESTIMATE ADEQUATE
[2018-10-03] MEDS ORDERED: POTASSIUM CHLORIDE ORAL LIQUID 20 MEQ/15 ML PO ONE (22:01)
[2018-10-03] MEDS ORDERED: ACETAMINOPHEN 1000 MG/100 ML VIAL (NON FORMULARY) IVPB ONE (22:06)
[2018-10-03] MEDS ORDERED: ACETAMINOPHEN INJECTION 100 ML IVPB ONE (22:23)
[2018-10-03] MEDS ORDERED: POTASSIUM CHLORIDE ORAL LIQUID 20 MEQ/15 ML ONE (22:23)
[2018-10-03] MEDS ORDERED: CEFEPIME 2 GM in DEXTROSE 5%-WATER 100 ML IVPB ONE (22:30)
[2018-10-03 22:49] LABS: URINE APPEARANCE CLEAR; URINE BILIRUBIN NEGATIVE (<2.0 mg/dL); URINE COLOR LTYELLOW; URINE GLUCOSE (UA) NEGATIVE (NEGATIVE); URINE KETONE TRACE (NEGATIVE); URINE LEUK ESTERASE NEGATIVE (NEGATIVE); URINE NITRITE NEGATIVE (NEGATIVE); URINE PROTEIN NEGATIVE (NEGATIVE); URINE UROBILINOGEN NEGATIVE mg/dL (0.2-1.0)
[2018-10-03] MEDS ORDERED: CEFEPIME 2 GM/100 ML BAG IVPB ONE (23:06)
--- NOTE | 2018-10-03 23:10 | PN ---
Teaching Attending Note Name of Resident: Kenan Munoz ATTENDING PHYSICIAN STATEMENT I saw and evaluated the patient. I reviewed the resident's note and discussed the case with the resident. I agree with the resident's findings and plan as documented. SUBJECTIVE: The patient is a 37 year old male with a past medical history of HIV infection, penicillin allergy, cryptococcal infection, supposed to be on HAART, presents for evaluation of throat pain. The patient reports that his pain is severe and has trouble swallowing. He reports that he was recently hospitalized at [facility], had a fever the whole time he was there, and left AMA. He notes that this fever has lasted since 3 weeks after getting a tooth pulled. No headache,photophobia or blurring of vision. Result of recent esophageal biopsy not available. Though he now professes compliance, during his admission of he conceded that he was not taking Atripla due to health insurance issues. Was also recently incacerated. Does not know his CD4 count or viral load, signalling that he is not adherent to his general HIV care - for some reason. OBJECTIVE: Alert and looks very weak Vital Signs Period Temp Pulse Resp BP Sys/Harrington Pulse Ox Last 24 Hr 101.2 F 118 20 122/80 97 HEENT: No Jaundice, eye redness or discharge, PERRLA, EOMI. Ulcer right edge of mouth. Normocephalic, atraumatic. External ears are normal and hearing is grossly intact. No nasal discharge. Neck: Supple, tender right side of neck. No neck stiffness. No palpable adenopathy or thyromegaly. No JVD Chest: Good effort. Clear to auscultation and percussion. Heart: Regular. No S3, rub or murmur Abdomen: Not distended, soft, nontender and no HSM. No rebound or guarding. Normoactive bowel sounds. Ext: Peripheral pulses intact. No leg edema. Skin: Warm and dry. No petechiae, rash or ecchymosis. Neuro: Alert. Oriented x3. CN 2-12 grossly intact. Sensation grossly intact in all four extremities and DTR are symmetric. Current Medications Generic Name Dose Route Start Last Admin Trade Name Freq PRN Reason Stop Dose Admin Enoxaparin Sodium 40 mg 10/04/18 10:00 Lovenox - SQ DAILY JULISA Fluconazole 200 mg 10/04/18 10:00 Diflucan - PO DAILY [facility] Cefepime HCl 2 gm/ Dextrose 100 mls @ 100 mls/hr 10/03/18 22:30 IVPB 10/03/18 23:29 ONCE ONE Protocol Dextrose 1,000 mls @ 100 mls/hr 10/03/18 22:45 D5w - IV ASDIR [facility] Non-Formulary Medication 1 tab 10/04/18 10:00 Efavirenz/Emtricitab/Tenofovir PO DAILY [facility] Pantoprazole Sodium 40 mg 10/04/18 10:00 Protonix - PO DAILY [facility] Home Medications Medication Instructions Recorded Efavirenz/Emtricitab/Tenofovir 1 tab PO DAILY #30 tab 10/17/16 [Atripla Tablet -] Amox-Tr/K Cl [Augmentin - 875Mg 1 tab PO BID 10/03/18 Tablet] Fluconazole 200 mg PO DAILY 10/03/18 Pantoprazole Sodium [Protonix] 40 mg PO DAILY 10/03/18 Abnormal Lab Results 10/03/18 10/03/18 10/03/18 19:47 19:47 19:47 WBC 0.9 L* RBC 3.50 L Hct 32.6 L D Absolute Neuts (auto) 0.0 L Neutrophils % 3.8 L Neutrophils % (Manual) 2.0 L Monocytes % 75.8 H Monocytes % (Manual) 78 H Eosinophils % 4.9 H Nucleated RBC % 1 H PT with INR 21.40 H INR 1.80 H Potassium 3.2 L Calcium 7.7 L Albumin 2.5 L Ur Specific [place] Urine Ketones 10/03/18 22:30 WBC RBC Hct Absolute Neuts (auto) Neutrophils % Neutrophils % (Manual) Monocytes % Monocytes % (Manual) Eosinophils % Nucleated RBC % PT with INR INR Potassium Calcium Albumin Ur Specific [place] 1.044 H Urine Ketones Trace H ASSESSMENT AND PLAN: 1. Neutropenic fever/Sepsis/HIV disease/Dysphagia - In the setting of poorly controlled HIV disease, will rule out opportunistic infections. Sepsis work up done. Will send blood for cryptococcal antigen, CD4 count and viral load. ID pension consultant recommended IV cefepime. Will continue fluconazole for possible esophageal candidiasis, consult GI and contact his PCP for the report of the recent esophageal biopsy. Place on reverse isolation. Continue protonix and viscous lidocaine swish and swallow. Get Mg, phosphate levels and give KCL. Most important is that he needs comprehensive social work/case management evaluation to identify and rectify factors causing his nonadherence to outpatient HIV care. 2. Hypoalbuminemia - Possibly due to combined effects of malnutrition and inflammation associated with comorbid chronic conditions. Will ensure adequate dietary protein intake and also consult radio control crane operator. 3. Anemia - Likely chiefly due to HIV infection. Will do basic anemia work up including serial stool guaiacs, reticulocyte count and iron studies. 4. DVT prophylaxis - Lovenox 40 mg SQ q 24 hours. 5. Advance directives - Full code
[2018-10-03] MEDS: DEXTROSE 5%-WATER - 1,000 ML IV SCH (23:16)
[2018-10-03] MEDS ORDERED: morphine CARPU-JECT 4 MG/1 ML DISP.SYRIN IVPUSH ONE (23:18)
[2018-10-03] MEDS ORDERED: morphine SULFATE 4 MG/ML VIAL ONE (23:38)
--- NOTE | 2018-10-04 00:19 | HP ---
CHIEF COMPLAINT: dysphagia HISTORY OF PRESENT ILLNESS: Patient is a 37 yo M with HIV (does not know last CD4 count) on HAART, penicillin allergy, cryptococcal infection. He presents to the ED with dysphagia and odynophagia with R sided neck pain. He says he went to [facility] a few days ago and signed out AMA because they were not doing anything. Patient was recently admitted in August and was treated for Esophagitis. He had an EGD here but patient left AMA. EGD showed a single ulcer. Result of recent esophageal biopsy not available. He says the pain he is experiencing now is different than his last admission here. He says the neck pain is New. Patient denies, fevers, chills, abdominal pain, sob, chest pain. Patient says he is compliant with his medications. Patient was recently incarcerated. ER course was notable for: (1) WBC 0.9. Absolute Neutrophil 0.0 (2) Febrile 101.2. Tachycardic 118 (3)Ct Neck: unremarkable Recent Travel: denies PAST MEDICAL HISTORY: per hpi Social History: Smoking: denies Alcohol:denies Drugs: denies Family History: Allergies Penicillins Allergy (Verified 10/03/18 18:21) sulfamethoxazole [From Bactrim] Allergy (Verified 10/03/18 18:21) Rash trimethoprim [From Bactrim] Allergy (Verified 10/03/18 18:21) Rash HOME MEDICATIONS: Home Medications Medication Instructions Recorded Efavirenz/Emtricitab/Tenofovir 1 tab PO DAILY #30 tab 10/17/16 [Atripla Tablet -] Amox-Tr/K Cl [Augmentin - 875Mg 1 tab PO BID 10/03/18 Tablet] Fluconazole 200 mg PO DAILY 10/03/18 Pantoprazole Sodium [Protonix] 40 mg PO DAILY 10/03/18 REVIEW OF SYSTEMS CONSTITUTIONAL: weight loss Absent: fever, chills, diaphoresis, generalized weakness, malaise, loss of appetite HEENT: throat pain Absent: rhinorrhea, nasal congestion, throat swelling, difficulty swallowing, mouth swelling, ear pain, eye pain, visual changes CARDIOVASCULAR: Absent: chest pain, syncope, palpitations, irregular heart rate, lightheadedness , peripheral edema RESPIRATORY: Absent: cough, shortness of breath, dyspnea with exertion, orthopnea, wheezing, stridor, hemoptysis GASTROINTESTINAL: Absent: abdominal pain, abdominal distension, nausea, vomiting, diarrhea, constipation, melena, hematochezia GENITOURINARY: Absent: dysuria, frequency, urgency, hesitancy, hematuria, flank pain, genital pain MUSCULOSKELETAL: Absent: myalgia, arthralgia, joint swelling, back pain, neck pain SKIN: Absent: rash, itching, pallor HEMATOLOGIC/IMMUNOLOGIC: Absent: easy bleeding, easy bruising, lymphadenopathy, frequent infections ENDOCRINE: Absent: unexplained weight gain, unexplained weight loss, heat intolerance, cold intolerance NEUROLOGIC: Absent: headache, focal weakness or paresthesias, dizziness, unsteady gait, seizure, mental status changes, bladder or bowel incontinence PSYCHIATRIC: Absent: anxiety, depression, suicidal or homicidal ideation, hallucinations. PHYSICAL EXAMINATION Vital Signs - 24 hr 10/03/18 18:17 Temperature 101.2 F H Pulse Rate 118 H Respiratory 20 Rate Blood Pressure 122/80 O2 Sat by Pulse 97 Oximetry (%) GENERAL: a/o x 3, in nad HEAD: Normal with no signs of trauma. EYES: Pupils equal, round and reactive to light, extraocular movements intact EARS, NOSE, THROAT: oropharynx clear without exudates. Moist mucous membranes. NECK: supple without lymphadenopathy, JVD, or masses. LUNGS: Breath sounds equal, clear to auscultation bilaterally. HEART: Regular rate and rhythm, normal S1 and S2 without murmur, rub or gallop. ABDOMEN: Soft, nontender, not distended, normoactive bowel sounds LOWER EXTREMITIES: 2+ pulses, warm, No peripheral edema. NEUROLOGICAL: Cranial nerves II-XII intact Laboratory Results - last 24 hr 10/03/18 10/03/18 10/03/18 19:47 19:47 19:47 WBC 0.9 L* RBC 3.50 L Hgb 11.7 Hct 32.6 L D MCV 93.3 MCH 33.4 MCHC 35.8 RDW 13.6 Plt Count 236 D MPV 9.2 Absolute Neuts (auto) 0.0 L Total Counted 100 Neutrophils % 3.8 L Neutrophils % (Manual) 2.0 L Lymphocytes % 14.4 D Lymphocytes % (Manual) 12.0 D Monocytes % 75.8 H Monocytes % (Manual) 78 H Eosinophils % 4.9 H Eosinophils % (Manual) 4.0 Basophils % 1.1 Basophils % (Manual) 1.0 Nucleated RBC % 1 H Differential Comment Man diff performed Platelet Estimate Adequate Platelet Comment Polychromasia 1+ Poikilocytosis 1+ Microcytosis 1+ Macrocytosis 1+ Ovalocytes 1+ PT with INR 21.40 H INR 1.80 H PTT (Actin FS) 26.7 Sodium 138 Potassium 3.2 L Chloride 103 Carbon Dioxide 26 Anion Gap 9 BUN 8 Creatinine 0.8 Creat Clearance w eGFR > 60 Random Glucose 98 Lactic Acid Calcium 7.7 L Total Bilirubin 0.4 AST 19 ALT 19 Alkaline Phosphatase 87 Troponin I Total Protein 6.7 Albumin 2.5 L Urine Color Urine Appearance Urine pH Ur Specific [place] Urine Protein Urine Glucose (UA) Urine Ketones Urine Blood Urine Nitrite Urine Bilirubin Urine Urobilinogen Ur Leukocyte Esterase 10/03/18 10/03/18 10/03/18 19:47 19:47 22:30 WBC RBC Hgb Hct MCV MCH MCHC RDW Plt Count MPV Absolute Neuts (auto) Total Counted Neutrophils % Neutrophils % (Manual) Lymphocytes % Lymphocytes % (Manual) Monocytes % Monocytes % (Manual) Eosinophils % Eosinophils % (Manual) Basophils % Basophils % (Manual) Nucleated RBC % Differential Comment Platelet Estimate Platelet Comment Polychromasia Poikilocytosis Microcytosis Macrocytosis Ovalocytes PT with INR INR PTT (Actin FS) Sodium Potassium Chloride Carbon Dioxide Anion Gap BUN Creatinine Creat Clearance w eGFR Random Glucose Lactic Acid 0.7 Calcium Total Bilirubin AST ALT Alkaline Phosphatase Troponin I < 0.02 Total Protein Albumin Urine Color Ltyellow Urine Appearance Clear Urine pH 7.0 Ur Specific [place] 1.044 H Urine Protein Negative Urine Glucose (UA) Negative Urine Ketones Trace H Urine Blood Negative Urine Nitrite Negative Urine Bilirubin Negative Urine Urobilinogen Negative Ur Leukocyte Esterase Negative ASSESSMENT/PLAN: 37 yo M with HIV (does not know last CD4 count) on HAART, penicillin allergy, cryptococcal infection, presents to the ED with dysphagia and odynophagia with R sided neck pain. #Neutropenic Fever/Sepsis/HIV/Dysphagia -R/o opportunistic disease -cryptococcal antigen -sputum cultures -bcx, ucx -Febrile 101.2 -CD4 count -Cefepime -Cont. Fluconazole for possible esophageal candidiasis -GI consulted. -obtain EGD biopsy. -Cont. Protonix -Viscous lidocaine and swish and swallow. #Anemia -Likely secondary to HIV infection. -stool guaiacs, reticulocyte count and iron studies. #DVT ppx Lovenox 40 mg SQ q 24 hours. Dispo: med surge Visit type - Emergency Visit Emergency Visit: Yes ED Registration Date: 10/03/18 Care time: The patient presented to the Emergency Department on the above date and was hospitalized for further evaluation of their emergent condition. - New Patient This patient is new to me today: Yes Date on this admission: 10/04/18 - Critical Care Critical Care patient: No
[2018-10-04] MEDS: NYSTATIN 500,000 UNITS/5 ML SUSPENSION PO SCH ×4 (01:01→18:46)
[2018-10-04] MEDS ORDERED: CEFEPIME HCL/D5W 2 GM/50 ML BAG IVPB SCH ×3 (02:00→10:00)
[2018-10-04 04:56] VITALS: BMI 22.8
[2018-10-04] MEDS ORDERED: PHYTONADIONE 5 MG TABLET PO ONE (08:07)
[2018-10-04 08:43] LABS: BASO % 1.8 % (0-2.0); EOS % 7.4 % (0-4.5); HEMATOCRIT 32.4 % (35.4-49); HEMOGLOBIN 11.5 GM/dL (11.7-16.9); LYMPH % 19.3 % (8-40); MCH 33.3 pg (25.7-33.7); MCHC 35.5 g/dl (32.0-35.9); MEAN CELL VOLUME 93.5 fl (80-96); MEAN PLT VOLUME 9.7 fl (7.5-11.1); MONO % 66.6 % (3.8-10.2); NEUT % 4.9 % (42.8-82.8); PLATELET COUNT 235 K/MM3 (134-434); RBC 3.47 M/mm3 (4.00-5.60); RDW 13.3 % (11.9-15.9)
[2018-10-04 08:53] LABS: WHITE BLOOD COUNT 0.9 K/mm3 (4.0-10.0)
[2018-10-04] MEDS: ENOXAPARIN NA (PORCINE) 40 MG/0.4 ML DISP.SYRIN SQ SCH (09:35)
[2018-10-04] MEDS: FLUCONAZOLE 100 MG TABLET (UD) PO SCH (09:35)
[2018-10-04 09:37] LABS: ALBUMIN 2.2 g/dl (3.4-5.0); ALK PHOS 85 U/L (45-117); ANION GAP 8 MMOL/L (8-16); BILIRUBIN,TOTAL 0.4 mg/dL (0.2-1); BLOOD UREA NITROGEN 6 mg/dL (7-18); CALCIUM 7.4 mg/dL (8.5-10.1); CHLORIDE 103 mmol/L (98-107); CO2 27 mmol/L (21-32); CREATININE 0.7 mg/dL (0.55-1.3); GLUCOSE,RANDOM 106 mg/dL (74-106); PHOSPHOROUS 3.2 mg/dL (2.5-4.9); POTASSIUM 3.6 mmol/L (3.5-5.1); SGOT/AST 19 U/L (15-37); SGPT/ALT 18 U/L (13-61); SODIUM 137 mmol/L (136-145); TOT PROT 6.2 g/dl (6.4-8.2)
[2018-10-04] MEDS ORDERED: PT OWN MED DRAWER 7, Y5N ONE (09:41)
[2018-10-04] MEDS: LIDOCAINE VISCOUS 2% ORAL/TOP 20 ML UNIT-DOSE CUP MM PRN (09:43)
[2018-10-04] MEDS ORDERED: PANTOPRAZOLE 40 MG TABLET (FP) PO SCH (10:00)
[2018-10-04] MEDS ORDERED: PATIENT'S OWN MEDICATION (NON-FORMULARY) (Efavirenz/Emtricitab/Tenofovir 1 TAB) PO SCH (10:00)
--- NOTE | 2018-10-04 10:27 | CON.GI ---
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 He is not my private patient.He was having throat pain and unable to swallow saliva. Last EGD was 2017 revealed an ulcer secondary to reflux esophagitis. He is non-compliant to medication. - Past Medical History Infectious Disease: Yes: AIDS, HIV - Alcohol/Substance Use Hx Alcohol Use: No - Smoking History Smoking history: Never smoked Have you smoked in the past 12 months: No Aproximately how many cigarettes per day: 10 If you are a former smoker, when did you quit?: 2008 Home Medications - Allergies Allergies/Adverse Reactions: Allergies Allergy/AdvReac Type Severity Reaction Status Date / Time Penicillins Allergy Verified 10/03/18 18:21 sulfamethoxazole Allergy Rash Verified 10/03/18 18:21 [From Bactrim] trimethoprim [From Bactrim] Allergy Rash Verified 10/03/18 18:21 - Home Medications Home Medications: Ambulatory Orders Efavirenz/Emtricitab/Tenofovir [Atripla Tablet -] 1 tab PO DAILY #30 tab Amox-Tr/K Cl [Augmentin - 875Mg Tablet] 1 tab PO BID 10/03/18 Fluconazole 200 mg PO DAILY 10/03/18 Pantoprazole Sodium [Protonix] 40 mg PO DAILY 10/03/18 Physical Exam-GI Vital Signs: Vital Signs Temperature 102.6 F H 10/04/18 09:00 Pulse Rate 110 H 10/04/18 09:00 Respiratory Rate 18 10/04/18 09:00 Blood Pressure 130/74 10/04/18 09:00 O2 Sat by Pulse Oximetry (%) 96 10/04/18 09:00 Constitutional: Yes: Other (drooling) Eyes: Yes: Conjunctiva Clear HENT: Yes: Atraumatic Neck: Yes: Supple Cardiovascular: Yes: Regular Rate and Rhythm Respiratory: Yes: CTA Bilaterally ...Auscultate: Yes: Normoactive Bowel Sounds, No Bowel Sounds ...Palpate: Yes: Soft. No: Firm/Rigid, Guarding, Hepatomegaly, Mass, Pulsatile Mass, Splenomegaly, Tenderness Labs: CBC, BMP 10/04/18 07:30 10/04/18 07:30 INR, PTT INR 1.80 (0.83-1.09) H 10/03/18 19:47 Hepatic Panel Total Bilirubin 0.4 mg/dL (0.2-1) 10/04/18 07:30 AST 19 U/L (15-37) 10/04/18 07:30 ALT 18 U/L (13-61) 10/04/18 07:30 Alkaline Phosphatase 85 U/L (45-117) 10/04/18 07:30 Albumin 2.2 g/dl (3.4-5.0) L 10/04/18 07:30 Problem List - Problems (1) Oropharyngeal dysphagia Assessment/Plan: R> consider ct of the neck if not done recently IV Protonix 40mg bid no need for repeat EGD at this time, was done 08/30/2018 ENT consult Code(s): R13.12 - DYSPHAGIA, OROPHARYNGEAL PHASE
[2018-10-04 10:52] LABS: ANISOCYTOSIS 2+; MACROCYTOSIS 0; PLATELET ESTIMATE NORMAL
[2018-10-04] MEDS: ACETAMINOPHEN 650 MG/20.3 ML ORAL SOLUTION (CUPS) PO PRN ×3 (11:19→23:02)
[2018-10-04] MEDS: DEXTROSE 5%-WATER - 1,000 ML IV SCH ×2 (11:20→20:12)
[2018-10-04] MEDS ORDERED: CEFEPIME 2 GM in DEXTROSE 5%-WATER 100 ML IVPB SCH (12:15)
[2018-10-04] MEDS: EFAVIRENZ 600 MG TABLET PO SCH (12:20)
[2018-10-04] MEDS: EMTRICITABINE 200MG/TENOFOVIR 300MG PO SCH (12:20)
--- NOTE | 2018-10-04 15:24 | PN ---
Progress Note (short form) - Note Progress Note: ID Consult dictated Febrile neutropenia ? Dental/pharyngeal abscess Possible recurrent esophagitis/ ulcer ?? PCN allergy AIDS CD4 2 Non-compliance Await c/s Await CT neck Empiric clinda/ aztreonam/ tobra Fluconazole/ nystatin/ viscous lidocaine PPI ENT Obtain records [facility], [facility] ART PCP/ MAC prophylaxis May need "FUO" workup if temps persist so recent [facility] records would be helpful!
[2018-10-04] MEDS: TOBRAMYCIN SULFATE 250 MG in SODIUM CHLORIDE 100 ML IVPB SCH (17:00)
--- NOTE | 2018-10-04 17:50 | CONS ---
DATE OF CONSULTATION: DATE OF DICTATION: 10/04/2018 The patient is a 37-year-old male with a history of acquired immunodeficiency syndrome, noncompliance, evaluated for febrile neutropenia. The patient does not give a reliable history. He reports that he began having problems approximately 3 weeks ago, when an upper tooth was extracted. He subsequently developed throat pain and fever. He reports being hospitalized at [facility] but signed out against medical advice because he thought he was not being treated adequately. He now presents with increasing throat pain, dysphagia, odynophagia. He was noted to be afebrile in the emergency room to 102.6 and neutropenic. He was empirically treated with cefepime; however, now reports increased oral secretions. He reports having a history of PENICILLIN allergy, the nature of which he was unaware of. He said the reaction occurred when he was child. Patient has a long history of noncompliance with his HIV regimen and followup. His most recent viral markers showed a viral load of 358,000, and a T cell count of 2. He was recently hospitalized for esophagitis. He underwent an EGD in August, which showed an esophageal ulcer. An EGD and biopsy were performed. Surgical pathology report showed focal inflammation. CMV and herpes simplex stains were negative. He was treated with a PPI. PAST MEDICAL HISTORY: As above. Allergies to PENICILLIN and SULFA. MEDICATIONS AN OUTPATIENT: Atripla. Patient states he is not taking PCP and MAC prophylaxis. LABORATORY DATA: White count 0.9, hematocrit 32.4, platelet count 235, creatinine 0.7. Chest x-ray negative. Urinalysis negative. CAT scan of the neck was done and report is pending. PHYSICAL EXAMINATION: General: On exam, he is awake and alert. He is in no acute distress. His breathing is non-labored he does have a large amount of oral secretions. Vital Signs: Temperature 100.5, T-max 102.6. Blood pressure 130/74. Pulse 110, regular. Respiration 20 per minute. Eyes: Sclerae anicteric. Oropharynx: Tongue is coated. No thrush is noted. Neck: Supple. Positive submandibular nodes. Tenderness in submandibular areas bilaterally, more so on the left. Heart Sounds: S1, S2. Lungs: Clear. No stridor or wheeze. Abdomen: Soft, nontender. Extremities: Negative for edema. IMPRESSION: 1. Febrile neutropenia. 2. Rule out dental/pharyngeal abscess. 3. Possible recurrent esophagitis/ulcer. 4. PENICILLIN allergy. 5. Acquired immunodeficiency syndrome. Await cultures and CAT scan of the neck. Empirically treat for febrile neutropenia in the setting of possible dental/pharyngeal abscess and PENICILLIN allergy with clindamycin, Azactam, and tobramycin. Continue fluconazole, nystatin, and viscus lidocaine as well as proton pump inhibitor. ENT evaluation. Continue antiretroviral therapy, PCP and MAC prophylaxis. It is imperative that we obtain records from his recent hospitalization at [facility], as I suspect patient was evaluated for an FUO at that facility and workup done thus far would be helpful. On review of his blood counts, it appears he has been leukopenic for several months, likely secondary to his advanced HIV, and may ultimately need a bone marrow biopsy. Thank you for the kind referral. GIBSON PANIAGUA M.D. [id number]
--- NOTE | 2018-10-04 18:27 | PN ---
Progress Note (short form) - Note Progress Note: SUBJECTIVE Complains of very sore throat with pain on swallowing and ongoing fevers. Able to swallow saliva. No cough/sputum. OBJECTIVE Febrile - T max 102.6, Hemodynamically Stable. Last Vital Signs Temp Pulse Resp BP Pulse Ox 99.0 F 101 H 18 124/68 96 10/04/18 15:39 10/04/18 15:39 10/04/18 15:39 10/04/18 15:39 10/04/18 10:00 HEENT - Atraumatic, Normocephalic. Pharynx difficult to visualize - no exudates , tender cervical region Heart - S1, S2, RRR Lungs - clear to auscultation - no crackles/wheeze. No stridor. Abdomen - soft, non-tender. Bowel Sounds normal. Extremities - no edema. No calf tenderness Skin - no rash Laboratory Results - last 24 hr 10/03/18 10/03/18 10/03/18 19:47 19:47 19:47 WBC 0.9 L* RBC 3.50 L Hgb 11.7 Hct 32.6 L D MCV 93.3 MCH 33.4 MCHC 35.8 RDW 13.6 Plt Count 236 D MPV 9.2 Absolute Neuts (auto) 0.0 L Total Counted 100 Neutrophils % 3.8 L Neutrophils % (Manual) 2.0 L Band Neutrophils % Lymphocytes % 14.4 D Lymphocytes % (Manual) 12.0 D Monocytes % 75.8 H Monocytes % (Manual) 78 H Eosinophils % 4.9 H Eosinophils % (Manual) 4.0 Basophils % 1.1 Basophils % (Manual) 1.0 Myelocytes % (Man) Promyelocytes % (Man) Blast Cells % (Manual) Nucleated RBC % 1 H Metamyelocytes Differential Comment Man diff performed Hypochromia Platelet Estimate Adequate Platelet Comment Polychromasia 1+ Poikilocytosis 1+ Anisocytosis Microcytosis 1+ Macrocytosis 1+ Ovalocytes 1+ Retic Count PT with INR 21.40 H INR 1.80 H PTT (Actin FS) 26.7 Sodium 138 Potassium 3.2 L Chloride 103 Carbon Dioxide 26 Anion Gap 9 BUN 8 Creatinine 0.8 Creat Clearance w eGFR > 60 Random Glucose 98 Lactic Acid Calcium 7.7 L Phosphorus Magnesium Ferritin Total Bilirubin 0.4 AST 19 ALT 19 Alkaline Phosphatase 87 Troponin I Total Protein 6.7 Albumin 2.5 L Urine Color Urine Appearance Urine pH Ur Specific [place] Urine Protein Urine Glucose (UA) Urine Ketones Urine Blood Urine Nitrite Urine Bilirubin Urine Urobilinogen Ur Leukocyte Esterase 10/03/18 10/03/18 10/03/18 19:47 19:47 22:30 WBC RBC Hgb Hct MCV MCH MCHC RDW Plt Count MPV Absolute Neuts (auto) Total Counted Neutrophils % Neutrophils % (Manual) Band Neutrophils % Lymphocytes % Lymphocytes % (Manual) Monocytes % Monocytes % (Manual) Eosinophils % Eosinophils % (Manual) Basophils % Basophils % (Manual) Myelocytes % (Man) Promyelocytes % (Man) Blast Cells % (Manual) Nucleated RBC % Metamyelocytes Differential Comment Hypochromia Platelet Estimate Platelet Comment Polychromasia Poikilocytosis Anisocytosis Microcytosis Macrocytosis Ovalocytes Retic Count PT with INR INR PTT (Actin FS) Sodium Potassium Chloride Carbon Dioxide Anion Gap BUN Creatinine Creat Clearance w eGFR Random Glucose Lactic Acid 0.7 Calcium Phosphorus Magnesium Ferritin Total Bilirubin AST ALT Alkaline Phosphatase Troponin I < 0.02 Total Protein Albumin Urine Color Ltyellow Urine Appearance Clear Urine pH 7.0 Ur Specific [place] 1.044 H Urine Protein Negative Urine Glucose (UA) Negative Urine Ketones Trace H Urine Blood Negative Urine Nitrite Negative Urine Bilirubin Negative Urine Urobilinogen Negative Ur Leukocyte Esterase Negative 10/04/18 10/04/18 10/04/18 01:09 07:30 07:30 WBC 0.9 L* RBC 3.47 L Hgb 11.5 L Hct 32.4 L MCV 93.5 MCH 33.3 MCHC 35.5 RDW 13.3 Plt Count 235 MPV 9.7 Absolute Neuts (auto) 0.0 L Total Counted Neutrophils % 4.9 L Neutrophils % (Manual) 1.8 L Band Neutrophils % 5.5 Lymphocytes % 19.3 D Lymphocytes % (Manual) 3.6 L D Monocytes % 66.6 H Monocytes % (Manual) 46 H Eosinophils % 7.4 H Eosinophils % (Manual) 14.5 H D Basophils % 1.8 Basophils % (Manual) 0.0 Myelocytes % (Man) 0 Promyelocytes % (Man) 0 Blast Cells % (Manual) 0 Nucleated RBC % 0 Metamyelocytes 0 Differential Comment Hypochromia 0 Platelet Estimate Normal Platelet Comment Polychromasia 0 Poikilocytosis 2+ Anisocytosis 2+ Microcytosis 2+ Macrocytosis 0 Ovalocytes Retic Count PT with INR INR PTT (Actin FS) Sodium 137 Potassium 3.6 Chloride 103 Carbon Dioxide 27 Anion Gap 8 BUN 6 L Creatinine 0.7 Creat Clearance w eGFR > 60 Random Glucose 106 Lactic Acid 0.9 Calcium 7.4 L Phosphorus 3.2 Magnesium 2.0 Ferritin 1477.4 H Total Bilirubin 0.4 AST 19 ALT 18 Alkaline Phosphatase 85 Troponin I Total Protein 6.2 L Albumin 2.2 L Urine Color Urine Appearance Urine pH Ur Specific [place] Urine Protein Urine Glucose (UA) Urine Ketones Urine Blood Urine Nitrite Urine Bilirubin Urine Urobilinogen Ur Leukocyte Esterase 10/04/18 07:30 WBC RBC Hgb Hct MCV MCH MCHC RDW Plt Count MPV Absolute Neuts (auto) Total Counted Neutrophils % Neutrophils % (Manual) Band Neutrophils % Lymphocytes % Lymphocytes % (Manual) Monocytes % Monocytes % (Manual) Eosinophils % Eosinophils % (Manual) Basophils % Basophils % (Manual) Myelocytes % (Man) Promyelocytes % (Man) Blast Cells % (Manual) Nucleated RBC % Metamyelocytes Differential Comment Hypochromia Platelet Estimate Platelet Comment Polychromasia Poikilocytosis Anisocytosis Microcytosis Macrocytosis Ovalocytes Retic Count 0.61 PT with INR INR PTT (Actin FS) Sodium Potassium Chloride Carbon Dioxide Anion Gap BUN Creatinine Creat Clearance w eGFR Random Glucose Lactic Acid Calcium Phosphorus Magnesium Ferritin Total Bilirubin AST ALT Alkaline Phosphatase Troponin I Total Protein Albumin Urine Color Urine Appearance Urine pH Ur Specific [place] Urine Protein Urine Glucose (UA) Urine Ketones Urine Blood Urine Nitrite Urine Bilirubin Urine Urobilinogen Ur Leukocyte Esterase Current Medications Generic Name Dose Route Start Last Admin Trade Name Luis A PRN Reason Stop Dose Admin Acetaminophen 650 mg 10/04/18 10:46 10/04/18 17:00 Tylenol Oral Solution - PO 650 mg Q6H PRN Administration FEVER Atovaquone 1,500 mg 10/05/18 08:00 Mepron - PO DAILY@0800 JULISA Azithromycin 1,200 mg 10/05/18 10:00 Zithromax - PO 10/05/18 10:01 ONCE ONE Efavirenz 600 mg 10/04/18 10:00 10/04/18 12:20 Sustiva - PO Not Given DAILY JULISA Emtricitabine/Tenofovir 1 tab 10/04/18 10:00 12/23/18 12:20 Truvada PO Not Given DAILY JULISA Enoxaparin Sodium 40 mg 10/04/18 10:00 10/04/18 09:35 Lovenox - SQ 40 mg DAILY JULISA Administration Fluconazole 200 mg 10/04/18 10:00 10/04/18 09:35 Diflucan - PO 200 mg DAILY JULISA Administration Dextrose 1,000 mls @ 100 mls/hr 10/03/18 22:45 10/04/18 11:20 D5w - IV 100 mls/hr ASDIR JULISA Administration Aztreonam 2 gm/ Dextrose 100 mls @ 100 mls/hr 10/04/18 18:00 IVPB Q8H-IV JULISA Protocol Clindamycin Phosphate 600 mg in 50 mls @ 100 mls/hr 10/04/18 18:00 Cleocin 600 Mg Premix Ivpb - IVPB Q8H-IV JULISA Protocol Tobramycin Sulfate 250 mg/ 106.25 mls @ 100 mls/hr 10/04/18 15:30 10/04/18 17 :00 Sodium Chloride IVPB 100 mls/hr Q24H JULISA Administration Protocol Lidocaine HCl 20 ml 10/04/18 00:08 10/04/18 09:43 Xylocaine 2% Viscous Oral - MM 20 ml Q6HPO PRN Administration ORAL PAIN/MOUTH SORES Nystatin 500,000 units 10/04/18 00:00 10/04/18 12:21 Nystatin Oral Suspension - PO Not Given Q6HPO JULISA Pantoprazole Sodium 40 mg 10/04/18 22:00 Protonix Iv IVPUSH BID JULISA ASSESSMENT/PLAN 37 year old Male with HIV/AIDS (non-compliant with Atripla), prior Cryptococcal infection, PCN Allergy, presented with sore throat ongoing for several weeks, found to be neutropenic with fever. He recently was hospitalized at [facility] for the same issue, received IV Abx and then left AMA as he felt that there was no improvement. He reports severe pain on swallowing preventing oral intake. At [facility] he had EGD and was found to have an esophageal Ulcer. 1. Neutropenic Sepsis secondary to Pharyngitis in the setting of underlying HIV/ AIDS. CXR - no acute cardiopulmonary findings. CT Neck - no abscess WBC 0.9/Neut 0 Evaluated by GI - not for repeat EGD - to continue treatment of esophageal ulcer Attempted to consult Dr. Gong (ENT) who after listening to the patient's clinical presentation and course decided that he was not available for consult. Attempt was also made to reach [facility] but no call back yet unfortunately. Will continue to pursue ENT eval. Septic Screen pending including Blood Cx and Crytpococcal Ag, along with CD 4 count and viral load. Evaluated by ID - placed on IV Clinda, Aztreonam, Tobramycin and Acyclovir as well as PCP/[facility] Px with Azithromycin, Atorvaquone Continue Fluconazole/Nystatin for possible esophageal candidiasis. Resumed on HAART by ID 2. Hypokalemia - repleted. 3. Coagulopathy, elevated INR - likely sec to Sepsis. Given Vitamin K. LFTs normal. 4. Anemia, likely sec to HIV infection. Resumed on HAART DVT Px - Lovenox GI Px - Protonix. Visit type - Emergency Visit Emergency Visit: Yes ED Registration Date: 10/03/18 Care time: The patient presented to the Emergency Department on the above date and was hospitalized for further evaluation of their emergent condition. - New Patient This patient is new to me today: Yes Date on this admission: 10/04/18 - Critical Care Critical Care patient: No - Discharge Referral Referred to [facility] Med [facility].: No
[2018-10-04] MEDS: CLINDAMYCIN 600MG PREMIX IVPB 600 MG/50 ML BAG IVPB SCH (18:29)
[2018-10-04] MEDS: AZTREONAM 2 GM in DEXTROSE 5%-WATER 100 ML IVPB SCH (19:26)
[2018-10-04] MEDS: PANTOPRAZOLE SODIUM 40 MG VIAL IVPUSH SCH (22:11)
[2018-10-05] MEDS: NYSTATIN 500,000 UNITS/5 ML SUSPENSION PO SCH ×4 (00:06→18:42)
[2018-10-05] MEDS ORDERED: PT OWN MED DRAWER 7, Y5N ONE ×5 (01:25→17:40)
[2018-10-05] MEDS: CLINDAMYCIN 600MG PREMIX IVPB 600 MG/50 ML BAG IVPB SCH ×3 (01:27→18:33)
[2018-10-05] MEDS: AZTREONAM 2 GM in DEXTROSE 5%-WATER 100 ML IVPB SCH ×4 (01:48→18:34)
[2018-10-05 04:11] LABS: SERUM IRON SATURATION 11 % (15-55); TOTAL IRON BINDING CAPACITY 124 ug/dL (250-450); UIBC 110 ug/dL (111-343)
--- NOTE | 2018-10-05 07:18 | EKG ---
Test Reason : Blood Pressure : / mmHG Vent. Rate : 099 BPM Atrial Rate : 099 BPM P-R Int : 120 ms QRS Dur : 100 ms QT Int : 352 ms P-R-T Axes : 056 050 017 degrees QTc Int : 451 ms NORMAL SINUS RHYTHM MODERATE VOLTAGE CRITERIA FOR LVH, MAY BE NORMAL VARIANT NONSPECIFIC T WAVE ABNORMALITY ABNORMAL ECG WHEN COMPARED WITH ECG OF 22-AUG-2018 09:55, NONSPECIFIC T WAVE ABNORMALITY NOW EVIDENT IN LATERAL LEADS Confirmed by FANY VANCE MD ([id number]) on 10/05/2018 7:18:14 AM Referred By: Confirmed By:FANY VANCE MD
[2018-10-05 07:30] LABS: BASO % 2.5 % (0-2.0); HEMOGLOBIN 10.9 GM/dL (11.7-16.9); LYMPH % 23.1 % (8-40); MCH 31.9 pg (25.7-33.7); MEAN CELL VOLUME 93.7 fl (80-96); MEAN PLT VOLUME 9.4 fl (7.5-11.1); NEUT % 8.4 % (42.8-82.8); PLATELET COUNT 213 K/MM3 (134-434); RBC 3.42 M/mm3 (4.00-5.60); RDW 13.6 % (11.9-15.9)
[2018-10-05 07:50] LABS: WHITE BLOOD COUNT 0.8 K/mm3 (4.0-10.0)
[2018-10-05 08:32] LABS: ANION GAP 8 MMOL/L (8-16); BLOOD UREA NITROGEN 8 mg/dL (7-18); CALCIUM 7.5 mg/dL (8.5-10.1); CHLORIDE 98 mmol/L (98-107); CO2 26 mmol/L (21-32); CREATININE 0.8 mg/dL (0.55-1.3); GLUCOSE,RANDOM 107 mg/dL (74-106); POTASSIUM 3.7 mmol/L (3.5-5.1); SODIUM 133 mmol/L (136-145)
--- NOTE | 2018-10-05 08:47 | CON.ENT ---
Consult Consult Specialty:: otolaryngology Reason for Consultation:: sore throat - History of Present Illness Chief Complaint: throat hurts History of Present Illness: 37M with HIV (noncompliant with HAART) presented to [facility] with ongoing difficulties swallowing (noted back in 08/30) and sore throat. His viral load was elevated and was found to be neutropenic. He has been having fevers to ~ 102. The patient was seen at [facility] 08/2018 and had EGD noting esophageal ulcers by Dr. Garcia. He was discharged and was more recently admitted to [facility] with ongoing dysphagia and sore throat, but left AMA and returned to [facility]. CT Neck w/ contrast was done over the weekend and was read as negative. He is on fluconazole, aztreonam, clindamycin, and tobramycin. ID is consulting for fever of unknown origin workup. Records have not yet been obtained from [facility]. He is on PPI for his known ulcerative reflux. The patient reports pain in his throat, points to cricoid area. Spitting mucous a lot with pain on swallowing. No hemoptysis, dysphonia, or shortness of breath. - History Source History Provided By: Patient, Medical Record - Past Medical History Infectious Disease: Yes: AIDS, HIV - Alcohol/Substance Use Hx Alcohol Use: No - Smoking History Smoking history: Never smoked Have you smoked in the past 12 months: No Aproximately how many cigarettes per day: 10 If you are a former smoker, when did you quit?: 2008 Home Medications - Allergies Allergies/Adverse Reactions: Allergies Allergy/AdvReac Type Severity Reaction Status Date / Time Penicillins Allergy Verified 10/03/18 18:21 sulfamethoxazole Allergy Rash Verified 10/03/18 18:21 [From Bactrim] trimethoprim [From Bactrim] Allergy Rash Verified 10/03/18 18:21 - Home Medications Home Medications: Ambulatory Orders Efavirenz/Emtricitab/Tenofovir [Atripla Tablet -] 1 tab PO DAILY #30 tab Amox-Tr/K Cl [Augmentin - 875Mg Tablet] 1 tab PO BID 10/03/18 Fluconazole 200 mg PO DAILY 10/03/18 Pantoprazole Sodium [Protonix] 40 mg PO DAILY 10/03/18 Review of Systems - Review of Systems Constitutional: reports: Fever HENT: reports: Throat Pain Physical Exam-ENT Vital Signs: Vital Signs Temperature 99.1 F 10/05/18 06:00 Pulse Rate 89 10/05/18 06:00 Respiratory Rate 18 10/05/18 06:00 Blood Pressure 157/75 10/05/18 06:00 O2 Sat by Pulse Oximetry (%) 96 10/04/18 21:00 Constitutional: Yes: Well Nourished, No Distress, Calm, Other (Asleep in hospital bed, laying on his side ~10 degrees elevated HOB. No stridor/stertor. Normal voice. No drooling. Kidney basin at bedside with clear frothy salivary expectorations) Face: Yes: WNL Eyes: Yes: WNL Nose: Yes: WNL, Septum Deviated Nasal Passage: Yes: WNL Oral/Pharynx: Yes: Other (moderate dentition, some areas of inflammation. No overt masses/lesions. Tonsils recessed. No posterior pharyngeal inflammation. TF /BOT soft.) Outer Ear: Yes: WNL Ear Canal: Yes: Cerumen Neck: Yes: WNL Respiratory: Yes: WNL Neurological: Yes: Other (CN3-7,11, 12 intact grossly) Imaging - Results Cat Scan: Report Reviewed (CT Neck w/ contrast wnl), Image Reviewed Other: Other (Flexible Fiberoptic Laryngoscopy: Explained rbla to pt. Consent obtained. Passed endoscope through nose to supraglottis, withdrawn. Findings: 1. Unremarkable exam 2. No erythema, exudate, or vesicles in nasopharynx, tongue base, hypopharynx, larynx 3. Frothy clear secretions in pyriforms, stranding in posterior oropharynx 4. Normal vocal cord mobility 5. Mild postcricoid edema 6. No masses/lesions) Problem List - Problems (1) Pharyngitis Assessment/Plan: Pharyngitis with dysphagia, most likely associated with his reflux disease. - No evidence of infection on examination nor on CT Neck w/ contrast. No airway concern at this time. - Known esophageal ulcer noted 08/2018, on PPI inpatient. Continue PPI, reflux management. Defer to GI as to timing/necessity of repeat endoscopy. I cannot see past the cricopharyngeal introitus. Consider esophagram. - Fever unlikely related to mouth, though he had some recent dental extractions and has minimal dental inflammation noted on exam. Advise dental evaluation to ensure not related. - HIV+, AIDS in a patient noncompliant with HAART. - Neutropenic, fever of unknown origin. Ongoing ID workup. - Ongoing antfungals, antbiotics. Less likely viral though HSV possible. (No vesicles seen to suggest this). Consider antiviral treatment, though would defer to ID on this. Thank you for this consultation. Code(s): J02.9 - ACUTE PHARYNGITIS, UNSPECIFIED
[2018-10-05] MEDS: ATOVAQUONE 750 MG/5 ML (UNIT-DOSE PACKAGING) PO SCH (09:02)
[2018-10-05] MEDS ORDERED: AZITHROMYCIN 600 MG TABLET PO ONE (10:00)
[2018-10-05 10:37] LABS: ANISOCYTOSIS 0; MACROCYTOSIS 0; OVALOCYTE 1+; PLATELET ESTIMATE NORMAL
[2018-10-05] MEDS: FLUCONAZOLE 100 MG TABLET (UD) PO SCH (10:48)
[2018-10-05] MEDS: PANTOPRAZOLE SODIUM 40 MG VIAL IVPUSH SCH ×2 (10:48→21:36)
[2018-10-05] MEDS: ENOXAPARIN NA (PORCINE) 40 MG/0.4 ML DISP.SYRIN SQ SCH (10:49)
[2018-10-05] MEDS: EFAVIRENZ 600 MG TABLET PO SCH ×2 (10:49→11:09)
[2018-10-05] MEDS: EMTRICITABINE 200MG/TENOFOVIR 300MG PO SCH ×2 (10:49→11:09)
--- NOTE | 2018-10-05 15:20 | PN ---
Progress Note (short form) - Note Progress Note: continued sore throat now for 3 weeks!painful to swallow no SOB no cough fevers left [facility] AMA per nurse intermittently refusing meds has not been in regular outpt care- seen by ENT- no pathology noted no visual complaints Vital Signs Period Temp Pulse Resp BP Sys/Harrington Pulse Ox Last 24 Hr 99.0 F-102.7 F 89-113 18-18 124-157/68-81 96-96 able to open his mouth no thrush neck supple lungs clear cor-rrr abd soft,nt ext no edema CBC, BMP 10/05/18 06:30 10/05/18 06:30 Microbiology 10/04/18 06:15 Sputum - Expectorated Gram Stain - Final 10/04/18 06:15 Sputum - Expectorated Sputum Culture - Preliminary NORMAL RESPIRATORY GEETHA 10/04/18 06:14 Urine - Urine Clean Catch Urine Culture - Final NO GROWTH OBTAINED 10/03/18 19:47 Blood - Peripheral Venous Blood Culture - Preliminary NO GROWTH OBTAINED AFTER 24 HOURS, INCUBATION TO CONTINUE FOR 4 DAYS. 10/03/18 19:47 Blood - Peripheral Venous Blood Culture - Preliminary NO GROWTH OBTAINED AFTER 24 HOURS, INCUBATION TO CONTINUE FOR 4 DAYS. a/p neutropenic fever aids multiple antibiotic allergies prior egd at [facility] in August- one ulcer- hsv and cmv negative, cmv pcr negative in August continue antiboitcs cmv pcr continue antiretrovirals blood culture for afb overall prognosis is poor
[2018-10-05] MEDS: TOBRAMYCIN SULFATE 250 MG in SODIUM CHLORIDE 100 ML IVPB SCH (15:31)
[2018-10-05] MEDS: DEXTROSE 5%-WATER - 1,000 ML IV SCH (15:32)
--- NOTE | 2018-10-05 17:39 | DS ---
Physical Exam: SUBJECTIVE: Patient seen and examined - complains of ongoing severe sore throat with fevers and pain on swallowing saliva. No cough/sputum. OBJECTIVE: Hemodynamically Stable. Tmax 102.7, now 98.6 Last Vital Signs Temp Pulse Resp BP Pulse Ox 98.6 F 120 H 18 143/75 96 10/05/18 14:00 10/05/18 14:00 10/05/18 14:00 10/05/18 14:00 10/05/18 09:00 HEENT - Atraumatic, Normocephalic. Pharynx difficult to visualize - no exudates , tender cervical region Heart - S1, S2, RRR Lungs - clear to auscultation - no crackles/wheeze. No stridor. Abdomen - soft, non-tender. Bowel Sounds normal. Extremities - no edema. No calf tenderness Skin - no rash Laboratory Tests 10/03/18 10/03/18 10/03/18 19:47 19:47 19:47 WBC 0.9 L* RBC 3.50 L Hgb 11.7 Hct 32.6 L D MCV 93.3 MCH 33.4 MCHC 35.8 RDW 13.6 Plt Count 236 D MPV 9.2 Absolute Neuts (auto) 0.0 L Total Counted 100 Neutrophils % 3.8 L Neutrophils % (Manual) 2.0 L Band Neutrophils % Lymphocytes % 14.4 D Lymphocytes % (Manual) 12.0 D Monocytes % 75.8 H Monocytes % (Manual) 78 H Eosinophils % 4.9 H Eosinophils % (Manual) 4.0 Basophils % 1.1 Basophils % (Manual) 1.0 Myelocytes % (Man) Promyelocytes % (Man) Blast Cells % (Manual) Nucleated RBC % 1 H Metamyelocytes Differential Comment Man diff performed Hypochromia Platelet Estimate Adequate Platelet Comment Polychromasia 1+ Poikilocytosis 1+ Anisocytosis Microcytosis 1+ Macrocytosis 1+ Spherocytes Ovalocytes 1+ Retic Count PT with INR 21.40 H INR 1.80 H PTT (Actin FS) 26.7 Sodium 138 Potassium 3.2 L Chloride 103 Carbon Dioxide 26 Anion Gap 9 BUN 8 Creatinine 0.8 Creat Clearance w eGFR > 60 Random Glucose 98 Lactic Acid Calcium 7.7 L Phosphorus Magnesium Iron TIBC Iron Saturation Ferritin Total Bilirubin 0.4 AST 19 ALT 19 Alkaline Phosphatase 87 Troponin I Total Protein 6.7 Albumin 2.5 L Urine Color Urine Appearance Urine pH Ur Specific [place] Urine Protein Urine Glucose (UA) Urine Ketones Urine Blood Urine Nitrite Urine Bilirubin Urine Urobilinogen Ur Leukocyte Esterase 10/03/18 10/03/18 10/03/18 19:47 19:47 22:30 WBC RBC Hgb Hct MCV MCH MCHC RDW Plt Count MPV Absolute Neuts (auto) Total Counted Neutrophils % Neutrophils % (Manual) Band Neutrophils % Lymphocytes % Lymphocytes % (Manual) Monocytes % Monocytes % (Manual) Eosinophils % Eosinophils % (Manual) Basophils % Basophils % (Manual) Myelocytes % (Man) Promyelocytes % (Man) Blast Cells % (Manual) Nucleated RBC % Metamyelocytes Differential Comment Hypochromia Platelet Estimate Platelet Comment Polychromasia Poikilocytosis Anisocytosis Microcytosis Macrocytosis Spherocytes Ovalocytes Retic Count PT with INR INR PTT (Actin FS) Sodium Potassium Chloride Carbon Dioxide Anion Gap BUN Creatinine Creat Clearance w eGFR Random Glucose Lactic Acid 0.7 Calcium Phosphorus Magnesium Iron TIBC Iron Saturation Ferritin Total Bilirubin AST ALT Alkaline Phosphatase Troponin I < 0.02 Total Protein Albumin Urine Color Ltyellow Urine Appearance Clear Urine pH 7.0 Ur Specific [place] 1.044 H Urine Protein Negative Urine Glucose (UA) Negative Urine Ketones Trace H Urine Blood Negative Urine Nitrite Negative Urine Bilirubin Negative Urine Urobilinogen Negative Ur Leukocyte Esterase Negative 10/04/18 10/04/18 10/04/18 01:09 07:30 07:30 WBC 0.9 L* RBC 3.47 L Hgb 11.5 L Hct 32.4 L MCV 93.5 MCH 33.3 MCHC 35.5 RDW 13.3 Plt Count 235 MPV 9.7 Absolute Neuts (auto) 0.0 L Total Counted Neutrophils % 4.9 L Neutrophils % (Manual) 1.8 L Band Neutrophils % 5.5 Lymphocytes % 19.3 D Lymphocytes % (Manual) 3.6 L D Monocytes % 66.6 H Monocytes % (Manual) 46 H Eosinophils % 7.4 H Eosinophils % (Manual) 14.5 H D Basophils % 1.8 Basophils % (Manual) 0.0 Myelocytes % (Man) 0 Promyelocytes % (Man) 0 Blast Cells % (Manual) 0 Nucleated RBC % 0 Metamyelocytes 0 Differential Comment Hypochromia 0 Platelet Estimate Normal Platelet Comment Polychromasia 0 Poikilocytosis 2+ Anisocytosis 2+ Microcytosis 2+ Macrocytosis 0 Spherocytes Ovalocytes Retic Count PT with INR INR PTT (Actin FS) Sodium 137 Potassium 3.6 Chloride 103 Carbon Dioxide 27 Anion Gap 8 BUN 6 L Creatinine 0.7 Creat Clearance w eGFR > 60 Random Glucose 106 Lactic Acid 0.9 Calcium 7.4 L Phosphorus 3.2 Magnesium 2.0 Iron TIBC Iron Saturation Ferritin 1477.4 H Total Bilirubin 0.4 AST 19 ALT 18 Alkaline Phosphatase 85 Troponin I Total Protein 6.2 L Albumin 2.2 L Urine Color Urine Appearance Urine pH Ur Specific [place] Urine Protein Urine Glucose (UA) Urine Ketones Urine Blood Urine Nitrite Urine Bilirubin Urine Urobilinogen Ur Leukocyte Esterase 10/04/18 10/04/18 10/05/18 07:30 07:30 06:30 WBC 0.8 L* RBC 3.42 L Hgb 10.9 L Hct 32.0 L MCV 93.7 MCH 31.9 MCHC 34.0 RDW 13.6 Plt Count 213 MPV 9.4 Absolute Neuts (auto) 0.1 L Total Counted Neutrophils % 8.4 L D Neutrophils % (Manual) 18.1 L D Band Neutrophils % 3.2 Lymphocytes % 23.1 Lymphocytes % (Manual) 5.3 L D Monocytes % 49.0 H Monocytes % (Manual) 48 H Eosinophils % 17.0 H D Eosinophils % (Manual) 12.8 H Basophils % 2.5 H Basophils % (Manual) 1.0 D Myelocytes % (Man) 0 Promyelocytes % (Man) 0 Blast Cells % (Manual) 0 Nucleated RBC % 0 Metamyelocytes 2 D Differential Comment Hypochromia 0 Platelet Estimate Normal Platelet Comment Polychromasia 1+ Poikilocytosis 0 Anisocytosis 0 Microcytosis 0 Macrocytosis 0 Spherocytes 1+ Ovalocytes 1+ Retic Count 0.61 PT with INR INR PTT (Actin FS) Sodium Potassium Chloride Carbon Dioxide Anion Gap BUN Creatinine Creat Clearance w eGFR Random Glucose Lactic Acid Calcium Phosphorus Magnesium Iron 14 L TIBC 124 L Iron Saturation 11 L Ferritin Total Bilirubin AST ALT Alkaline Phosphatase Troponin I Total Protein Albumin Urine Color Urine Appearance Urine pH Ur Specific [place] Urine Protein Urine Glucose (UA) Urine Ketones Urine Blood Urine Nitrite Urine Bilirubin Urine Urobilinogen Ur Leukocyte Esterase 10/05/18 06:30 WBC RBC Hgb Hct MCV MCH MCHC RDW Plt Count MPV Absolute Neuts (auto) Total Counted Neutrophils % Neutrophils % (Manual) Band Neutrophils % Lymphocytes % Lymphocytes % (Manual) Monocytes % Monocytes % (Manual) Eosinophils % Eosinophils % (Manual) Basophils % Basophils % (Manual) Myelocytes % (Man) Promyelocytes % (Man) Blast Cells % (Manual) Nucleated RBC % Metamyelocytes Differential Comment Hypochromia Platelet Estimate Platelet Comment Polychromasia Poikilocytosis Anisocytosis Microcytosis Macrocytosis Spherocytes Ovalocytes Retic Count PT with INR INR PTT (Actin FS) Sodium 133 L Potassium 3.7 Chloride 98 Carbon Dioxide 26 Anion Gap 8 BUN 8 Creatinine 0.8 Creat Clearance w eGFR > 60 Random Glucose 107 H Lactic Acid Calcium 7.5 L Phosphorus Magnesium Iron TIBC Iron Saturation Ferritin Total Bilirubin AST ALT Alkaline Phosphatase Troponin I Total Protein Albumin Urine Color Urine Appearance Urine pH Ur Specific [place] Urine Protein Urine Glucose (UA) Urine Ketones Urine Blood Urine Nitrite Urine Bilirubin Urine Urobilinogen Ur Leukocyte Esterase Current Medications Generic Name Dose Route Start Last Admin Trade Name Freq PRN Reason Stop Dose Admin Acetaminophen 650 mg 10/04/18 10:46 10/04/18 23:02 Tylenol Oral Solution - PO 650 mg Q6H PRN Administration FEVER Atovaquone 1,500 mg 10/05/18 08:00 10/05/18 09:02 Mepron - PO 1,500 mg DAILY@0800 JULISA Administration Efavirenz 600 mg 10/04/18 10:00 10/05/18 11:09 Sustiva - PO Not Given DAILY JULISA Emtricitabine/Tenofovir 1 tab 10/04/18 10:00 10/05/18 11:09 Truvada PO Not Given DAILY JULISA Enoxaparin Sodium 40 mg 10/04/18 10:00 10/05/18 10:49 Lovenox - SQ 40 mg DAILY JULISA Administration Fluconazole 200 mg 10/04/18 10:00 10/05/18 10:48 Diflucan - PO 200 mg DAILY JULISA Administration Aztreonam 2 gm/ Dextrose 100 mls @ 100 mls/hr 10/04/18 18:00 10/05/18 11:00 IVPB Not Given Q8H-IV JULISA Protocol Clindamycin Phosphate 600 mg in 50 mls @ 100 mls/hr 10/04/18 18:00 10/05/18 10:48 Cleocin 600 Mg Premix Ivpb - IVPB 100 mls/hr Q8H-IV JULISA Administration Protocol Tobramycin Sulfate 250 mg/ 106.25 mls @ 100 mls/hr 10/04/18 15:30 10/05/18 15 :31 Sodium Chloride IVPB 100 mls/hr Q24H JULISA Administration Protocol Dextrose 1,000 mls @ 125 mls/hr 10/04/18 19:35 10/05/18 15:32 D5w - IV 125 mls/hr ASDIR JULISA Administration Lidocaine HCl 20 ml 10/04/18 00:08 10/04/18 09:43 Xylocaine 2% Viscous Oral - MM 20 ml Q6HPO PRN Administration ORAL PAIN/MOUTH SORES Nystatin 500,000 units 10/04/18 00:00 10/05/18 11:41 Nystatin Oral Suspension - PO Not Given Q6HPO JULISA Pantoprazole Sodium 40 mg 10/04/18 22:00 10/05/18 10:48 Protonix Iv IVPUSH 40 mg BID JULISA Administration Date of Admission:10/03/18 Date of Discharge: 10/05/18 Minutes to complete discharge: 50 Discharge Summary Reason For Visit: HIV;FEBRILE NEUTROPENIA;ESOPHAGITIS Current Active Problems Esophagitis (Acute) Neutropenic fever (Acute) Oropharyngeal dysphagia (Acute) Osteomyelitis (Acute) Pharyngitis (Acute) AIDS (acquired immune deficiency syndrome) (Chronic) HIV (human immunodeficiency virus infection) (Chronic) Hospital Course: 37 year old Male with HIV/AIDS (non-compliant with Atripla), prior Cryptococcal infection, PCN Allergy, recent dental extraction, presented with sore throat ongoing for several weeks, found to be neutropenic with fever. He recently was hospitalized at [facility] for the same issue, received IV Abx and then left AMA as he felt that there was no improvement. He reports severe pain on swallowing preventing oral intake. He had a recent EGD and was found to have an esophageal Ulcer, CMV negative. On presentation the only sign was cervical tenderness and some pharyngeal irritaion without exudate. Airway has remained patient. However, he continues to have profound neutropenia sec to HIV/AIDS and concurrent infection. He was evaluate by GI who felt that the esophageral ulcer was not the cause of this patients symptoms nor fever. It was recommended for him to have ENT evaluation. ENT surgeon kindly evaluated and determined the cause of patient's symptoms to be likely sec to dental extraction. 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 It is unclear to what extent this is responsible for the patient's odynophagia and neutropenic fever. He is more hemodynamically stable after aggressive IV fluid hydration and institution of the following antimicrobial regimen as he is penicillin allergic - Aztreonam, Clindamycin, Tobramycin, Acyclovir, Azithromycin and Atorvaquone, Fluconazole, Nystatin as per ID recommendations. Given CT facial bones findings of maxillary osteomyelitis and ENT recommendations, he was recommended for transfer back to [facility] for ongling ID, internal medicine care and for evaluation by a oral-maxillofacial surgeon. He was kindly accepted for transfer by Dr. Vuong, to whom all paperwork will be faxed. 1. Neutropenic Sepsis and Odynophagia secondary to Pharyngitis/Esophagitis in the setting of underlying HIV/AIDS. Tmax overnight 102.7 CXR - no acute cardiopulmonary findings. CT Neck - no abscess WBC 0.9/Neut 0 Evaluated by GI - not for repeat EGD - to continue treatment of esophageal ulcer CT Facial Bones - Evaluated by ENT - no airway concern, no pharyngeal abscess, advised dental evaluation. Septic Screen pending including Blood Cx and Crytpococcal Ag, along with CD 4 count and viral load. Evaluated by ID - placed on IV Clinda, Aztreonam, Tobramycin and Acyclovir as well as PCP/[facility] Px with Azithromycin, Atorvaquone Continue Fluconazole/Nystatin for possible esophageal candidiasis. Resumed on HAART by ID 2. Hypokalemia - repleted. 3. Coagulopathy, elevated INR - likely sec to Sepsis. Given Vitamin K. LFTs normal. 4. Anemia, likely sec to HIV infection. Resumed on HAART DVT Px - Lovenox GI Px - Protonix. He is medically stable for transfer to [facility] for ongoing medical evaluation and OMS consultation for Neutropenic fever, Odynophagia, Pharyngitis , Esophagitis, and Maxillary Osteomyelitis. Condition: Guarded - Instructions Diet, Activity, Other Instructions: clear liquids tolerated Disposition: TRANSFER ACUTE CARE/OTHER HOSP - Home Medications Comprehensive Discharge Medication List: Ambulatory Orders Fluconazole 200 mg PO DAILY 10/03/18 Pantoprazole Sodium [Protonix] 40 mg PO DAILY 10/03/18 Atovaquone [Mepron Oral Solution -] 1,500 mg PO DAILY@0800 ud 10/05/18 Aztreonam [Azactam (Restricted To Id) -] 2 gm IVPB Q8H-IV vial 10/05/18 Cefepime [Maxipime (Restricted To Id) -] 2 gm IVPB Q8H-IV vial 10/05/18 Efavirenz [Sustiva -] 600 mg PO DAILY tablet 10/05/18 Emtricitabine/Tenofovir [Truvada -] 1 tab PO DAILY tablet 10/05/18 Enoxaparin [Lovenox -] 40 mg SQ DAILY disp.syrin 10/05/18 Lidocaine 2% Viscous Oral [Xylocaine 2% Viscous Oral -] 20 ml MM Q6HPO PRN ud 10/05/18 Nystatin Oral Suspension - [Nystatin Oral Susp 712164 Units/5 ML -] 500,000 units PO Q6HPO cup 10/05/18 Pantoprazole Sodium [Protonix IV] 40 mg IVPUSH BID vial 10/05/18 Sodium Chloride [Normal Saline -] 125 ml IVPB Q24H infus.bag 10/05/18 Tobramycin Sulfate [Nebcin -] 250 mg IVPB Q24H ml 10/05/18 Problem List - Problems (1) Oropharyngeal dysphagia Code(s): R13.12 - DYSPHAGIA, OROPHARYNGEAL PHASE (2) Osteomyelitis Code(s): M86.9 - OSTEOMYELITIS, UNSPECIFIED (3) Pharyngitis Code(s): J02.9 - ACUTE PHARYNGITIS, UNSPECIFIED This patient is new to me today: No Emergency Visit: Yes ED Registration Date: 10/03/18 Care time: The patient presented to the Emergency Department on the above date and was hospitalized for further evaluation of their emergent condition. Critical Care patient: No - Discharge Referral Referred to [facility] Med P.C.: No
[2018-10-05] MEDS: ACETAMINOPHEN 650 MG/20.3 ML ORAL SOLUTION (CUPS) PO PRN (21:36)
[2018-10-06] MEDS: NYSTATIN 500,000 UNITS/5 ML SUSPENSION PO SCH ×4 (00:09→18:01)
[2018-10-06] MEDS ORDERED: PT OWN MED DRAWER 7, Y5N ONE ×5 (02:38→16:30)
[2018-10-06] MEDS: CLINDAMYCIN 600MG PREMIX IVPB 600 MG/50 ML BAG IVPB SCH ×3 (02:50→17:15)
[2018-10-06] MEDS: AZTREONAM 2 GM in DEXTROSE 5%-WATER 100 ML IVPB SCH ×3 (03:14→17:16)
[2018-10-06] MEDS: ATOVAQUONE 750 MG/5 ML (UNIT-DOSE PACKAGING) PO SCH (08:24)
[2018-10-06] MEDS ORDERED: KETOROLAC TROMETHAMINE 30 MG/1 ML VIAL IVPUSH PRN (10:58)
[2018-10-06] MEDS: ENOXAPARIN NA (PORCINE) 40 MG/0.4 ML DISP.SYRIN SQ SCH (11:08)
[2018-10-06] MEDS: FLUCONAZOLE 100 MG TABLET (UD) PO SCH (11:08)
[2018-10-06] MEDS: EFAVIRENZ 600 MG TABLET PO SCH (11:08)
[2018-10-06] MEDS: EMTRICITABINE 200MG/TENOFOVIR 300MG PO SCH (11:08)
[2018-10-06] MEDS: PANTOPRAZOLE SODIUM 40 MG VIAL IVPUSH SCH ×2 (11:08→21:29)
[2018-10-06] MEDS: DEXTROSE 5%-WATER - 1,000 ML IV SCH (11:10)
--- NOTE | 2018-10-06 11:28 | PN ---
Progress Note (short form) - Note Progress Note: seen by ENT- no pathology noted facial ct with dental disease-for transfer for dental eval to [facility] no visual complaints Vital Signs Period Temp Pulse Resp BP Sys/Harrington Pulse Ox Last 24 Hr 98.1 F-103.0 F 74-120 18-19 112-143/64-75 96 poor dentition cor-rrr lungs clear abd soft,nt ext no edema CBC, BMP 10/05/18 06:30 10/05/18 06:30 Microbiology 10/04/18 06:15 Sputum - Expectorated Gram Stain - Final 10/04/18 06:15 Sputum - Expectorated Sputum Culture - Final NORMAL RESPIRATORY GEETHA 10/03/18 19:47 Blood - Peripheral Venous Blood Culture - Preliminary NO GROWTH OBTAINED AFTER 48 HOURS, INCUBATION TO CONTINUE FOR 3 DAYS. 10/03/18 19:47 Blood - Peripheral Venous Blood Culture - Preliminary NO GROWTH OBTAINED AFTER 48 HOURS, INCUBATION TO CONTINUE FOR 3 DAYS. 10/04/18 06:14 Urine - Urine Clean Catch Urine Culture - Final NO GROWTH OBTAINED a/p neutropenic fever-dental disease- for transfer to [facility]- awaiting bed aids multiple antibiotic allergies prior egd at [facility] in August- one ulcer- hsv and cmv negative, cmv pcr negative in August continue antiboitics cmv pcr afb blood cultures continue antiretrovirals overall prognosis is poor
[2018-10-06] MEDS: TOBRAMYCIN SULFATE 250 MG in SODIUM CHLORIDE 100 ML IVPB SCH (16:30)
[2018-10-06] MEDS: LIDOCAINE VISCOUS 2% ORAL/TOP 20 ML UNIT-DOSE CUP MM PRN (17:21)
--- NOTE | 2018-10-06 20:01 | PN ---
Physical Exam: SUBJECTIVE: Patient seen and examined at bedside. Reports new diarrhea, non- bloody. No other acute complaints. OBJECTIVE: Vital Signs Period Temp Pulse Resp BP Sys/Harrington Pulse Ox Last 24 Hr 98.1 F-99.0 F 74-86 18-18 104-112/63-64 96 GENERAL: A&O3, no acute distress EYES: EOMI ENT: Oropharynx without exudates LUNGS: CTA, HEART: RRR, no murmurs ABDOMEN: Soft, non-tender EXTREMITIES: 2+ pulses, warm, well-perfused, no edema. PSYCH: Normal mood, normal affect. SKIN: Warm, dry, normal turgor, no rashes or lesions noted Active Medications Generic Name Dose Route Start Last Admin Trade Name Freq PRN Reason Stop Dose Admin Acetaminophen 650 mg 10/06/18 11:00 Tylenol - PO Q6H PRN PAIN LEVEL 1-5 Atovaquone 1,500 mg 10/05/18 08:00 10/06/18 08:24 Mepron - PO 1,500 mg DAILY@0800 JULISA Administration Efavirenz 600 mg 10/04/18 10:00 10/06/18 11:08 Sustiva - PO 600 mg DAILY JULISA Administration Emtricitabine/Tenofovir 1 tab 10/04/18 10:00 10/06/18 11:08 Truvada PO 1 tab DAILY JULISA Administration Enoxaparin Sodium 40 mg 10/04/18 10:00 10/06/18 11:08 Lovenox - SQ 40 mg DAILY JULISA Administration Fluconazole 200 mg 10/04/18 10:00 10/06/18 11:08 Diflucan - PO 200 mg DAILY JULISA Administration Aztreonam 2 gm/ Dextrose 100 mls @ 100 mls/hr 10/04/18 18:00 10/06/18 17:16 IVPB 100 mls/hr Q8H-IV JULISA Administration Protocol Clindamycin Phosphate 600 mg in 50 mls @ 100 mls/hr 10/04/18 18:00 10/06/18 17:15 Cleocin 600 Mg Premix Ivpb - IVPB 100 mls/hr Q8H-IV JULISA Administration Protocol Tobramycin Sulfate 250 mg/ 106.25 mls @ 100 mls/hr 10/04/18 15:30 10/06/18 16 :30 Sodium Chloride IVPB 100 mls/hr Q24H JULISA Administration Protocol Dextrose 1,000 mls @ 125 mls/hr 10/04/18 19:35 10/06/18 11:10 D5w - IV 125 mls/hr ASDIR JULISA Administration Ketorolac Tromethamine 30 mg 10/06/18 10:58 10/06/18 11:46 Toradol Injection - IVPUSH 30 mg Q6H PRN Administration PAIN LEVEL 6-10 Lidocaine HCl 20 ml 10/04/18 00:08 10/06/18 17:21 Xylocaine 2% Viscous Oral - MM 20 ml Q6HPO PRN Administration ORAL PAIN/MOUTH SORES Nystatin 500,000 units 10/04/18 00:00 10/06/18 18:01 Nystatin Oral Suspension - PO 500,000 units Q6HPO JULISA Administration Pantoprazole Sodium 40 mg 10/04/18 22:00 10/06/18 11:08 Protonix Iv IVPUSH 40 mg BID JULISA Administration ASSESSMENT/PLAN: 37 year old male admitted for treatment of neutropenic sepsis, ruling out maxillary osteomyelitis and awaiting transfer to [facility]. He was accepted for transfer by Dr. Vuong. #Neutropenic Sepsis: CT facial bones showed possible maxillary osteomyelitis -continue treating esophageal ulcer -no pharyngeal abscess -continue fluconazole/nystatin -continue IV clinda, aztreonam, tobramycin, acyclovir -continue HAART -awaiting transfer to [facility] #Hypokalemia: repleted. #Elevated INR: likely sepsis related #Anemia: likely HIV related #DVT prophylaxis: lovenox #GI Px - Protonix #Disposition: -awaiting transfer to [facility] Visit type - Emergency Visit Emergency Visit: No - New Patient This patient is new to me today: Yes Date on this admission: 10/07/18 - Critical Care Critical Care patient: No
[2018-10-06] MEDS: ACETAMINOPHEN 325 MG TABLET (FP) PO PRN (21:29)
--- NOTE | 2018-10-06 21:46 | PN ---
Physical Exam: SUBJECTIVE: Patient seen and examined; complains of new diarrhea. awaiting transfer to [facility]. Completing additional paperwork. Remains in good spirits. All questions answered. Seen with resident. OBJECTIVE: Vital Signs Period Temp Pulse Resp BP Sys/Harrington Pulse Ox Last 24 Hr 98.1 F-102.4 F 74-113 18-19 104-112/62-64 96 GENERAL: The patient is awake, alert, and fully oriented, in no acute distress. HEAD: Normal with no signs of trauma. EYES: PERRL, extraocular movements intact, sclera anicteric ENT: Ears normal, nares patent, oropharynx clear without exudates, moist mucous membranes. NECK: Trachea midline, full range of motion, supple. LUNGS: Breath sounds equal, clear to auscultation bilaterally, no wheezes HEART: Regular rate and rhythm, S1, S2 without murmur, rub or gallop. ABDOMEN: Soft, nontender, nondistended EXTREMITIES: 2+ pulses, warm, well-perfused, no edema. NEUROLOGICAL: Cranial nerves II through XII grossly intact. Normal speech PSYCH: Normal mood, normal affect. SKIN: Warm, dry, normal turgor, Active Medications Generic Name Dose Route Start Last Admin Trade Name Freq PRN Reason Stop Dose Admin Acetaminophen 650 mg 10/06/18 11:00 10/06/18 21:29 Tylenol - PO 650 mg Q6H PRN Administration PAIN LEVEL 1-5 Atovaquone 1,500 mg 10/05/18 08:00 10/06/18 08:24 Mepron - PO 1,500 mg DAILY@0800 JULISA Administration Efavirenz 600 mg 10/04/18 10:00 10/06/18 11:08 Sustiva - PO 600 mg DAILY JULISA Administration Emtricitabine/Tenofovir 1 tab 10/04/18 10:00 10/06/18 11:08 Truvada PO 1 tab DAILY JULISA Administration Enoxaparin Sodium 40 mg 10/04/18 10:00 10/06/18 11:08 Lovenox - SQ 40 mg DAILY JULISA Administration Fluconazole 200 mg 10/04/18 10:00 10/06/18 11:08 Diflucan - PO 200 mg DAILY JULISA Administration Aztreonam 2 gm/ Dextrose 100 mls @ 100 mls/hr 10/04/18 18:00 10/06/18 17:16 IVPB 100 mls/hr Q8H-IV JULISA Administration Protocol Clindamycin Phosphate 600 mg in 50 mls @ 100 mls/hr 10/04/18 18:00 10/06/18 17:15 Cleocin 600 Mg Premix Ivpb - IVPB 100 mls/hr Q8H-IV JULISA Administration Protocol Tobramycin Sulfate 250 mg/ 106.25 mls @ 100 mls/hr 10/04/18 15:30 10/06/18 16 :30 Sodium Chloride IVPB 100 mls/hr Q24H JULISA Administration Protocol Dextrose 1,000 mls @ 125 mls/hr 10/04/18 19:35 10/06/18 11:10 D5w - IV 125 mls/hr ASDIR JULISA Administration Ketorolac Tromethamine 30 mg 10/06/18 10:58 10/06/18 11:46 Toradol Injection - IVPUSH 30 mg Q6H PRN Administration PAIN LEVEL 6-10 Lidocaine HCl 20 ml 10/04/18 00:08 10/06/18 17:21 Xylocaine 2% Viscous Oral - MM 20 ml Q6HPO PRN Administration ORAL PAIN/MOUTH SORES Nystatin 500,000 units 10/04/18 00:00 10/06/18 18:01 Nystatin Oral Suspension - PO 500,000 units Q6HPO JULISA Administration Pantoprazole Sodium 40 mg 10/04/18 22:00 10/06/18 21:29 Protonix Iv IVPUSH 40 mg BID JULISA Administration ASSESSMENT/PLAN: 37 year old Male with HIV/AIDS (non-compliant with Atripla), prior Cryptococcal infection, PCN Allergy, recent dental extraction, presented with sore throat ongoing for several weeks, found to be neutropenic with fever. He recently was hospitalized at [facility] for the same issue, received IV Abx and then left AMA as he felt that there was no improvement. He reports severe pain on swallowing preventing oral intake. He had a recent EGD and was found to have an esophageal Ulcer, CMV negative. On presentation the only sign was cervical tenderness and some pharyngeal irritaion without exudate. Airway has remained patient. However, he continues to have profound neutropenia sec to HIV/AIDS and concurrent infection. He was evaluate by GI who felt that the esophageral ulcer was not the cause of this patients symptoms nor fever. It was recommended for him to have ENT evaluation. ENT surgeon kindly evaluated and determined the cause of patient's symptoms to be likely sec to dental extraction. 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 It is unclear to what extent this is responsible for the patient's odynophagia and neutropenic fever. He is more hemodynamically stable after aggressive IV fluid hydration and institution of the following antimicrobial regimen as he is penicillin allergic - Aztreonam, Clindamycin, Tobramycin, Acyclovir, Azithromycin and Atorvaquone, Fluconazole, Nystatin as per ID recommendations. Given CT facial bones findings of maxillary osteomyelitis and ENT recommendations, he was recommended for transfer back to [facility] for ongling ID, internal medicine care and for evaluation by a oral-maxillofacial surgeon. He was kindly accepted for transfer by Dr. Vuong, to whom all paperwork will be faxed. We are still pending transfer to [facility] for additional treatment and workup and have completed additional paperwork and are awaiting bed. 1. Neutropenic Sepsis and Odynophagia secondary to Pharyngitis/Esophagitis in the setting of underlying HIV/AIDS. Tmax overnight 102.7 CXR - no acute cardiopulmonary findings. CT Neck - no abscess WBC 0.9/Neut 0 Evaluated by GI - not for repeat EGD - to continue treatment of esophageal ulcer CT Facial Bones - Evaluated by ENT - no airway concern, no pharyngeal abscess, advised dental evaluation. Septic Screen pending including Blood Cx and Crytpococcal Ag, along with CD 4 count and viral load. Evaluated by ID - placed on IV Clinda, Aztreonam, Tobramycin and Acyclovir as well as PCP/[facility] Px with Azithromycin, Atorvaquone Continue Fluconazole/Nystatin for possible esophageal candidiasis. Resumed on HAART by ID (Dr. Stinson) who continues to follow; no major changes today in the management, continuing to await transfer 2. Hypokalemia - repleted appropriately; continue to trend QD BMP 3. Coagulopathy, elevated INR - likely sec to Sepsis. Given Vitamin K. LFTs normal. Continue to trend and repeat doses of vitamin K as needed 4. Anemia, likely sec to HIV infection. Resumed on HAART 5. Diarrhea: checking Cdif, lactoferrin. If negative can go ahead and treat with loperimide. DVT Px - Lovenox GI Px - Protonix. He is medically stable for transfer to [facility] for ongoing medical evaluation and OMS consultation for Neutropenic fever, Odynophagia, Pharyngitis , Esophagitis, and Maxillary Osteomyelitis. Visit type - Emergency Visit Emergency Visit: No - New Patient This patient is new to me today: Yes Date on this admission: 10/08/18 - Critical Care Critical Care patient: No
[2018-10-07] MEDS: NYSTATIN 500,000 UNITS/5 ML SUSPENSION PO SCH ×4 (00:01→18:25)
[2018-10-07] MEDS ORDERED: PT OWN MED DRAWER 7, Y5N ONE ×2 (02:39→08:58)
[2018-10-07] MEDS: CLINDAMYCIN 600MG PREMIX IVPB 600 MG/50 ML BAG IVPB SCH ×3 (02:58→18:05)
[2018-10-07] MEDS: AZTREONAM 2 GM in DEXTROSE 5%-WATER 100 ML IVPB SCH ×3 (03:23→18:05)
[2018-10-07] MEDS: DEXTROSE 5%-WATER - 1,000 ML IV SCH ×3 (05:24→19:51)
[2018-10-07] MEDS: ACETAMINOPHEN 325 MG TABLET (FP) PO PRN ×2 (06:22→18:07)
[2018-10-07] MEDS: FLUCONAZOLE 100 MG TABLET (UD) PO SCH (09:11)
[2018-10-07] MEDS: ATOVAQUONE 750 MG/5 ML (UNIT-DOSE PACKAGING) PO SCH (09:11)
[2018-10-07] MEDS: PANTOPRAZOLE SODIUM 40 MG VIAL IVPUSH SCH ×2 (09:12→21:38)
[2018-10-07] MEDS: ENOXAPARIN NA (PORCINE) 40 MG/0.4 ML DISP.SYRIN SQ SCH (09:12)
[2018-10-07] MEDS: EFAVIRENZ 600 MG TABLET PO SCH (09:13)
[2018-10-07] MEDS: EMTRICITABINE 200MG/TENOFOVIR 300MG PO SCH (09:13)
[2018-10-07] MEDS ORDERED: MORPHINE SULFATE 2 MG/ML VIAL IVPUSH PRN (10:50)
--- NOTE | 2018-10-07 10:50 | PN ---
Physical Exam: SUBJECTIVE: Patient seen and examined at the bedside. feels well, in no acute distress. having mouth pain. OBJECTIVE: left inner leg small area of induration, scab patient had coughing spell and some congestion auscultated on right lung, chest xray negative for acute process. pt awaiting bed offer at [facility]. transfer center called. awaiting bed ( isolation bed). Vital Signs Period Temp Pulse Resp BP Sys/Harrington Pulse Ox Last 24 Hr 99.0 F-103.0 F 86-113 18-20 101-109/56-63 96 GENERAL: The patient is awake, alert, and fully oriented, in no acute distress. HEAD: Normal with no signs of trauma. EYES: PERRL, extraocular movements intact, sclera anicteric ENT: Ears normal, nares patent, oropharynx clear without exudates, moist mucous membranes. NECK: Trachea midline, full range of motion, supple. LUNGS: Breath sounds with,- mild congestion to right lung. chest xray negative. HEART: Regular rate and rhythm, S1, S2 without murmur, rub or gallop. ABDOMEN: Soft, nontender, nondistended EXTREMITIES: 2+ pulses, warm, well-perfused, no edema. NEUROLOGICAL: Cranial nerves II through XII grossly intact. Normal speech PSYCH: Normal mood, normal affect. SKIN: Warm, dry, normal turgor, Laboratory Results - last 24 hr 10/04/18 07:30 WBC 1.1 L Absolute Lymphs (auto) 0.5 L Lymphocytes 45 Nucleated RBCs TNP Absolute CD3 Count 195 L % CD3+ Lymphocytes 39.0 L Absolute CD4 [place] 7 L % CD4+ Lymphocyte 1.4 L CD4/CD8 Ratio 0.04 L % CD8+ Lymphocyte 34.6 Absolute CD8 Count 173 Active Medications Generic Name Dose Route Start Last Admin Trade Name Freq PRN Reason Stop Dose Admin Acetaminophen 650 mg 10/06/18 11:00 10/07/18 06:22 Tylenol - PO 650 mg Q6H PRN Administration PAIN LEVEL 1-5 Atovaquone 1,500 mg 10/05/18 08:00 10/07/18 09:11 Mepron - PO 1,500 mg DAILY@0800 JULISA Administration Efavirenz 600 mg 10/04/18 10:00 10/07/18 09:13 Sustiva - PO 600 mg DAILY JULISA Administration Emtricitabine/Tenofovir 1 tab 10/04/18 10:00 10/07/18 09:13 Truvada PO 1 tab DAILY JULISA Administration Enoxaparin Sodium 40 mg 10/04/18 10:00 10/07/18 09:12 Lovenox - SQ 40 mg DAILY JULISA Administration Fluconazole 200 mg 10/04/18 10:00 10/07/18 09:11 Diflucan - PO 200 mg DAILY JULISA Administration Aztreonam 2 gm/ Dextrose 100 mls @ 100 mls/hr 10/04/18 18:00 10/07/18 09:11 IVPB 100 mls/hr Q8H-IV JULISA Administration Protocol Clindamycin Phosphate 600 mg in 50 mls @ 100 mls/hr 10/04/18 18:00 10/07/18 09:12 Cleocin 600 Mg Premix Ivpb - IVPB 100 mls/hr Q8H-IV JULISA Administration Protocol Tobramycin Sulfate 250 mg/ 106.25 mls @ 100 mls/hr 10/04/18 15:30 10/06/18 16 :30 Sodium Chloride IVPB 100 mls/hr Q24H JULISA Administration Protocol Dextrose 1,000 mls @ 125 mls/hr 10/04/18 19:35 10/07/18 05:24 D5w - IV 125 mls/hr ASDIR JULISA Administration Ketorolac Tromethamine 30 mg 10/06/18 10:58 10/06/18 11:46 Toradol Injection - IVPUSH 30 mg Q6H PRN Administration PAIN LEVEL 6-10 Lidocaine HCl 20 ml 10/04/18 00:08 10/06/18 17:21 Xylocaine 2% Viscous Oral - MM 20 ml Q6HPO PRN Administration ORAL PAIN/MOUTH SORES Nystatin 500,000 units 10/04/18 00:00 10/07/18 06:22 Nystatin Oral Suspension - PO 500,000 units Q6HPO JULISA Administration Pantoprazole Sodium 40 mg 10/04/18 22:00 10/07/18 09:12 Protonix Iv IVPUSH 40 mg BID JULISA Administration ASSESSMENT/PLAN: Patient is a 37 year old male with a significant past medical history of HIV/ AIDS, cryptococcal infection and recent dental extraction. Patient presented with sore throat ongoing for several weeks, found to be neutropenic with high fevers. He recently was hospitalized at [facility] for same issue and was given iv antibiotics. Patient left [facility]. He was admitted to [facility] on 2017 for neutropenia and esophagitis. He had an ENT evaluation which concluded that patients symptoms were likely secondary to dental extraction. 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 Patient for transfer to [facility] as per ENT recommendations for ID, internal medicine care and for evaluation by a oral-maxillofacial surgeon. Patient has been accepted for to [facility] but still pending bed availability. ID: Neutropenic sepsis in the setting of HIV/Pharyngitis/Esophagitis as per CT imaging. Still having fevers. Patient on antibiotic therapy of clindamycin, Aztreonam, tobramycin and acyclovir. Also on Fluconazole, nystatin for candidiasis coverage. patient noted to have some thrush also Tmax 102.7. WBC 0.8 Evaluated by ENT. no airway compromise, no pharyngeal abscess, advised dental evaluation with oral maxillofacial evaluation. Services not offered at [facility]. Patient for transfer to [facility]. Blood cultures negative to date HIV: Resumed on HAART therapy. cd3 195, cd4 & lymph 1.4, cd4/cd8 .04 Renal: Hypokalemia - resolved Coagulopathy, elevated INR - likely sec to Sepsis. repeat pt/inr in a.m. Disposition: Patient for transfer to [facility] pending bed availability (isolation). He will need evaluation with oral surgeon. 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 Patient aware and in agreement to transfer. Transfer center called [phone] on 10/07 @ 1700. Still awaiting bed availability (specifically an isolation bed for neutropenia). Visit type - Emergency Visit Emergency Visit: Yes ED Registration Date: 10/03/18 Care time: The patient presented to the Emergency Department on the above date and was hospitalized for further evaluation of their emergent condition. - New Patient This patient is new to me today: Yes Date on this admission: 10/07/18 - Critical Care Critical Care patient: No - Discharge Referral Referred to [facility] Med P.C.: No
[2018-10-07] MEDS: BACITRACIN 15 GM TUBE TOPICAL OINTMENT TP SCH ×2 (12:44→21:37)
[2018-10-07] MEDS ORDERED: SIMETHICONE 80 MG TAB.CHEW (FP) PO ONE (13:14)
[2018-10-07] MEDS: TOBRAMYCIN SULFATE 250 MG in SODIUM CHLORIDE 100 ML IVPB SCH (16:50)
[2018-10-08] MEDS ORDERED: PT OWN MED DRAWER 7, Y5N ONE (01:31)
[2018-10-08] MEDS: ACETAMINOPHEN 325 MG TABLET (FP) PO PRN ×2 (01:35→12:22)
[2018-10-08] MEDS: CLINDAMYCIN 600MG PREMIX IVPB 600 MG/50 ML BAG IVPB SCH ×3 (01:37→17:51)
[2018-10-08] MEDS: AZTREONAM 2 GM in DEXTROSE 5%-WATER 100 ML IVPB SCH ×2 (01:57→09:01)
[2018-10-08] MEDS ORDERED: guaiFENesin 200 MG/10 ML 10 ML UNIT-DOSE CUPS PO PRN ×2 (02:14→02:30)
[2018-10-08] MEDS: NYSTATIN 500,000 UNITS/5 ML SUSPENSION PO SCH ×4 (06:03→18:01)
[2018-10-08] MEDS: ATOVAQUONE 750 MG/5 ML (UNIT-DOSE PACKAGING) PO SCH (08:09)
[2018-10-08] MEDS ORDERED: DOCUSATE SODIUM 100 MG CAPSULE (FP) PO PRN (08:31)
[2018-10-08] MEDS ORDERED: BISACODYL 5 MG TABLET.DR (FP) PO PRN (08:32)
--- NOTE | 2018-10-08 08:53 | PN ---
Progress Note, Physician Chief Complaint: Esophagitis, HIV uncontrolled. History of Present Illness: 24hr events -awaiting transfer to [facility], as per transfer center no isolation room currently available -c/o constipation on the morning of 10/08. Intense bowel regimen started. -pt with persistent cough. 10/07 CXR no active pulmonary disease -pt remains on neutropenic precautions and continues to be febrile. 2am temp 102.9 (treated with APAP 650mg), WBC now down to 0.5. -heme consult for neutropenia -continued on abx regimen. Cr has doubled over the last four days (0.7>>1.3). Will check tobramycin level today. and adjust abx dose for decline in renal function. -worsening LFTs. - Current Medication List Current Medications: Active Medications Acetaminophen (Tylenol -) 650 mg PO Q6H PRN PRN Reason: PAIN LEVEL 1-5 Last Admin: 10/08/18 01:35 Dose: 650 mg Atovaquone (Mepron -) 1,500 mg PO DAILY@0800 [facility] Last Admin: 10/08/18 08:09 Dose: 1,500 mg Bacitracin (Bacitracin -) 1 applic TP BID [facility] Last Admin: 10/07/18 21:37 Dose: 1 applic Bisacodyl (Dulcolax -) 5 mg PO DAILY PRN PRN Reason: CONSTIPATION Docusate Sodium (Colace -) 100 mg PO Q8H PRN PRN Reason: CONSTIPATION Efavirenz (Sustiva -) 600 mg PO DAILY [facility] Last Admin: 10/07/18 09:13 Dose: 600 mg Emtricitabine/Tenofovir (Truvada) 1 tab PO DAILY [facility] Last Admin: 10/07/18 09:13 Dose: 1 tab Enoxaparin Sodium (Lovenox -) 40 mg SQ DAILY [facility] Last Admin: 10/07/18 09:12 Dose: 40 mg Fluconazole (Diflucan -) 200 mg PO DAILY [facility] Last Admin: 10/07/18 09:11 Dose: 200 mg Guaifenesin (Robitussin -) 10 ml PO Q6H PRN PRN Reason: COUGH Aztreonam 2 gm/ Dextrose 100 mls @ 100 mls/hr IVPB Q8H-IV JULISA; Protocol Last Admin: 10/08/18 01:57 Dose: 100 mls/hr Clindamycin Phosphate (Cleocin 600 Mg Premix Ivpb -) 600 mg in 50 mls @ 100 mls /hr IVPB Q8H-IV JULISA; Protocol Last Admin: 10/08/18 01:37 Dose: 100 mls/hr Tobramycin Sulfate 250 mg/ (Sodium Chloride) 106.25 mls @ 100 mls/hr IVPB Q24H JULISA; Protocol Last Admin: 10/07/18 16:50 Dose: 100 mls/hr Dextrose (D5w -) 1,000 mls @ 125 mls/hr IV ASDIR JULISA Last Admin: 10/07/18 19:51 Dose: Not Given Ketorolac Tromethamine (Toradol Injection -) 30 mg IVPUSH Q6H PRN PRN Reason: PAIN LEVEL 6-10 Last Admin: 10/06/18 11:46 Dose: 30 mg Lidocaine HCl (Xylocaine 2% Viscous Oral -) 20 ml MM Q6HPO PRN PRN Reason: ORAL PAIN/MOUTH SORES Last Admin: 10/06/18 17:21 Dose: 20 ml Morphine Sulfate (Morphine Sulfate) 2 mg IVPUSH Q4H PRN PRN Reason: PAIN LEVEL 7 - 10 Last Admin: 10/07/18 18:26 Dose: 2 mg Nystatin (Nystatin Oral Suspension -) 500,000 units PO Q6HPO [facility] Last Admin: 10/08/18 06:03 Dose: 500,000 units Pantoprazole Sodium (Protonix Iv) 40 mg IVPUSH BID [facility] Last Admin: 10/07/18 21:38 Dose: 40 mg Senna (Senna -) 2 tab PO HS [facility] - Objective Vital Signs: Vital Signs Temperature 101.1 F H 10/08/18 06:30 Pulse Rate 94 H 10/08/18 06:30 Respiratory Rate 20 10/08/18 06:30 Blood Pressure 113/68 10/08/18 06:30 O2 Sat by Pulse Oximetry (%) 96 10/06/18 21:00 Constitutional: Yes: No Distress, Anxious Eyes: Yes: PERRL HENT: Yes: Atraumatic, Normocephalic, Pharyngeal Erythema Neck: Yes: Supple, Trachea Midline Cardiovascular: Yes: Regular Rate and Rhythm Respiratory: Yes: Regular, CTA Bilaterally Gastrointestinal: Yes: Normal Bowel Sounds, Soft ...Rectal Exam: Yes: Deferred Musculoskeletal: Yes: Muscle Weakness Extremities: Yes: Cool Edema: No Peripheral Pulses WNL: Yes Peripheral Pulses: Left Radial: 2+, Right Radial: 2+, Left Doralis Pedis: 2+, Right Dorsalis Pedis: 2+ Integumentary: Yes: Other (dry skin) Neurological: Yes: Alert, Oriented ...Motor Strength: LLE (decreased strength and tone), RLE Psychiatric: Yes: Alert, Oriented Labs: CBC, BMP 10/05/18 06:30 10/05/18 06:30 INR, PTT INR 1.80 (0.83-1.09) H 10/03/18 19:47 - ....Imaging Chest X-ray: Report Reviewed (CXR 10/07: no evidence of active pulm disease) Problem List - Problems (1) Constipation by delayed colonic transit Assessment/Plan: Senna 2tabs qhs Colace TID PRN dulcolax for severe constipation increase fiber intake Code(s): K59.01 - SLOW TRANSIT CONSTIPATION (2) Esophagitis Assessment/Plan: c/w Protonix continue nystatin Code(s): K20.9 - ESOPHAGITIS, UNSPECIFIED (3) Neutropenic fever Assessment/Plan: neutropenic precautions trend temp curve tend WBC and ANC APAP PRN temp > 101 continue clindamycin, tobramycin (check level today) and decrease aztreonam due to rising creatinine Code(s): D70.9 - NEUTROPENIA, UNSPECIFIED; R50.81 - FEVER PRESENTING WITH CONDITIONS CLASSIFIED ELSEWHERE (4) AIDS (acquired immune deficiency syndrome) Assessment/Plan: continue truvada, sustiva c/w Mepron and azithromycin PPX Code(s): B20 - HUMAN IMMUNODEFICIENCY VIRUS [HIV] DISEASE (5) Esophageal ulcer without bleeding Assessment/Plan: PPI soft foods Code(s): K22.10 - ULCER OF ESOPHAGUS WITHOUT BLEEDING (6) Cough Assessment/Plan: PRN robitussin Code(s): R05 - COUGH (7) Chronic pain Assessment/Plan: Ketorolac PRN moderate pain (d/c NSAID if cr continues to rise) morphine PRN severe pain Code(s): G89.29 - OTHER CHRONIC PAIN (8) Elevated serum creatinine Assessment/Plan: dose adjust abx for increasing serum cr d/c diflucan trend cr Code(s): R79.89 - OTHER SPECIFIED ABNORMAL FINDINGS OF BLOOD CHEMISTRY (9) Abnormal liver function test Assessment/Plan: monitor LFTs as this may be due to drug effect Code(s): R94.5 - ABNORMAL RESULTS OF LIVER FUNCTION STUDIES Impression/Plan Impression/Plan: PPX: Lovenox SC daily OOB to chair DISPO: Full code Pt awaiting isolation bed at [facility] Visit type - Emergency Visit Emergency Visit: Yes ED Registration Date: 10/03/18 Care time: The patient presented to the Emergency Department on the above date and was hospitalized for further evaluation of their emergent condition. - New Patient This patient is new to me today: Yes Date on this admission: 10/08/18 - Critical Care Critical Care patient: No - Discharge Referral Referred to [facility] Med P.C.: No
[2018-10-08] MEDS: ENOXAPARIN NA (PORCINE) 40 MG/0.4 ML DISP.SYRIN SQ SCH (09:00)
[2018-10-08] MEDS: BACITRACIN 15 GM TUBE TOPICAL OINTMENT TP SCH (09:01)
[2018-10-08] MEDS: FLUCONAZOLE 100 MG TABLET (UD) PO SCH (09:02)
[2018-10-08] MEDS: PANTOPRAZOLE SODIUM 40 MG VIAL IVPUSH SCH (09:03)
[2018-10-08] MEDS: EMTRICITABINE 200MG/TENOFOVIR 300MG PO SCH (09:05)
[2018-10-08] MEDS: EFAVIRENZ 600 MG TABLET PO SCH (09:05)
[2018-10-08] MEDS: DEXTROSE 5%-WATER - 1,000 ML IV SCH (09:20)
[2018-10-08 10:21] LABS: HEMATOCRIT 35.2 % (35.4-49); HEMOGLOBIN 11.6 GM/dL (11.7-16.9); MCH 30.8 pg (25.7-33.7); MCHC 32.9 g/dl (32.0-35.9); MEAN CELL VOLUME 93.7 fl (80-96); MEAN PLT VOLUME 10.1 fl (7.5-11.1); PLATELET COUNT 166 K/MM3 (134-434); RBC 3.76 M/mm3 (4.00-5.60); RDW 14.2 % (11.9-15.9)
[2018-10-08 10:35] LABS: WHITE BLOOD COUNT 0.5 K/mm3 (4.0-10.0)
[2018-10-08 10:38] LABS: INR 1.49 (0.83-1.09); PROTHROMBIN TIME (PATIENT) 17.7 SEC (9.7-13.0)
[2018-10-08 11:02] LABS: ALBUMIN 2.5 g/dl (3.4-5.0); ALK PHOS 105 U/L (45-117); ANION GAP 8 MMOL/L (8-16); BILIRUBIN,TOTAL 0.5 mg/dL (0.2-1); BLOOD UREA NITROGEN 19 mg/dL (7-18); CALCIUM 7.6 mg/dL (8.5-10.1); CHLORIDE 84 mmol/L (98-107); CO2 32 mmol/L (21-32); CREATININE 1.3 mg/dL (0.55-1.3); GLUCOSE,RANDOM 103 mg/dL (74-106); MAGNESIUM 1.8 mg/dL (1.8-2.4); POTASSIUM 3.1 mmol/L (3.5-5.1); SGOT/AST 146 U/L (15-37); SGPT/ALT 63 U/L (13-61); SODIUM 123 mmol/L (136-145)
[2018-10-08 12:06] VITALS: BP 106/66; PULSE 102
[2018-10-08 12:14] LABS: ANISOCYTOSIS 2+; MACROCYTOSIS 0; PLATELET ESTIMATE NORMAL
[2018-10-08] MEDS ORDERED: SODIUM CHLORIDE 0.9% 1000 ML INFUS.BAG IV SCH (14:30)
[2018-10-08 14:41] VITALS: TEMP 99.6
--- NOTE | 2018-10-08 14:48 | PN ---
Progress Note, Physician History of Present Illness: Remains febrile and neutropenic Still with c/o neck pain Breathing non-labored Slight increases in Cr and LFTs noted - Current Medication List Current Medications: Active Medications Acetaminophen (Tylenol -) 650 mg PO Q6H PRN PRN Reason: PAIN LEVEL 1-5 Last Admin: 10/08/18 12:22 Dose: 650 mg Atovaquone (Mepron -) 1,500 mg PO DAILY@0800 [facility] Last Admin: 10/08/18 08:09 Dose: 1,500 mg Bacitracin (Bacitracin -) 1 applic TP BID [facility] Last Admin: 10/08/18 09:01 Dose: 1 applic Bisacodyl (Dulcolax -) 5 mg PO DAILY PRN PRN Reason: CONSTIPATION Docusate Sodium (Colace -) 100 mg PO Q8H PRN PRN Reason: CONSTIPATION Efavirenz (Sustiva -) 600 mg PO DAILY [facility] Last Admin: 10/08/18 09:05 Dose: 600 mg Emtricitabine/Tenofovir (Truvada) 1 tab PO DAILY [facility] Last Admin: 10/08/18 09:05 Dose: 1 tab Enoxaparin Sodium (Lovenox -) 40 mg SQ DAILY [facility] Last Admin: 10/08/18 09:00 Dose: 40 mg Guaifenesin (Robitussin -) 10 ml PO Q6H PRN PRN Reason: COUGH Last Admin: 10/08/18 09:04 Dose: 10 ml Clindamycin Phosphate (Cleocin 600 Mg Premix Ivpb -) 600 mg in 50 mls @ 100 mls /hr IVPB Q8H-IV [facility]; Protocol Last Admin: 10/08/18 09:01 Dose: 100 mls/hr Aztreonam 1 gm/ Dextrose 50 mls @ 100 mls/hr IVPB Q8H-IV [facility]; Protocol Ketorolac Tromethamine (Toradol Injection -) 30 mg IVPUSH Q6H PRN PRN Reason: PAIN LEVEL 6-10 Last Admin: 10/06/18 11:46 Dose: 30 mg Lidocaine HCl (Xylocaine 2% Viscous Oral -) 20 ml MM Q6HPO PRN PRN Reason: ORAL PAIN/MOUTH SORES Last Admin: 10/06/18 17:21 Dose: 20 ml Morphine Sulfate (Morphine Sulfate) 2 mg IVPUSH Q4H PRN PRN Reason: PAIN LEVEL 7 - 10 Last Admin: 10/07/18 18:26 Dose: 2 mg Nystatin (Nystatin Oral Suspension -) 500,000 units PO Q6HPO JULISA Last Admin: 10/08/18 12:13 Dose: 500,000 units Pantoprazole Sodium (Protonix Iv) 40 mg IVPUSH BID JULISA Last Admin: 10/08/18 09:03 Dose: 40 mg Senna (Senna -) 2 tab PO HS JULISA Sodium Chloride (Normal Saline -) 2,109 ml 30 ml/kg (2109 ml) IV ONCE JULISA - Objective Vital Signs: Vital Signs Temperature 99.6 F 10/08/18 14:40 Pulse Rate 102 H 10/08/18 10:00 Respiratory Rate 18 10/08/18 10:00 Blood Pressure 106/66 10/08/18 10:00 O2 Sat by Pulse Oximetry (%) 95 10/08/18 09:00 Constitutional: Yes: No Distress Eyes: Yes: Conjunctiva Clear Cardiovascular: Yes: Regular Rate and Rhythm, S1, S2 Respiratory: Yes: CTA Bilaterally Gastrointestinal: Yes: Normal Bowel Sounds, Soft. No: Tenderness Edema: No Labs: CBC, BMP 10/08/18 10:00 10/08/18 10:00 INR, PTT INR 1.49 (0.83-1.09) H 10/08/18 10:00 Assessment/Plan Febrile neutropenia ? maxillary osteomyelitis PCN allergy AIDS Hold tobramycin in light of azotemia, check level Hold fluconazole in light of elevated LFTs Hematology evaluation for persistant neutropenia Obtain records from [facility] ? Recent FUO workup { CT C/A/P, Bone marrow bx }
--- NOTE | 2018-10-08 15:03 | CONSULT ---
Consult Consult Specialty:: HEMATOLOGY-ONCOLOGY Referred by:: SANTIAGO Stallworth - History of Present Illness History of Present Illness: PT TRANSFERRED PRIOR TO EVALUATION. - Past Medical History Infectious Disease: Yes: AIDS, HIV - Alcohol/Substance Use Hx Alcohol Use: No - Smoking History Smoking history: Never smoked Have you smoked in the past 12 months: No Aproximately how many cigarettes per day: 10 If you are a former smoker, when did you quit?: 2008 Home Medications - Allergies Allergies/Adverse Reactions: Allergies Allergy/AdvReac Type Severity Reaction Status Date / Time Penicillins Allergy Verified 10/03/18 18:21 sulfamethoxazole Allergy Rash Verified 10/03/18 18:21 [From Bactrim] trimethoprim [From Bactrim] Allergy Rash Verified 10/03/18 18:21 - Home Medications Home Medications: Ambulatory Orders Fluconazole 200 mg PO DAILY 10/03/18 Pantoprazole Sodium [Protonix] 40 mg PO DAILY 10/03/18 Atovaquone [Mepron Oral Solution -] 1,500 mg PO DAILY@0800 ud 10/05/18 Aztreonam [Azactam (Restricted To Id) -] 2 gm IVPB Q8H-IV vial 10/05/18 Cefepime [Maxipime (Restricted To Id) -] 2 gm IVPB Q8H-IV vial 10/05/18 Efavirenz [Sustiva -] 600 mg PO DAILY tablet 10/05/18 Emtricitabine/Tenofovir [Truvada -] 1 tab PO DAILY tablet 10/05/18 Enoxaparin [Lovenox -] 40 mg SQ DAILY disp.syrin 10/05/18 Lidocaine 2% Viscous Oral [Xylocaine 2% Viscous Oral -] 20 ml MM Q6HPO PRN ud 10/05/18 Nystatin Oral Suspension - [Nystatin Oral Susp 269313 Units/5 ML -] 500,000 units PO Q6HPO cup 10/05/18 Pantoprazole Sodium [Protonix IV] 40 mg IVPUSH BID vial 10/05/18 Sodium Chloride [Normal Saline -] 125 ml IVPB Q24H infus.bag 10/05/18 Tobramycin Sulfate [Nebcin -] 250 mg IVPB Q24H ml 10/05/18 Physical Exam Vital Signs: Vital Signs Temperature 99.6 F 10/08/18 14:40 Pulse Rate 102 H 10/08/18 10:00 Respiratory Rate 10/08/18 10:00 Blood Pressure 106/66 10/08/18 10:00 O2 Sat by Pulse Oximetry (%) 95 10/08/18 09:00 Labs: CBC, BMP 10/08/18 10:00 10/08/18 10:00
[2018-10-08] MEDS: SODIUM CHLORIDE 0.9% 500 ML INFUS.BAG IV ONE ×2 (15:25→16:34)
[2018-10-08] MEDS ORDERED: HYDROCORTISONE ACETATE 25 MG/SUPP.RECT RC PRN (16:25)
[2018-10-08] MEDS ORDERED: SODIUM CHLORIDE 1,000 ML IV SCH (16:30)
[2018-10-08] MEDS ORDERED: AZTREONAM 1 GM in DEXTROSE 5%-WATER - 50 ML IVPB SCH (18:00)
[2018-10-08] MEDS ORDERED: SENNOSIDES 8.6MG TABLET (FP) PO SCH (22:00)
[2018-10-09] MEDS ORDERED: TBO-FILGRASTIM 300 MCG/0.5 ML DISP.SYRINGE SQ SCH ×2 (10:00→19:45)
== END 2018-10-08 19:52 | disposition short-term general hospital (02) | DRG 892 ==
LOC: JER 18:10 → JERBED 22:03 → J6S 10-04 04:16
PROVIDERS: ADMIT Internal Medicine; ATTEND Nurse Practitioner Family
DX: A41.9 Sepsis, unspecified organism (principal); B20 Human immunodeficiency virus [HIV] disease; D68.9 Coagulation defect, unspecified; D70.8 Other neutropenia; E46 Unspecified protein-calorie malnutrition; M86.9 Osteomyelitis, unspecified; E88.09 Other disorders of plasma-protein metabolism, not elsewhere classified; K22.10 Ulcer of esophagus without bleeding; E87.6 Hypokalemia; K59.01 Slow transit constipation; R13.12 Dysphagia, oropharyngeal phase; J02.9 Acute pharyngitis, unspecified; Z87.891 Personal history of nicotine dependence; Z88.0 Allergy status to penicillin; D63.8 Anemia in other chronic diseases classified elsewhere; Z91.14 Patient's other noncompliance with medication regimen; R20.9 Unspecified disturbances of skin sensation
CPT/HCPCS: 36415; 70488-TC; 70491-TC; 71045-TC-FY; 80048; 80053; 80200; 81003; 82436; 82728; 83540; 83550; 83605; 83735; 84100; 84133; 84300; 84484; 85025; 85044; 85610; 85730; 86359; 86360; 86480; 87040; 87070; 87086; 87116; 87205; 87496; 93005; 93010; 99285-25; J0131; J7030

== ENCOUNTER 2018-12-01 08:37 | Inpatient (IN) | payer OTHER ==
[2018-12-01] MEDS ORDERED: MEROPENEM 1 GM in DEXTROSE 5%-WATER 100 ML IVPB ONE (09:16)
[2018-12-01] MEDS ORDERED: VANCOMYCIN 1 GM in D5W (PRE-DOCKED) 1,000 MG/250 ML IVPB ONE (09:16)
[2018-12-01] MEDS ORDERED: SODIUM CHLORIDE 1,000 ML IV STA (09:35)
[2018-12-01] MEDS ORDERED: ACETAMINOPHEN 1000 MG/100 ML VIAL (NON FORMULARY) IVPB ONE (09:35)
[2018-12-01] MEDS ORDERED: VANCOMYCIN 1 GRAM (PRE-DOCKED) 1,000 MG/250 ML BAG IVPB ONE (09:51)
[2018-12-01 10:11] LABS: BASO % 0.9 % (0-2.0); EOS % 9.3 % (0-4.5); HEMATOCRIT 38.3 % (35.4-49); HEMOGLOBIN 13.5 GM/dL (11.7-16.9); LYMPH % 39.8 % (8-40); MCHC 35.4 g/dl (32.0-35.9); MEAN PLT VOLUME 8.2 fl (7.5-11.1); MONO % 48.9 % (3.8-10.2); NEUT % 1.1 % (42.8-82.8); PLATELET COUNT 323 K/MM3 (134-434); RBC 3.87 M/mm3 (4.00-5.60); WHITE BLOOD COUNT 3.3 K/mm3 (4.0-10.0)
[2018-12-01 10:19] LABS: VENOUS PC02 32.6 mmHg (38-52); VENOUS PH 7.49 (7.32-7.42)
[2018-12-01] MEDS ORDERED: ACETAMINOPHEN INJECTION 100 ML IVPB ONE (10:25)
--- NOTE | 2018-12-01 10:29 | PDOC ---
History of Present Illness - General Chief Complaint: Pain, Acute Stated Complaint: SKIN ITCHY Time Seen by Provider: 12/01/18 09:13 History Source: Patient Exam Limitations: No Limitations - History of Present Illness Initial Comments: 12/01/18 10:23 Patient is a 38M with history of AIDS (last CD4 count 7), neutropenia, esophagitis, cryptococcus here today complaining of a rash and rectal pain. He states that the rash started several weeks ago, but he's coming in today because of rectal pain and increase in the pain of the rash. Patient states that his AIDS is managed by a Dr Coughlin at [facility]. [facility] contacted ) and case d/w Dr Mathias. He states that the patient was seen once in clinic and started on biktarvy and prezcobix. The patient then refused to have labs drawn and missed follow up appointment in early November. Patient is also supposed to be taking atovaquone and azithromycin. Patient was tested for VSV/HSV at that time for rash on his back which was negative. 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 Denies nausea, vomiting, headache, neck pain, chest pain, shortness of breath and abdominal pain. Denies leg pain. Past History - Past Medical History Allergies/Adverse Reactions: Allergies Allergy/AdvReac Type Severity Reaction Status Date / Time Penicillins Allergy Verified 12/01/18 10:55 sulfamethoxazole Allergy Rash Verified 12/01/18 10:55 [From Bactrim] trimethoprim [From Bactrim] Allergy Rash Verified 12/01/18 10:55 Home Medications: Ambulatory Orders Atovaquone [Mepron -] 750 mg PO DAILY@0800 12/01/18 Bictegrav/Emtricit/Tenofov Ala [Biktarvy 50-200-25 mg Tablet] 1 tab PO DAILY Mag Hydrox/Aluminum Hyd/Simeth [Almacone Liquid] 355 ml PO DAILY 12/01/18 Pantoprazole Sodium [Protonix] 40 mg PO DAILY 12/01/18 Anemia: No Asthma: No Cancer: No Cardiac Disorders: No CVA: No COPD: No CHF: No Dementia: No Diabetes: No GI Disorders: No Disorders: No HTN: No Liver Disease: No Seizures: No Thyroid Disease: No - Surgical History Abdominal Surgery: No Appendectomy: No Cardiac Surgery: No Cholecystectomy: No Lung Surgery: No Neurologic Surgery: No Orthopedic Surgery: No - Immunization History Immunization Up to Date: No - Suicide/Smoking/Psychosocial Hx Smoking History: Never smoked Have you smoked in the past 12 months: No Number of Cigarettes Smoked Daily: 10 If you are a former smoker, when did you quit?: 2008 Cigars Per Day: 0 'Breaking Loose' booklet given: 07/02/17 Hx Alcohol Use: No Drug/Substance Use Hx: No Substance Use Type: None Hx Substance Use Treatment: No Review of Systems - Review of Systems Comments:: 12/01/18 10:29 GENERAL/CONSTITUTIONAL: +fever no chills. No weakness. HEAD, EYES, EARS, NOSE AND THROAT: No change in vision. No sore throat. CARDIOVASCULAR: No chest pain or shortness of breath RESPIRATORY: No cough, wheezing, or hemoptysis. GASTROINTESTINAL: No nausea, vomiting, diarrhea or constipation. GENITOURINARY: No dysuria, frequency, or change in urination. MUSCULOSKELETAL: No joint or muscle swelling or pain. No neck or back pain. SKIN: +rash NEUROLOGIC: No headache, vertigo, loss of consciousness, or change in strength/ sensation. ENDOCRINE: No increased thirst. No abnormal weight change HEMATOLOGIC/LYMPHATIC: No anemia, easy bleeding, or history of blood clots. ALLERGIC/IMMUNOLOGIC: No hives or skin allergy. *Physical Exam - Vital Signs Last Vital Signs Temp Pulse Resp BP Pulse Ox 100.8 F H 112 H 18 114/72 99 12/01/18 08:51 12/01/18 08:51 12/01/18 08:51 12/01/18 08:51 12/01/18 08:51 - Physical Exam Comments: 12/01/18 10:30 GENERAL: Awake, alert, and fully oriented, in no acute distress HEAD: No signs of trauma, normocephalic, atraumatic EYES: PERRLA, EOMI, sclera anicteric, conjunctiva clear ENT: Auricles normal inspection, hearing grossly normal, nares patent, ulcer with white clearing on tip of tongue NECK: Normal ROM, supple, no lymphadenopathy, JVD, or masses LUNGS: No distress, speaks full sentences, clear to auscultation bilaterally HEART: Regular rate and rhythm, normal S1 and S2, no murmurs, rubs or gallops, peripheral pulses normal and equal bilaterally. ABDOMEN: Soft, nontender, normoactive bowel sounds. No guarding, no rebound. No masses EXTREMITIES: Normal inspection, Normal range of motion, no edema. No clubbing or cyanosis. NEUROLOGICAL: Cranial nerves II through XII grossly intact. Normal speech, normal gait, no focal sensorimotor deficits SKIN: Multiple pustules along head, face and neck with white clearing in various stages of healing. Not in neurological distribution. RECTAL: Thrombosed hemorrhoid, tender. Moderate Sedation - Procedure Monitoring Vital Signs: Procedure Monitoring Vital Signs Temperature 100.8 F H 12/01/18 08:51 Pulse Rate 112 H 12/01/18 08:51 Respiratory Rate 18 12/01/18 08:51 Blood Pressure 114/72 12/01/18 08:51 O2 Sat by Pulse Oximetry (%) 99 12/01/18 08:51 ED Treatment Course - LABORATORY CBC & Chemistry Diagram: 12/01/18 09:40 12/01/18 09:24 - ADDITIONAL ORDERS Additional order review: Laboratory Results 12/01/18 09:40 VBG pH 7.49 H POC VBG pCO2 32.6 L POC VBG pO2 118.0 H D Mixed VBG HCO3 24.6 12/01/18 09:40 RBC 3.87 L MCV 99.0 H MCHC 35.4 RDW 19.0 H MPV 8.2 D Neutrophils % 1.1 L Lymphocytes % 39.8 D Monocytes % 48.9 H Eosinophils % 9.3 H Basophils % 0.9 - RADIOLOGY Radiology Studies Ordered: Category Date Time Status CHEST X-RAY PORTABLE* [RAD] Stat Radiology 12/01/18 09:15 Taken - Medications Given in the ED: ED Medications Discontinued Medications Generic Name Dose Route Start Last Admin Trade Name Freq PRN Reason Stop Dose Admin Vancomycin HCl 1,000 mg 12/01/18 09:16 12/01/18 10:09 Vancomycin (Pre-Docked) IVPB 12/01/18 09:17 1,000 mg ONCE ONE Administration Protocol Medical Decision Making - Medical Decision Making 12/01/18 10:33 Patient is 38M with history of AIDS, neutropenia here today with fever, rash, tongue ulceration, thrombosed hemorrhoid. Vital signs notable for fever and tachycardia. Given fluids and tyleno. Septic workup initiated. Covered with meropenem and vanc for likely neutropenic fever. Strongly suspect medication noncompliance given history and collateral collected. Dr Castañeda consulted. Will not cut thrombosed hemorrhoid due to immunocompromised status. 12/01/18 11:05 ANC 36. VBG, CMP unremarkable. Trop undetectable. Medicine paged for admission for neutropenic fever. 12/01/18 11:18 Case d/w Dr Castañeda, aware. *DC/Admit/Observation/Transfer Diagnosis at time of Disposition: Neutropenic fever - Discharge Dispostion Condition at time of disposition: Stable Decision to Admit order: Yes - Referrals - Patient Instructions - Post Discharge Activity
[2018-12-01 10:37] LABS: ALBUMIN 3.2 g/dl (3.4-5.0); ALK PHOS 83 U/L (45-117); ANION GAP 9 MMOL/L (8-16); BILIRUBIN,TOTAL 0.6 mg/dL (0.2-1); BLOOD UREA NITROGEN 13 mg/dL (7-18); CALCIUM 8.6 mg/dL (8.5-10.1); CHLORIDE 100 mmol/L (98-107); CO2 24 mmol/L (21-32); GLUCOSE,RANDOM 89 mg/dL (74-106); POTASSIUM 4.3 mmol/L (3.5-5.1); SGOT/AST 18 U/L (15-37); SGPT/ALT 32 U/L (13-61); SODIUM 133 mmol/L (136-145); TOT PROT 8.5 g/dl (6.4-8.2)
--- NOTE | 2018-12-01 10:42 | PDOC ---
Attending Attestation - Resident Resident Name: NicojerryThang - ED Attending Attestation I have performed the following: I have examined & evaluated the patient, The case was reviewed & discussed with the resident, I agree w/resident's findings & plan, Exceptions are as noted - HPI HPI: 12/01/18 10:37 Patient is a 38-year-old male, with a past medical history of HIV (Last CD4 count of 7), who presents to the ED with rash to the face, head, and tongue. The patient states that the rash has been ongoing for a couple of weeks and is associated with a fever. Pt states that yesterday a few of the lesions on his neck and face began to drain pus. The patient denies any chills, nausea, vomiting, diarrhea, or abdominal pain. Denies any chest pain or shortness of breath. Allergies: Penicillins, sulfamethoxazole, trimethoprim ID: Dr. Jose Mathias - Physicial Exam PE: 12/01/18 10:40 GENERAL: Awake, alert, and fully oriented, in no acute distress. HEAD: No signs of trauma EYES: PERRLA, EOMI, sclera anicteric, conjunctiva clear ENT: Auricles normal inspection, hearing grossly normal, nares patent, oropharynx clear without exudates. Moist mucosa NECK: Nontender, no stepoffs, Normal ROM, supple, no lymphadenopathy, JVD, or masses LUNGS: Breath sounds equal, clear to auscultation bilaterally. No wheezes, and no crackles HEART: Regular rate and rhythm, normal S1 and S2, no murmurs, rubs or gallops ABDOMEN: Soft, nontender, normoactive bowel sounds. No guarding, no rebound. No masses EXTREMITIES: Normal range of motion, no edema. No clubbing or cyanosis. No cords, erythema, or tenderness NEUROLOGICAL: Cranial nerves II through XII intact. 5/5 strength and sensation in all extremities, Normal speech, normal gait, normal cerebellar function SKIN: + pustules on face and neck, mild fluctuance, no active drainage, + ulceration on tip of tongue with no other oral mucosal lesions - Critical Care Time Total Critical Care Time: 60 Critical Care Statement: The care of this patient involved high complexity decision making to prevent further life threatening deterioration of the patient 's condition and/or to evaluate & treat vital organ system(s) failure or risk of failure. - Medical Decision Making 12/01/18 10:41 38 M with fever, pustular rash. Pt with h/o AIDS, neutropenia. - Labs, cultures - CXR, UA - Cover for neutropenic fever 12/01/18 10:58 ANC 0 Vanc/baldo given ID consulted <Shar Renner - Last Filed: 12/01/18 10:58> - Medical Decision Making 12/01/18 12:34 Chest X-Ray was reviewed by Dr. Renner and over-read by Radiology. Impression: No evidence of active pulmonary disease. <Saira Sagastume - Last Filed: 12/01/18 12:36> Attestations - Attestations 12/01/18 12:36 Documentation prepared by Saira Sagastume, acting as medical imaging director for Shar Renner MD. <Saira Sagastume - Last Filed: 12/01/18 12:36>
[2018-12-01 12:04] LABS: URINE APPEARANCE CLEAR; URINE BILIRUBIN NEGATIVE (<2.0 mg/dL); URINE COLOR LTYELLOW; URINE GLUCOSE (UA) NEGATIVE (NEGATIVE); URINE KETONE NEGATIVE (NEGATIVE); URINE LEUK ESTERASE NEGATIVE (NEGATIVE); URINE NITRITE NEGATIVE (NEGATIVE); URINE PROTEIN NEGATIVE (NEGATIVE); URINE UROBILINOGEN NEGATIVE mg/dL (0.2-1.0)
--- NOTE | 2018-12-01 13:52 | HP ---
CHIEF COMPLAINT: Painful rash, rectal pain PCP: Dr. Coughlin HISTORY OF PRESENT ILLNESS: The patient is a 38-year-old male with a past medical history of AIDS (last CD4 count 7), hepatitis (type unknown), chronic neutropenia, candidal esophagitis, and Cryptococcus infection who comes into the emergency department complaining of a painful rash as well as rectal pain. The patient states that he has had a rash on his back for the past "a few years". The patient states that over the past three weeks, the rash is spread to his face and has become more painful and itchy. In addition to this, the patient also endorses rectal pain for the same three weeks. The patient follows with Dr. Coughlin at [facility] for his ID care. He states that his ID physician has seen this rash, done some tests and took some scrapings when he last saw him. The patient states that he's been compliant with all of his medications and that is has said that these medications have been ineffective. He is recently started on Biktravy for his HAART. Patient endorses compliance with home medications. Patient denies fever, chills, shortness of breath, sick contacts, nausea, vomiting, diarrhea, constipation, abdominal pain. Patient denies recent sexual contacts, multiple partners or new partners. Of note, the patient ID clinic at [facility] was contacted by ED staff. The clinic states that the patient was only seen once and refused blood draw at that time. The patient was started on Biktravy as well as atorvaquone and azithromycin for prophylaxis. ER course was notable for: (1) WBC 3.3, calculated 66 ANC (2) Temp 100.8 (3) BCX, UCX drawn (4) 1g baldo, vanc given (5) UA negative for infection, CXR unremarkable (6) rectal exam performed by ED staff revealed a thrombosed external hemorrhoid Recent Travel: none PAST MEDICAL HISTORY: see HPI HIV acquired from unknown source PAST SURGICAL HISTORY: endoscopy for gastritis Social History: Smoking: denies Alcohol: denies Drugs: denies Family History: non-contributory Allergies Penicillins Allergy (Verified 12/01/18 10:55) sulfamethoxazole [From Bactrim] Allergy (Verified 12/01/18 10:55) Rash trimethoprim [From Bactrim] Allergy (Verified 12/01/18 10:55) Rash HOME MEDICATIONS: Home Medications Medication Instructions Recorded Bictegrav/Emtricit/Tenofov Ala 1 tab PO DAILY 12/01/18 [Biktarvy 50-200-25 mg Tablet] REVIEW OF SYSTEMS CONSTITUTIONAL: Absent: fever, chills, diaphoresis, generalized weakness, malaise, loss of appetite, weight change HEENT: Absent: rhinorrhea, nasal congestion, throat pain, throat swelling, difficulty swallowing, mouth swelling, ear pain, eye pain, visual changes CARDIOVASCULAR: Absent: chest pain, syncope, palpitations, irregular heart rate, lightheadedness , peripheral edema RESPIRATORY: Absent: cough, shortness of breath, dyspnea with exertion, orthopnea, wheezing, stridor, hemoptysis GASTROINTESTINAL: Absent: abdominal pain, abdominal distension, nausea, vomiting, diarrhea, constipation, melena, hematochezia GENITOURINARY: Absent: dysuria, frequency, urgency, hesitancy, hematuria, flank pain, genital pain MUSCULOSKELETAL: Absent: myalgia, arthralgia, joint swelling, back pain, neck pain SKIN: Absent: rash, itching, pallor HEMATOLOGIC/IMMUNOLOGIC: Absent: easy bleeding, easy bruising, lymphadenopathy, frequent infections ENDOCRINE: Absent: unexplained weight gain, unexplained weight loss, heat intolerance, cold intolerance NEUROLOGIC: Absent: headache, focal weakness or paresthesias, dizziness, unsteady gait, seizure, mental status changes, bladder or bowel incontinence PSYCHIATRIC: Absent: anxiety, depression, suicidal or homicidal ideation, hallucinations. PHYSICAL EXAMINATION Vital Signs - 24 hr 12/01/18 12/01/18 12/01/18 08:51 10:14 13:15 Temperature 100.8 F H 99.2 F Pulse Rate 112 H 82 Pulse Rate [ 112 H 90 Right Radial] Respiratory 18 16 20 Rate Blood Pressure 114/72 Blood Pressure 116/81 113/65 [Left Arm] O2 Sat by Pulse 99 99 98 Oximetry (%) GENERAL: Awake, alert, and fully oriented, in no acute distress. HEAD: Normal with no signs of trauma. EYES: Pupils equal, round and reactive to light, extraocular movements intact, sclera anicteric, conjunctiva clear. No lid lag. EARS, NOSE, THROAT: Ears normal, nares patent, oropharynx clear without exudates. Moist mucous membranes. NECK: Normal range of motion, supple without lymphadenopathy, JVD, or masses. LUNGS: Breath sounds equal, clear to auscultation bilaterally. No wheezes, and no crackles. No accessory muscle use. HEART: Regular rate and rhythm, normal S1 and S2 without murmur, rub or gallop. ABDOMEN: Soft, nontender, not distended, normoactive bowel sounds, no guarding, no rebound, no masses. No hepatomegaly or splenomegaly. LOWER EXTREMITIES: 2+ pulses, warm, well-perfused. No calf tenderness. No peripheral edema. NEUROLOGICAL: Cranial nerves II-X intact. Normal speech. PSYCHIATRIC: Cooperative. Good eye contact. Appropriate mood and affect. SKIN: Warm, dry, normal turgor, no rashes or lesions noted, normal capillary refill. There are multiple lesion all cross the patient's back, neck, face and head. The lesions are of varying ages and sizes with the largest ones being approx 1 cm in diameter. The lesions are raised, hyperpigmented and tender to palpation. The lesions have a crusted appearance and a small central cavitation. These lesions are not on the patient's arms, chest or genitalia. Laboratory Results - last 24 hr 12/01/18 12/01/18 12/01/18 09:15 09:24 09:24 WBC RBC Hgb Hct MCV MCH MCHC RDW Plt Count MPV Absolute Neuts (auto) Neutrophils % Lymphocytes % Monocytes % Eosinophils % Basophils % Nucleated RBC % VBG pH POC VBG pCO2 POC VBG pO2 Mixed VBG HCO3 Sodium 133 L Potassium 4.3 Chloride 100 Carbon Dioxide 24 Anion Gap 9 BUN 13 Creatinine 1.0 Creat Clearance w eGFR > 60 Random Glucose 89 Lactic Acid Calcium 8.6 Total Bilirubin 0.6 AST 18 ALT 32 Alkaline Phosphatase 83 Troponin I < 0.02 Total Protein 8.5 H Albumin 3.2 L Urine Color Ltyellow Urine Appearance Clear Urine pH 6.0 Ur Specific [place] 1.011 Urine Protein Negative Urine Glucose (UA) Negative Urine Ketones Negative Urine Blood Negative Urine Nitrite Negative Urine Bilirubin Negative Urine Urobilinogen Negative Ur Leukocyte Esterase Negative 12/01/18 12/01/18 12/01/18 09:40 09:40 09:40 WBC 3.3 L RBC 3.87 L Hgb 13.5 Hct 38.3 MCV 99.0 H MCH 35.0 H D MCHC 35.4 RDW 19.0 H Plt Count 323 D MPV 8.2 D Absolute Neuts (auto) 0.0 L Neutrophils % 1.1 L Lymphocytes % 39.8 D Monocytes % 48.9 H Eosinophils % 9.3 H Basophils % 0.9 Nucleated RBC % 0 VBG pH 7.49 H POC VBG pCO2 32.6 L POC VBG pO2 118.0 H D Mixed VBG HCO3 24.6 Sodium Potassium Chloride Carbon Dioxide Anion Gap BUN Creatinine Creat Clearance w eGFR Random Glucose Lactic Acid 0.9 Calcium Total Bilirubin AST ALT Alkaline Phosphatase Troponin I Total Protein Albumin Urine Color Urine Appearance Urine pH Ur Specific [place] Urine Protein Urine Glucose (UA) Urine Ketones Urine Blood Urine Nitrite Urine Bilirubin Urine Urobilinogen Ur Leukocyte Esterase ASSESSMENT/PLAN: The patient is a 38-year-old male with a past medical history of AIDS, chronic neutropenia, candidal esophagitis, and Cryptococcus who comes into the emergency department complaining of the three-week history of worsening rash and rectal pain. #worsening, migrating rash on back and face -eitology unclear at this time. Differential diagnosis includes viral exanthem, Kaposi's sarcoma, bacillary angiomatosis, or other infectious eitology. -Infectious disease consulted by ED staff, recommends continuing with meropenem and vancomycin. -further workup as per ID -Dermatology evaluation for possible biopsy -neutropenic precautions #HIV/AIDS -c/w HAART (truvada/tivacay/prezcobix in hospital) -resume mepron #rectal pain -secondary to thrombosed external hemorrhoid -will monitor pain and treat if necessary #FEN -no fluids indicated -election was within normal limits. Monitor daily and replete as necessary -regular diet #prophy -SCDs, patient ambulatory #dispo -admit MedSurg -home medications verified with patient's pharmacy. Visit type - Emergency Visit Emergency Visit: Yes ED Registration Date: 12/01/18 Care time: The patient presented to the Emergency Department on the above date and was hospitalized for further evaluation of their emergent condition. - New Patient This patient is new to me today: Yes Date on this admission: 12/01/18 - Critical Care Critical Care patient: No
[2018-12-01 14:48] LABS: SMUDGE CELLS FEW
[2018-12-01 14:49] LABS: OVALOCYTE 1+; TEAR DROP CELLS 1+
[2018-12-01 14:50] LABS: PLATELET ESTIMATE ADEQUATE
--- NOTE | 2018-12-01 15:28 | PN ---
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 no respiratory symptoms reports low grade temps to 100 at home no pets +rectal pain - has a thrombosed external hemorrhoid continue meds- truvada/tivicay/prezcobix here in the hospital vanco/meropenem cd4 count - has been on meds for a month now) cryptococcal antigen blood cuture afb derm evaluation- ?biopsy and culture- routine, fungal, afb resume mepron please get records from [facility] Problem List - Problems (1) AIDS (acquired immune deficiency syndrome) Code(s): B20 - HUMAN IMMUNODEFICIENCY VIRUS [HIV] DISEASE (2) Neutropenic fever Code(s): D70.9 - NEUTROPENIA, UNSPECIFIED; R50.81 - FEVER PRESENTING WITH CONDITIONS CLASSIFIED ELSEWHERE (3) Rash Code(s): R21 - RASH AND OTHER NONSPECIFIC SKIN ERUPTION (4) Allergy to multiple antibiotics Code(s): Z88.1 - ALLERGY STATUS TO OTHER ANTIBIOTIC AGENTS STATUS
--- NOTE | 2018-12-01 15:47 | PN ---
Teaching Attending Note Name of Resident: Simon Diallo ATTENDING PHYSICIAN STATEMENT I saw and evaluated the patient. I reviewed the resident's note and discussed the case with the resident. I agree with the resident's findings and plan as documented. SUBJECTIVE: The patient is a 38-year-old male with a past medical history of AIDS (last CD4 count 7), hepatitis (type unknown), chronic neutropenia, candidal esophagitis, and Cryptococcus infection who comes into the emergency department complaining of a painful rash as well as rectal pain. As per patient had a rash on his back a year ago and this rash started after started a new medication for aids within 2 weeks of starting the medication .Patient follows with Dr. Coughlin at [facility] for his ID care. OBJECTIVE: Vital Signs Temperature 99.2 F 12/01/18 13:15 Pulse Rate 90 12/01/18 13:15 Respiratory Rate 20 12/01/18 13:15 Blood Pressure 113/65 12/01/18 13:15 O2 Sat by Pulse Oximetry (%) 98 12/01/18 13:15 GENERAL: Awake, alert, and fully oriented, in no acute distress. HEAD: Normal with no signs of trauma. EYES: Pupils equal, round and reactive to light, extraocular movements intact, sclera anicteric, conjunctiva clear. EARS, NOSE, THROAT: Ears normal, oropharynx clear without exudates. Moist mucous membranes. NECK: Normal range of motion, supple without lymphadenopathy, JVD, or masses. LUNGS: Breath sounds equal, clear to auscultation bilaterally. No wheezes, and no crackles. No accessory muscle use. HEART: Regular rate and rhythm, normal S1 and S2 without murmur, rub or gallop. ABDOMEN: Soft, nontender, not distended, normoactive bowel sounds, no guarding, no rebound, no masses. No hepatomegaly or splenomegaly. MUSCULOSKELETAL: Normal range of motion at all joints. No bony deformities or tenderness. No CVA tenderness. EXTREMITIES: 2+ pulses, warm, well-perfused. No cyanosis. No clubbing. No peripheral edema. NEUROLOGICAL: Cranial nerves II-XII intact. Normal speech. Normal gait. PSYCHIATRIC: Cooperative. Good eye contact. Appropriate mood and affect. SKIN: Warm, dry, normal turgor, no rashes or lesions noted, normal capillary refill. CBCD WBC 3.3 K/mm3 (4.0-10.0) L 12/01/18 09:40 RBC 3.87 M/mm3 (4.00-5.60) L 12/01/18 09:40 Hgb 13.5 GM/dL (11.7-16.9) 12/01/18 09:40 Hct 38.3 % (35.4-49) 12/01/18 09:40 MCV 99.0 fl (80-96) H 12/01/18 09:40 MCHC 35.4 g/dl (32.0-35.9) 12/01/18 09:40 RDW 19.0 % (11.9-15.9) H 12/01/18 09:40 Plt Count 323 K/MM3 (134-434) D 12/01/18 09:40 MPV 8.2 fl (7.5-11.1) D 12/01/18 09:40 CMP Sodium 133 mmol/L (136-145) L 12/01/18 09:24 Potassium 4.3 mmol/L (3.5-5.1) 12/01/18 09:24 Chloride 100 mmol/L (98-107) 12/01/18 09:24 Carbon Dioxide 24 mmol/L (21-32) 12/01/18 09:24 Anion Gap 9 MMOL/L (8-16) 12/01/18 09:24 BUN 13 mg/dL (7-18) 12/01/18 09:24 Creatinine 1.0 mg/dL (0.55-1.3) 12/01/18 09:24 Creat Clearance w eGFR > 60 (>60) 12/01/18 09:24 Random Glucose 89 mg/dL (74-106) 12/01/18 09:24 Calcium 8.6 mg/dL (8.5-10.1) 12/01/18 09:24 Total Bilirubin 0.6 mg/dL (0.2-1) 12/01/18 09:24 AST 18 U/L (15-37) 12/01/18 09:24 ALT 32 U/L (13-61) 12/01/18 09:24 Alkaline Phosphatase 83 U/L (45-117) 12/01/18 09:24 Total Protein 8.5 g/dl (6.4-8.2) H 12/01/18 09:24 Albumin 3.2 g/dl (3.4-5.0) L 12/01/18 09:24 CARDIAC ENZYMES Troponin I < 0.02 ng/ml (0.00-0.05) 12/01/18 09:15 Current Medications Generic Name Dose Route Start Last Admin Trade Name Luis A PRN Reason Stop Dose Admin Atovaquone 1,500 mg 12/02/18 08:00 Mepron - PO DAILY@0800 JULISA Emtricitabine/Tenofovir 1 tab 12/02/18 10:00 Truvada PO DAILY JULISA Meropenem 1 gm/ Dextrose 100 mls @ 200 mls/hr 12/01/18 18:00 IVPB Q8H-IV JULISA Vancomycin HCl 1,000 mg in 250 mls @ 166.667 mls/hr 12/01/18 22:00 Vancomycin (Pre-Docked) IVPB Q12H JULISA Protocol Home Medications Medication Instructions Recorded Bictegrav/Emtricit/Tenofov Ala 1 tab PO DAILY 12/01/18 [Biktarvy 50-200-25 mg Tablet] ASSESSMENT AND PLAN: The patient is a 38-year-old male with a past medical history of AIDS, chronic neutropenia, candidal esophagitis, and Cryptococcus who comes into the emergency department complaining of the three-week history of worsening rash and rectal pain. #Acute neutropenic fever : will start the patient on Meropenem and vancomycin, id consult, neutropenic precaution . # Acute facial rash with questionable foliculitis on IV Vancomycin, will get derm consulted for possible Bx #HIV/AIDS continue HAART (truvada/tivacay/prezcobix in hospital), resume mepron #rectal pain due to having thrombosed external hemorrhoid, will apply tucks if doesn't help jonathon get GI involeved DVT Px: SCDs, patient ambulatory -admit MedSurg -home medications verified with patient's pharmacy.
[2018-12-01] MEDS ORDERED: ACETAMINOPHEN 325 MG TABLET (FP) ONE (17:40)
[2018-12-01] MEDS: ACETAMINOPHEN 325 MG TABLET (FP) PO PRN (17:41)
[2018-12-01 18:30] VITALS: BMI 25.8
[2018-12-01] MEDS: MEROPENEM 1 GM in DEXTROSE 5%-WATER 100 ML IVPB SCH (19:06)
--- NOTE | 2018-12-01 19:46 | EKG ---
Test Reason : Blood Pressure : / mmHG Vent. Rate : 101 BPM Atrial Rate : 101 BPM P-R Int : 132 ms QRS Dur : 080 ms QT Int : 328 ms P-R-T Axes : 049 048 020 degrees QTc Int : 425 ms SINUS TACHYCARDIA MINIMAL VOLTAGE CRITERIA FOR LVH, MAY BE NORMAL VARIANT BORDERLINE ECG WHEN COMPARED WITH ECG OF 03-OCT-2018 20:04, T WAVE INVERSION LESS EVIDENT IN INFERIOR LEADS Confirmed by MD NORAH, FAMILIA ([id number]) on 12/01/2018 7:45:56 PM Referred By: Confirmed By:FAMILIA ALMAZAN MD
[2018-12-01] MEDS: VANCOMYCIN 1 GRAM (PRE-DOCKED) 1,000 MG/250 ML BAG IVPB SCH ×2 (20:54→20:59)
[2018-12-01] MEDS ORDERED: PRAMOXINE HCL/MINERAL OIL/ZNOX 30 GM TUBE RC SCH (22:00)
[2018-12-02] MEDS: MEROPENEM 1 GM in DEXTROSE 5%-WATER 100 ML IVPB SCH ×3 (02:04→17:44)
[2018-12-02 06:57] LABS: BASO % 0.5 % (0-2.0); EOS % 9.2 % (0-4.5); HEMATOCRIT 37.9 % (35.4-49); HEMOGLOBIN 13.3 GM/dL (11.7-16.9); LYMPH % 45.8 % (8-40); MCH 34.7 pg (25.7-33.7); MEAN PLT VOLUME 8.2 fl (7.5-11.1); MONO % 43.8 % (3.8-10.2); NEUT % 0.7 % (42.8-82.8); PLATELET COUNT 327 K/MM3 (134-434); RBC 3.83 M/mm3 (4.00-5.60); RDW 19.2 % (11.9-15.9); WHITE BLOOD COUNT 3.3 K/mm3 (4.0-10.0)
[2018-12-02 07:24] LABS: ANION GAP 8 MMOL/L (8-16); BLOOD UREA NITROGEN 11 mg/dL (7-18); CALCIUM 8.2 mg/dL (8.5-10.1); CHLORIDE 98 mmol/L (98-107); CO2 25 mmol/L (21-32); GLUCOSE,RANDOM 94 mg/dL (74-106); MAGNESIUM 2.4 mg/dL (1.8-2.4); PHOSPHOROUS 4.1 mg/dL (2.5-4.9); POTASSIUM 4.2 mmol/L (3.5-5.1); SODIUM 131 mmol/L (136-145)
[2018-12-02] MEDS ORDERED: VANCOMYCIN 1 GRAM (PRE-DOCKED) 1,000 MG/250 ML BAG IVPB ONE (10:00)
[2018-12-02] MEDS ORDERED: MEROPENEM 1 GM in DEXTROSE 5%-WATER 100 ML IVPB ONE (10:00)
--- NOTE | 2018-12-02 10:43 | PN ---
Progress Note (short form) - Note Progress Note: no complaints intermittent fevers states he has them at home too Vital Signs Period Temp Pulse Resp BP Sys/Harrington Pulse Ox Last 24 Hr 98 F-101.0 F 95-115 18-20 112-145/58-88 97-100 face- rash unchanged cor-rrrr lungs clear abd soft,nt ext no edema CBC, BMP 12/02/18 05:40 12/02/18 05:40 Microbiology 12/02/18 05:40 Serum Cryptococcal Antigen - Preliminary 12/01/18 09:24 Urine - Urine Clean Catch Urine Culture - Final NO GROWTH OBTAINED 12/01/18 09:43 Blood - Peripheral Venous Blood Culture - Preliminary NO GROWTH OBTAINED AFTER 24 HOURS, INCUBATION TO CONTINUE FOR 4 DAYS. 12/01/18 09:24 Blood - Peripheral Venous Blood Culture - Preliminary NO GROWTH OBTAINED AFTER 24 HOURS, INCUBATION TO CONTINUE FOR 4 DAYS. imp/reccd AIDS Neutropenia rash pen and sulfa allergy reports adherence with biktarvy/prezcobix- rash on face for 3 weeks worsening, gets bumps with drainage lived in [place] his whole life ?bacterial ?fungal ?atypical mycobacteria ?IRIS continue meds- truvada/tivicay/prezcobix here in the hospital vanco/meropenem cd4 count - has been on meds for a month now cryptococcal antigen blood cuture afb derm evaluation- ?biopsy and culture- routine, fungal, afb resume mepron please get records from [facility]-I called and left number- [phone] was not able to reach anyone Problem List - Problems (1) AIDS (acquired immune deficiency syndrome) Code(s): B20 - HUMAN IMMUNODEFICIENCY VIRUS [HIV] DISEASE (2) Neutropenic fever Code(s): D70.9 - NEUTROPENIA, UNSPECIFIED; R50.81 - FEVER PRESENTING WITH CONDITIONS CLASSIFIED ELSEWHERE (3) Rash Code(s): R21 - RASH AND OTHER NONSPECIFIC SKIN ERUPTION (4) Allergy to multiple antibiotics Code(s): Z88.1 - ALLERGY STATUS TO OTHER ANTIBIOTIC AGENTS STATUS
[2018-12-02] MEDS ORDERED: PT OWN MED DRAWER 7, Y5N ONE ×2 (10:48→17:42)
[2018-12-02] MEDS: PANTOPRAZOLE 40 MG TABLET (FP) PO SCH (11:23)
[2018-12-02] MEDS: ATOVAQUONE 750 MG/5 ML (UNIT-DOSE PACKAGING) PO SCH (11:24)
[2018-12-02] MEDS: DOLUTEGRAVIR SODIUM 50 MG TABLET (NON-FORMULARY) PO SCH (11:24)
[2018-12-02] MEDS: DARUNAVIR 800 MG/COBICISTAT 150MG TABLET PO SCH (11:25)
[2018-12-02] MEDS: EMTRICITABINE 200MG/TENOFOVIR 300MG PO SCH (11:26)
[2018-12-02] MEDS: VANCOMYCIN 1 GRAM (PRE-DOCKED) 1,000 MG/250 ML BAG IVPB SCH ×2 (11:30→22:41)
[2018-12-02 13:02] LABS: ANISOCYTOSIS 0; MACROCYTOSIS 0; PLATELET ESTIMATE NORMAL
[2018-12-02 14:00] LABS: TEAR DROP CELLS 1+
--- NOTE | 2018-12-02 16:01 | PN ---
Physical Exam: SUBJECTIVE: Patient seen and examined at bedside. Resting in bed comfortably. Denies any complaints. No acute events overnight. OBJECTIVE: Vital Signs Period Temp Pulse Resp BP Sys/Harrington Pulse Ox Last 24 Hr 98 F-101.0 F 95-115 18-20 112-145/58-88 97-100 GENERAL: NC/AT HEAD: NC/AT EYES: EOMI Sclera clear ENT: MMM NECK: Trachea midline, full range of motion, supple. LUNGS: CTAB HEART: RRR No MRG S1S2 ABDOMEN: NDNT No HSM. External Thrombosed Hemorrhoids appreciated on rectal exam EXTREMITIES: No CCE NEUROLOGICAL: Cranial nerves II through XII grossly intact. PSYCH: Normal mood, normal affect. SKIN: Multiple raised lesions on forehead, face, parietal and occital areas of head. Non oozing, crusted. Laboratory Results - last 24 hr 12/02/18 12/02/18 05:40 05:40 WBC 3.3 L RBC 3.83 L Hgb 13.3 Hct 37.9 MCV 99.0 H MCH 34.7 H MCHC 35.0 RDW 19.2 H Plt Count 327 MPV 8.2 Absolute Neuts (auto) 0.0 L Neutrophils % 0.7 L Neutrophils % (Manual) 0.0 L Band Neutrophils % 0.0 Lymphocytes % 45.8 H Lymphocytes % (Manual) 34.4 D Monocytes % 43.8 H Monocytes % (Manual) 45 H D Eosinophils % 9.2 H Eosinophils % (Manual) 9.4 H Basophils % 0.5 Basophils % (Manual) 0.0 Myelocytes % (Man) 0 Promyelocytes % (Man) 0 Blast Cells % (Manual) 0 Nucleated RBC % 0 Metamyelocytes 1 D Hypochromia 0 Platelet Estimate Normal Polychromasia 0 Poikilocytosis 1+ Anisocytosis 0 Microcytosis 0 Macrocytosis 0 Tear Drop Cells 1+ Sodium 131 L Potassium 4.2 Chloride 98 Carbon Dioxide 25 Anion Gap 8 BUN 11 Creatinine 1.0 Creat Clearance w eGFR > 60 Random Glucose 94 Calcium 8.2 L Phosphorus 4.1 Magnesium 2.4 Active Medications Generic Name Dose Route Start Last Admin Trade Name Freq PRN Reason Stop Dose Admin Acetaminophen 650 mg 12/01/18 15:52 12/01/18 17:41 Tylenol - PO 650 mg Q6H PRN Administration FEVER Atovaquone 1,500 mg 12/02/18 08:00 12/02/18 11:24 Mepron - PO 1,500 mg DAILY@0800 JULISA Administration Emtricitabine/Tenofovir 1 tab 12/02/18 10:00 12/02/18 11:26 Truvada PO 1 tab DAILY JULISA Administration Hydrocortisone 1 applic 12/02/18 11:15 Hytone 2.5% Lotion - TP DAILY JULISA Meropenem 1 gm/ Dextrose 100 mls @ 200 mls/hr 12/01/18 18:00 12/02/18 11:00 IVPB 200 mls/hr Q8H-IV JULISA Administration Vancomycin HCl 1,000 mg in 250 mls @ 166.667 mls/hr 12/01/18 22:00 12/02/18 11:30 Vancomycin (Pre-Docked) IVPB 166.667 mls/hr Q12H JULISA Administration Protocol Pantoprazole Sodium 40 mg 12/02/18 10:00 12/02/18 11:23 Protonix - PO 40 mg DAILY JULISA Administration Triamcinolone Acetonide 1 applic 12/02/18 11:15 Aristocort 0.1% Ointment - TP DAILY JULISA ASSESSMENT/PLAN: The patient is a 38-year-old male with a past medical history of AIDS, chronic neutropenia, candidal esophagitis, and Cryptococcus who comes into the emergency department complaining of the three-week history of worsening rash and rectal pain. #worsening, migrating rash on back and face -eitology unclear at this time. Differential diagnosis includes viral exanthem, Kaposi's sarcoma, bacillary angiomatosis, or other infectious eitology. -ID on board- Dr Stinson. -Vanc/Merem in light of fevers and neutropenia and likely source of infection -Dr Ace Dean for biopsy of lesions -neutropenic precautions #HIV/AIDS -c/w HAART (truvada/tivacay/prezcobix in hospital) -resume mepron for PCP ppx. pt allergic to TMP-SMX -Last CD4 count 7.Will repeat -Pt endorses he is compliant with his meds. Follows up at [facility] #rectal pain 2/2 thrombosed external hemmorhoids -secondary to thrombosed external hemorrhoid -will monitor pain and treat if necessary #FEN -no fluids indicated -Monitor electrolytes -regular diet #DVT ppx -SCDs #dispo -admit MedSurg . Visit type - Emergency Visit Emergency Visit: Yes ED Registration Date: 12/01/18 Care time: The patient presented to the Emergency Department on the above date and was hospitalized for further evaluation of their emergent condition. - New Patient This patient is new to me today: Yes Date on this admission: 12/02/18 - Critical Care Critical Care patient: No - Discharge Referral Referred to [facility] Med P.C.: No
[2018-12-02] MEDS: HYDROCORTISONE 2.5% LOTION - 1 BOTTLE TP SCH (17:45)
[2018-12-02] MEDS: TRIAMCINOLONE ACET 0.1% OINT 80 GM TUBE TP SCH (17:45)
[2018-12-02] MEDS: ACETAMINOPHEN 325 MG TABLET (FP) PO PRN (17:52)
--- NOTE | 2018-12-02 19:41 | PN ---
Teaching Attending Note Name of Resident: Abdias Carpenter ATTENDING PHYSICIAN STATEMENT I saw and evaluated the patient. I reviewed the resident's note and discussed the case with the resident. I agree with the resident's findings and plan as documented. SUBJECTIVE: No fever or chills. rectal pain, has chronic external hemorrhoids and now painful x 3 weeks . rash on back x 2 yrs, face is new x 3 weeks OBJECTIVE: NAD HEENT: cystic lesions with crusted head and tender to palpation on face, neck and scalp. no LAP in neck . nl oropharynx. an ulcer on tip of tongue Cv: RRR Abd: soft, NT, ND , No hepatosplenomegaly ext : nimo martínez Skin : face as above back and proximal extremities with old rash scars : no lesionsn on genitalia. external hemorrhoids with big painful lesion ASSESSMENT AND PLAN: 38 y/o man with h/o HIV/AIDs, chronic leukopenia, candidal esophagitis, and cryptococcus who presented with rash on face and fever 1- neutropenic fever. unclear source. - cont IV abx - follow cx and cryptococcal Ag 2- head/neck rash : ? folliculitis vs other . - derm eval pending. - will cx if o ne pops open 3- AIDS: last Cd4 of 7. - cont HAART and mepron - d/w Id , no need for MAC prophylaxis at this point 4- Rectal pain , due to thrombosed external hemorrhoids. rectal exam deferred and declined appreciate Id help. will call [facility] tomorrow for records
[2018-12-02] MEDS: HEPARIN NA (PORCINE) 5,000 UNITS/ML 1ML VIAL SQ SCH (22:41)
[2018-12-02] MEDS: PHENYLEPH/MINERAL OIL/PETROLAT 28 GM OINTMENT RC SCH (22:41)
[2018-12-03] MEDS: ACETAMINOPHEN 325 MG TABLET (FP) PO PRN ×3 (01:59→22:36)
[2018-12-03] MEDS: MEROPENEM 1 GM in DEXTROSE 5%-WATER 100 ML IVPB SCH ×3 (01:59→18:16)
[2018-12-03] MEDS: HEPARIN NA (PORCINE) 5,000 UNITS/ML 1ML VIAL SQ SCH ×3 (06:10→21:56)
[2018-12-03 08:22] LABS: HEMATOCRIT 40.9 % (35.4-49); HEMOGLOBIN 14.2 GM/dL (11.7-16.9); MCH 34.6 pg (25.7-33.7); MCHC 34.6 g/dl (32.0-35.9); MEAN PLT VOLUME 8.7 fl (7.5-11.1); PLATELET COUNT 355 K/MM3 (134-434); RBC 4.09 M/mm3 (4.00-5.60); RDW 19.3 % (11.9-15.9); WHITE BLOOD COUNT 3.6 K/mm3 (4.0-10.0)
[2018-12-03 09:01] LABS: ANION GAP 7 MMOL/L (8-16); BLOOD UREA NITROGEN 11 mg/dL (7-18); CALCIUM 8.2 mg/dL (8.5-10.1); CHLORIDE 97 mmol/L (98-107); CO2 29 mmol/L (21-32); CREATININE 1.1 mg/dL (0.55-1.3); GLUCOSE,RANDOM 83 mg/dL (74-106); MAGNESIUM 2.5 mg/dL (1.8-2.4); PHOSPHOROUS 5.6 mg/dL (2.5-4.9); POTASSIUM 4.4 mmol/L (3.5-5.1); SODIUM 133 mmol/L (136-145)
[2018-12-03] MEDS ORDERED: PT OWN MED DRAWER 7, Y5N ONE ×3 (09:45→21:16)
[2018-12-03 09:53] LABS: LDH 206 U/L (87-246)
--- NOTE | 2018-12-03 11:32 | PN ---
Teaching Attending Note Name of Resident: Abdias Carpenter ATTENDING PHYSICIAN STATEMENT I saw and evaluated the patient. I reviewed the resident's note and discussed the case with the resident. I agree with the resident's findings and plan as documented. SUBJECTIVE: Cont to have fever. has diarrhea . no abd pain. No OLMOS . no CP or SOB . OBJECTIVE: NAD HEENT: cystic lesions with crusted head and tender to palpation on face, neck and scalp. no LAP in neck . nl oropharynx. an ulcer on tip of tongue Cv: RRR, no MRG Abd: soft, NT, ND , No hepatosplenomegaly ext : no edema Skin : face as above Back and proximal extremities with old rash scars ASSESSMENT AND PLAN: 38 y/o man with h/o HIV/AIDs, chronic leukopenia, candidal esophagitis, and cryptococcus who presented with rash on face and fever 1- Neutropenic fever. unclear source. - cont meropenem and vanco - vanco trough this evening - follow cx and cryptococcal Ag. - CT of abd /P image reviewed, there is thickening in bladder wall and possible lesion off the posterior wall or bladder. will wait for final read 2- Head/neck rash: ? folliculitis vs other . - derm eval pending. will hold off topical steroids until seen by derm. will call again - will cx if one pops open 3- AIDS: last Cd4 of 7. - cont HAART and mepron 4- Rectal pain , due to thrombosed external hemorrhoids. appreciate ID help. will call [facility] today for records [place]
[2018-12-03] MEDS: ATOVAQUONE 750 MG/5 ML (UNIT-DOSE PACKAGING) PO SCH (11:41)
[2018-12-03] MEDS: PANTOPRAZOLE 40 MG TABLET (FP) PO SCH (11:41)
[2018-12-03] MEDS: EMTRICITABINE 200MG/TENOFOVIR 300MG PO SCH (11:41)
[2018-12-03] MEDS: DOLUTEGRAVIR SODIUM 50 MG TABLET (NON-FORMULARY) PO SCH (11:42)
[2018-12-03] MEDS: DARUNAVIR 800 MG/COBICISTAT 150MG TABLET PO SCH (11:42)
[2018-12-03] MEDS: VANCOMYCIN 1 GRAM (PRE-DOCKED) 1,000 MG/250 ML BAG IVPB SCH ×2 (11:43→21:57)
[2018-12-03] MEDS: HYDROCORTISONE 2.5% LOTION - 1 BOTTLE TP SCH (11:49)
--- NOTE | 2018-12-03 13:33 | PN ---
Addendum entered and electronically signed by Abdias Carpenter, RESIDENT 12/03/18 17 :50: CTAP--> Borderline Left Retroperitoneal lymph nodes. Original Note: Physical Exam: SUBJECTIVE: Patient seen and examined at bedside. Resting comfortably. Denies any acute complaints at this time. OBJECTIVE: Vital Signs Period Temp Pulse Resp BP Sys/Harrington Pulse Ox Last 24 Hr 98.7 F-102.8 F 70-112 20-20 105-144/59-63 100 GENERAL: NAD AAOx3 HEAD: NC/AT EYES: EOMI Sclera clear ENT: MMM NECK: Trachea midline, full range of motion, supple. LUNGS: CTAB HEART: RRR No MRG S1S2 ABDOMEN: NDNT No HSM. External Thrombosed Hemorrhoids EXTREMITIES: No CCE NEUROLOGICAL: Cranial nerves II through XII grossly intact. PSYCH: Normal mood, normal affect. SKIN: Raised hard lesions spanning across forehead, parietal, and occipital region of head. Laboratory Results - last 24 hr 12/02/18 12/03/18 12/03/18 05:40 07:08 07:08 WBC 3.6 L RBC 4.09 Hgb 14.2 Hct 40.9 MCV 100.0 H MCH 34.6 H MCHC 34.6 RDW 19.3 H Plt Count 355 MPV 8.7 Neutrophils % (Manual) 0.0 L Band Neutrophils % 0.0 Lymphocytes % (Manual) 34.4 D Monocytes % (Manual) 45 H D Eosinophils % (Manual) 9.4 H Basophils % (Manual) 0.0 Myelocytes % (Man) 0 Promyelocytes % (Man) 0 Blast Cells % (Manual) 0 Metamyelocytes 1 D Hypochromia 0 Platelet Estimate Normal Polychromasia 0 Poikilocytosis 1+ Anisocytosis 0 Microcytosis 0 Macrocytosis 0 Tear Drop Cells 1+ Sodium 133 L Potassium 4.4 Chloride 97 L Carbon Dioxide 29 Anion Gap 7 L BUN 11 Creatinine 1.1 Creat Clearance w eGFR > 60 Random Glucose 83 Calcium 8.2 L Phosphorus 5.6 H Magnesium 2.5 H LD Total 206 Active Medications Generic Name Dose Route Start Last Admin Trade Name Freq PRN Reason Stop Dose Admin Acetaminophen 650 mg 12/01/18 15:52 12/03/18 11:40 Tylenol - PO 650 mg Q6H PRN Administration FEVER Atovaquone 1,500 mg 12/02/18 08:00 12/03/18 11:41 Mepron - PO 1,500 mg DAILY@0800 JULISA Administration Emtricitabine/Tenofovir 1 tab 12/02/18 10:00 12/03/18 11:41 Truvada PO 1 tab DAILY JULISA Administration Heparin Sodium (Porcine) 5,000 unit 12/02/18 22:00 12/03/18 06:10 Heparin - SQ 5,000 unit TID JULISA Administration Hydrocortisone 1 applic 12/02/18 11:15 12/03/18 11:49 Hytone 2.5% Lotion - TP Not Given DAILY JULSIA Meropenem 1 gm/ Dextrose 100 mls @ 200 mls/hr 12/01/18 18:00 12/03/18 11:42 IVPB 200 mls/hr Q8H-IV JULISA Administration Vancomycin HCl 1,000 mg in 250 mls @ 166.667 mls/hr 12/01/18 22:00 12/03/18 11:43 Vancomycin (Pre-Docked) IVPB 166.667 mls/hr Q12H JULISA Administration Protocol Pantoprazole Sodium 40 mg 12/02/18 10:00 12/03/18 11:41 Protonix - PO 40 mg DAILY JULISA Administration ASSESSMENT/PLAN: The patient is a 38-year-old male with a past medical history of AIDS, chronic neutropenia, candidal esophagitis, and Cryptococcus who comes into the emergency department complaining of the three-week history of worsening rash and rectal pain. #worsening, migrating rash on back and face -eitology unclear at this time. Differential diagnosis includes viral exanthem, Kaposi's sarcoma, bacillary angiomatosis, or other infectious eitology. -ID on board- Dr Stinson. -Vanc/Merrem in light of fevers and neutropenia and likely source of infection -Will consult surgery as pt needs wedge excisional biopsy. Dermatology states they do not perform that procedure. -neutropenic precautions #HIV/AIDS -c/w HAART (truvada/tivacay/prezcobix in hospital) -resume mepron for PCP ppx. pt allergic to TMP-SMX -Last CD4 count 7.Will repeat -Contacted [facility] this afternoon Pt's last CD4 count as of September 24, 2018--> 30. Viral load 236,000. -CTAP [facility] 09/2019--> "Bilateral wedge shaped hypodensities in the kidneys , which is consistent with bilateral pyelonephritis. Renal infarcts may also be considered but are less likely given patient's stated age. Increased air with the small bowel without obstruction, consistent with ileus. liquid stool throughout the colon: correlate for symptoms of diarrhea.Please see report for further details in patient's chart. -C-Diff Antigen + Stool culture -LDH level---Pt at increased risk of Lymphoma Heme/Onc consult #rectal pain 2/2 thrombosed external hemmorhoids -secondary to thrombosed external hemorrhoid -will monitor pain and treat if necessary #FEN -no fluids indicated -Monitor electrolytes -regular diet #DVT ppx -SCDs #dispo - MedSurg Visit type - Emergency Visit Emergency Visit: Yes ED Registration Date: 12/01/18 Care time: The patient presented to the Emergency Department on the above date and was hospitalized for further evaluation of their emergent condition. - New Patient This patient is new to me today: No - Critical Care Critical Care patient: No - Discharge Referral Referred to [facility] Med P.C.: No
[2018-12-03] MEDS: TRIAMCINOLONE ACET 0.1% OINT 80 GM TUBE TP SCH (16:24)
--- NOTE | 2018-12-03 18:47 | PN ---
Progress Note (short form) - Note Progress Note: intermittent fevers Vital Signs Period Temp Pulse Resp BP Sys/Harrington Pulse Ox Last 24 Hr 98.7 F-102.8 F 70-84 18-20 105-144/59-66 99-100 rash on face and scalp unchanged cor-rrr lungs clear abd soft,nt ext no edema +ulcer on tongue CBC, BMP 12/03/18 07:08 12/03/18 07:08 Microbiology 12/01/18 09:43 Blood - Peripheral Venous Blood Culture - Preliminary NO GROWTH OBTAINED AFTER 48 HOURS, INCUBATION TO CONTINUE FOR 3 DAYS. 12/01/18 09:24 Blood - Peripheral Venous Blood Culture - Preliminary NO GROWTH OBTAINED AFTER 48 HOURS, INCUBATION TO CONTINUE FOR 3 DAYS. 12/02/18 05:40 Serum Cryptococcal Antigen - Preliminary 12/01/18 09:24 Urine - Urine Clean Catch Urine Culture - Final NO GROWTH OBTAINED ct scan noted- borderline adenopathy ldh normal a/p AIDS Neutropenia rash pen and sulfa allergy continue meds- truvada/tivicay/prezcobix here in the hospital vanco/meropenem cd4 count - has been on meds for a month now) cryptococcal antigen blood cuture afb derm evaluation- ?biopsy and culture- routine, fungal, afb continue mepron add valtrex for ulcer ?HSV please get records from [facility] Problem List - Problems (1) AIDS (acquired immune deficiency syndrome) Code(s): B20 - HUMAN IMMUNODEFICIENCY VIRUS [HIV] DISEASE (2) Neutropenic fever Code(s): D70.9 - NEUTROPENIA, UNSPECIFIED; R50.81 - FEVER PRESENTING WITH CONDITIONS CLASSIFIED ELSEWHERE (3) Rash Code(s): R21 - RASH AND OTHER NONSPECIFIC SKIN ERUPTION (4) Allergy to multiple antibiotics Code(s): Z88.1 - ALLERGY STATUS TO OTHER ANTIBIOTIC AGENTS STATUS
[2018-12-03] MEDS: valACYclovir HCL 500 MG TABLET (FP) PO SCH (21:52)
[2018-12-03] MEDS: PHENYLEPH/MINERAL OIL/PETROLAT 28 GM OINTMENT RC SCH (21:57)
[2018-12-04] MEDS: MEROPENEM 1 GM in DEXTROSE 5%-WATER 100 ML IVPB SCH ×3 (01:52→17:54)
[2018-12-04] MEDS: HEPARIN NA (PORCINE) 5,000 UNITS/ML 1ML VIAL SQ SCH ×3 (05:55→21:49)
[2018-12-04 06:53] LABS: HEMATOCRIT 38.2 % (35.4-49); HEMOGLOBIN 13.4 GM/dL (11.7-16.9); MCH 34.9 pg (25.7-33.7); MCHC 35.1 g/dl (32.0-35.9); MEAN CELL VOLUME 99.3 fl (80-96); MEAN PLT VOLUME 8.1 fl (7.5-11.1); PLATELET COUNT 336 K/MM3 (134-434); RBC 3.85 M/mm3 (4.00-5.60); RDW 18.8 % (11.9-15.9); WHITE BLOOD COUNT 2.9 K/mm3 (4.0-10.0)
[2018-12-04 07:28] LABS: ANION GAP 9 MMOL/L (8-16); BLOOD UREA NITROGEN 12 mg/dL (7-18); CALCIUM 8.2 mg/dL (8.5-10.1); CHLORIDE 97 mmol/L (98-107); CO2 25 mmol/L (21-32); GLUCOSE,RANDOM 100 mg/dL (74-106); LDH 175 U/L (87-246); MAGNESIUM 2.6 mg/dL (1.8-2.4); SODIUM 131 mmol/L (136-145)
[2018-12-04] MEDS ORDERED: PT OWN MED DRAWER 7, Y5N ONE ×4 (07:55→17:47)
[2018-12-04] MEDS: valACYclovir HCL 500 MG TABLET (FP) PO SCH ×2 (09:30→21:48)
[2018-12-04] MEDS: EMTRICITABINE 200MG/TENOFOVIR 300MG PO SCH (09:30)
[2018-12-04] MEDS: ATOVAQUONE 750 MG/5 ML (UNIT-DOSE PACKAGING) PO SCH (09:31)
[2018-12-04] MEDS: DARUNAVIR 800 MG/COBICISTAT 150MG TABLET PO SCH (09:32)
[2018-12-04] MEDS: DOLUTEGRAVIR SODIUM 50 MG TABLET (NON-FORMULARY) PO SCH (09:33)
[2018-12-04] MEDS: ACETAMINOPHEN 325 MG TABLET (FP) PO PRN ×2 (09:42→21:47)
[2018-12-04] MEDS: PANTOPRAZOLE 40 MG TABLET (FP) PO SCH (09:42)
[2018-12-04] MEDS: VANCOMYCIN 1,250 MG in DEXTROSE 5%-WATER - 250 ML IVPB SCH ×2 (10:23→21:23)
--- NOTE | 2018-12-04 13:21 | PN ---
Progress Note (short form) - Note Progress Note: intermittent fevers eating, no abdominal pain no cough reports he has had intermittent fevers for months reports he has hep C! Vital Signs Period Temp Pulse Resp BP Sys/Harrington Pulse Ox Last 24 Hr 98.7 F-102.8 F 70-84 18-20 105-144/59-66 99-100 rash on face and scalp unchanged cor-rrr lungs clear abd soft,nt ext no edema +ulcer on tongue CBC, BMP 12/04/18 06:10 12/04/18 06:10 Microbiology 12/01/18 09:43 Blood - Peripheral Venous Blood Culture - Preliminary NO GROWTH OBTAINED AFTER 72 HOURS, INCUBATION TO CONTINUE FOR 2 DAYS. 12/01/18 09:24 Blood - Peripheral Venous Blood Culture - Preliminary NO GROWTH OBTAINED AFTER 72 HOURS, INCUBATION TO CONTINUE FOR 2 DAYS. 12/02/18 05:40 Serum Cryptococcal Antigen - Preliminary 12/01/18 09:24 Urine - Urine Clean Catch Urine Culture - Final NO GROWTH OBTAINED ct scan noted- borderline adenopathy ldh normal a/p AIDS Neutropenia rash pen and sulfa allergy continue meds- truvada/tivicay/prezcobix here in the hospital vanco/meropenem cd4 count - has been on meds for a month now per patient cryptococcal antigen blood cuture afb, cmv pcr derm evaluation- ?biopsy and culture- routine, fungal, afb continue mepron add valtrex for ulcer ?HSV please get records from [facility] agree with hematology evaluation Problem List - Problems (1) AIDS (acquired immune deficiency syndrome) Code(s): B20 - HUMAN IMMUNODEFICIENCY VIRUS [HIV] DISEASE (2) Neutropenic fever Code(s): D70.9 - NEUTROPENIA, UNSPECIFIED; R50.81 - FEVER PRESENTING WITH CONDITIONS CLASSIFIED ELSEWHERE (3) Rash Code(s): R21 - RASH AND OTHER NONSPECIFIC SKIN ERUPTION (4) Allergy to multiple antibiotics Code(s): Z88.1 - ALLERGY STATUS TO OTHER ANTIBIOTIC AGENTS STATUS
--- NOTE | 2018-12-04 14:25 | CONSULT ---
Consultation: REQUESTING PROVIDER: Red team CONSULT REQUEST: We have been asked to medically evaluate this patient for neutropenia HISTORY OF PRESENT ILLNESS: This is a 38 year old male with AIDS, hepatitis C, chronic neutropenia, candidal esophagitis, crypotococcus, who presents with rash on face , neck with papules with open lesions with different stages of healing; after getting hair cut/shave 3 weeks ago. He has been taking Biktravy HAART for the past month. Admits to fevers at home daily. Patient denies, chills, shortness of breath, sick contacts, nausea, vomiting, diarrhea, constipation, abdominal pain. Patient denies recent sexual contacts, multiple partners or new partners. REVIEW OF SYSTEMS: CONSTITUTIONAL: Positive; fevers Absent: chills, diaphoresis, generalized weakness, malaise, loss of appetite, weight change HEENT: Head: rash; scabs; scars Absent: rhinorrhea, nasal congestion, throat pain, throat swelling, difficulty swallowing, mouth swelling, ear pain, eye pain, visual changes CARDIOVASCULAR: Absent: chest pain, syncope, palpitations, irregular heart rate, lightheadedness , peripheral edema RESPIRATORY: Absent: cough, shortness of breath, dyspnea with exertion, orthopnea, wheezing, stridor, hemoptysis GASTROINTESTINAL: Absent: abdominal pain, abdominal distension, nausea, vomiting, diarrhea, constipation, melena, hematochezia GENITOURINARY: POsitive: rectal pain Absent: dysuria, frequency, urgency, hesitancy, hematuria, flank pain, genital pain MUSCULOSKELETAL: Absent: myalgia, arthralgia, joint swelling, back pain, neck pain SKIN: Absent: rash, itching, pallor HEMATOLOGIC/IMMUNOLOGIC: Absent: easy bleeding, easy bruising, lymphadenopathy, frequent infections ENDOCRINE: Absent: unexplained weight gain, unexplained weight loss, heat intolerance, cold intolerance NEUROLOGIC: Absent: headache, focal weakness or paresthesias, dizziness, unsteady gait, seizure, mental status changes, bladder or bowel incontinence PSYCHIATRIC: Absent: anxiety, depression, suicidal or homicidal ideation, hallucinations. PHYSICAL EXAMINATION Vital Signs - 24 hr 12/03/18 12/03/18 12/03/18 15:06 17:17 22:00 Temperature 99.2 F 99.1 F 100.1 F H Pulse Rate 84 91 H 108 H Respiratory 18 20 20 Rate Blood Pressure 118/66 111/65 136/67 O2 Sat by Pulse Oximetry (%) 12/04/18 12/04/18 06:24 09:00 Temperature 101 F H 101 F H Pulse Rate 104 H 100 H Respiratory 20 20 Rate Blood Pressure 127/56 L 161/63 O2 Sat by Pulse 99 Oximetry (%) GENERAL: Awake, alert, and fully oriented, in no acute distress, laying in bed HEAD: multiple areas of maculopapular nodles; of neck, back of head; open/ crusted; different healing stages, tiny papules on forehead; EARS, NOSE, THROAT: Ears normal, nares patent, oropharynx clear without exudates. large tongue ulcer NECK: Normal range of motion, supple without lymphadenopathy, JVD, or masses. LUNGS: Breath sounds equal, clear to auscultation bilaterally. No wheezes, and no crackles. No accessory muscle use. breast/axilla : no masses /lumps HEART: Regular rate and rhythm, normal S1 and S2 without murmur, rub or gallop. ABDOMEN: Soft, nontender, not distended, normoactive bowel sounds, no guarding, no rebound, no masses. No hepatomegaly or splenomegaly. MUSCULOSKELETAL: Normal range of motion at all joints. No bony deformities or tenderness. No CVA tenderness. UPPER EXTREMITIES: 2+ pulses, warm, well-perfused. No cyanosis. No clubbing. Cap refill <2 seconds. No peripheral edema. LOWER EXTREMITIES: 2+ pulses, warm, well-perfused. No calf tenderness. No peripheral edema. NEUROLOGICAL: Cranial nerves II-XII intact. Normal speech. PSYCHIATRIC: Cooperative. Good eye contact. Appropriate mood and affect. Laboratory Results - last 24 hr 12/02/18 12/03/18 12/04/18 16:30 21:20 06:10 WBC 3.5 RBC Hgb Hct MCV MCH MCHC RDW Plt Count MPV Absolute Lymphs (auto) 2.0 Lymphocytes 58 Nucleated RBCs TNP Sodium 131 L Potassium 4.0 Chloride 97 L Carbon Dioxide 25 Anion Gap 9 BUN 12 Creatinine 1.0 Creat Clearance w eGFR > 60 Random Glucose 100 Calcium 8.2 L Phosphorus 4.0 Magnesium 2.6 H LD Total 175 Vancomycin Pre-Dose 8.5 L Absolute CD3 Count 1554 % CD3+ Lymphocytes 77.7 Absolute CD4 [place] 16 L % CD4+ Lymphocyte 0.8 L CD4/CD8 Ratio 0.01 L % CD8+ Lymphocyte 68.0 H Absolute CD8 Count 1360 H 12/04/18 06:10 WBC 2.9 L RBC 3.85 L Hgb 13.4 Hct 38.2 MCV 99.3 H MCH 34.9 H MCHC 35.1 RDW 18.8 H Plt Count 336 MPV 8.1 Absolute Lymphs (auto) Lymphocytes Nucleated RBCs Sodium Potassium Chloride Carbon Dioxide Anion Gap BUN Creatinine Creat Clearance w eGFR Random Glucose Calcium Phosphorus Magnesium LD Total Vancomycin Pre-Dose Absolute CD3 Count % CD3+ Lymphocytes Absolute CD4 [place] % CD4+ Lymphocyte CD4/CD8 Ratio % CD8+ Lymphocyte Absolute CD8 Count Active Medications Generic Name Dose Route Start Last Admin Trade Name Freq PRN Reason Stop Dose Admin Acetaminophen 650 mg 12/01/18 15:52 12/04/18 09:42 Tylenol - PO 650 mg Q6H PRN Administration FEVER Atovaquone 1,500 mg 12/02/18 08:00 12/04/18 09:31 Mepron - PO 1,500 mg DAILY@0800 JULISA Administration Emtricitabine/Tenofovir 1 tab 12/02/18 10:00 12/04/18 09:30 Truvada PO 1 tab DAILY JULISA Administration Heparin Sodium (Porcine) 5,000 unit 12/02/18 22:00 12/04/18 05:55 Heparin - SQ 5,000 unit TID JULISA Administration Meropenem 1 gm/ Dextrose 100 mls @ 200 mls/hr 12/01/18 18:00 12/04/18 09:30 IVPB 200 mls/hr Q8H-IV JULISA Administration Vancomycin HCl 1,250 mg/ 250 mls @ 166.667 mls/hr 12/04/18 10:00 12/04/18 10: 23 Dextrose IVPB 166.667 mls/hr Q12H JULISA Administration Protocol Pantoprazole Sodium 40 mg 12/02/18 10:00 12/04/18 09:42 Protonix - PO 40 mg DAILY JULISA Administration Valacyclovir HCl 500 mg 12/03/18 22:00 12/04/18 09:30 Valtrex - PO 500 mg BID JULISA Administration ASSESSMENT/PLAN: This is a 38 year old male with AIDS; CD$16; hx cryptococcus, hepatitis C, who presents with rash on neck and head after getting a haircut/ shave three weeks ago; Neutropenia AIDS RASH; unknown origin; possible follicultis? will need biopsy hx cryptococcus hx hepatits C -will get flow, cytogenitics; possible need for bone biopsy if initial w/u negative -will hold neupogen pending flow cytometry -b12, folate, tsh t4, adia, rf, crp, esr -infectious w/u as per ID-IV antibiotics -derm eval/biospy -truvada/tivicay/prezcobix -[facility] records needed Dispo: We will continue to follow the patient. Thank you for this consultative opportunity. Visit type - Emergency Visit Emergency Visit: Yes ED Registration Date: 12/01/18 Care time: The patient presented to the Emergency Department on the above date and was hospitalized for further evaluation of their emergent condition. - New Patient This patient is new to me today: Yes Date on this admission: 12/04/18 - Critical Care Critical Care patient: No
--- NOTE | 2018-12-04 19:28 | PN ---
Teaching Attending Note Name of Resident: Abdias Carpenter ATTENDING PHYSICIAN STATEMENT I saw and evaluated the patient. I reviewed the resident's note and discussed the case with the resident. I agree with the resident's findings and plan as documented. SUBJECTIVE: cont to have fever . no abd pain OBJECTIVE: NAD HEENT: cystic lesions with crusted head and tender to palpation on face, neck and scalp, imporving . no LAP in neck . Cv: RRR, no MRG Abd: soft, NT, ND , No hepatosplenomegaly ext : no edema Skin : face as above Back and proximal extremities with old rash scars ASSESSMENT AND PLAN: 38 y/o man with h/o HIV/AIDs, chronic leukopenia, candidal esophagitis, and cryptococcus who presented with rash on face and fever 1- Neutropenic fever. unclear source. - cont meropenem and vanco ( increase vanco brito due to low trough ) - follow cx and cryptococcal Ag. - follow heme Recs for a non infectious causes of fever . 2- Head/neck rash: ? folliculitis vs other . - Derm Not available to evaluate - consult sx for possible bx 3- AIDS: Cd4 16 - cont HAART and mepron - per records, he was diagnosed with chronic Hep B and was started on Bictarvy and mepron and weekly azithro for MAC prophylaxis 4- Rectal pain , due to thrombosed external hemorrhoids. dispo : [facility]
--- NOTE | 2018-12-04 19:40 | PN ---
Addendum entered and electronically signed by Abdias Carpenter, RESIDENT 12/04/18 20 :41: Please see Discharge summary from [facility] located in patient' s physical chart. Obtained today. Original Note: Physical Exam: SUBJECTIVE: Patient seen and examined at bedside. C/o left arm pain due to I.V. Denies chest pain or shortness of breath. Resting comfortably. OBJECTIVE: Vital Signs Period Temp Pulse Resp BP Sys/[place] Pulse Ox Last 24 Hr 100.1 F-101 F 98-108 20-20 125-161/56-67 99 GENERAL: NAD AAOx3 HEAD: NC/AT EYES: EOMI Sclera clear ENT: MMM NECK: Trachea midline, full range of motion, supple. LUNGS: CTAB HEART: RRR No MRG S1S2 ABDOMEN: NDNT No HSM. External Thrombosed Hemorrhoids. Not examined today. EXTREMITIES: DP2+ No Clubbing Cyanosis or Edema NEUROLOGICAL: Cranial nerves II through XII grossly intact. PSYCH: Normal mood, normal affect. SKIN: Raised hard lesions spanning across forehead, parietal, and occipital region of head. Unchanged since yesterday Laboratory Results - last 24 hr 12/02/18 12/03/18 12/04/18 16:30 21:20 06:10 WBC 3.5 RBC Hgb Hct MCV MCH MCHC RDW Plt Count MPV Absolute Lymphs (auto) 2.0 Lymphocytes 58 Nucleated RBCs TNP Sodium 131 L Potassium 4.0 Chloride 97 L Carbon Dioxide 25 Anion Gap 9 BUN 12 Creatinine 1.0 Creat Clearance w eGFR > 60 Random Glucose 100 Calcium 8.2 L Phosphorus 4.0 Magnesium 2.6 H LD Total 175 Vancomycin Pre-Dose 8.5 L Absolute CD3 Count 1554 % CD3+ Lymphocytes 77.7 Absolute CD4 [place] 16 L % CD4+ Lymphocyte 0.8 L CD4/CD8 Ratio 0.01 L % CD8+ Lymphocyte 68.0 H Absolute CD8 Count 1360 H 12/04/18 06:10 WBC 2.9 L RBC 3.85 L Hgb 13.4 Hct 38.2 MCV 99.3 H MCH 34.9 H MCHC 35.1 RDW 18.8 H Plt Count 336 MPV 8.1 Absolute Lymphs (auto) Lymphocytes Nucleated RBCs Sodium Potassium Chloride Carbon Dioxide Anion Gap BUN Creatinine Creat Clearance w eGFR Random Glucose Calcium Phosphorus Magnesium LD Total Vancomycin Pre-Dose Absolute CD3 Count % CD3+ Lymphocytes Absolute CD4 [place] % CD4+ Lymphocyte CD4/CD8 Ratio % CD8+ Lymphocyte Absolute CD8 Count Active Medications Generic Name Dose Route Start Last Admin Trade Name Luis A PRN Reason Stop Dose Admin Acetaminophen 650 mg 12/01/18 15:52 12/04/18 09:42 Tylenol - PO 650 mg Q6H PRN Administration FEVER Atovaquone 1,500 mg 12/02/18 08:00 12/04/18 09:31 Mepron - PO 1,500 mg DAILY@0800 JULISA Administration Emtricitabine/Tenofovir 1 tab 12/02/18 10:00 12/04/18 09:30 Truvada PO 1 tab DAILY JULISA Administration Heparin Sodium (Porcine) 5,000 unit 12/02/18 22:00 12/04/18 15:01 Heparin - SQ 5,000 unit TID JULISA Administration Meropenem 1 gm/ Dextrose 100 mls @ 200 mls/hr 12/01/18 18:00 12/04/18 17:54 IVPB 200 mls/hr Q8H-IV JULISA Administration Vancomycin HCl 1,250 mg/ 250 mls @ 166.667 mls/hr 12/04/18 10:00 12/04/18 10: 23 Dextrose IVPB 166.667 mls/hr Q12H JULISA Administration Protocol Pantoprazole Sodium 40 mg 12/02/18 10:00 12/04/18 09:42 Protonix - PO 40 mg DAILY JULISA Administration Valacyclovir HCl 500 mg 12/03/18 22:00 12/04/18 09:30 Valtrex - PO 500 mg BID JULISA Administration ASSESSMENT/PLAN: The patient is a 38-year-old male with a past medical history of AIDS, chronic neutropenia, candidal esophagitis, and Cryptococcus who comes into the emergency department complaining of the three-week history of worsening rash and rectal pain. #worsening, migrating rash on back and face -eitology unclear at this time. Differential diagnosis includes viral exanthem, Kaposi's sarcoma, bacillary angiomatosis, or other infectious eitology. -ID on board- Dr Stinson. -Vanc/Merrem in light of fevers and neutropenia and likely source of infection. Will increase Vanc to 1250 Mg BID in light of recent Vanc TRough level. Next vanc trough Dec 05 21:30 -Will consult surgery as pt needs wedge excisional biopsy. Dermatology states they do not perform that procedure. -neutropenic precautions -General Surgery Consulted-Dr Tiffany Gutiérrez. Will evaluate pt over weekend and possible O.R for Lesion biopsy. -Discharge Summary obtained from [facility]. Per records, pt was found to have likely chronic hepatits B and was started on Biktarvy, Mepron, and Azithromycin for MAC prophylxis #HIV/AIDS -c/w HAART (truvada/tivacay/prezcobix in hospital) -resume mepron for PCP ppx. pt allergic to TMP-SMX -Last CD4 count 7.Will repeat -Contacted [facility] I.D clinic this afternoon Pt's last CD4 count as of September 24, 2018--> 30. Viral load 236,000. -CTAP [facility] 09/2019--> "Bilateral wedge shaped hypodensities in the kidneys , which is consistent with bilateral pyelonephritis. Renal infarcts may also be considered but are less likely given patient's stated age. Increased air with the small bowel without obstruction, consistent with ileus. liquid stool throughout the colon: correlate for symptoms of diarrhea.Please see report for further details in patient's chart. -C-Diff Antigen + Stool culture -LDH level---Pt at increased risk of Lymphoma Heme/Onc on board. Dr Crouch/María-----> will hold neupogen pending flow cytometry #rectal pain 2/2 thrombosed external hemmorhoids -secondary to thrombosed external hemorrhoid -will monitor pain and treat if necessary #FEN -no fluids indicated -Monitor electrolytes -regular diet #DVT ppx -SCDs #dispo - MedSurg Visit type - Emergency Visit Emergency Visit: Yes ED Registration Date: 12/01/18 Care time: The patient presented to the Emergency Department on the above date and was hospitalized for further evaluation of their emergent condition. - New Patient This patient is new to me today: No - Critical Care Critical Care patient: No - Discharge Referral Referred to [facility] Med [facility].: No
--- NOTE | 2018-12-04 20:46 | CONSULT ---
Consult - text type - Consultation Consultation Note: Patient is a 38M with history of AIDS (last CD4 count 16), HBV infection, neutropenia, esophagitis, cryptococcus here complaining of facial pustlar lesions after going to the [facility] in Oct, and rectal pain. Patient is also supposed to be taking atovaquone and azithromycin. He was recently admitted to [facility] in Sep. 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 Received 2 doses of noemy[ogen with resolutionof neutropenia Was sent hoe on augmentin started on new antiretrovirals for AIDS/HBV - Past Medical History Allergies/Adverse Reactions: Allergies Allergy/AdvReac Type Severity Reaction Status Date / Time Penicillins Allergy Verified 12/01/18 10:55 sulfamethoxazole Allergy Rash Verified 12/01/18 10:55 [From Bactrim] trimethoprim [From Bactrim] Allergy Rash Verified 12/01/18 10:55 Home Medications: Ambulatory Orders Atovaquone [Mepron -] 750 mg PO DAILY@0800 12/01/18 Bictegrav/Emtricit/Tenofov Ala [Biktarvy 50-200-25 mg Tablet] 1 tab PO DAILY Mag Hydrox/Aluminum Hyd/Simeth [Almacone Liquid] 355 ml PO DAILY 12/01/18 Pantoprazole Sodium [Protonix] 40 mg PO DAILY 12/01/18 - Vital Signs Febrile VSS neck --pustular and nodular lesions over left face, neck, back Cor: RSR, No murmurs, No gallops Lungs: Clear to P&A Abd: Soft, Normal bowel sounds, No organomegaly Ext:No significant edema LAbs/meds rveiewd 37M with HIV/AIDS /HBV infection recent admission in 09/29 to [facility] for 1 month of odynophagia and suspicion of maxillary osteomyelitis, found to have severe neutropenia. Was sent hoe on augmentin/new antiretroviral meds Reports going to the [facility] after discharge and comed in with pustulonodular facial rash and fever. Also came in with hemorrhoidal complaints Recnt EGD at [facility] as nondiagnostic AIDS/CD4 16/HBV/neutropenia/ fever/ pustulonodular rash iver face/neck/ fever LDH normal CT a/p --borderline retroperitoneal adenopathy Neutropenia -- due to AIDS/HBV ? autoimmune / ? inflammatory/ ? EBV check flowcytometry May need neupogen support will need derm consult and biopsy of skin lesions Will discuss with ID team ? antifungal
[2018-12-04] MEDS: PHENYLEPH/MINERAL OIL/PETROLAT 28 GM OINTMENT RC SCH (21:23)
[2018-12-05] MEDS: MEROPENEM 1 GM in DEXTROSE 5%-WATER 100 ML IVPB SCH ×2 (01:44→10:38)
[2018-12-05] MEDS: HEPARIN NA (PORCINE) 5,000 UNITS/ML 1ML VIAL SQ SCH ×2 (07:03→15:14)
[2018-12-05 08:26] LABS: HEMATOCRIT 38.7 % (35.4-49); HEMOGLOBIN 13.6 GM/dL (11.7-16.9); MCH 34.8 pg (25.7-33.7); MCHC 35.2 g/dl (32.0-35.9); MEAN CELL VOLUME 99.1 fl (80-96); MEAN PLT VOLUME 8.5 fl (7.5-11.1); PLATELET COUNT 370 K/MM3 (134-434); RDW 18.6 % (11.9-15.9); WHITE BLOOD COUNT 2.6 K/mm3 (4.0-10.0)
[2018-12-05 09:01] LABS: ANION GAP 8 MMOL/L (8-16); BLOOD UREA NITROGEN 10 mg/dL (7-18); CHLORIDE 98 mmol/L (98-107); CO2 25 mmol/L (21-32); CREATININE 0.9 mg/dL (0.55-1.3); GLUCOSE,RANDOM 98 mg/dL (74-106); MAGNESIUM 2.4 mg/dL (1.8-2.4); PHOSPHOROUS 3.8 mg/dL (2.5-4.9); POTASSIUM 4.1 mmol/L (3.5-5.1); SODIUM 131 mmol/L (136-145)
[2018-12-05] MEDS ORDERED: PT OWN MED DRAWER 7, Y5N ONE (09:03)
[2018-12-05] MEDS: valACYclovir HCL 500 MG TABLET (FP) PO SCH (10:01)
[2018-12-05] MEDS: ATOVAQUONE 750 MG/5 ML (UNIT-DOSE PACKAGING) PO SCH (10:02)
[2018-12-05] MEDS: DOLUTEGRAVIR SODIUM 50 MG TABLET (NON-FORMULARY) PO SCH (10:03)
[2018-12-05] MEDS: EMTRICITABINE 200MG/TENOFOVIR 300MG PO SCH (10:03)
[2018-12-05] MEDS: DARUNAVIR 800 MG/COBICISTAT 150MG TABLET PO SCH (10:04)
[2018-12-05] MEDS: ACETAMINOPHEN 325 MG TABLET (FP) PO PRN (10:07)
[2018-12-05] MEDS: PANTOPRAZOLE 40 MG TABLET (FP) PO SCH (10:07)
[2018-12-05] MEDS: VANCOMYCIN 1,250 MG in DEXTROSE 5%-WATER - 250 ML IVPB SCH (10:38)
--- NOTE | 2018-12-05 14:28 | PN ---
Teaching Attending Note Name of Resident: Abdias Carpenter ATTENDING PHYSICIAN STATEMENT I saw and evaluated the patient. I reviewed the resident's note and discussed the case with the resident. I agree with the resident's findings and plan as documented. SUBJECTIVE: Cont ot have fever. frustrated with no answers . wants to leave today OBJECTIVE: NAD HEENT: cystic lesions with crusted head and tender to palpation on face, neck and scalp, improving . no LAP in neck . lesion on tip of the tongue Cv: RRR, no MRG Abd: soft, NT, ND , No hepatosplenomegaly Ext : no edema Skin : face as above Back and proximal extremities with old rash scars ASSESSMENT AND PLAN: 38 y/o man with h/o HIV/AIDs, chronic leukopenia, candidal esophagitis, and cryptococcus who presented with rash on face and fever 1- Neutropenic fever. infectious vs non infectious ( ? lymphoma ) 2- head/neck rash : folliculitis vs other 3- AIDS 4- thrombosed external hemorrhoids 5- enlarged retroperitoneal lymph nodes 6- Hep B plan : - patient will leave [place] , although he understand that ignoring or partialy treating a possible infection might be very dangerous. He understands also that he might have lymphoma and if untreated in a timely manor it could be dangerous. - he is aware that his out patient providers need to request records and follow up on pending tests - will prescribe him Bictarvy daily , and azithro 1.2 g weekly, and mepron 1500 mg daily for HIV - will prescribe levaquin x [address] Loc Lockett - will prescribe valtrex x 5 days for the tongue lesion , which might be hepes . - given referral to derm , GI, and PCP , also asked to follow withhis HIV MD at [facility]
--- NOTE | 2018-12-05 15:19 | DS ---
Physical Exam: SUBJECTIVE: Patient seen and examined at bedside. Fever of 101.3 in am. Pt frustrated about biopsy not being performed yet. OBJECTIVE: Vital Signs Period Temp Pulse Resp BP Sys/Harrington Pulse Ox Last 24 Hr 98.1 F-101.3 F 98-110 18-20 125-140/64-80 PHYSICAL EXAM GENERAL: Frustrated HEAD: NC/AT. Ulcer on tip of tongue EYES: EOMI Sclera clear ENT: MMM LUNGS: CTAB HEART: RRR No MRG S1S2 ABDOMEN: NDNT No HSM. External Thrombosed Hemorrhoids. EXTREMITIES: DP2+ No Clubbing Cyanosis or Edema NEUROLOGICAL: Cranial nerves II through XII grossly intact. PSYCH: Normal mood, normal affect. SKIN: Raised hard lesions spanning across forehead, parietal, and occipital region of head. No drainage or odor appreciated LABS Laboratory Results - last 24 hr 12/05/18 12/05/18 12/05/18 06:50 06:50 06:50 WBC RBC Hgb Hct MCV MCH MCHC RDW Plt Count MPV ESR 79 H Sodium 131 L Potassium 4.1 Chloride 98 Carbon Dioxide 25 Anion Gap 8 BUN 10 Creatinine 0.9 Creat Clearance w eGFR > 60 Random Glucose 98 Calcium 8.0 L Phosphorus 3.8 Magnesium 2.4 Ferritin C-Reactive Protein 13.4 H Vitamin B12 433 Serum Folate 11 TSH 2.05 Free T4 1.04 Vancomycin Pre-Dose Rheumatoid Factor 12/05/18 12/05/18 12/05/18 06:50 06:50 10:45 WBC 2.6 L RBC 3.90 L Hgb 13.6 Hct 38.7 MCV 99.1 H MCH 34.8 H MCHC 35.2 RDW 18.6 H Plt Count 370 MPV 8.5 ESR Sodium Potassium Chloride Carbon Dioxide Anion Gap BUN Creatinine Creat Clearance w eGFR Random Glucose Calcium Phosphorus Magnesium Ferritin 1103.9 H C-Reactive Protein Vitamin B12 Serum Folate TSH Free T4 Vancomycin Pre-Dose 5.8 L Rheumatoid Factor < 10.0 HOSPITAL COURSE: Date of Admission:12/01/18 Pt is a 38-year-old male with a past medical history of AIDS (last CD4 count 16 this admission), hepatitis B, chronic neutropenia, candidal esophagitis, and Cryptococcus infection who presented to [facility] complaining of a painful rash as well as rectal pain. Pt was started empirically on Merrem and Vancomycin. Blood and urine cultures were both negative. Pt on CBC was found to be neutropenic at 2.6. Pt's CD4 count was 16. ID was consulted and pt was started on Truvada, Tivacay and prezcobic (pharmacy did not carry Biktarvy). Pt was also started on Mepron and Valacyclovir were initiated for PCP prophylaxis and possible HSV, respectively. Furthermore, pt underwent a CTAP to r/o any occult malignancy that could be a source for his spiking temperatures. CTAP revealed enlarged left sided retroperitoneal lymph nodes. LDH level was not elevated. Pt spiked fevers during admission most likely 2/2 neutropenic fever. Pt was planned for a biopsy of his head lesions but became frustrated as he was not seen by dermatology. Surgery was consulted to perform the biopsy however pt stated he did not want to wait until Friday or possibly Friday. Pt left AMA understanding his condition may get worse by doing so. Date of Discharge: 12/05/18 Minutes to complete discharge: 35 Discharge Summary Reason For Visit: FEBRILE NEUTROPENIA Current Active Problems Hemorrhoids, external (Acute) Neutropenic fever (Acute) Rash (Acute) HIV (human immunodeficiency virus infection) (Chronic) Condition: Fair - Instructions Diet, Activity, Other Instructions: You presented to the hospital c/o a rash on your head and hemorrhoid pain. You were treated with antibiotics due to fever ( still unknown source) . You were also scheduled to undergo a biopsy of these lesions on your head. You have decided to leave against medical advice before a surgeon could come and perform this biopsy. you also underwent hematologic evaluation Please continue to take all of your HIV medication as prescribed. 1 Tab Biktarvy Daily Levaquin antibiotic has been sent to your pharmacy. Please take this for 1 week. 500 mg ONCE per day for 7 days Please Take the Atovaquone medication as prescribed Please take Valtrex 500 MG TWICE per day for another 5 days. Please Continue to take Azithromycin 1200 mg ONCE per week. This helps prevent infections that are known to occur in immunocomprimised individuals. Please follow up this week with your HIV Physician at [facility]. Please follow up with your primary care physician this week. If you do not have a primary care doctor, we have attached a referral for you to follow up in our medical clinic. You will be given a referral to see a Mineral Resources Inspector for your hemorrhoids. you can see dr. Fay You will be given a referral to see a Life Insurance Salesperson for your Rash and biopsy. Dr. Bello You will be given a referral to see a blood doctor for you to follow up to make sure you do not have any lymphoma (Cancer). Dr. Blevins Please return to Emergency Department immediately if you begin to experience shortness of breath, chest pain, fevers, nausea/vomiting, dizziness, or any other abnormal symptoms. there is significant risk associated with possible untreated infection ( bacterial or fungal ) and not being on appropriate treatment. also significant risk if you have lymphoma or other type of cancer if left untreated or treatment delayed the pending tests need to be followed by your out patient providers. records need to be obtained Referrals: Misael Alba MD [Staff Physician] - Gloria Bello MD [Staff Physician] - Candis Fay DO [Staff Physician] - Felicity Bolaños MD [Staff Physician] - 1 Week Elier Reina MD [Staff Physician] - Disposition: AGAINST MEDICAL ADVICE - Home Medications Comprehensive Discharge Medication List: Ambulatory Orders Atovaquone [Mepron Oral Solution -] 1,500 mg PO DAILY@0800 #1 bottle 12/05/18 Azithromycin [Zithromax 600mg Tablets -] 1,200 mg PO Q7D #20 tablet 12/05/18 Bictegrav/Emtricit/Tenofov Ala [Biktarvy 50-200-25 mg Tablet] 1 each PO DAILY # 30 tablet 12/05/18 Levofloxacin [Levaquin] 500 mg PO DAILY #7 tablet 12/05/18 Valacyclovir HCl [Valtrex] 500 mg PO BID #10 tablet 12/05/18 This patient is new to me today: No Emergency Visit: Yes ED Registration Date: 12/01/18 Care time: The patient presented to the Emergency Department on the above date and was hospitalized for further evaluation of their emergent condition. Critical Care patient: No - Discharge Referral Referred to [facility] Med P.C.: No
[2018-12-05 17:11] VITALS: BP 141/77; PULSE 100; TEMP 99.9
[2018-12-08 01:11] LABS: HBSAG SCREEN Positive (Negative); HEP B CORE AB, TOT Negative (Negative)
--- NOTE | 2018-12-08 16:32 | PATH ---
Surgical Pathology Report Patient Name: MIGUEL DRISCOLL Med. Rec. #: [id number] /Age/Gender: 1980 (Age: 38) / M Account: [id number] Location: [facility] MED/SURG Taken: 12/07/2018 Received: 12/07/2018 Reported: 12/08/2018 Physicians: LETY Mayen MD Hanady Zainah, M.D. Specimen(s) Received PERIPHERAL IN 2 GREEN TOPS Clinical History 38-year-old male with AIDS, severe neutropenia, lymphocytosis Final Diagnosis COMPREHENSIVE FLOW PANEL performed and [facility] [place] ([id number]) shows the following: INTERPRETATION: GRANULOCYTOPENIA WITH NO DISCRETE ATYPICAL IMMUNOPHENOTYPIC FINDINGS SEEN. Additional Tests: Cytogenetics, FISH See [facility] report ([id number]) for additional details. Electronically Signed Matti Beverly M.D. Addendum Reported: 12/09/2018 Addendum Diagnosis MYELODYSPLASIA FISH PANEL performed and interpreted at [facility], [place], [place] shows the following: INTERPRETATION: No evidence of deletion 5q or monosomy 5 is present. No evidence of deletion 7q or monosomy 7 is present. No evidence of trisomy 8 (+8) is present. No evidence of deletion 13q14.2 is present. No evidence of rearrangement of 11q23. No evidence of a deletion of the p53 (17p13) locus. No evidence of deletion 20q12 is present See [facility] report ([id number]) for additional details. Matti Beverly M.D. Gross Description Received are 2 green top tubes of peripheral blood which are sent to [facility]. DL/12/07/2018 saudi/12/07/2018
== END 2018-12-05 18:11 | disposition left against medical advice (07) | DRG 894 ==
LOC: JERFT 08:37 → JERBED 11:32 → J8W 17:57
PROVIDERS: ADMIT Internal Medicine; ATTEND Internal Medicine
DX: B20 Human immunodeficiency virus [HIV] disease (principal); K64.5 Perianal venous thrombosis; R21 Rash and other nonspecific skin eruption; R59.9 Enlarged lymph nodes, unspecified; B19.10 Unspecified viral hepatitis B without hepatic coma; D70.9 Neutropenia, unspecified; Z88.1 Allergy status to other antibiotic agents
CPT/HCPCS: 36415; 71045-TC-FY; 74178-TC; 80048; 80053; 81003; 82607; 82728; 82746; 82803; 83605; 83615; 83735; 84100; 84439; 84443; 84484; 85025; 85027; 85651; 86038; 86140; 86359; 86360; 86431; 86704; 86706; 86708; 87040; 87086; 87116; 87340; 87899; 88300-TC; 93005; 93010; 99285-25; G0480; J0131; J1644; J7030; Q9967

== ENCOUNTER 2018-12-15 21:23 | Emergency (ER) | payer OTHER ==
[2018-12-15 21:34] VITALS: BP 133/86; PULSE 104; TEMP 99; BMI 23.6
--- NOTE | 2018-12-15 22:11 | PDOC ---
History of Present Illness - General Chief Complaint: Wound Stated Complaint: INFECTION IN TOUNGUE Time Seen by Provider: 12/15/18 22:01 - History of Present Illness Initial Comments: 12/15/18 22:06 38-year-old male with a past medical history significant for HIV presents for evaluation of a painful mouth sores that's been there for the last 2 weeks. He sees an oral surgeon and [place] who decided to watch and wait since that time the lesion has become bigger started to bleed and increasingly painful. The lesion has been present for the last 2 weeks his appointment was about 2 weeks ago. He has no systemic symptoms. Past History - Past Medical History Allergies/Adverse Reactions: Allergies Allergy/AdvReac Type Severity Reaction Status Date / Time Penicillins Allergy Verified 12/15/18 21:34 sulfamethoxazole Allergy Rash Verified 12/15/18 21:34 [From Bactrim] trimethoprim [From Bactrim] Allergy Rash Verified 12/15/18 21:34 Home Medications: Ambulatory Orders Atovaquone [Mepron Oral Solution -] 1,500 mg PO DAILY@0800 #1 bottle 12/05/18 Azithromycin [Zithromax 600mg Tablets -] 1,200 mg PO Q7D #20 tablet 12/05/18 Bictegrav/Emtricit/Tenofov Ala [Biktarvy 50-200-25 mg Tablet] 1 each PO DAILY # 30 tablet 12/05/18 Levofloxacin [Levaquin] 500 mg PO DAILY #7 tablet 12/05/18 Valacyclovir HCl [Valtrex] 500 mg PO BID #10 tablet 12/05/18 Nystatin/Dpha/Lido/Sucrafate [Nystatin Mouth Rinse *Df Formula*] 120 ml MM BID # 100 ml 12/15/18 Anemia: No Asthma: No Cancer: No Cardiac Disorders: No CVA: No COPD: No CHF: No Dementia: No Diabetes: No GI Disorders: No Disorders: No HTN: No Liver Disease: No Seizures: No Thyroid Disease: No - Surgical History Abdominal Surgery: No Appendectomy: No Cardiac Surgery: No Cholecystectomy: No Lung Surgery: No Neurologic Surgery: No Orthopedic Surgery: No - Immunization History Immunization Up to Date: No - Suicide/Smoking/Psychosocial Hx Smoking History: Never smoked Have you smoked in the past 12 months: No Number of Cigarettes Smoked Daily: 10 If you are a former smoker, when did you quit?: 2008 Cigars Per Day: 0 Information on smoking cessation initiated: No 'Breaking Loose' booklet given: 07/02/17 Hx Alcohol Use: No Drug/Substance Use Hx: No Substance Use Type: None Hx Substance Use Treatment: No Review of Systems - Review of Systems Integumentary: Yes: Lesions *Physical Exam - Vital Signs Last Vital Signs Temp Pulse Resp BP Pulse Ox 99.0 F 104 H 18 133/86 100 12/15/18 21:32 12/15/18 21:32 12/15/18 21:32 12/15/18 21:32 12/15/18 21:32 - Physical Exam Comments: 12/15/18 22:07 HEAD: NC/AT EYES: Conjuntiva clear NOSE: No d/c THROAT: Moist mucous membrances, oral pharanx clear, uvula midline; there is a yellow white lesion on the left anterior lateral aspect of the tongue with a bleeding base. Oral candidiasis is present. There is a similar lesion on the left posterior pupil mucosa MS: Full ROM in all joints without edema NEUROLOGIC: No gross sensory or motor deficits, NVID SKIN: Normal color and temperature no lesions or rashes Moderate Sedation - Procedure Monitoring Vital Signs: Procedure Monitoring Vital Signs Temperature 99.0 F 12/15/18 21:32 Pulse Rate 104 H 12/15/18 21:32 Respiratory Rate 18 12/15/18 21:32 Blood Pressure 133/86 12/15/18 21:32 O2 Sat by Pulse Oximetry (%) 100 12/15/18 21:32 Medical Decision Making - Medical Decision Making 12/15/18 22:08 Oral candidiasis with oral lesion of unknown etiology. I will refer him back to oral surgery as this may require biopsy. Treat him with nystatin swish and swallow for oral candidiasis. He states the lesion is painful I have given him a Percocet in the emergency room. *DC/Admit/Observation/Transfer Diagnosis at time of Disposition: Oral candidiasis - Discharge Dispostion Disposition: HOME Condition at time of disposition: Stable Decision to Admit order: No - Prescriptions Prescriptions: Nystatin/Dpha/Lido/Sucrafate [Nystatin Mouth Rinse *Df Formula*] 120 ml MM BID # 100 ml - Referrals - Patient Instructions Additional Instructions: Please follow-up with your oral surgeon in one to 2 days for further evaluation and treatment options. Return to the emergency room for worsening symptoms. Please use the nystatin swish and swallow as directed. - Post Discharge Activity
== END 2018-12-15 22:31 | disposition home or self-care (01) ==
LOC: JERFT 21:23
DX: B37.0 Candidal stomatitis (principal); B20 Human immunodeficiency virus [HIV] disease; Z88.0 Allergy status to penicillin; Z88.2 Allergy status to sulfonamides
CPT/HCPCS: 99281-25

== ENCOUNTER 2018-12-23 05:12 | Emergency (ER) | payer OTHER ==
[2018-12-23 05:49] VITALS: TEMP 98.4; BMI 26.6
--- NOTE | 2018-12-23 07:19 | PDOC ---
History of Present Illness - General Chief Complaint: Pain, Acute Stated Complaint: MOUTH PAIN Time Seen by Provider: 12/23/18 07:18 History Source: Patient Exam Limitations: No Limitations - History of Present Illness Initial Comments: 12/23/18 07:29 Patient is a 38-year-old male with history of HIV/AIDS, CD4 count of 16, high viral load who presents to the ER with persistent tongue pain and swelling for the past week after undergoing a tongue biopsy 8 days previously by OMFS. Patient reports that pain is not effectively controlled by [id number] Tylenol and the tongue swelling is intermittent and is not effectively controlled by oral nystatin mouthwash and amoxicillin prescribed for the procedure. Patient denies fevers or chills. Patient complains of mild dysphasia only. Patient able to control his pain despite taking Percocet which was prescribed to his mother. REVIEW OF SYSTEMS CONSTITUTIONAL: No fever, no chills, no fatigue EYES: No visual changes ENT: No ear pain, no sore throat; + tongue pain/swelling CARDIOVASCULAR: No chest pain, no palpitations RESPIRATORY: No cough, no SOB GI: No abdominal pain, no nausea, no vomiting, no constipation, no diarrhea GENITOURINARY: No dysuria, no frequency, no hematuria MUSKULOSKELETAL: No backpain, no joint pain, no myalgias SKIN: No rash NEURO: No headache EXAMINATION CONSTITUTIONAL: awake, alert; well-nourished; in mild distress HEAD: Normocephalic; atraumatic EYES: PERRL; EOM intact ENMT: External appears normal; + localised hyperemia and edema of the left aspect of the tip of the tongue with sutures and granulation tissue present. + hairy leukoplakia noted. NECK: Supple; non-tender; + enlarged left anterior cervical lymphadenopathy noted (non-tender) CARD: Normal S1, S2; no murmurs, rubs, or gallops RESP: Normal chest excursion with respiration; breath sounds clear and equal bilaterally; no wheezes, rhonchi, or rales ABD: Soft, non-distended; non-tender; no palpable organomegaly, no palpable hernias EXT: Normal ROM in all four extremities; non-tender to palpation; distal pulses intact SKIN: Warm, dry, no rash NEURO: No focal neurological deficiencies. Past History - Past Medical History Allergies/Adverse Reactions: Allergies Allergy/AdvReac Type Severity Reaction Status Date / Time Penicillins Allergy Verified 12/23/18 05:49 sulfamethoxazole Allergy Rash Verified 12/23/18 05:49 [From Bactrim] trimethoprim [From Bactrim] Allergy Rash Verified 12/23/18 05:49 Home Medications: Ambulatory Orders Amoxicillin/Potassium Clav [Amox-Clav 500-125 mg Tablet] 1 each PO DAILY Bictegrav/Emtricit/Tenofov Ala [Biktarvy 50-200-25 mg Tablet] 1 each PO DAILY Clindamycin [Cleocin -] 300 mg PO TID #21 capsule 12/23/18 Darunavir/Cobicistat [Prezcobix 800 mg-150 mg Tablet] 1 each PO DAILY 12/23/18 Nystatin 100,000 unit PO BID 12/23/18 Tramadol HCl 50 mg PO TID #14 tablet MDD 3 12/23/18 Anemia: No Asthma: No Cancer: No Cardiac Disorders: No CVA: No COPD: No CHF: No Dementia: No Diabetes: No GI Disorders: No Disorders: No HTN: No Liver Disease: No Seizures: No Thyroid Disease: No - Surgical History Abdominal Surgery: No Appendectomy: No Cardiac Surgery: No Cholecystectomy: No Lung Surgery: No Neurologic Surgery: No Orthopedic Surgery: No - Immunization History Td Vaccination: Yes TDAP Vaccination: Yes Immunization Up to Date: Yes - Suicide/Smoking/Psychosocial Hx Smoking History: Never smoked Have you smoked in the past 12 months: No Number of Cigarettes Smoked Daily: 10 If you are a former smoker, when did you quit?: 2009 Cigars Per Day: 0 Information on smoking cessation initiated: No 'Breaking Loose' booklet given: 07/02/17 Hx Alcohol Use: No Drug/Substance Use Hx: No Substance Use Type: None Hx Substance Use Treatment: No *Physical Exam - Vital Signs Last Vital Signs Temp Pulse Resp BP Pulse Ox 98.4 F 96 H 18 150/99 98 12/23/18 05:12 12/23/18 05:12 12/23/18 05:12 12/23/18 05:12 12/23/18 05:12 Moderate Sedation - Procedure Monitoring Vital Signs: Procedure Monitoring Vital Signs Temperature 98.4 F 12/23/18 05:12 Pulse Rate 96 H 12/23/18 05:12 Respiratory Rate 18 12/23/18 05:12 Blood Pressure 150/99 12/23/18 05:12 O2 Sat by Pulse Oximetry (%) 98 12/23/18 05:12 Medical Decision Making - Medical Decision Making 12/23/18 07:38 38 y/o male with hx/o aids, on alatorre presents with tongue pain and swelling. no evidence of sublingual abscess is noted. no airway issues are present. pt lizzie po. wiil switch to clindamycin for oral ben coverage, will d/c with tramadol with omfs f/u. *DC/Admit/Observation/Transfer Diagnosis at time of Disposition: AIDS (acquired immune deficiency syndrome), Tongue pain, Post-op pain - Discharge Dispostion Disposition: HOME Condition at time of disposition: Stable - Referrals Referrals: Les Rene MD [Primary Care Provider] - - Patient Instructions Printed Discharge Instructions: How to Care for a Surgical Wound-Stitches, DI for Mouth Pain - Post Discharge Activity
[2018-12-23] MEDS ORDERED: traMADol HCL 50 MG TABLET PO ONE (07:26)
[2018-12-23] MEDS ORDERED: traMADol HCL 50 MG TABLET ONE (07:28)
[2018-12-23 08:10] VITALS: BP 145/88; PULSE 91
== END 2018-12-23 08:20 | disposition home or self-care (01) ==
LOC: JER 05:12
DX: B20 Human immunodeficiency virus [HIV] disease (principal); K14.6 Glossodynia; G89.18 Other acute postprocedural pain; Z87.891 Personal history of nicotine dependence
CPT/HCPCS: 99282-25

== ENCOUNTER 2019-01-02 06:58 | Emergency (ER) | payer OTHER ==
[2019-01-02 07:14] VITALS: BMI 25.1
--- NOTE | 2019-01-02 07:57 | PDOC ---
Attending Attestation - Resident Resident Name: Brett Mtz - ED Attending Attestation I have performed the following: I have examined & evaluated the patient, The case was reviewed & discussed with the resident, I agree w/resident's findings & plan, Exceptions are as noted - HPI HPI: 01/02/19 08:40 Mr. Kohler is a 38 yo M h/o AIDS (last CD4 count 16 this admission), hepatitis B, chronic neutropenia, candidal esophagitis (per chart review admission at [facility] 09/29 for odynophagia, s/p s/o endoscopy at [facility] non diagnostic), h/o Cryptococcus. Pt reports that he is having more pain with swallowing than before, now having difficulty tolerating his shakes (he is having difficulty swallowing liquids) Pt reports compliance with his po meds He also recently had a tongue biopsy which has made it more difficult to talk No fevers or chills - Physicial Exam PE: 01/02/19 07:57 GENERAL: The patient is in no acute distress. ENT: Ears normal, nares patent, oropharynx clear without exudates. Moist mucous membranes. No tonsillar enlargement, no exudates NECK: Normal range of motion, supple, no nuchal rigidity (+) LAD LUNGS: Breath sounds equal, clear to auscultation bilaterally. No wheezes, and no crackles. HEART:Regular rate and rhythm, normal S1 and S2 without murmur, rub or gallop. ABDOMEN: Soft, nontender, normoactive bowel sounds. EXTREMITIES: Normal range of motion, no edema. NEUROLOGICAL: Cranial nerves II through XII grossly intact. Normal speech. No focal neurological deficits. SKIN: Warm, Dry, normal turgor, no rashes or lesions noted. - Medical Decision Making 01/02/19 09:25 38 yo M presenting to the ER with a complaint of difficulty swallowing no fever or chills will do labs 01/02/19 09:52 Laboratory Tests 01/02/19 09:00 Sodium 132 L Potassium 4.2 Chloride 96 L Carbon Dioxide 30 Anion Gap 6 L BUN 12 Creatinine 0.7 Random Glucose 98 Creatine Kinase 50 Troponin I < 0.02 01/02/19 10:28 Laboratory Tests 01/02/19 09:00 WBC 2.3 L Hgb 13.9 Hct 40.3 Plt Count 363 Neutrophils % 7.3 L D Pt ANC 190 Will need to be isolated Xray reveals possible sbo Will do CT Will admit to hospitalist service 01/02/19 13:[address] Hernández Pt should be managed at tertiary care center Call placed to pt ID physician - dr Cunningham at [facility], results reviewed with him Pt will be sent to [facility] with mother Clinical impression: severe esophagitis, initial presentation
--- NOTE | 2019-01-02 08:04 | PDOC ---
History of Present Illness - General Chief Complaint: Pain Stated Complaint: STOMACH PAIN Time Seen by Provider: 01/02/19 07:37 History Source: Patient Exam Limitations: No Limitations - History of Present Illness Initial Comments: 01/02/19 07:52 38 yo male pmh HIV on meds (12/23/2018 CD4 16, elevated viral load) hepatitis type unknown, chronic neutropenia, candidal esophagitis, cryptoccocus infection , and gastric ulcers complains of 2 days of epigastric pain, difficulty swallowing, pain with swallowing, increased salivation. Admits to nausea without vomiting, currently on liquid diet for unknown reason. Admits to substernal CP and mild SOB. Recently seen here for tongue ulcer biopsied found to be a mucionous ulcer. Pt has had multiple recent EGDs showed distal esophagial ulcer with neg path report. Of note, pt also reports 10 lbs weight loss within the last [address] Mathias (ID) at [facility] for HIV care. Denies F/C, changes in bowel or bladder habits, back pain. Past History - Past Medical History Allergies/Adverse Reactions: Allergies Allergy/AdvReac Type Severity Reaction Status Date / Time Penicillins Allergy Verified 01/02/19 12:06 sulfamethoxazole Allergy Rash Verified 01/02/19 12:06 [From Bactrim] trimethoprim [From Bactrim] Allergy Rash Verified 01/02/19 12:06 Home Medications: Ambulatory Orders Amoxicillin/Potassium Clav [Amox-Clav 500-125 mg Tablet] 1 each PO DAILY Bictegrav/Emtricit/Tenofov Ala [Biktarvy 50-200-25 mg Tablet] 1 each PO DAILY Clindamycin [Cleocin -] 300 mg PO TID #21 capsule 12/23/18 Darunavir/Cobicistat [Prezcobix 800 mg-150 mg Tablet] 1 each PO DAILY 12/23/18 Nystatin 100,000 unit PO BID 12/23/18 Tramadol HCl 50 mg PO TID #14 tablet MDD 3 12/23/18 Anemia: No Asthma: No Cancer: No Cardiac Disorders: No CVA: No COPD: No CHF: No Dementia: No Diabetes: No GI Disorders: No Disorders: No HTN: No Liver Disease: No Seizures: No Thyroid Disease: No - Surgical History Abdominal Surgery: No Appendectomy: No Cardiac Surgery: No Cholecystectomy: No Lung Surgery: No Neurologic Surgery: No Orthopedic Surgery: No - Immunization History Td Vaccination: Yes TDAP Vaccination: Yes Immunization Up to Date: Yes - Suicide/Smoking/Psychosocial Hx Smoking History: Never smoked Have you smoked in the past 12 months: No Number of Cigarettes Smoked Daily: 10 If you are a former smoker, when did you quit?: 2008 Cigars Per Day: 0 Information on smoking cessation initiated: No 'Breaking Loose' booklet given: 07/02/17 Hx Alcohol Use: No Drug/Substance Use Hx: No Substance Use Type: None Hx Substance Use Treatment: No Review of Systems - Review of Systems Constitutional: No: Chills, Fever Respiratory: No: Shortness of Breath Cardiac (ROS): No: Chest Pain, Edema, Lightheadedness, Palpitations ABD/GI: Yes: Nausea, Other (epigastric pain as well as pain witht swallowing and retaining saliva in mouth) Musculoskeletal: No: Back Pain Neurological: No: Headache *Physical Exam - Vital Signs Last Vital Signs Temp Pulse Resp BP Pulse Ox 98.4 F 102 H 17 129/86 99 01/02/19 07:12 01/02/19 07:12 01/02/19 07:12 01/02/19 07:12 01/02/19 07:12 - Physical Exam General Appearance: Yes: Nourished, Appropriately Dressed. No: Apparent Distress HEENT: positive: EOMI, Hearing Grossly Normal, Excessive drooling, Thrush, Other (ulcer on tongue with garggling voice due to retention of saliva. Pt satuaring 99% RA, clear breath sounds, no neck pain/swelling AOX3 and protecting his airway ). negative: Normal Voice (gargled ), Pharyngeal Erythema , Tonsillar Exudate Neck: positive: Supple. negative: Carotid bruit, Decreased range of motion, Tender midline, Thyromegaly Respiratory/Chest: positive: Lungs Clear, Normal Breath Sounds. negative: Respiratory Distress, Accessory Muscle Use, Labored Respiration, Rapid RR, Crackles, Rales, Rhonchi, Stridor, Wheezing Cardiovascular: positive: Regular Rhythm, S1, S2. negative: Edema, JVD, Murmur Vascular Pulses: Dorsalis-Pedis (R): 4+, Doralis-Pedis (L): 4+ Gastrointestinal/Abdominal: positive: Flat, Tenderness (epigastric). negative: Protuberent, Distended, Guarding, Rebound Musculoskeletal: negative: CVA Tenderness Extremity: positive: Normal Capillary Refill, Normal Inspection Integumentary: positive: Normal Color, Dry, Warm Neurologic: positive: Fully Oriented, Alert, Normal Mood/Affect, Normal Response Moderate Sedation - Procedure Monitoring Vital Signs: Procedure Monitoring Vital Signs Temperature 98.4 F 01/02/19 07:12 Pulse Rate 102 H 01/02/19 07:12 Respiratory Rate 17 01/02/19 07:12 Blood Pressure 129/86 01/02/19 07:12 O2 Sat by Pulse Oximetry (%) 99 01/02/19 07:12 ED Treatment Course - LABORATORY CBC & Chemistry Diagram: 01/02/19 09:00 01/02/19 09:00 Medical Decision Making - Medical Decision Making 38 yo male pmh HIV on meds (12/23/2018 CD4 16, elevated viral load) hepatitis type unknown, chronic neutropenia, candidal esophagitis, cryptoccocus infection , and gastric ulcers complains of 2 days of epigastric pain, difficulty swallowing, pain with swallowing, increased salivation. Admits to nausea without vomiting, currently on liquid diet for unknown reason. Admits to substernal CP and mild SOB. Recently seen here for tongue ulcer biopsied found to be a mucionous ulcer. Pt has had multiple recent EGDs showed distal esophagial ulcer with neg path report. Of note, pt also reports 10 lbs weight loss within the last [address] Mathias (ID) at [facility] for HIV care. Denies F/C, changes in bowel or bladder habits, back pain. later through chart review, found similar complaints (difficulty swallowing, retaining saliva in mouth with painful swallowing, epigastric pain) with full work up including GI consult, egd, neck CT and ENT follow up all determining non emergent cause of symptoms. Pt agrees that symptoms presenting with today are chronic. Abdomen flat and upright shows possible SBO Ab/Pel CT ordered to rule out SBO. Scan is negative for sbo Pt stable, NAD, AOX3 and comfortable vitals elevater HR otherwise WNL Labs: CBC: WBC of 2 and low neutrophils (chronic neutropenia seen in previous labs CMP: Normal lipase Spoke with GI carbon electrodes supervisor including presentation, exam and labs, agree that pt presents with chronic complaints that have been documented without acute worsening of clinical picture. Recommends pt should follow Dr. Mathias ID where he has been followed and received endoscopies and GI consults. Pt will be better served at this time if he continues care under the direction of ID at the [facility]. Placed a call to Dr. Mathias at [facility], carbon electrodes supervisor physician returns call and states pt should head over to the [facility] at this time and the office/ ER will be expecting him Pt does not meet criteria for hospital to hospital transport at this time due to chronic nature of complaints, chronic neutropenia and pt is stable. Mother is present who agrees to drive pt to the [facility] for further care. Pt agrees with current plan and understands his care should be continually followed at the [facility] *DC/Admit/Observation/Transfer Diagnosis at time of Disposition: Dysphagia - Discharge Dispostion Disposition: HOME Condition at time of disposition: Stable Decision to Admit order: No - Referrals Referrals: Les Mijares MD [Primary Care Provider] - - Patient Instructions Printed Discharge Instructions: DI for AIDS, DI for Esophageal Dysphagia, DI for Oropharyngeal Dysphagia Additional Instructions: Please go to [facility] ER where your Infectious Disease Doctor and specialists are right away. Dr. Mathias is expecting you. Continue taking all of your home dosed medications as prescribed. Return to the ER for new or concerning symptoms. Thank you - Post Discharge Activity
[2019-01-02 09:34] LABS: ALBUMIN 2.7 g/dl (3.4-5.0); ALK PHOS 66 U/L (45-117); AMYLASE 53 U/L (25-115); ANION GAP 6 MMOL/L (8-16); BILIRUBIN,TOTAL 0.2 mg/dL (0.2-1); BLOOD UREA NITROGEN 12 mg/dL (7-18); CALCIUM 8.9 mg/dL (8.5-10.1); CHLORIDE 96 mmol/L (98-107); CO2 30 mmol/L (21-32); CREATININE 0.7 mg/dL (0.55-1.3); GLUCOSE,RANDOM 98 mg/dL (74-106); LIPASE 95 U/L (73-393); POTASSIUM 4.2 mmol/L (3.5-5.1); SGOT/AST 18 U/L (15-37); SGPT/ALT 18 U/L (13-61); SODIUM 132 mmol/L (136-145); TOT PROT 8.7 g/dl (6.4-8.2)
[2019-01-02 09:55] LABS: BASO % 1.2 % (0-2.0); EOS % 9.8 % (0-4.5); HEMATOCRIT 40.3 % (35.4-49); HEMOGLOBIN 13.9 GM/dL (11.7-16.9); LYMPH % 35.1 % (8-40); MCH 33.2 pg (25.7-33.7); MCHC 34.6 g/dl (32.0-35.9); MEAN CELL VOLUME 95.9 fl (80-96); MEAN PLT VOLUME 8.7 fl (7.5-11.1); MONO % 46.6 % (3.8-10.2); NEUT % 7.3 % (42.8-82.8); PLATELET COUNT 363 K/MM3 (134-434); RDW 17.3 % (11.9-15.9); WHITE BLOOD COUNT 2.3 K/mm3 (4.0-10.0)
[2019-01-02] MEDS ORDERED: MAG HYDROX/ALH/SMC/DPHA/LIDO 240 ML MOUTHWASH MM SCH (12:00)
[2019-01-02 12:13] LABS: PLATELET ESTIMATE ADEQUATE
[2019-01-02 12:46] VITALS: BP 110/78; PULSE 88; TEMP 98.9
--- NOTE | 2019-01-02 17:01 | EKG ---
Test Reason : Blood Pressure : / mmHG Vent. Rate : 085 BPM Atrial Rate : 085 BPM P-R Int : 128 ms QRS Dur : 088 ms QT Int : 372 ms P-R-T Axes : 060 065 030 degrees QTc Int : 442 ms NORMAL SINUS RHYTHM MINIMAL VOLTAGE CRITERIA FOR LVH, MAY BE NORMAL VARIANT BORDERLINE ECG WHEN COMPARED WITH ECG OF 01-DEC-2018 10:26, NO SIGNIFICANT CHANGE WAS FOUND Confirmed by RAJIV MONTOYA, FANY ([id number]) on 01/02/2019 5:01:26 PM Referred By: Confirmed By:FANY VANCE MD
== END 2019-01-02 14:12 | disposition home or self-care (01) ==
LOC: JER 06:58
DX: R13.12 Dysphagia, oropharyngeal phase (principal); B20 Human immunodeficiency virus [HIV] disease; B19.10 Unspecified viral hepatitis B without hepatic coma; D70.8 Other neutropenia; R63.4 Abnormal weight loss; Z68.25 Body mass index [BMI] 25.0-25.9, adult
CPT/HCPCS: 36415; 71046-TC-FY; 74019-TC-FY; 74177-TC; 80053; 82150; 82550; 83690; 84484; 85025; 93005; 93010; 99284-25

== ENCOUNTER 2019-10-26 15:14 | Emergency (ER) | payer SELFPAY ==
[2019-10-26] MEDS ORDERED: IBUPROFEN 600 MG TABLET (FP) PO ONE ×2 (15:38→15:58)
[2019-10-26 15:41] VITALS: BP 130/79; PULSE 117; TEMP 101.4; BMI 26.6
--- NOTE | 2019-10-26 15:41 | PDOC ---
Rapid Medical Evaluation Chief Complaint: Cold Symptoms Time Seen by Provider: 10/26/19 15:36 Medical Evaluation: Allergies Allergy/AdvReac Type Severity Reaction Status Date / Time Penicillins Allergy Verified 10/26/19 15:36 sulfamethoxazole Allergy Rash Verified 10/26/19 15:36 [From Bactrim] trimethoprim [From Bactrim] Allergy Rash Verified 10/26/19 15:36 10/26/19 15:40 Pt c/o: uri, fever since last night Pt on brief exam: tachy, glassy eyed Pt ordered for: flu, motrin Pt to proceed to the ED Discharge Disposition - Diagnosis Fever, Pneumonia - Discharge Dispostion Disposition: HOME Condition at time of disposition: Stable - Prescriptions Prescriptions: Azithromycin [Zithromax -] 250 mg PO UTDICT #6 tab Guaifenesin Dm [Mucinex Dm -] 1 tab PO BID #60 tab.er.12h - Referrals Referrals: Kingston Mera MD [Staff Physician] - - Patient Instructions Additional Instructions: Please start the antibiotics and take them as directed. Take Mucinex as directed. Tylenol Motrin as directed for fevers. Return to the emergency room for worsening symptoms. Without fail follow-up with primary care physician in 2 to 3 days for further evaluation and treatment options. - Post Discharge Activity Work/School Note: Back to Work
--- NOTE | 2019-10-26 16:28 | PDOC ---
History of Present Illness - General Chief Complaint: Cold Symptoms Stated Complaint: FLU SYMPTOMS Time Seen by Provider: 10/26/19 15:36 - History of Present Illness Initial Comments: 10/26/19 16:27 38-year-old male with cough and fever x2 days he denies comorbidities Past History - Past Medical History Allergies/Adverse Reactions: Allergies Allergy/AdvReac Type Severity Reaction Status Date / Time Penicillins Allergy Verified 10/26/19 15:36 sulfamethoxazole Allergy Rash Verified 10/26/19 15:36 [From Bactrim] trimethoprim [From Bactrim] Allergy Rash Verified 10/26/19 15:36 Home Medications: Ambulatory Orders Amoxicillin/Potassium Clav [Amox-Clav 500-125 mg Tablet] 1 each PO DAILY Bictegrav/Emtricit/Tenofov Ala [Biktarvy 50-200-25 mg Tablet] 1 each PO DAILY Clindamycin [Cleocin -] 300 mg PO TID #21 capsule 12/23/18 Darunavir/Cobicistat [Prezcobix 800 mg-150 mg Tablet] 1 each PO DAILY 12/23/18 Nystatin 100,000 unit PO BID 12/23/18 Tramadol HCl 50 mg PO TID #14 tablet MDD 3 12/23/18 Azithromycin [Zithromax -] 250 mg PO UTDICT #6 tab 10/26/19 Guaifenesin Dm [Mucinex Dm -] 1 tab PO BID #60 tab.er.12h 10/26/19 Anemia: No Asthma: No Cancer: No Cardiac Disorders: No CVA: No COPD: No CHF: No Dementia: No Diabetes: No GI Disorders: No Disorders: No HTN: No Liver Disease: No Seizures: No Thyroid Disease: No - Surgical History Abdominal Surgery: No Appendectomy: No Cardiac Surgery: No Cholecystectomy: No Lung Surgery: No Neurologic Surgery: No Orthopedic Surgery: No - Immunization History Td Vaccination: Yes TDAP Vaccination: Yes Immunization Up to Date: Yes - Psycho Social/Smoking Cessation Hx Smoking History: Never smoked Have you smoked in the past 12 months: No Number of Cigarettes Smoked Daily: 10 If you are a former smoker, when did you quit?: 2008 Cigars Per Day: 0 'Breaking Loose' booklet given: 07/02/17 Hx Alcohol Use: No Drug/Substance Use Hx: No Substance Use Type: None Hx Substance Use Treatment: No Review of Systems - Review of Systems Constitutional: Yes: Fever Respiratory: Yes: Cough *Physical Exam - Vital Signs Last Vital Signs Temp Pulse Resp BP Pulse Ox 101.4 F H 117 H 17 130/79 94 L 10/26/19 15:34 10/26/19 15:34 10/26/19 15:34 10/26/19 15:34 10/26/19 15:34 - Physical Exam 10/26/19 16:27 GENERAL: The patient is awake, alert, and fully oriented, in no acute distress. HEAD: Normal with no signs of trauma. EYES: sclera anicteric, conjunctiva clear. ENT: Ears normal tympanic membranes normal oropharynx clear uvula midline NECK: Normal range of motion LUNGS: Breath sounds equal, clear to auscultation bilaterally. No wheezes, and no crackles. HEART: S1 and S2 without murmur, rub or gallop. ABDOMEN: Soft, nontender, normoactive bowel sounds. No guarding, no rebound. No masses. EXTREMITIES: Normal range of motion, no edema. No clubbing or cyanosis. No cords, erythema, or tenderness. NEUROLOGICAL: Cranial nerves II through XII grossly intact. Normal speech, normal gait. PSYCH: Normal mood, normal affect. SKIN: Warm, Dry, normal turgor, no rashes or lesions noted. ED Treatment Course - RADIOLOGY Radiology Studies Ordered: Category Date Time Status CHEST PA & LAT [RAD] Stat Radiology 10/26/19 15:57 Completed - Medications Given in the ED: ED Medications Discontinued Medications Generic Name Dose Route Start Last Admin Trade Name Luis A PRN Reason Stop Dose Admin Ibuprofen 600 mg 10/26/19 15:38 10/26/19 15:59 Motrin - PO 10/26/19 15:39 600 mg ONCE ONE Administration Medical Decision Making - Medical Decision Making 10/26/19 16:27 Right upper lobe infiltrate on chest x-ray today Zithromax Mucinex Discharge - Discharge Information Problems reviewed: Yes Clinical Impression/Diagnosis: Fever, Pneumonia Condition: Stable Disposition: HOME - Admission No - Additional Discharge Information Prescriptions: Azithromycin [Zithromax -] 250 mg PO UTDICT #6 tab Guaifenesin Dm [Mucinex Dm -] 1 tab PO BID #60 tab.er.12h - Follow up/Referral Referrals: Kingston Mera MD [Staff Physician] - - Patient Discharge Instructions Additional Instructions: Please start the antibiotics and take them as directed. Take Mucinex as directed. Tylenol Motrin as directed for fevers. Return to the emergency room for worsening symptoms. Without fail follow-up with primary care physician in 2 to 3 days for further evaluation and treatment options. - Post Discharge Activity
== END 2019-10-26 16:44 | disposition home or self-care (01) ==
LOC: JERFT 15:14
DX: J18.9 Pneumonia, unspecified organism (principal); Z88.0 Allergy status to penicillin; Z88.2 Allergy status to sulfonamides
CPT/HCPCS: 71046-TC-FY; 87804; 99281-25

== ENCOUNTER 2020-04-24 07:32 | Inpatient (IN) | payer OTHER ==
[2020-04-24 07:37] VITALS: BMI 28.8
--- NOTE | 2020-04-24 07:40 | PDOC ---
Rapid Medical Evaluation Chief Complaint: Shortness of Breath Time Seen by Provider: 04/24/20 07:37 Medical Evaluation: Allergies Allergy/AdvReac Type Severity Reaction Status Date / Time Penicillins Allergy Verified 10/26/19 15:36 sulfamethoxazole Allergy Rash Verified 10/26/19 15:36 [From Bactrim] trimethoprim [From Bactrim] Allergy Rash Verified 10/26/19 15:36 Vital Signs Temp Pulse Resp BP Pulse Ox 99.9 F H 102 H 18 123/71 99 04/24/20 07:35 04/24/20 07:35 04/24/20 07:35 04/24/20 07:35 04/24/20 07:35 04/24/20 07:38 I have performed a brief in-person evaluation of this patient. The patient presents with a chief complaint of: h/o HIV non-complaint with PELAYO meds for 6 months now present with complains of fever, SOB and sweats since yesterday. pt report he has not taken HIV meds because he lost his insurance 6 months ago Pertinent physical exam findings: diaphoretic, afebrile. lungs CTAB, cardio, RRR I have ordered the following: covid test, ekg, CXR The patient will proceed to the ED for further evaluation. Discharge Disposition - Diagnosis SOB (shortness of breath) - Discharge Dispostion Condition at time of disposition: Stable - Referrals - Patient Instructions - Post Discharge Activity
[2020-04-24] MEDS ORDERED: SODIUM CHLORIDE 2,585 ML IV ONE (07:58)
--- NOTE | 2020-04-24 07:59 | PDOC ---
Attending Attestation - Resident Resident Name: ChapaBrady - ED Attending Attestation I have performed the following: I have examined & evaluated the patient, The case was reviewed & discussed with the resident, I agree w/resident's findings & plan, Exceptions are as noted - HPI HPI: 04/24/20 07:54 39YOM with h/o HIV (states he is non-adherent to HAART for the past ~6 months because his insurance stopped paying for it) who p/w pleuritic left lower chest pain, malaise, f/c, up to 102 oral temp a home and took Tylenol before coming to the ED. States this feels the same as his prior pneumonia. Denies n/v/d/c, n/t/w, OLMOS, back pain, syncope, abdominal pain, dysuria, lightheadedness/dizziness, or any other new symptoms. - Physicial Exam PE: 04/24/20 07:56 GENERAL: well-appearing adult male, A/Ox4, no distress, answers questions appropriately HEENT: PERRLA, EOMI, moist mucous membranes NECK/BACK: no midline ttp, no spinal stepoff or deformity, no hematoma, full ROM, neck supple CARDIOVASCULAR: regular rate/rhythm, no MGR, strong peripheral pulses, capillary refill <2 seconds, extremities wwp, no edema LUNGS/RESPIRATORY: no respiratory distress, CTAB GI/ABDOMEN: symmetric [id number], normoactive BS, soft, no ttp, no midline pulsatile masses : no CVA tenderness MSK/EXTREMITIES: no muscle atrophy, no acute deformity SKIN: warm and dry, no pallor, no jaundice, no rash, no pathologic-appearing bruising, no skin breakdown, no cuts, no lesions NEUROLOGICAL: GCS 15, CN II-XII grossly intact, 5/5 strength proximally and distally, no facial droop - Medical Decision Making 04/24/20 07:57 39YOM with likely poorly controlled HIV p/w left pleuritic chest pain, f/c, malaise. Initial Vital Signs Temp Pulse Resp BP Pulse Ox 99.9 F H 102 H 18 123/71 99 04/24/20 07:35 04/24/20 07:35 04/24/20 07:35 04/24/20 07:35 04/24/20 07:35 Holding off on rectal temp given possibility for neutropenic fever. DDX includes but not limited to PNA, bronchitis, viral URI/viral syndrome, COVID-19 infection, UTI, unlikely PE with normal O2 sats and not prior history or other risk factors. Will get labs, CXR, EKG, possibly other imaging, plan for admission given nonadherence to HIV regimen + fever + tachycardia. Laboratory Results 04/24/20 04/24/20 04/24/20 09:30 08:05 08:05 Sodium Potassium Chloride Carbon Dioxide Anion Gap BUN Creatinine Est GFR (CKD-EPI)AfAm Est GFR (CKD-EPI)NonAf Random Glucose Lactic Acid 1.8 Calcium Total Bilirubin AST ALT Alkaline Phosphatase Creatine Kinase 116 Troponin I < 0.02 Total Protein Albumin Urine Color Yellow Urine Appearance Clear Urine pH 6.5 Ur Specific Griffin 1.010 Urine Protein Negative Urine Glucose (UA) Negative Urine Ketones Negative Urine Blood Negative Urine Nitrite Negative Urine Bilirubin Negative Urine Urobilinogen 1.0 Ur Leukocyte Esterase Negative 04/24/20 08:05 Sodium 133 L Potassium 3.6 Chloride 103 Carbon Dioxide 23 Anion Gap 6 L BUN 13.8 Creatinine 0.9 Est GFR (CKD-EPI)AfAm 122.52 Est GFR (CKD-EPI)NonAf 105.71 Random Glucose 142 H Lactic Acid Calcium 8.1 L Total Bilirubin 0.7 AST 38 H ALT 51 Alkaline Phosphatase 124 H Creatine Kinase Troponin I Total Protein 7.3 Albumin 2.8 L Urine Color Urine Appearance Urine pH Ur Specific Griffin Urine Protein Urine Glucose (UA) Urine Ketones Urine Blood Urine Nitrite Urine Bilirubin Urine Urobilinogen Ur Leukocyte Esterase 04/24/20 08:05 RBC 4.45 MCV 90.9 MCHC 34.0 RDW 13.7 D MPV 9.0 Neutrophils % 50.0 D Lymphocytes % 27.7 D Monocytes % 21.6 H Eosinophils % 0.2 D Basophils % 0.5 CXR: Nothing acute Heart Score/ECG Review - History History: Slightly suspicious - Electrocardiogram EKG: Non specific repolarization disturbance - Age Age: </= 45 - Risk Factors Based on the list above the patient has:: No risk factors known - Troponin Troponin: </= normal limit - Score Heart Score - Total: 1 #1 04/24/20 08:04 Sinus rhythm, rate 96, normal axis and intervals, meets criteria for LVH likely normal variant. TWI in III same as prior EKGs, no pathologic ST-T changes. Discharge - Discharge Information Problems reviewed: Yes Clinical Impression/Diagnosis: Pleuritic pain, HIV (human immunodeficiency virus infection), Fever Condition: Stable - Follow up/Referral - Patient Discharge Instructions - Post Discharge Activity
--- NOTE | 2020-04-24 08:22 | PDOC ---
History of Present Illness - General Chief Complaint: Shortness of Breath Stated Complaint: SOB Time Seen by Provider: 04/24/20 07:37 History Source: Patient Exam Limitations: No Limitations - History of Present Illness Initial Comments: 04/24/20 08:10 39M PMH HIV not on HAART since Oct 2019 2/ insurance issue presenting with one day of left sided pleuritic but constant/nonradiating back pain and fevers (oral T 102F @ home). Took tylenol prior to coming to ED. Endorses prior similar episode 3 years ago - was admitted and treated for pneumonia. States he is able to get full breath of air but describes SOB as pain occasionally preventing a full breath. Currently denies anterior chest pain, chills, headaches, changes in vision/hearing, cough, sore throat, runny nose, GI pain, n/v/d. No known sick contacts or recent travel. No hx VTEs. 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 Atraumatic. [facility] clinic. No PCP Denies etoh, tobacco, drugs Allergies to sulfa and PCNs Past History - Medical History Allergies/Adverse Reactions: Allergies Allergy/AdvReac Type Severity Reaction Status Date / Time Penicillins Allergy Verified 10/26/19 15:36 sulfamethoxazole Allergy Rash Verified 10/26/19 15:36 [From Bactrim] trimethoprim [From Bactrim] Allergy Rash Verified 10/26/19 15:36 Home Medications: Ambulatory Orders Bictegrav/Emtricit/Tenofov Ala [Biktarvy 50-200-25 mg Tablet] 1 each PO DAILY 12/23/18 Darunavir/Cobicistat [Prezcobix 800 mg-150 mg Tablet] 1 each PO DAILY 12/23/18 Anemia: No Asthma: No Cancer: No Cardiac Disorders: No CVA: No COPD: No CHF: No Dementia: No Diabetes: No GI Disorders: No Disorders: No HTN: No Liver Disease: No Seizures: No Thyroid Disease: No - Surgical History Abdominal Surgery: No Appendectomy: No Cardiac Surgery: No Cholecystectomy: No Lung Surgery: No Neurologic Surgery: No Orthopedic Surgery: No - Immunization History Td Vaccination: Yes TDAP Vaccination: Yes Immunization Up to Date: Yes - Psycho-Social/Smoking History Smoking History: Never smoked Have you smoked in the past 12 months: No Number of Cigarettes Smoked Daily: 10 If you are a former smoker, when did you quit?: 2008 Cigars Per Day: 0 'Breaking Loose' booklet given: 07/02/17 - Substance Abuse Hx (Audit-C & DAST Scrn) How often the patient has a drink containing alcohol: Never Score: In Men: 4 or > Positive; In Women: 3 or > Positive: 0 Screen Result (Pos requires Nsg. Audit-10AR): Negative Review of Systems - Review of Systems Comments:: 04/25/20 00:26 CONSTITUTIONAL: Endorses fevers. Denies C HEENT: Denies headache, lightheadedness, dizziness, changes in vision / hearing, diplopia, blurry vision, sore throat, rhinorrhea RESP: endorses left pleuritic back pain. Denies cough, orthopnea, WALTER CARD: Denies chest pain, palpitations GI: Denies N / V / D, abdominal pain, inability to tolerate PO : Denies dysuria, hematuria, frequency NEURO: chronic tingling of LEs. MSK: + left sided back pain SKIN: Denies rashes *Physical Exam - Vital Signs Last Vital Signs Temp Pulse Resp BP Pulse Ox 99.9 F H 102 H 18 123/71 99 04/24/20 07:35 04/24/20 07:35 04/24/20 07:35 04/24/20 07:35 04/24/20 07:35 - Physical Exam 04/25/20 00:26 GEN: Well appearing, NAD, comfortable. AAOx3. HEENT: NC/AT, EOMI, PERRL. No facial asymmetry. Moist mucous membranes. Normal voice. Supple neck w/ FROM. CV: S1/S2, RRR, no m/r/g LUNG: No TTP of chest wall or back. CTAB, no wheezes, crackles, rales, rhonchi. GI: Soft, ndnt, +BS, no guarding, no rebound. MSK: No LE edema. No calf tenderness. No midline TTP. No obvious deformities of all extremities. SKIN: Warm to touch, dry, no rashes appreciated. PSYCH: Normal mood and affect. NEURO: Moving all extremities well; ambulates w/ normal gait. ED Treatment Course - LABORATORY CBC & Chemistry Diagram: 04/24/20 08:05 04/24/20 08:05 - Medications Given in the ED: ED Medications Discontinued Medications Generic Name Dose Route Start Last Admin Trade Name Luis A PRN Reason Stop Dose Admin Sodium Chloride 2,585 mls @ 1,292.5 mls/hr 04/24/20 07:58 04/24/20 08:08 Normal Saline - 30 ml/kg infuse over 2 hr (2585 ml) 04/24/20 09:57 Not Given IV ONCE ONE Medical Decision Making - Medical Decision Making 04/25/20 00:26 39M PMH HIV not on HAART presenting with one day of left sided pleuritic back pain. Essentially febrile on exam. DDX - PNA, covid, URI; unlikely ACS, VTE - sepsis labs - cultures - EKG - CXR - likely admit given HIV not on HAART and likely infectious etiology 04/24/20 08:46 EKG 08:04:48 NSR, intervals nl, no ST/E 04/24/20 10:41 labs reviewed WBC typically lower than todays UA neg admit given HIV, fevers, relatively elevated WBC 04/24/20 11:10 endorsed to MAR Discharge - Discharge Information Problems reviewed: Yes Clinical Impression/Diagnosis: Pleuritic pain, HIV (human immunodeficiency virus infection), Fever Condition: Stable - Admission Yes - Follow up/Referral - Patient Discharge Instructions - Post Discharge Activity
[2020-04-24 08:54] LABS: BASO % 0.5 % (0-2.0); EOS % 0.2 % (0-4.5); HEMATOCRIT 40.4 % (35.4-49); HEMOGLOBIN 13.7 GM/dL (11.7-16.9); LYMPH % 27.7 % (8-40); MCH 30.9 pg (25.7-33.7); MEAN CELL VOLUME 90.9 fl (80-96); MONO % 21.6 % (3.8-10.2); PLATELET COUNT 168 K/MM3 (134-434); RBC 4.45 M/mm3 (4.00-5.60); RDW 13.7 % (11.9-15.9); WHITE BLOOD COUNT 7.3 K/mm3 (4.0-10.0)
[2020-04-24 09:24] LABS: ALBUMIN 2.8 g/dl (3.4-5.0); BILIRUBIN,TOTAL 0.7 mg/dL (0.2-1); BLOOD UREA NITROGEN 13.8 mg/dL (7-18); CALCIUM 8.1 mg/dL (8.5-10.1); CREATININE 0.9 mg/dL (0.55-1.3); POTASSIUM 3.6 mmol/L (3.5-5.1); TOT PROT 7.3 g/dl (6.4-8.2)
--- NOTE | 2020-04-24 09:33 | EKG ---
Test Reason : Blood Pressure : / mmHG Vent. Rate : 096 BPM Atrial Rate : 096 BPM P-R Int : 140 ms QRS Dur : 086 ms QT Int : 332 ms P-R-T Axes : 066 073 035 degrees QTc Int : 419 ms NORMAL SINUS RHYTHM MINIMAL VOLTAGE CRITERIA FOR LVH, MAY BE NORMAL VARIANT BORDERLINE ECG WHEN COMPARED WITH ECG OF 02-JAN-2019 09:01, NO SIGNIFICANT CHANGE WAS FOUND Confirmed by Sukhi Ansari ([id number]) on 04/24/2020 9:32:22 AM Referred By: Confirmed By:Sukhi Ansari
[2020-04-24 10:34] LABS: PH,URINE 6.5 (5.0-8.0); URINE APPEARANCE CLEAR; URINE BILIRUBIN NEGATIVE (NEGATIVE); URINE COLOR YELLOW; URINE GLUCOSE (UA) NEGATIVE (NEGATIVE); URINE KETONE NEGATIVE (NEGATIVE); URINE LEUK ESTERASE NEGATIVE (NEGATIVE); URINE NITRITE NEGATIVE (NEGATIVE); URINE PROTEIN NEGATIVE (NEGATIVE)
[2020-04-24 11:26] LABS: ANISOCYTOSIS 0; HELMET CELLS 0; HOWELL-JOLLY BODIES 0; MACROCYTOSIS 0; OVALOCYTE 0; PLATELET ESTIMATE DECREASED; ROULEAU 0; SICKELED CELLS 0; TARGET CELLS 0; TEAR DROP CELLS 0; TOXIC GRANULATION 0
[2020-04-24] MEDS ORDERED: DOCUSATE SODIUM 100 MG CAPSULE (FP) PO PRN (12:25)
--- NOTE | 2020-04-24 12:25 | HP ---
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 Woke up drenched in sweat despite having airconditioner at 67F overnight. Took acetaminophen which provided relief. Had a frontal OLMOS this morning. Had dull Left upper back pain which was similar to when he had a PNA a few years back. Was concerned of PNA or other infection so he drove to the ED. For past week, has been feeling an anal lump which is similar to his old hemorrhoids. Has not taken any HAART medications since Oct 2019, due to losing his insurance. Denies chills, cough, sputum production, SOB, swollen LNs, diarrhea. 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 Has been doing house-calls. Last house-call was two days prior to admission, which was uneventful. Denies COVID history, or COVID contact. Thinks the last time he received azithromycin was over a year ago. Doesn't recall getting a crytpococcus infection. Doesn't know how he got HIV. Denies IVDU, transfusions, MSM. ER course was notable for: (1) Tmax 99.9F(pt took acetaminophen prior to admission), HR 102, (2) WBC 7.3, LA 1.8 (3) Na 133 (4) AST/ALT 38/51 (5) CXR: no acute chest pathology Recent Travel: PAST MEDICAL HISTORY: as above PAST SURGICAL HISTORY: hemorrhoidectomy esophageal "surgery" Social History: Smokin pack-year, quick 2ys prior Alcohol: social Drugs: denies Allergies Penicillins Allergy (Verified 10/26/19 15:36) sulfamethoxazole [From Bactrim] Allergy (Verified 10/26/19 15:36) Rash trimethoprim [From Bactrim] Allergy (Verified 10/26/19 15:36) Rash HOME MEDICATIONS: Home Medications Medication Instructions Recorded Bictegrav/Emtricit/Tenofov Ala 1 each PO DAILY 12/23/18 [Biktarvy 50-200-25 mg Tablet] Darunavir/Cobicistat [Prezcobix 1 each PO DAILY 12/23/18 800 mg-150 mg Tablet] REVIEW OF SYSTEMS CONSTITUTIONAL: fever Absent: chills, diaphoresis, generalized weakness, malaise, loss of appetite, weight change HEENT: Absent: rhinorrhea, nasal congestion, throat pain, throat swelling, difficulty swallowing, mouth swelling, ear pain, eye pain, visual changes CARDIOVASCULAR: Absent: chest pain, syncope, palpitations, irregular heart rate, lightheadedness, peripheral edema RESPIRATORY: Absent: cough, shortness of breath, dyspnea with exertion, orthopnea, wheezing, stridor, hemoptysis GASTROINTESTINAL: Absent: abdominal pain, abdominal distension, nausea, vomiting, diarrhea, constipation, melena, hematochezia GENITOURINARY: Absent: dysuria, frequency, urgency, hesitancy, hematuria, flank pain, genital pain MUSCULOSKELETAL: left-sided upper back soreness, all over muscle aches, joint pain Absent: arthralgia, joint swelling, back pain, neck pain SKIN: Absent: rash, itching, pallor HEMATOLOGIC/IMMUNOLOGIC: Absent: easy bleeding, easy bruising, lymphadenopathy, frequent infections ENDOCRINE: Absent: unexplained weight gain, unexplained weight loss, heat intolerance, cold intolerance NEUROLOGIC: Absent: headache, focal weakness or paresthesias, dizziness, unsteady gait, seizure, mental status changes, bladder or bowel incontinence PSYCHIATRIC: Absent: anxiety, depression, suicidal or homicidal ideation, hallucinations. PHYSICAL EXAMINATION Vital Signs - 24 hr 04/24/20 04/24/20 04/24/20 07:35 08:20 10:40 Temperature 99.9 F H Pulse Rate 102 H 92 H Pulse Rate [ Left Radial] Respiratory 18 Rate Blood Pressure 123/71 Blood Pressure [Right Arm] O2 Sat by Pulse 99 97 98 Oximetry (%) 04/24/20 10:54 Temperature 98.7 F Pulse Rate Pulse Rate [ 86 Left Radial] Respiratory 20 Rate Blood Pressure Blood Pressure 127/71 [Right Arm] O2 Sat by Pulse 98 Oximetry (%) GENERAL: well-appearing. NAD HEAD: no temporal wasting EYES: anicteric, no conjunctival pallor EARS, NOSE, THROAT: no pharyngeal exudate, no lingual or sublinguinal plaques. Missing teeth NECK: Neg cervical LAD LUNGS: CTA b/l, no wheezes/crackles HEART: normal S1, S2; no murmurs ABD: soft, ND, neg TTP [id number]. Neg inguinal LAD. Tenderness with percussing CVA RECTAL: multiple pedunculated external anal skin lesions that are nonTTP, no active bleeding. Neg rectal nodules noted EXTR: normal muscle bulk, no pitting edema, 2+ DP b/l NEURO: 5/5 upper and lower strength. Neg kernig's, neg brudzinski sign Laboratory Results - last 24 hr 04/24/20 04/24/20 04/24/20 08:05 08:05 08:05 WBC 7.3 RBC 4.45 Hgb 13.7 Hct 40.4 MCV 90.9 MCH 30.9 MCHC 34.0 RDW 13.7 D Plt Count 168 D MPV 9.0 Absolute Neuts (auto) 3.7 Neutrophils % 50.0 D Neutrophils % (Manual) 14.3 L D Band Neutrophils % 0.0 Lymphocytes % 27.7 D Lymphocytes % (Manual) 62.2 H D Monocytes % 21.6 H Monocytes % (Manual) 13 H Eosinophils % 0.2 D Eosinophils % (Manual) 0.0 D Basophils % 0.5 Basophils % (Manual) 0.0 Myelocytes % (Man) 4 H D Promyelocytes % (Man) 0 Blast Cells % (Manual) 0 Nucleated RBC % 0 Metamyelocytes 3 H D Hypochromia 0 Toxic Granulation 0 Dohle Bodies 0 Platelet Estimate Decreased Polychromasia 0 Poikilocytosis 0 Basophilic Stippling 0 Anisocytosis 0 Microcytosis 0 Macrocytosis 0 Spherocytes 0 Sickle Cells 0 Target Cells 0 Tear Drop Cells 0 Ovalocytes 0 Stomatocytes 0 Helmet Cells 0 Bartholomew-Dolliver Bodies 0 [place] Rings 0 [place] Cells 0 Acanthocytes (Spur) 0 Rouleaux 0 Fragmented RBCs 0 Schistocytes 0 Sodium 133 L Potassium 3.6 Chloride 103 Carbon Dioxide 23 Anion Gap 6 L BUN 13.8 Creatinine 0.9 Est GFR (CKD-EPI)AfAm 122.52 Est GFR (CKD-EPI)NonAf 105.71 Random Glucose 142 H Lactic Acid 1.8 Calcium 8.1 L Total Bilirubin 0.7 AST 38 H ALT 51 Alkaline Phosphatase 124 H Creatine Kinase Troponin I Total Protein 7.3 Albumin 2.8 L Urine Color Urine Appearance Urine pH Ur Specific [place] Urine Protein Urine Glucose (UA) Urine Ketones Urine Blood Urine Nitrite Urine Bilirubin Urine Urobilinogen Ur Leukocyte Esterase 04/24/20 04/24/20 08:05 09:30 WBC RBC Hgb Hct MCV MCH MCHC RDW Plt Count MPV Absolute Neuts (auto) Neutrophils % Neutrophils % (Manual) Band Neutrophils % Lymphocytes % Lymphocytes % (Manual) Monocytes % Monocytes % (Manual) Eosinophils % Eosinophils % (Manual) Basophils % Basophils % (Manual) Myelocytes % (Man) Promyelocytes % (Man) Blast Cells % (Manual) Nucleated RBC % Metamyelocytes Hypochromia Toxic Granulation Dohle Bodies Platelet Estimate Polychromasia Poikilocytosis Basophilic Stippling Anisocytosis Microcytosis Macrocytosis Spherocytes Sickle Cells Target Cells Tear Drop Cells Ovalocytes Stomatocytes Helmet Cells Bartholomew-Dolliver Bodies [place] Rings Ramiro Cells Acanthocytes (Spur) Rouleaux Fragmented RBCs Schistocytes Sodium Potassium Chloride Carbon Dioxide Anion Gap BUN Creatinine Est GFR (CKD-EPI)AfAm Est GFR (CKD-EPI)NonAf Random Glucose Lactic Acid Calcium Total Bilirubin AST ALT Alkaline Phosphatase Creatine Kinase 116 Troponin I < 0.02 Total Protein Albumin Urine Color Yellow Urine Appearance Clear Urine pH 6.5 Ur Specific [place] 1.010 Urine Protein Negative Urine Glucose (UA) Negative Urine Ketones Negative Urine Blood Negative Urine Nitrite Negative Urine Bilirubin Negative Urine Urobilinogen 1.0 Ur Leukocyte Esterase Negative ASSESSMENT/PLAN: 39M w/ pmh of HIV(h/o AIDS of CD4 16 in Nov 2018; first dx 2007), Hepatitis B, h/o esophageal candidiasis, h/o cryptococcus, h/o neutropenia, h/o ext hemorrhoids sp ?hemorrhoidectomy([facility], 1-2ys prior) presenting w/ complaint of fever to 102.5F(oral) w/a Left-sided upper back pain x1d that is slightly worse with deep breaths. Has not been on HAART meds x6mo. Admitted for SIRS(home fever, tachy) and Fever w/u. #SIRS w/ no obvious infectious source > Tmax 99.9F(pt took acetaminophen prior to admission), HR 102, > WBC 7.3, LA 1.8 > CXR neg > UA neg > BCX --pending - abx regimen: --HOLDING Abx for now, as there is no obvious source and not displaying signs of opportunistic infections --low threshold to get CT chest/A/P to evaluate for source of infection if pt has recurrent fever --low threshold to start broad spectrum abx - ID consult(Milad): --recs pending #chronic HIV, off meds --pt at risk of strain mutation > HIV viral load --pending > CD4 count --pending - HAART regimen: --formerly on Biktarvy --HOLDING HAART until genotype - ID consult(Milad) #elevated LFTs --formerly, Hep positive > AST/ALT 38/51 - fu Hep B - trend CMP #hyponatremia --unknown cause, less likely from legionella > Na 133 > CXR: no acute chest pathology - fu Legionella Ur Ag FEN - no mIVF - regular diet DVT PPX - lovenox Family Medical History Other Family History: mother with arthritis Visit type - Emergency Visit Emergency Visit: Yes ED Registration Date: 04/24/20 Care time: The patient presented to the Emergency Department on the above date and was hospitalized for further evaluation of their emergent condition. - New Patient This patient is new to me today: Yes Date on this admission: 04/24/20 - Critical Care Critical Care patient: No ATTENDING PHYSICIAN STATEMENT I saw and evaluated the patient. I reviewed the resident's note and discussed the case with the resident. I agree with the resident's findings and plan as documented. SUBJECTIVE: OBJECTIVE: ASSESSMENT AND PLAN:
--- NOTE | 2020-04-24 13:10 | PN ---
Teaching Attending Note Name of Resident: Jan Mcdonnell ATTENDING PHYSICIAN STATEMENT I saw and evaluated the patient. I reviewed the resident's note and discussed the case with the resident. I agree with the resident's findings and plan as documented. SUBJECTIVE: This is a 39 y/o M with Hx of HIV currently off his medication due to insurance issues, follows in ID clinic in [place], who presents with a fever and L Flank pain x 3 days duration. Patient state that the pain does not radiate, nothing makes it better/worse, describes it as a sharp pain that is constantly there. Patient denies any constitutional symptoms such as nausea/vomiting, chills, diarrhea, constipation at this time. Denies any urinary symptoms He state that he had something similar a few years ago and was diagnose with PNA. He reports having shingles in the past REVIEW OF SYSTEMS CONSTITUTIONAL: Absent: generalized weakness, malaise, loss of appetite, weight change +Fever, chills, diaphoresis HEENT: Absent: rhinorrhea, nasal congestion, throat pain, throat swelling, difficulty swallowing, mouth swelling, ear pain, eye pain, visual changes CARDIOVASCULAR: Absent: chest pain, syncope, palpitations, irregular heart rate, lightheadedness, peripheral edema RESPIRATORY: Absent: cough, shortness of breath, dyspnea with exertion, orthopnea, wheezing, stridor, hemoptysis GASTROINTESTINAL: Absent: abdominal pain, abdominal distension, nausea, vomiting, diarrhea, constipation, melena, hematochezia GENITOURINARY: Absent: dysuria, frequency, urgency, hesitancy, hematuria, flank pain, genital pain MUSCULOSKELETAL: Absent: myalgia, arthralgia, joint swelling, back pain, neck pain SKIN: Absent: rash, itching, pallor HEMATOLOGIC/IMMUNOLOGIC: Absent: easy bleeding, easy bruising, lymphadenopathy, frequent infections ENDOCRINE: Absent: unexplained weight gain, unexplained weight loss, heat intolerance, cold intolerance NEUROLOGIC: Absent: headache, focal weakness or paresthesias, dizziness, unsteady gait, seizure, mental status changes, bladder or bowel incontinence PSYCHIATRIC: Absent: anxiety, depression, suicidal or homicidal ideation, hallucinations. 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 HEAD: Normal with no signs of trauma. EYES: Pupils equal, round and reactive to light, extraocular movements intact, sclera anicteric, conjunctiva clear. No lid lag. EARS, NOSE, THROAT: Ears normal, nares patent, oropharynx clear without exudates. Moist mucous membranes. NECK: Normal range of motion, supple without lymphadenopathy, JVD, or masses. LUNGS: Breath sounds equal, clear to auscultation bilaterally. No wheezes, and no crackles. No accessory muscle use. HEART: Regular rate and rhythm, normal S1 and S2 without murmur, rub or gallop. ABDOMEN: Soft, nontender, not distended, normoactive bowel sounds, no guarding, no rebound, no masses. No hepatomegaly or splenomegaly. MUSCULOSKELETAL: Normal range of motion at all joints. No bony deformities or tenderness. No CVA tenderness. UPPER EXTREMITIES: 2+ pulses, warm, well-perfused. No cyanosis. No clubbing. No peripheral edema. LOWER EXTREMITIES: 2+ pulses, warm, well-perfused. No calf tenderness. No peripheral edema. NEUROLOGICAL: Cranial nerves II-XII intact. Normal speech. Normal gait. PSYCHIATRIC: Cooperative. Good eye contact. Appropriate mood and affect. SKIN: Warm, dry, normal turgor, no rashes or lesions noted, normal capillary refill. ASSESSMENT AND PLAN: SIRS: T Max 102.5 at home Unclear etiology at this time Check urine legionella Ag Hold off on CT C/A/P at this time pending results of blood cultures Low threshold to start Abx Check MRSA Swab Check CD 4, Viral Load, Genotype ID consultation for assistance in management patient's Sx can be due to Shingles, but no rash visible at this time Rest of plan as per resident note.
--- NOTE | 2020-04-24 16:22 | PN ---
Progress Note (short form) - Note Progress Note: ID consult dictated imp/reccd 39 yo man with HIV (no meds since Oct)- only mom knows his diagnosis developed acute onset of fever yesterday, with left flank pain now reports some cough and sob no sick contacts no nausea or diarrhea no dysuria no rash crackles left base- suspect early left basilar pneumonia hiv- on no meds, follows at [facility] history of hepatitis B denies history of TB check covid pcr ISOLATE PLEASE CONTACT [facility] FOR DETAILS OF HIS CARE Problem List - Problems (1) Fever Code(s): R50.9 - FEVER, UNSPECIFIED (2) Pneumonia Code(s): J18.9 - PNEUMONIA, UNSPECIFIED ORGANISM (3) HIV (human immunodeficiency virus infection) Code(s): B20 - HUMAN IMMUNODEFICIENCY VIRUS [HIV] DISEASE (4) Hepatitis B surface antigen positive Code(s): R76.8 - OTHER SPECIFIED ABNORMAL IMMUNOLOGICAL FINDINGS IN SERUM
[2020-04-24] MEDS: ACETAMINOPHEN 500 MG TABLET (FP) PO PRN ×2 (16:26→22:30)
[2020-04-24] MEDS ORDERED: DEXTROSE 5%-WATER 100 ML IVPB ONE (17:36)
[2020-04-24] MEDS: AZITHROMYCIN IVPB 500 MG/250 ML BAG IVPB SCH ×2 (17:46→21:51)
[2020-04-24] MEDS: CEFTRIAXONE 2 GM in DEXTROSE 5%-WATER 100 ML IVPB SCH (17:46)
[2020-04-25] MEDS: ACETAMINOPHEN 500 MG TABLET (FP) PO PRN ×2 (04:56→14:00)
[2020-04-25 07:11] LABS: BASO % 0.5 % (0-2.0); EOS % 0.1 % (0-4.5); HEMATOCRIT 38.9 % (35.4-49); HEMOGLOBIN 13.4 GM/dL (11.7-16.9); LYMPH % 30.7 % (8-40); MCH 31.6 pg (25.7-33.7); MCHC 34.5 g/dl (32.0-35.9); MEAN CELL VOLUME 91.7 fl (80-96); MEAN PLT VOLUME 9.3 fl (7.5-11.1); MONO % 20.7 % (3.8-10.2); PLATELET COUNT 153 K/MM3 (134-434); RBC 4.24 M/mm3 (4.00-5.60); RDW 13.5 % (11.9-15.9)
[2020-04-25 07:32] LABS: ALBUMIN 2.4 g/dl (3.4-5.0); BILIRUBIN,TOTAL 0.6 mg/dL (0.2-1); CALCIUM 7.4 mg/dL (8.5-10.1); MAGNESIUM 2.1 mg/dL (1.8-2.4); PHOSPHOROUS 2.1 mg/dL (2.5-4.9); POTASSIUM 3.5 mmol/L (3.5-5.1)
[2020-04-25] MEDS ORDERED: NAPH,MB-DB/K PH,MBDB POWDER PACKET PO ONE (09:14)
[2020-04-25] MEDS ORDERED: DEXTROSE 5%-WATER 100 ML IVPB ONE (09:25)
[2020-04-25] MEDS: ENOXAPARIN NA (PORCINE) 40 MG/0.4 ML DISP.SYRIN SQ SCH (09:41)
[2020-04-25] MEDS: AZITHROMYCIN IVPB 500 MG/250 ML BAG IVPB SCH (09:43)
[2020-04-25] MEDS: CEFTRIAXONE 2 GM in DEXTROSE 5%-WATER 100 ML IVPB SCH (09:43)
[2020-04-25 11:08] LABS: ANISOCYTOSIS 0; MACROCYTOSIS 0; PLATELET ESTIMATE DECREASED
--- NOTE | 2020-04-25 12:45 | PN ---
Progress Note, Physician History of Present Illness: SUPINE IN BED NO COMPLAINTS BREATHING NON LABORED REMAINS FEBRILE AWAITING CT SCAN - Current Medication List Current Medications: Active Medications Acetaminophen (Tylenol -) 500 mg PO Q6H PRN PRN Reason: FEVER Last Admin: 04/25/20 04:56 Dose: 500 mg Documented by: Docusate Sodium (Colace -) 100 mg PO BID PRN PRN Reason: CONSTIPATION Enoxaparin Sodium (Lovenox -) 40 mg SQ DAILY JULISA Last Admin: 04/25/20 09:41 Dose: 40 mg Documented by: Azithromycin (Zithromax 500mg Ivpb (Pre-Docked)) 500 mg in 250 mls @ 250 mls/hr IVPB DAILY JULISA Last Admin: 04/25/20 09:43 Dose: 250 mls/hr Documented by: Ceftriaxone Sodium 2 gm/ (Dextrose) 100 mls @ 200 mls/hr IVPB DAILY JULISA; Protocol Last Admin: 04/25/20 09:43 Dose: 200 mls/hr Documented by: - Objective Vital Signs: Vital Signs Temperature 99.3 F 04/25/20 09:33 Pulse Rate 98 H 04/25/20 09:33 Respiratory Rate 19 04/25/20 09:33 Blood Pressure 115/65 04/25/20 09:33 O2 Sat by Pulse Oximetry (%) 99 04/25/20 09:00 Constitutional: Yes: No Distress Eyes: Yes: Conjunctiva Clear Cardiovascular: Yes: Regular Rate and Rhythm, S1, S2 Respiratory: Yes: Rales Gastrointestinal: Yes: Normal Bowel Sounds, Soft. No: Tenderness Labs: CBC, BMP 04/25/20 06:00 04/25/20 06:00 Assessment/Plan HIV/AIDS R/O PNEUMONIA AWAIT C/S FOR CT SCANS CHECK CD4
--- NOTE | 2020-04-25 16:32 | PN ---
Physical Exam: SUBJECTIVE: Patient seen and examined Patient was seen at bedside. Patient denies fevers, chills and nausea. Patient reports resolution of back pain. Patient endorses 1 episode of diarrhea OBJECTIVE: Vital Signs Period Temp Pulse Resp BP Sys/Harrington Pulse Ox Last 24 Hr 99.2 F-103.1 F 98-118 17-19 106-125/54-65 97-99 GENERAL: The patient is awake, alert, and fully oriented, in no acute distress. HEAD: Normal with no signs of trauma. EYES: PERRL, extraocular movements intact, sclera anicteric, conjunctiva clear. No ptosis. ENT: Ears normal, nares patent, oropharynx clear without exudates, moist mucous membranes. NECK: Trachea midline, full range of motion, supple. LUNGS: Breath sounds equal, clear to auscultation bilaterally, no wheezes, no crackles, no accessory muscle use. HEART: Regular rate and rhythm, S1, S2 without murmur, rub or gallop. ABDOMEN: Soft, nontender, nondistended, normoactive bowel sounds, no guarding, no rebound, no hepatosplenomegaly, no masses. EXTREMITIES: 2+ pulses, warm, well-perfused, no edema. NEUROLOGICAL: Cranial nerves II through XII grossly intact. Normal speech, gait not observed. PSYCH: Normal mood, normal affect. SKIN: Warm, dry, normal turgor, no rashes or lesions noted Laboratory Results - last 24 hr 04/24/20 04/24/20 04/25/20 08:05 14:25 06:00 WBC 8.2 8.0 RBC 4.24 Hgb 13.4 Hct 38.9 MCV 91.7 MCH 31.6 MCHC 34.5 RDW 13.5 Plt Count 153 MPV 9.3 Absolute Neuts (auto) 3.8 Absolute Lymphs (auto) 3.0 Neutrophils % 48.0 Neutrophils % (Manual) 40.4 L D Band Neutrophils % 1.0 Lymphocytes % 30.7 Lymphocytes % (Manual) 32.3 D Monocytes % 20.7 H Monocytes % (Manual) 20 H Eosinophils % 0.1 Eosinophils % (Manual) 1.0 D Basophils % 0.5 Basophils % (Manual) 0.0 Myelocytes % (Man) 0 D Promyelocytes % (Man) 0 Blast Cells % (Manual) 0 Nucleated RBC % 1 H Lymphocytes 36 Metamyelocytes 0 D Nucleated RBCs TNP Hypochromia 0 Platelet Estimate Decreased Polychromasia 0 Poikilocytosis 0 Anisocytosis 0 Microcytosis 0 Macrocytosis 0 Sodium Potassium Chloride Carbon Dioxide Anion Gap BUN Creatinine Est GFR (CKD-EPI)AfAm Est GFR (CKD-EPI)NonAf Random Glucose Calcium Phosphorus Magnesium Total Bilirubin AST ALT Alkaline Phosphatase Total Protein Albumin TSH Free T4 Absolute CD3 Count 2364 % CD3+ Lymphocytes 78.8 Absolute CD4 [place] 165 L % CD4+ Lymphocyte 5.5 L CD4/CD8 Ratio 0.08 L % CD8+ Lymphocyte 72.0 H Absolute CD8 Count 2160 H COVID-19 (AKIRA) Not detected 04/25/20 06:00 WBC RBC Hgb Hct MCV MCH MCHC RDW Plt Count MPV Absolute Neuts (auto) Absolute Lymphs (auto) Neutrophils % Neutrophils % (Manual) Band Neutrophils % Lymphocytes % Lymphocytes % (Manual) Monocytes % Monocytes % (Manual) Eosinophils % Eosinophils % (Manual) Basophils % Basophils % (Manual) Myelocytes % (Man) Promyelocytes % (Man) Blast Cells % (Manual) Nucleated RBC % Lymphocytes Metamyelocytes Nucleated RBCs Hypochromia Platelet Estimate Polychromasia Poikilocytosis Anisocytosis Microcytosis Macrocytosis Sodium 131 L Potassium 3.5 Chloride 100 Carbon Dioxide 22 Anion Gap 10 BUN 14.0 Creatinine 1.0 Est GFR (CKD-EPI)AfAm 107.87 Est GFR (CKD-EPI)NonAf 93.07 Random Glucose 192 H Calcium 7.4 L Phosphorus 2.1 L Magnesium 2.1 Total Bilirubin 0.6 AST 32 ALT 41 Alkaline Phosphatase 117 Total Protein 7.0 Albumin 2.4 L TSH 0.01 L D Free T4 1.69 H Absolute CD3 Count % CD3+ Lymphocytes Absolute CD4 [place] % CD4+ Lymphocyte CD4/CD8 Ratio % CD8+ Lymphocyte Absolute CD8 Count COVID-19 (AKIRA) Active Medications Generic Name Dose Route Start Last Admin Trade Name Freq PRN Reason Stop Dose Admin Acetaminophen 500 mg 04/24/20 15:24 04/25/20 14:00 Tylenol - PO 500 mg Q6H PRN Administration FEVER Docusate Sodium 100 mg 04/24/20 12:25 Colace - PO BID PRN CONSTIPATION Enoxaparin Sodium 40 mg 04/25/20 10:00 04/25/20 09:41 Lovenox - SQ 40 mg DAILY JULISA Administration Azithromycin 500 mg in 250 mls @ 250 mls/hr 04/24/20 16:45 04/25/20 09:43 Zithromax 500mg Ivpb (Pre-Docked) IVPB 250 mls/hr DAILY JULISA Administration Ceftriaxone Sodium 2 gm/ 100 mls @ 200 mls/hr 04/24/20 16:45 04/25/20 09:43 Dextrose IVPB 200 mls/hr DAILY JULISA Administration Protocol ASSESSMENT/PLAN: Edita is a 39M w h/o HIV (last HAART dose in oct), HBV, esophageal candidiasis presents to the hospital with a fever of 102, night sweats, and left sided back pain. #Fever - ? pneumonia - treated with ceftriaxone & azithromycin -Infectious disease consulted - last HAART medication dose taken in october due to inability to receive prescription medication - Last CD4 count 169 Nov - requested ID records from [facility] visit - patient reported x1 episode of diarrhea - watery #hyperthyroidism -Free T4 - 1.69 - TSH 0.01 - Consulted endocrinology - D/c levothyroxine #DVT PPX - Lovenox subq Visit type - Emergency Visit Emergency Visit: Yes ED Registration Date: 04/24/20 Care time: The patient presented to the Emergency Department on the above date and was hospitalized for further evaluation of their emergent condition. - New Patient This patient is new to me today: Yes Date on this admission: 04/25/20 - Critical Care Critical Care patient: No - Discharge Referral Referred to [facility] No ATTENDING PHYSICIAN STATEMENT I saw and evaluated the patient. I reviewed the resident's note and discussed the case with the resident. I agree with the resident's findings and plan as documented. SUBJECTIVE: OBJECTIVE: ASSESSMENT AND PLAN:
--- NOTE | 2020-04-25 17:37 | PN ---
Teaching Attending Note Name of Resident: Ruslan Gamboa ATTENDING PHYSICIAN STATEMENT I saw and evaluated the patient. I reviewed the resident's note and discussed the case with the resident. I agree with the resident's findings and plan as documented. SUBJECTIVE: No further L flank pain. Ongoing fever. No cough/sputum/hemoptysis. No CP. Reports 1 episode of loose stool this AM. OBJECTIVE: Febrile, Tmax 103.1, Hemodynamically Stable. Last Vital Signs Temp Pulse Resp BP Pulse Ox 103.0 F H 109 H 19 125/65 97 04/25/20 14:00 04/25/20 14:00 04/25/20 14:00 04/25/20 14:00 04/25/20 14:00 HEENT - Atraumatic, Normocephalic. Heart - S1, S2, RRR Lungs - clear to auscultation Abdomen - Soft, non-tender. Bowel Sounds normal. Extremities - no edema, no calf tenderness. Neuro - AAO x 3. Tone/Power normal all extremities. Laboratory Results - last 24 hr 04/24/20 04/24/20 04/25/20 08:05 14:25 06:00 WBC 8.2 8.0 RBC 4.24 Hgb 13.4 Hct 38.9 MCV 91.7 MCH 31.6 MCHC 34.5 RDW 13.5 Plt Count 153 MPV 9.3 Absolute Neuts (auto) 3.8 Absolute Lymphs (auto) 3.0 Neutrophils % 48.0 Neutrophils % (Manual) 40.4 L D Band Neutrophils % 1.0 Lymphocytes % 30.7 Lymphocytes % (Manual) 32.3 D Monocytes % 20.7 H Monocytes % (Manual) 20 H Eosinophils % 0.1 Eosinophils % (Manual) 1.0 D Basophils % 0.5 Basophils % (Manual) 0.0 Myelocytes % (Man) 0 D Promyelocytes % (Man) 0 Blast Cells % (Manual) 0 Nucleated RBC % 1 H Lymphocytes 36 Metamyelocytes 0 D Nucleated RBCs TNP Hypochromia 0 Platelet Estimate Decreased Polychromasia 0 Poikilocytosis 0 Anisocytosis 0 Microcytosis 0 Macrocytosis 0 Sodium Potassium Chloride Carbon Dioxide Anion Gap BUN Creatinine Est GFR (CKD-EPI)AfAm Est GFR (CKD-EPI)NonAf Random Glucose Calcium Phosphorus Magnesium Total Bilirubin AST ALT Alkaline Phosphatase Total Protein Albumin TSH Free T4 Absolute CD3 Count 2364 % CD3+ Lymphocytes 78.8 Absolute CD4 [place] 165 L % CD4+ Lymphocyte 5.5 L CD4/CD8 Ratio 0.08 L % CD8+ Lymphocyte 72.0 H Absolute CD8 Count 2160 H COVID-19 (AKIRA) Not detected 04/25/20 06:00 WBC RBC Hgb Hct MCV MCH MCHC RDW Plt Count MPV Absolute Neuts (auto) Absolute Lymphs (auto) Neutrophils % Neutrophils % (Manual) Band Neutrophils % Lymphocytes % Lymphocytes % (Manual) Monocytes % Monocytes % (Manual) Eosinophils % Eosinophils % (Manual) Basophils % Basophils % (Manual) Myelocytes % (Man) Promyelocytes % (Man) Blast Cells % (Manual) Nucleated RBC % Lymphocytes Metamyelocytes Nucleated RBCs Hypochromia Platelet Estimate Polychromasia Poikilocytosis Anisocytosis Microcytosis Macrocytosis Sodium 131 L Potassium 3.5 Chloride 100 Carbon Dioxide 22 Anion Gap 10 BUN 14.0 Creatinine 1.0 Est GFR (CKD-EPI)AfAm 107.87 Est GFR (CKD-EPI)NonAf 93.07 Random Glucose 192 H Calcium 7.4 L Phosphorus 2.1 L Magnesium 2.1 Total Bilirubin 0.6 AST 32 ALT 41 Alkaline Phosphatase 117 Total Protein 7.0 Albumin 2.4 L TSH 0.01 L D Free T4 1.69 H Absolute CD3 Count % CD3+ Lymphocytes Absolute CD4 [place] % CD4+ Lymphocyte CD4/CD8 Ratio % CD8+ Lymphocyte Absolute CD8 Count COVID-19 (AKIRA) Current Medications Generic Name Dose Route Start Last Admin Trade Name Freq PRN Reason Stop Dose Admin Acetaminophen 500 mg 04/24/20 15:24 04/25/20 14:00 Tylenol - PO 500 mg Q6H PRN Administration FEVER Docusate Sodium 100 mg 04/24/20 12:25 Colace - PO BID PRN CONSTIPATION Enoxaparin Sodium 40 mg 04/25/20 10:00 04/25/20 09:41 Lovenox - SQ 40 mg DAILY JULISA Administration Azithromycin 500 mg in 250 mls @ 250 mls/hr 04/24/20 16:45 04/25/20 09:43 Zithromax 500mg Ivpb (Pre-Docked) IVPB 250 mls/hr DAILY JULISA Administration Ceftriaxone Sodium 2 gm/ 100 mls @ 200 mls/hr 04/24/20 16:45 04/25/20 09:43 Dextrose IVPB 200 mls/hr DAILY JULISA Administration Protocol Home Medications Medication Instructions Recorded Bictegrav/Emtricit/Tenofov Ala 1 each PO DAILY 12/23/18 [Biktarvy 50-200-25 mg Tablet] Darunavir/Cobicistat [Prezcobix 1 each PO DAILY 12/23/18 800 mg-150 mg Tablet] ASSESSMENT AND PLAN: 39 year old male with history of HIV/AIDS (self stopped HIV meds), Hepatitis B, prior history of esophageal candidiasis, presents with fever and L Flank pain. Fever ongoing, flank pain resolved. 1. Fever secondary to Pneumonia in patient with HIV/AIDS (self stopped HIV meds) CD [address] A/P - LLL infiltrate ?bacterial vs aspergillosis, no acute intra-abdominal findings CT T/L spine - no abscess. Urine Cx and Blood cx negative. Empirically treated for Community Acquired Pneumonia with Ceftriaxone/Azithromycin Further management as per ID. Records requested from [facility]. If any further diarrhea, will send Cdiff and Stool Cx. 2. Hyperthyroidism - new diagnosis TSH 0.01/free T4 1.69 Consult Endocrinology. 3. Hypophosphatemia - repleted. DVT Px - Lovenox SQ
[2020-04-25] MEDS ORDERED: POTASSIUM PHOSPHATE 15 MM in SODIUM CHLORIDE 250 ML IVPB ONE (17:39)
[2020-04-26] MEDS: ACETAMINOPHEN 500 MG TABLET (FP) PO PRN ×2 (05:40→16:07)
[2020-04-26] MEDS ORDERED: LEVOTHYROXINE NA 25 MCG TABLET (FP) PO SCH (07:00)
[2020-04-26 07:06] LABS: BASO % 0.4 % (0-2.0); EOS % 0.2 % (0-4.5); HEMATOCRIT 40.5 % (35.4-49); HEMOGLOBIN 13.9 GM/dL (11.7-16.9); LYMPH % 29.6 % (8-40); MCH 30.9 pg (25.7-33.7); MCHC 34.3 g/dl (32.0-35.9); MEAN CELL VOLUME 90.2 fl (80-96); MONO % 19.2 % (3.8-10.2); NEUT % 50.6 % (42.8-82.8); PLATELET COUNT 177 K/MM3 (134-434); RBC 4.49 M/mm3 (4.00-5.60); RDW 13.5 % (11.9-15.9)
[2020-04-26 07:31] LABS: ALBUMIN 2.5 g/dl (3.4-5.0); BILIRUBIN,TOTAL 0.5 mg/dL (0.2-1); CALCIUM 7.8 mg/dL (8.5-10.1); CREATININE 0.9 mg/dL (0.55-1.3); MAGNESIUM 2.3 mg/dL (1.8-2.4); PHOSPHOROUS 2.8 mg/dL (2.5-4.9); POTASSIUM 3.4 mmol/L (3.5-5.1); TOT PROT 7.3 g/dl (6.4-8.2)
[2020-04-26] MEDS ORDERED: POTASSIUM CHLORIDE TABS 20 MEQ TABLET.ER (FP) PO ONE ×2 (07:35→12:00)
[2020-04-26] MEDS ORDERED: KCL 10 MEQ IVPB 10 MEQ/100 ML INFUS.BAG IVPB SCH (07:45)
[2020-04-26] MEDS ORDERED: DEXTROSE 5%-WATER 100 ML IVPB ONE (08:50)
[2020-04-26] MEDS ORDERED: PT OWN MED DRAWER 7, Y5N ONE (08:51)
[2020-04-26] MEDS: AZITHROMYCIN IVPB 500 MG/250 ML BAG IVPB SCH (09:03)
[2020-04-26] MEDS: CEFTRIAXONE 2 GM in DEXTROSE 5%-WATER 100 ML IVPB SCH (09:04)
[2020-04-26] MEDS: ENOXAPARIN NA (PORCINE) 40 MG/0.4 ML DISP.SYRIN SQ SCH (09:04)
[2020-04-26] MEDS: AZITHROMYCIN 250 MG TABLET PO SCH (10:29)
--- NOTE | 2020-04-26 11:35 | PN ---
Progress Note (short form) - Note Progress Note: denies cough, chest pain has resolved still some fevers but feeling better no sob Vital Signs Period Temp Pulse Resp BP Sys/Harrington Pulse Ox Last 24 Hr 98.5 F-102.8 F 91-101 16-20 101-117/48-66 98-98 cor-rrr lungs decreased bs at left base with crackles abd soft,nt ext no edema CBC, BMP 04/26/20 06:42 04/26/20 06:42 Microbiology 04/24/20 18:32 Nares - Mrsa Screen - Left MRSA Screen - Final NO MRSA ISOLATED 04/24/20 18:39 Nares - Mrsa Screen - Right MRSA Screen - Final NO MRSA ISOLATED 04/24/20 08:05 Blood - Peripheral Venous Blood Culture - Preliminary NO GROWTH OBTAINED AFTER 48 HOURS, INCUBATION TO CONTINUE FOR 3 DAYS. 04/24/20 08:05 Blood - Peripheral Venous Blood Culture - Preliminary NO GROWTH OBTAINED AFTER 48 HOURS, INCUBATION TO CONTINUE FOR 3 DAYS. 04/24/20 09:30 Urine - Urine Clean Catch Urine Culture - Final NO GROWTH OBTAINED 04/24/20 19:30 Urine For Antigen Detection Legionella Antigen - Final 04/24/20 19:30 Urine For Antigen Detection Streptococcus pneumoniae Antigen (M - Final Laboratory Tests 04/24/20 14:25 Absolute CD4 [place] 165 L covid pcr negative imp/reccd 39 yo man with HIV (no meds since Oct)- only mom knows his diagnosis developed acute onset of fever yesterday, with left flank pain RLL pneumonia- check ct scan, aspergillus galactommanan, fungitell continue rocephin/zithromax, consider pulmonary consult based on ct findings, ?need for bronch hiv- on no meds, follows at [facility]-cd4 165, start mepron for pcp prophylaxis history of hepatitis B-serologies pending denies history of TB Problem List - Problems (1) Fever Code(s): R50.9 - FEVER, UNSPECIFIED (2) Pneumonia Code(s): J18.9 - PNEUMONIA, UNSPECIFIED ORGANISM (3) HIV (human immunodeficiency virus infection) Code(s): B20 - HUMAN IMMUNODEFICIENCY VIRUS [HIV] DISEASE (4) Hepatitis B surface antigen positive Code(s): R76.8 - OTHER SPECIFIED ABNORMAL IMMUNOLOGICAL FINDINGS IN SERUM
--- NOTE | 2020-04-26 14:32 | CONSULT ---
Consult Consult Specialty:: Endocrine Referred by:: Dr.George Kwon Reason for Consultation:: hyperthyroidism - History of Present Illness Chief Complaint: heat intolerant History of Present Illness: 39M w/ pmh of HIV(h/o AIDS of CD4 16 in Nov 2018; first dx 2007), Hepatitis B, h/o esophageal candidiasis, h/o cryptococcus, h/o neutropenia, h/o ext hemorrhoids sp ?hemorrhoidectomy([facility], 1-2ys prior) presented with compl aint of fever to 102.5F(oral) w/a Left-sided upper back pain x1d. night sweats,has difficulty gaining weight,feeling on edge,restless,anxious + - Past Medical History Infectious Disease: Yes: AIDS, HIV - Alcohol/Substance Use Hx Alcohol Use: No - Smoking History Smoking history: Never smoked Have you smoked in the past 12 months: No Aproximately how many cigarettes per day: 10 If you are a former smoker, when did you quit?: 2008 Home Medications - Allergies Allergies/Adverse Reactions: Allergies Allergy/AdvReac Type Severity Reaction Status Date / Time Penicillins Allergy Verified 10/26/19 15:36 sulfamethoxazole Allergy Rash Verified 10/26/19 15:36 [From Bactrim] trimethoprim [From Bactrim] Allergy Rash Verified 10/26/19 15:36 - Home Medications Home Medications: Ambulatory Orders Bictegrav/Emtricit/Tenofov Ala [Biktarvy 50-200-25 mg Tablet] 1 each PO DAILY 12/23/18 Darunavir/Cobicistat [Prezcobix 800 mg-150 mg Tablet] 1 each PO DAILY 12/23/18 Review of Systems - Review of Systems Constitutional: reports: Lethargy, Malaise, Night Sweats, Unintentional Wgt. Loss, Weakness Eyes: reports: No Symptoms HENT: reports: No Symptoms Neck: reports: No Symptoms Cardiovascular: reports: Palpitations, Shortness of Breath Respiratory: reports: Exercise Intolerance, SOB, SOB on Exertion Gastrointestinal: reports: Bloating, Nausea Genitourinary: reports: No Symptoms Breasts: reports: No Symptoms Reported Musculoskeletal: reports: Muscle Pain, Muscle Cramps, Muscle Weakness Neurological: reports: Numbness, Tremors Hematology/Lymphatic: reports: No Symptoms Psychiatric: reports: Altered Sleep Pattern, Anxiety Physical Exam Vital Signs: Vital Signs Temperature 98.5 F 07/15/20 07:16 Pulse Rate 101 H 04/26/20 05:59 Respiratory Rate 18 04/26/20 05:59 Blood Pressure 117/66 04/26/20 05:59 O2 Sat by Pulse Oximetry (%) 98 04/26/20 09:00 Constitutional: Yes: Anxious Labs: CBC, BMP 04/26/20 06:42 04/26/20 06:42 Problem List - Problems (1) Hyperthyroidism Code(s): E05.90 - THYROTOXICOSIS, UNSP WITHOUT THYROTOXIC CRISIS OR STORM Assessment/Plan Current Active Problems hyperthyroidism clinical evidence Laboratory Tests 04/25/20 06:00 Albumin 2.4 L TSH 0.01 L D Free T4 1.69 H Abnormal Lab Results 04/24/20 04/26/20 04/26/20 14:25 06:42 06:42 Monocytes % 19.2 H Sodium 133 L Potassium 3.4 L Random Glucose 144 H Calcium 7.8 L Alkaline Phosphatase 119 H Albumin 2.5 L TSH 0.01 L Free T4 1.56 H Absolute CD4 [place] 165 L % CD4+ Lymphocyte 5.5 L CD4/CD8 Ratio 0.08 L % CD8+ Lymphocyte 72.0 H Absolute CD8 Count 2160 H Fever (Acute) Hepatitis B surface antigen positive (Acute) Pleuritic pain (Acute) HIV (human immunodeficiency virus infection) (Chronic) plan: given risk and benefit of methimazole therapy will repeat tfts check tsi tpo start methimazole 5mg po bid patient aware need for repeat tsh free t4 and monitor blood count given hepatic,and bone marrow possible effects
--- NOTE | 2020-04-26 15:31 | PN ---
Teaching Attending Note Name of Resident: Ruslan Gamboa ATTENDING PHYSICIAN STATEMENT I saw and evaluated the patient. I reviewed the resident's note and discussed the case with the resident. I agree with the resident's findings and plan as documented. SUBJECTIVE: No further L flank or back pain. Ongoing fever. No cough/sputum/hemoptysis. No CP. No further episodes of loose stool. OBJECTIVE: Febrile, Tmax 102.8, Hemodynamically Stable. Last Vital Signs Temp Pulse Resp BP Pulse Ox 100.1 F H 95 H 18 101/51 L 98 04/26/20 13:00 04/26/20 13:00 04/26/20 13:00 04/26/20 13:00 04/26/20 13:00 Heart - S1, S2, RRR Lungs - clear to auscultation Abdomen - Soft, non-tender. Bowel Sounds normal. Extremities - no edema, no calf tenderness. Neuro - AAO x 3. Tone/Power normal all extremities. Laboratory Results - last 24 hr 04/26/20 04/26/20 06:42 06:42 WBC 7.0 RBC 4.49 Hgb 13.9 Hct 40.5 MCV 90.2 MCH 30.9 MCHC 34.3 RDW 13.5 Plt Count 177 MPV 9.0 Absolute Neuts (auto) 3.5 Neutrophils % 50.6 Lymphocytes % 29.6 Monocytes % 19.2 H Eosinophils % 0.2 D Basophils % 0.4 Nucleated RBC % 0 Sodium 133 L Potassium 3.4 L Chloride 101 Carbon Dioxide 24 Anion Gap 8 BUN 12.0 Creatinine 0.9 Est GFR (CKD-EPI)AfAm 122.52 Est GFR (CKD-EPI)NonAf 105.71 Random Glucose 144 H Calcium 7.8 L Phosphorus 2.8 Magnesium 2.3 Total Bilirubin 0.5 AST 36 ALT 45 Alkaline Phosphatase 119 H Total Protein 7.3 Albumin 2.5 L TSH 0.01 L Free T4 1.56 H Current Medications Generic Name Dose Route Start Last Admin Trade Name Freq PRN Reason Stop Dose Admin Acetaminophen 500 mg 04/24/20 15:24 04/26/20 05:40 Tylenol - PO 500 mg Q6H PRN Administration FEVER Azithromycin 500 mg 04/26/20 10:30 04/26/20 10:29 Zithromax - PO 500 mg DAILY JULISA Administration Bictegravir/Emtricitabine/Tenofovir 1 each 04/27/20 10:00 Biktarvy 50-200-25 Mg Tablet PO DAILY JULISA Enoxaparin Sodium 40 mg 04/25/20 10:00 04/26/20 09:04 Lovenox - SQ 40 mg DAILY JULISA Administration Ceftriaxone Sodium 2 gm/ 100 mls @ 200 mls/hr 04/24/20 16:45 04/26/20 09:04 Dextrose IVPB 200 mls/hr DAILY JULISA Administration Protocol Methimazole 5 mg 04/27/20 22:00 Tapazole - PO BID [facility] Home Medications Medication Instructions Recorded Bictegrav/Emtricit/Tenofov Ala 1 each PO DAILY 12/23/18 [Biktarvy 50-200-25 mg Tablet] Darunavir/Cobicistat [Prezcobix 1 each PO DAILY 12/23/18 800 mg-150 mg Tablet] ASSESSMENT AND PLAN: 39 year old male with history of HIV/AIDS (self stopped HIV meds), Hepatitis B, prior history of esophageal candidiasis, presents with fever and L Flank pain. Fever ongoing, flank pain resolved. 1. Fever secondary to Pneumonia in patient with HIV/AIDS (self stopped HIV meds) CD4 169 CT A/P - LLL infiltrate ?bacterial vs aspergillosis, no acute intra-abdominal findings CT T/L spine - no abscess. Urine Cx and Blood Cx negative. Empirically treated for Community Acquired Pneumonia with Ceftriaxone/Azithromycin Discussed with ID - recommend CT Chest and Aspergillosis serology before starting anti-fungal treatment. If any further diarrhea, will send Cdiff and Stool Cx. Resumed on HAART. 2. Hyperthyroidism - new diagnosis TSH 0.01/free T4 1.69 Endocrinology recommends starting Methimazole. Anti-NAVY DIVER Ab pending. 3. Hypokalemia - repleted. DVT Px - Lovenox SQ
--- NOTE | 2020-04-26 15:43 | PN ---
Physical Exam: SUBJECTIVE: Patient seen and examined. Patient reports undulating fevers with a fever spike at 5am and resolution of 98.5 at 7am. Patient reports night sweats and resolution of diarrhea. OBJECTIVE: Vital Signs Period Temp Pulse Resp BP Sys/Harrington Pulse Ox Last 24 Hr 98.5 F-102.8 F 91-101 16-20 101-117/48-66 98-98 GENERAL: The patient is awake, alert, and fully oriented, in no acute distress. HEAD: Normal with no signs of trauma. EYES: PERRL, extraocular movements intact, sclera anicteric, conjunctiva clear. No ptosis. ENT: Ears normal, nares patent, oropharynx clear without exudates, moist mucous membranes. NECK: Trachea midline, full range of motion, supple. LUNGS: Breath sounds equal, clear to auscultation bilaterally, no wheezes, no crackles, no accessory muscle use. HEART: Regular rate and rhythm, S1, S2 without murmur, rub or gallop. ABDOMEN: Soft, nontender, nondistended, normoactive bowel sounds, no guarding, no rebound, no hepatosplenomegaly, no masses. EXTREMITIES: 2+ pulses, warm, well-perfused, no edema. NEUROLOGICAL: Cranial nerves II through XII grossly intact. Normal speech, gait not observed. PSYCH: Normal mood, normal affect. SKIN: Warm, dry, normal turgor, no rashes or lesions noted Laboratory Results - last 24 hr 04/26/20 04/26/20 06:42 06:42 WBC 7.0 RBC 4.49 Hgb 13.9 Hct 40.5 MCV 90.2 MCH 30.9 MCHC 34.3 RDW 13.5 Plt Count 177 MPV 9.0 Absolute Neuts (auto) 3.5 Neutrophils % 50.6 Lymphocytes % 29.6 Monocytes % 19.2 H Eosinophils % 0.2 D Basophils % 0.4 Nucleated RBC % 0 Sodium 133 L Potassium 3.4 L Chloride 101 Carbon Dioxide 24 Anion Gap 8 BUN 12.0 Creatinine 0.9 Est GFR (CKD-EPI)AfAm 122.52 Est GFR (CKD-EPI)NonAf 105.71 Random Glucose 144 H Calcium 7.8 L Phosphorus 2.8 Magnesium 2.3 Total Bilirubin 0.5 AST 36 ALT 45 Alkaline Phosphatase 119 H Total Protein 7.3 Albumin 2.5 L TSH 0.01 L Free T4 1.56 H Active Medications Generic Name Dose Route Start Last Admin Trade Name Luis A PRN Reason Stop Dose Admin Acetaminophen 500 mg 04/24/20 15:24 04/26/20 05:40 Tylenol - PO 500 mg Q6H PRN Administration FEVER Azithromycin 500 mg 04/26/20 10:30 04/26/20 10:29 Zithromax - PO 500 mg DAILY JULISA Administration Bictegravir/Emtricitabine/Tenofovir 1 each 04/27/20 10:00 Biktarvy 50-200-25 Mg Tablet PO DAILY JULISA Enoxaparin Sodium 40 mg 04/25/20 10:00 04/26/20 09:04 Lovenox - SQ 40 mg DAILY JULISA Administration Ceftriaxone Sodium 2 gm/ 100 mls @ 200 mls/hr 04/24/20 16:45 04/26/20 09:04 Dextrose IVPB 200 mls/hr DAILY JULISA Administration Protocol Methimazole 5 mg 04/27/20 22:00 Tapazole - PO BID JULISA ASSESSMENT/PLAN: Edita is a 39M w h/o HIV (last HAART dose in oct), HBV, esophageal candidiasis presents to the hospital with a fever of 102, night sweats, and left sided back pain. #Fever - secondary to pneumonia - treated with ceftriaxone & azithromycin -Infectious disease consulted - Dr. Stinson - CTAP/& T/L spine - LLL infiltrats - aspirgilosis work up with testing - pending results - last HAART medication dose taken in october - Thoracic and lumbar - negative for para spinal abscess - due to inability to receive prescription medication - Last CD4 count 169 Nov - requested ID records from [facility] visit #hyperthyroidism -Free T4 - 1.69 - TSH 0.01 - Consulted endocrinology - 5mg PO methimazole - ANTI-ZA Ab requested #DVT PPX - Lovenox subq Visit type - Emergency Visit Emergency Visit: Yes ED Registration Date: 04/24/20 Care time: The patient presented to the Emergency Department on the above date and was hospitalized for further evaluation of their emergent condition. - New Patient This patient is new to me today: No - Critical Care Critical Care patient: No - Discharge Referral Referred to [facility] No ATTENDING PHYSICIAN STATEMENT I saw and evaluated the patient. I reviewed the resident's note and discussed the case with the resident. I agree with the resident's findings and plan as documented. SUBJECTIVE: OBJECTIVE: ASSESSMENT AND PLAN:
[2020-04-27] MEDS ORDERED: PT OWN MED DRAWER 7, Y5N ONE (08:51)
[2020-04-27] MEDS ORDERED: DEXTROSE 5%-WATER 100 ML IVPB ONE (08:52)
[2020-04-27] MEDS: AZITHROMYCIN 250 MG TABLET PO SCH (09:04)
[2020-04-27] MEDS: CEFTRIAXONE 2 GM in DEXTROSE 5%-WATER 100 ML IVPB SCH (09:04)
[2020-04-27] MEDS: ENOXAPARIN NA (PORCINE) 40 MG/0.4 ML DISP.SYRIN SQ SCH (09:05)
[2020-04-27] MEDS ORDERED: BICTEGRAV/EMTRICIT/TENOFOV (BIKTARVY) 50-200-25 MG TABLET PO SCH (10:00)
[2020-04-27] MEDS ORDERED: DARUNAVIR 800 MG/COBICISTAT 150MG TABLET PO SCH (10:00)
[2020-04-27 13:14] VITALS: BP 130/74; PULSE 88; TEMP 98.8
--- NOTE | 2020-04-27 13:50 | PN ---
Progress Note (short form) - Note Progress Note: denies cough, chest pain has resolved feels well Vital Signs Period Temp Pulse Resp BP Sys/Harrington Pulse Ox Last 24 Hr 98.1 F-99 F 82-91 16-18 104-130/50-74 95-98 cor-rrr lungs clear abd soft,nt ext no edema CBC, BMP 04/26/20 06:42 04/26/20 06:42 Microbiology 04/24/20 08:05 Blood - Peripheral Venous Blood Culture - Preliminary NO GROWTH OBTAINED AFTER 72 HOURS, INCUBATION TO CONTINUE FOR 2 DAYS. 04/24/20 08:05 Blood - Peripheral Venous Blood Culture - Preliminary NO GROWTH OBTAINED AFTER 72 HOURS, INCUBATION TO CONTINUE FOR 2 DAYS. 04/24/20 18:32 Nares - Mrsa Screen - Left MRSA Screen - Final NO MRSA ISOLATED 04/24/20 18:39 Nares - Mrsa Screen - Right MRSA Screen - Final NO MRSA ISOLATED 04/24/20 09:30 Urine - Urine Clean Catch Urine Culture - Final NO GROWTH OBTAINED 04/24/20 19:30 Urine For Antigen Detection Legionella Antigen - Final 04/24/20 19:30 Urine For Antigen Detection Streptococcus pneumoniae Antigen (M - Final covid pcr negative imp/reccd 39 yo man with HIV (no meds since Oct)- only mom knows his diagnosis LLL pneumonia- clinically improving, fevers resolved, feels well ct scan with LLL infiltrate- clinical improvement and chest ct c/w bacterial pneumonia, fungal serologies pending day #4 rocephin/zithromax can switch to po ceftin for another 3 days 500 mg po bid, zithromax for one more day hiv- started on his outpt HAART regimen- mepron resumed as well history of hepatitis B-serologies pending he is followed at [facility] HIV clinic- please arrange f/u for him there in one week Problem List - Problems (1) Fever Code(s): R50.9 - FEVER, UNSPECIFIED (2) Pneumonia Code(s): J18.9 - PNEUMONIA, UNSPECIFIED ORGANISM (3) HIV (human immunodeficiency virus infection) Code(s): B20 - HUMAN IMMUNODEFICIENCY VIRUS [HIV] DISEASE (4) Hepatitis B surface antigen positive Code(s): R76.8 - OTHER SPECIFIED ABNORMAL IMMUNOLOGICAL FINDINGS IN SERUM
--- NOTE | 2020-04-27 14:14 | PN ---
Teaching Attending Note Name of Resident: Ruslan Gamboa ATTENDING PHYSICIAN STATEMENT I saw and evaluated the patient. I reviewed the resident's note and discussed the case with the resident. I agree with the resident's findings and plan as documented. SUBJECTIVE: No further L flank or back pain. No ongoing fever. No cough/sputum/hemoptysis. No CP. No further episodes of loose stool. OBJECTIVE: tmax 100.1, Hemodynamically Stable. Last Vital Signs Temp Pulse Resp BP Pulse Ox 98.8 F 88 18 130/74 95 04/27/20 13:13 04/27/20 13:13 04/27/20 13:13 04/27/20 13:13 04/27/20 09:00 Heart - S1, S2, RRR Lungs - clear to auscultation Abdomen - Soft, non-tender. Bowel Sounds normal. Extremities - no edema, no calf tenderness. Neuro - AAO x 3. Tone/Power normal all extremities. Laboratory Results - last 24 hr 04/24/20 14:25 HIV-1 RNA (PCR) [id number] HIV-1 RNA (PCR) log10 5.731 Current Medications Generic Name Dose Route Start Last Admin Trade Name Freq PRN Reason Stop Dose Admin Acetaminophen 500 mg 04/24/20 15:24 04/26/20 16:07 Tylenol - PO 500 mg Q6H PRN Administration FEVER Atovaquone 1,500 mg 04/28/20 08:00 Mepron - PO DAILY@0800 JULISA Azithromycin 500 mg 04/26/20 10:30 04/27/20 09:04 Zithromax - PO 500 mg DAILY JULISA Administration Bictegravir/Emtricitabine/Tenofovir 1 each 04/27/20 10:00 04/27/20 09:06 Biktarvy 50-200-25 Mg Tablet PO 1 each DAILY JULISA Administration Enoxaparin Sodium 40 mg 04/25/20 10:00 04/27/20 09:05 Lovenox - SQ 40 mg DAILY JULISA Administration Ceftriaxone Sodium 2 gm/ 100 mls @ 200 mls/hr 04/24/20 16:45 04/27/20 09:04 Dextrose IVPB 200 mls/hr DAILY JULISA Administration Protocol Methimazole 5 mg 04/27/20 22:00 Tapazole - PO BID [facility] Home Medications Medication Instructions Recorded Bictegrav/Emtricit/Tenofov Ala 1 each PO DAILY 03/13/19 [Biktarvy 50-200-25 mg Tablet] Darunavir/Cobicistat [Prezcobix 1 each PO DAILY 12/23/18 800 mg-150 mg Tablet] Azithromycin [Zithromax] 500 mg PO DAILY #5 tablet 04/27/20 Cefpodoxime Proxetil [Vantin -] 200 mg PO Q12H #14 tablet 04/27/20 ASSESSMENT AND PLAN: 39 year old male with history of HIV/AIDS (self stopped HIV meds), Hepatitis B, prior history of esophageal candidiasis, presents with fever and L Flank pain. Fever ongoing, flank pain resolved. 1. Community Acquired Pneumonia in patient with HIV/AIDS (self stopped HIV meds) CD4 169 CT A/P - LLL infiltrate ?bacterial vs aspergillosis, no acute intra-abdominal findings CT T/L spine - no abscess. CT Chest - L 4 x3 cm opacity representing infiltrate. Urine Cx and Blood Cx negative. Fever resolved. Received 4 days IV Ceftriaxone/Azithromycin - to complete course as out-patient. Resumed on HAART and Mepron. Follow up with patient's ID clinic. 2. Hyperthyroidism - new diagnosis TSH 0.01/free T4 1.69 Endocrinology recommends starting Methimazole. Anti-ZA Ab pending. Endocrinology follow up as out-patient. 3. Hypokalemia - repleted. Medically Stable and optimized for discharge.
--- NOTE | 2020-04-27 16:01 | DS ---
Physical Exam: SUBJECTIVE: Patient seen and examined Patient seen and examined. Patient reports undulating fevers with a fever spike at 5am and resolution of 98.5 at 7am. Patient reports night sweats and resolution of diarrhea. OBJECTIVE: Vital Signs Period Temp Pulse Resp BP Sys/Harrington Pulse Ox Last 24 Hr 98.1 F-99 F 82-91 16-18 104-130/50-74 95-98 PHYSICAL EXAM GENERAL: The patient is awake, alert, and fully oriented, in no acute distress. HEAD: Normal with no signs of trauma. EYES: PERRL, extraocular movements intact, sclera anicteric, conjunctiva clear. ENT: Ears normal, nares patent, oropharynx clear without exudates, moist mucous membranes. NECK: Trachea midline, full range of motion, supple. LUNGS: Breath sounds equal, clear to auscultation bilaterally, no wheezes, no crackles, no accessory muscle use. HEART: Regular rate and rhythm, S1, S2 without murmur, rub or gallop. ABDOMEN: Soft, nontender, nondistended, normoactive bowel sounds, no guarding, no rebound, no hepatosplenomegaly, no masses. EXTREMITIES: 2+ pulses, warm, well-perfused, no edema. NEUROLOGICAL: Cranial nerves II through XII grossly intact. Normal speech, gait not observed. PSYCH: Normal mood, normal affect. SKIN: Warm, dry, normal turgor, no rashes or lesions noted. LABS Laboratory Results - last 24 hr 04/24/20 14:25 HIV-1 RNA (PCR) [id number] HIV-1 RNA (PCR) log10 5.731 HOSPITAL COURSE: Date of Admission:04/24/20 Mr. Kohler 39M presented to the ED for a fever of 102.5, drenching night sweats, and L sided later flank pain. The patient has a past medical history of Hepatitis B, esophageal candidiasis,cryptococcus, neutropenia, external hemorrhoids. During the patients stay, the patient was worked up by the infectious disease team (Dr. Castañeda and Dr. Stinson) for SIRS criteria and was found to have an early basilar pneumonia. Patient received antibiotic therapy for potential infection. Patient was worked up with CT scan of the chest, blood cultures, urine cultures and aspergillus cultures. Blood and urine cultures were negative and CD 4 count was 169 so patient was placed on PCP prophylaxis. Patient was also found to have concomittant hyperthyroidism on labs. Endocrino logy (Dr. Jose Gamboa) was consulted and placed the patient on methimazole for thyroid hormone management. The patients infection source was then confirmed on CT scan of the L lung base and will be treated via home ABX. The patients temperature was closely monitored for a 24 hour period and remained afebrile with no complaints. Patient will also follow up with the [facility] for HIV follow up. Date of Discharge: 04/27/20 Minutes to complete discharge: 40 Discharge Summary Problems reviewed: Yes Reason For Visit: FEVER,HIV INFECTION Current Active Problems HIV (human immunodeficiency virus infection) (Chronic) Hepatitis B surface antigen positive (Chronic) Hyperthyroidism (Chronic) Condition: Good - Instructions Diet, Activity, Other Instructions: YOUR VISIT: You were admitted to the hospital for a fever. While you were here we evaluated you with blood work, lab work, and imaging including a CAT scan of your lungs. The CAT scan had showed a pneumonia that caused your spike in fevers. The pneumonia was a result of your HIV and can be treated at home with antibiotics. You were evaluated by our specialists during your hospital course. We also found that your thyroid hormones were elevated and you were started on thyroid lowering medicine. You were also treated with fluids, antibiotics, and antivirals. You will need to follow up with your primary care doctor to manage your medication regimen. MEDICATIONS: Please START taking Methimazole 5 mg twice a day for THREE weeks starting tomorrow (starting on 04/28/2020-05/19/2020) Please START taking Ceftin 500 mg twice a day for THREE days starting tomorrow (starting on 04/28/2020-04/30/2020) Please START taking Azithromycin 500 mg once a day for ONE day starting tomorrow (starting on 04/28/2020) Please START taking Mepron 1500 mg daily starting tomorrow 04/28/2020 Please RESUME your HAART medications every day: Prezcobix 800mg-150mg & Biktarvy 50-200-25mg FOLLOW UP: Please follow up with your dimpling machine operator (Dr. Jose Gamboa) [phone] within 1 week for follow up on your thyroid levels. This physician currently does tele-medicine through video-chat or phone call. Please follow up within 1 week of discharge. Please follow up with Dr. Stinson's HIV clinic [phone] for your appointment at the [facility] -FridayApril AT 11:30 that we have arranged for you. Please follow up with your outpatient clinic at [facility] to follow up with your pneumonia status. Please follow up within 1 week of discharge. ADDITIONAL INFORMATION: You are being discharged to your home. Please return to the Emergency Department if you are experiencing worsening worsening pain, fevers, chills, shortness of breath or chest pain, or if you experience any worsening, new, or concerning symptoms. Referrals: [facility] [Outside] - 1 Week Le Stinson MD [Staff Physician] - 1 Week Jose Gamboa MD [Staff Physician] - 1 Week Disposition: HOME - Home Medications Comprehensive Discharge Medication List: Ambulatory Orders Bictegrav/Emtricit/Tenofov Ala [Biktarvy 50-200-25 mg Tablet] 1 each PO DAILY 12/23/18 Darunavir/Cobicistat [Prezcobix 800 mg-150 mg Tablet] 1 each PO DAILY 12/23/18 Atovaquone 1,500 mg PO DAILY #10 ml 04/27/20 Azithromycin [Zithromax Tri-Ashok (3 DAYS) -] 500 mg PO DAILY #1 tablet 04/27/20 Cefuroxime Axetil [Ceftin -] 500 mg PO Q12H #6 tablet 04/27/20 Methimazole 5 mg PO BID #42 tablet 04/27/20 - Discharge Referral Referred to [facility] No ATTENDING PHYSICIAN STATEMENT I saw and evaluated the patient. I reviewed the resident's note and discussed the case with the resident. I agree with the resident's findings and plan as documented. SUBJECTIVE: OBJECTIVE: ASSESSMENT AND PLAN:
[2020-04-27] MEDS ORDERED: METHIMAZOLE 5 MG TABLET (FP) PO SCH (22:00)
[2020-04-28] MEDS ORDERED: ATOVAQUONE 750 MG/5 ML (UNIT-DOSE PACKAGING) PO SCH (08:00)
[2020-04-29 08:09] LABS: HEP B CORE AB, TOT Positive (Negative)
== END 2020-04-27 17:15 | disposition home or self-care (01) | DRG 892 ==
LOC: JER 07:32 → JERBED 11:09 → J7W 12:12
PROVIDERS: ADMIT Internal Medicine
DX: J18.9 Pneumonia, unspecified organism (principal); B20 Human immunodeficiency virus [HIV] disease; B19.10 Unspecified viral hepatitis B without hepatic coma; R65.10 Systemic inflammatory response syndrome (SIRS) of non-infectious origin without acute organ dysfunction; E87.1 Hypo-osmolality and hyponatremia; E87.6 Hypokalemia; E05.90 Thyrotoxicosis, unspecified without thyrotoxic crisis or storm; Z91.19 Patient's noncompliance with other medical treatment and regimen; R50.9 Fever, unspecified; M54.9 Dorsalgia, unspecified; M25.50 Pain in unspecified joint; R19.7 Diarrhea, unspecified; E83.39 Other disorders of phosphorus metabolism; R63.4 Abnormal weight loss; Z68.29 Body mass index [BMI] 29.0-29.9, adult; F41.9 Anxiety disorder, unspecified
CPT/HCPCS: 36415; 71046-TC-FY; 71250-TC; 72129-TC; 72132-TC; 74177-TC; 80053; 81003; 82550; 83605; 83735; 84100; 84439; 84443; 84445; 84484; 85025; 86359; 86360; 86606; 86704; 86705; 86706; 86707; 87040; 87081; 87086; 87305; 87389; 87536; 87899; 93005; 93010; 99285-25; Q9967; U0003

== ENCOUNTER 2022-11-03 10:31 | Emergency (ER) | payer OTHER ==
[2022-11-03 10:36] VITALS: BP 159/100; PULSE 70; RESP 18; TEMP 98.3; BMI 27.3
[2022-11-03] MEDS ORDERED: IBUPROFEN 600 MG TABLET (FP) PO ONE ×2 (11:52→11:59)
== END 2022-11-03 12:00 | disposition home or self-care (01) ==
LOC: JERFT 10:31 → JER 10:31 → JERFT 12:00
DX: K08.89 Other specified disorders of teeth and supporting structures (principal)
CPT/HCPCS: 99283-25

== ENCOUNTER 2023-10-30 09:56 | Emergency (ER) | payer OTHER ==
[2023-10-30 10:02] VITALS: BP 115/67; PULSE 85; RESP 18; TEMP 97.8; BMI 27.3
== END 2023-10-30 11:19 | disposition home or self-care (01) ==
LOC: JERFT 09:56
DX: L03.115 Cellulitis of right lower limb (principal); L02.415 Cutaneous abscess of right lower limb
CPT/HCPCS: 87070; 87186; 87205; 99283-25

== ENCOUNTER 2023-11-16 15:57 | Emergency (ER) | payer OTHER ==
[2023-11-16 16:05] VITALS: RESP 18; TEMP 97.8; BMI 27.3
[2023-11-16] MEDS ORDERED: ACETAMINOPHEN 1000 MG/100 ML BAG IVPB ONE (16:44)
[2023-11-16] MEDS ORDERED: CLOTRIMAZOLE 1% CREAM TP ONE (16:48)
[2023-11-16] MEDS ORDERED: ACETAMINOPHEN INJECTION 100 ML IVPB ONE (17:07)
[2023-11-16 17:11] LABS: BASO % 1.1 % (0-2.0); EOS % 5.4 % (0-4.5); HEMATOCRIT 42.2 % (35.4-49); HEMOGLOBIN 14.7 GM/dL (11.7-16.9); LYMPH % 23.2 % (8-40); MCH 35.8 pg (25.7-33.7); MCHC 34.9 g/dl (32.0-35.9); MEAN CELL VOLUME 102.6 fl (80-96); MEAN PLT VOLUME 9.3 fl (7.5-11.1); MONO % 20.8 % (3.8-10.2); NEUT % 49.5 % (42.8-82.8); PLATELET COUNT 156 10^3/uL (134-434); RBC 4.11 M/mm3 (4.00-5.60); RDW 16.7 % (11.9-15.9)
[2023-11-16 17:17] LABS: INR 1.25 (0.83-1.09); PROTHROMBIN TIME (PATIENT) 14.5 SEC (9.7-13.0); WHITE BLOOD COUNT 1.5 K/mm3 (4.0-10.0)
[2023-11-16 17:19] LABS: ACTIVATED PTT 31.6 SECONDS (25.2-36.5)
[2023-11-16 17:27] LABS: POTASSIUM 3.9 mmol/L (3.5-5.1)
[2023-11-16 17:30] LABS: ALBUMIN 3.3 g/dl (3.4-5.0); BLOOD UREA NITROGEN 8.8 mg/dL (7-18); CALCIUM 7.7 mg/dL (8.5-10.1)
[2023-11-16 17:33] LABS: CREATININE 0.6 mg/dL (0.55-1.3)
[2023-11-16 17:34] LABS: BILIRUBIN,TOTAL 0.4 mg/dL (0.2-1); TOT PROT 6.5 g/dl (6.4-8.2)
[2023-11-16 19:41] VITALS: BP 126/80
[2023-11-16 19:42] VITALS: PULSE 78
[2023-11-16] MEDS ORDERED: CLINDAMYCIN HCL 150 MG CAPSULE (FP) PO ONE (20:31)
[2023-11-16] MEDS ORDERED: CLINDAMYCIN HCL 150 MG CAPSULE (FP) ONE (20:34)
== END 2023-11-16 20:45 | disposition home or self-care (01) ==
LOC: JER 15:57
PROC: 3E033NZ Introduction of Analgesics, Hypnotics, Sedatives into Peripheral Vein, Percutaneous Approach (ICD-10-PCS; principal; 2023-11-16)
DX: S71.101A Unspecified open wound, right thigh, initial encounter (principal); L03.115 Cellulitis of right lower limb; B20 Human immunodeficiency virus [HIV] disease
CPT/HCPCS: 36415; 73701-TC-RT; 80053; 85025; 85610; 85730; 86359; 86360; 99284-25; J0131; Q9967